=== PATIENT | female | born 1950 | race Hispanic/Latino ===

== ENCOUNTER 2020-06-20 11:54 | Emergency (ER) | payer MEDICARE, SELFPAY ==
[2020-06-20] VITALS (22 sets, daily range): BP systolic 107–208; BP diastolic 56–102; PULSE 62–95; RESP 12–20; TEMP 35.7; O2SAT 95–100
--- NOTE | ~2020-06-20 | CT_ITS ---
EXAMINATION: CT abdomen pelvis w con DATE: 06/20/2020 12:50 INDICATION: Epigastric abdominal pain for one week TECHNIQUE: Computed tomography (CT) of the abdomen and pelvis was performed with 100 cc Omnipaque 350 intravenous contrast. Automated exposure control and iterative reconstruction technique were employe d. Exam dose: 748.07 mGy-cm total exam DLP. COMPARISON: 06/18/2017 CT abdomen pelvis FINDINGS: The lung bases are clear of consolidation. Cardiomegaly. No pericardial or pleural effusion. Small sliding hiatal hernia. Status post cholecystectomy. This likely accounts for mild intrahepatic and extrahepatic bile duct pr ominence. No hepatic, splenic, pancreatic space-occupying mass lesion is evident. Small probable adenomas or hy pertrophy of the left adrenal glands are suggested, stable in appearance since 06/18/2017. Very small upper pole right renal cyst. The kidneys are otherwise unremarkable. Enlarged uterus with fibroid change, including almost 5 cm left fundic fibroid. There is diffuse mild thickening of the urinary bladder wall. There is extensive atherosclerotic calcification of the abdominal aorta and branches but no abdominal aortic aneurysm. No intraperitoneal or retroperitoneal or pelvic mass lesion or adenopathy or ascite s is detected. No bowel obstruction, bowel wall thickening, pneumatosis or intraperitoneal free air. No evidence of appendicitis. There is chronic anterior wedge compression fracture deformity of L1, unchanged since 06/18/2017. Diffuse osteopenia. There are degenerative changes of the thoracic and to a lesser extent the lumbar spine. IMPRESSION: Status post cholecystectomy Small sliding hiatal hernia Very small cortical right renal cyst Enlarged fibroid uterus Cardiomegaly Reviewed, dictated and finalized at [facility]. Reviewed, dictated and finalized at [facility].
--- NOTE | 2020-06-20 12:08 | ECG_ITS ---
Measurements Intervals [place] Rate: 89 P: 44 [place]: 168 QRS: 0 QRSD: 83 T: 33 QT: 346 QTc: 422 Interpretive Statements SINUS RHYTHM BORDERLINE ST ABNORMALITY- ANTEROLATERAL LEADS BASELINE ARTIFACT- I, II, AVR BORDERLINE ECG Electronically Signed On 06-20-2020 13:02:22 CDT by Jorgito Braden D.O.
[2020-06-20 12:21] LABS: Basophils Percent Auto 0.4 % (0.2-1.2); Eosinophils Absolute Auto 0.1 K/mm3 (0-0.3); Eosinophils Percent Auto 0.6 % (0-4.4); Hematocrit 38.7 % (37.0-47.0); Hemoglobin 13.1 g/dL (12.0-15.0); Immature Granulocyte Absolute 0.03 K/mm3 (0.00-0.031); Immature Granulocyte Percent A 0.3 % (0-0.5); Lymphocytes Absolute Auto 1.84 K/mm3 (0.9-3.2); Lymphocytes Percent Auto 18.9 % (18.3-44.2); Mean Corpuscular HGB Conc 33.9 g/dl (32-36); Mean Corpuscular Hemoglobin 30.8 pg (26-34); Mean Corpuscular Volume 91.1 fl (80-100); Mean Platelet Volume 11.5 fl (7.4-10.4); Monocytes Absolute Auto 0.5 K/mm3 (0.1-0.6); Monocytes Percent Auto 5.3 % (2.6-8.5); Neutrophils Absolute Auto 7.3 K/mm3 (1.3-6.7); Neutrophils Percent Auto 74.5 % (45.5-73.1); Platelet Count Result 210 k/mm3 (150-375); Red Blood Count 4.25 M/mm3 (4.2-5.4); Red Cell Distribution Width 12.6 % (11.5-14.5); White Blood Count 9.7 K/mm3 (4.5-10.0)
[2020-06-20 12:32] LABS: Anion Gap 12 mmol/L (8-16); Blood Urea Nitrogen 15 mg/dL (7-17); Calcium 9.6 mg/dL (8.4-10.2); Carbon Dioxide 27 mmol/L (22-30); Chloride 94 mmol/L (98-107); Estimated CRCL calculation 70 ml/min; Estimated Glomerular Filt Rate > 60; Glucose 272 mg/dL (65-105); Potassium 4.8 mmol/L (3.4-5.0); Sodium 133 mmol/L (137-145)
--- NOTE | 2020-06-20 12:32 | ED.GENADULT ---
HPI - General Adult General Chief complaint: Neuro Symptoms/Deficit Stated complaint: facial numbness and ESTES Time Seen by Provider: 06/20/20 12:11 Source: patient and family History of Present Illness HPI narrative: Patient is a 70 y/o female complaining of epigastric abdominal pain for approximately 1 week. Her pain radiates to back. She rates her pain as 10/10. She took Aspirin which did not help with her pain. She has some nausea, but no vomiting or diarrhea. She also some numbness on face, but denies weakness or numbness with her extremities. She is able to ambulate without difficulty. Of note, patient is non Thai speaking and her grandson is translating. Related Data Home Medications Medication Instructions Recorded Confirmed amlodipine 5 mg PO DAILY 06/20/20 atorvastatin [Lipitor] 80 mg PO DAILY 06/20/20 hydrochlorothiazide 12.5 mg PO DAILY 06/20/20 insulin glargine [Lantus U-100 33 unit SUBCUT DAILY 06/20/20 Insulin] levothyroxine [Euthyrox] 88 mcg PO DAILY 06/20/20 metoprolol tartrate 25 mg PO DAILY 06/20/20 Allergies Allergy/AdvReac Type Severity Reaction Status Date / Time No Known Allergies Allergy Verified 12/13/18 09:50 Review of Systems Constitutional: Constitutional: Denies chills, Denies fever(s), Denies headache(s) and Denies weakness Eyes: Eyes: Denies blurry vision ENT: Denies headache(s) and Denies neck pain Cardiovascular: Cardiovascular: Denies chest pain and Denies dyspnea Respiratory: Respiratory: Denies cough and Denies dyspnea Gastrointestinal: Gastrointestinal: Reports abdominal pain, Denies diarrhea, Reports nausea and Denies vomiting Genitourinary: Genitourinary: Denies hematuria and Denies dysuria Musculoskeletal: Musculoskeletal: Denies back pain and Denies neck pain Neurologic: Denies headache(s), Reports numbness and Denies weakness Exam Const: General: no acute distress and well developed Orientation/consciousness: oriented to person, oriented to place, oriented to time and patient oriented x3 HENMT: Head: normocephalic Ears: external ears normal General nose exam: Normal external nose present Eyes: General: appearance normal, both eyes and all related structures Conjunctivae: conjunctivae normal Neck: Neck: normal visual inspection and full ROM Chest: Chest palpation & inspection: normal inspection of the chest and no tenderness Resp: Effort & Inspection: normal respiratory effort Auscultation: clear to auscultation bilaterally Cardio: Rate: regular rate Rhythm: regular rhythm GI: GI Palp: Yes abdominal tenderness (epigastric) and Yes Soft to palpation Skin: General skin exam: normal color and turgor normal Neuro: General: oriented to person, oriented to place, oriented to time and patient oriented x3 Cognition (Neuro): normal cognition Extrem: General: normal to inspection, full ROM and no pedal edema Psych: Appearance: grossly normal Mental Status: mental status grossly normal Affect: normal affect Course Reevaluation(s) Reevaluation #1: Rechecked. Patient still has some abdominal pain. Discussed with patient about lab, CT findings, offered patient admission for observation and GI consultation. Patient declined and wanted to go home and do outpatient follow up. Date: 06/20/20 Time: 15:50 Vital Signs Vital signs: Vital Signs Temperature 35.7 C L 06/20/20 11:57 Pulse Rate 95 06/20/20 11:57 Respiratory Rate 06/20/20 11:57 Blood Pressure 208/102 H 06/20/20 11:57 Pulse Oximetry 100 06/20/20 11:57 Temperature 35.7 C L 06/20/20 11:57 Pulse Rate 72 06/20/20 16:08 Respiratory Rate 17 06/20/20 16:08 Blood Pressure 136/82 06/20/20 15:53 Pulse Oximetry 100 06/20/20 16:08 Medical Decision Making Vital Signs Vital Signs: Vital Signs Temperature 35.7 C L 06/20/20 11:57 Pulse Rate 95 06/20/20 11:57 Respiratory Rate 06/20/20 11:57 Blood Pressure 208/102 H 06/20/20 11:57 Pulse Oximetry 100
[2020-06-20] MEDS: BELLADONNA ALK/PHENOB ELIX 10 ML, MAG HYDROX/ALUMINUM HYD/SIMETH 30 ML, LIDOCAINE HCL 2... PO (13:00)
[2020-06-20 13:29] LABS: Lipase 62 U/L (23-300)
[2020-06-20 13:41] LABS: Alanine Aminotransferase 22 U/L (4-35); Albumin Level 4.6 g/dL (3.5-5.1); Alkaline Phosphatase 132 U/L (38-126); Aspartate Amino Transferase 35 U/L (14-36); Bilirubin,Total 0.6 mg/dL (0.2-1.3)
[2020-06-20 14:33] LABS: Add Urine Microscopic? YES; Appearance Urine Clear (Clear); Bilirubin Urine Negative (Negative); Blood Urine 1+ (Negative); Color Urine Colorless (Yellow); Glucose Urine UA 1+ mg/dL (Negative); Ketones Urine Negative (Negative); Leukocyte Esterase Ur Trace LEU/UL (Negative); Nitrate Urine Negative (Negative); Protein Urine Negative (Negative); RBC Urine 0-2 /hpf (0-2); Specific Grav Ur 1.029 (1.001-1.035); Urobilinogen Urine Negative mg/dL (<2.0); WBC Urine 0-3 /hpf
== END 2020-06-20 16:24 | disposition home or self-care (01) ==
PROVIDERS: Emergency Medicine; Emergency Provider Emergency Medicine
DX: R10.13 Epigastric pain (principal); R20.2 Paresthesia of skin; R94.31 Abnormal electrocardiogram [ECG] [EKG]
CPT/HCPCS: 36415; 74177; 80048; 80076; 81001; 83690; 85025; 93005; 99284; A9270; Q9967

== ENCOUNTER 2020-08-19 00:48 | Outpatient (CLI) | payer MEDICARE, SELFPAY ==
[2020-08-19 18:31] LABS: SARS-CoV-2 RNA PCR Negative
== END 2020-08-19 00:49 | disposition home or self-care (01) ==
LOC: ANHCOVIDDT 00:49
PROVIDERS: PCP Internal Medicine Infectious Disease; Visit Provider Internal Medicine Gastroenterology
DX: Z01.812 Encounter for preprocedural laboratory examination (principal); Z20.828 Contact with and (suspected) exposure to other viral communicable diseases
CPT/HCPCS: 87635; C9803; U0003

== ENCOUNTER 2020-08-22 00:52 | Day surgery (SDC) | payer MEDICARE, SELFPAY ==
[2020-08-10 14:33] VITALS: BMI 35.3
[2020-08-22 08:52] VITALS: BP 160/92; PULSE 81; RESP 18; TEMP 36.6; O2SAT 100
[2020-08-22] MEDS: LACTATED RINGERS 1,000 ML 150 ML IV CONT (09:06)
[2020-08-22 09:09] LABS: Glucose Point of Care 96 (65-105)
[2020-08-22 10:12] VITALS: BP 100/49; PULSE 67; RESP 13; O2SAT 99
--- NOTE | 2020-08-22 10:13 | PM.HPGS ---
History of Present Illness History of Present Illness Consent: Risks, benefits, and alternatives have been discussed and questions answered. Patient agrees to proceed with procedure. Chief complaint: Gerd Narrative: Tata Martinez is a 70 year old female with gerd, dyspepsia and ulcers in the past, slightly better with omeprazole but still symptomatic. Review of Systems Constitutional: Constitutional: Denies headache(s) and Denies weakness Eyes: Eyes: Denies blurry vision ENT: Reports Normal hearing present, Denies headache(s) and Denies neck pain Cardiovascular: Cardiovascular: Denies chest pain and Denies dyspnea Respiratory: Respiratory: Denies dyspnea Gastrointestinal: Gastrointestinal: Reports no additional gastrointestinal complaints Genitourinary: Genitourinary: Denies dysuria Musculoskeletal: Musculoskeletal: Denies neck pain Integumentary/Breasts: Skin/Breast: Denies dry skin Neurologic: Reports Normal hearing present, Denies headache(s) and Denies weakness Psychiatric: Psychiatric: Denies anxiety Endocrine: Endocrine: Denies change in body appearance Hematologic/Lymphatic: Hematologic/Lymphatic: Denies easy bleeding Allergic/Immunologic: Allergic/Immunologic: Denies urticaria PMF Past Medical History Medical History (Updated 08/22/20 @ 10:12 by Mich Maguire MD) Colon cancer screening Diabetes mellitus Erosive esophagitis GERD (gastroesophageal reflux disease) Hypertension Hypothyroid Surgical History Surgical History (Updated 07/05/20 @ 09:34 by Mich Maguire MD) History of cholecystectomy Social History Social History (Updated 07/05/20 @ 09:35 by Mich Maguire MD) Smoking status: Never smoker Alcohol intake: never Substance use: never Substance use type: does not use Living arrangements: with family Meds Home Medications and Allergies Home Medications Medication Instructions Recorded Confirmed Type amlodipine 5 mg PO DAILY 06/20/20 08/10/20 History atorvastatin [Lipitor] 80 mg PO DAILY 06/20/20 08/10/20 History hydrochlorothiazide 12.5 mg PO DAILY 06/20/20 08/10/20 History insulin glargine [Lantus U-100 33 unit SUBCUT DAILY 06/20/20 08/10/20 History Insulin] levothyroxine [Euthyrox] 88 mcg PO DAILY 06/20/20 08/10/20 History metoprolol tartrate 25 mg PO DAILY 06/20/20 08/10/20 History lisinopril 40 mg PO DAILY 08/10/20 08/10/20 History omeprazole 40 mg capsule,delayed 40 mg PO BID #60 cap 08/22/20 Rx release sucralfate 1 gram tablet 1 g PO TID #90 tablet 08/22/20 Rx Allergies Allergy/AdvReac Type Severity Reaction Status Date / Time No Known Allergies Allergy Verified 08/22/20 08:51 Vital Signs Vital Signs - 24 hr 08/22/20 08:52 Temperature 97.9 F Pulse Rate 81 Respiratory Rate 18 Blood Pressure 160/92 H Pulse Oximetry 100 Exam Const: General: comfortable and no acute distress HENMT: General nose exam: Normal nares present Eyes: General: appearance normal, both eyes and all related structures Neck: Neck: no JVD Resp: Auscultation: clear to auscultation bilaterally Cardio: Rate: regular rate Rhythm: regular rhythm GI: Inspection: non-distended GI Palp: Yes Soft to palpation Skin: General skin exam: normal color Neuro: General: gait normal Speech: normal speech Extrem: General: normal to inspection Psych: Mental Status: mental status grossly normal Assessment and Plan Assessment and plan (1) GERD (gastroesophageal reflux disease): Code(s): K21.9 - Gastro-esophageal reflux disease without esophagitis Status: Acute Assessment and Plan: will proceed with egd
[2020-08-22 10:22] VITALS: BP 106/51; PULSE 66; RESP 14; O2SAT 100
[2020-08-22 10:32] VITALS: BP 130/70; PULSE 71; RESP 22; O2SAT 100
[2020-08-22 10:36] LABS: Glucose Point of Care 97 (65-105)
== END 2020-08-22 10:51 | disposition home or self-care (01) ==
PROVIDERS: PCP Internal Medicine Infectious Disease; Visit Provider Internal Medicine Gastroenterology
PROC: 0DJ08ZZ Inspection of Upper Intestinal Tract, Via Natural or Artificial Opening Endoscopic (ICD-10-PCS; CPT 43235; principal; 2020-08-22 10:30)
DX: K21.00 Gastro-esophageal reflux disease with esophagitis, without bleeding (principal); K44.9 Diaphragmatic hernia without obstruction or gangrene; K29.70 Gastritis, unspecified, without bleeding; R10.12 Left upper quadrant pain; I10 Essential (primary) hypertension; E11.9 Type 2 diabetes mellitus without complications; E03.9 Hypothyroidism, unspecified; Z79.4 Long term (current) use of insulin
CPT/HCPCS: 43239; 88305; J2001; J2704; J7120

== ENCOUNTER 2020-10-10 11:29 | Emergency (ER) | payer MEDICARE, SELFPAY ==
--- NOTE | ~2020-10-10 | XR_ITS ---
EXAMINATION: XR chest 1V portable EXAM DATE: 10/10/2020 13:24 INDICATION: Shortness of breath. TECHNIQUE: Portable AP frontal chest x-ray was obtained. Comparison is made to prior examination from 12/13/2018. FINDINGS: The lungs are clear. There are no pleural effusions. Cardiac silhouette is prominent but magnified on this AP technique. There is no pneumothorax suspected. There are mild bony degenerati ve changes. IMPRESSION: No acute cardiopulmonary findings. Reviewed, dictated and finalized at [facility]. [employer]ATION CONSULTANT
[2020-10-10 11:34] VITALS: BP 153/93; PULSE 78; RESP 16; TEMP 36.9; O2SAT 100
--- NOTE | 2020-10-10 12:08 | ECG_ITS ---
Measurements Intervals [place] Rate: 68 P: 30 CT: 194 QRS: -5 QRSD: 77 T: 18 QT: 382 QTc: 407 Interpretive Statements SINUS RHYTHM LOW QRS VOLTAGE IN PRECORDIAL LEADS BASELINE ARTIFACT- III, V4 BORDERLINE ECG Electronically Signed On 10-10-2020 12:57:17 [employer]IC DEVELOPER by Jorgito Braden D.O.
[2020-10-10 12:25] LABS: Basophils Percent Auto 0.4 % (0.2-1.2); Eosinophils Absolute Auto 0.1 K/mm3 (0-0.3); Eosinophils Percent Auto 1.4 % (0-4.4); Hematocrit 36.2 % (37.0-47.0); Immature Granulocyte Absolute 0.03 K/mm3 (0.00-0.031); Immature Granulocyte Percent A 0.4 % (0-0.5); Lymphocytes Absolute Auto 1.85 K/mm3 (0.9-3.2); Lymphocytes Percent Auto 25.7 % (18.3-44.2); Mean Corpuscular HGB Conc 35.9 g/dl (32-36); Mean Corpuscular Volume 86.2 fl (80-100); Mean Platelet Volume 11.3 fl (7.4-10.4); Monocytes Absolute Auto 0.4 K/mm3 (0.1-0.6); Monocytes Percent Auto 5.8 % (2.6-8.5); Neutrophils Absolute Auto 4.8 K/mm3 (1.3-6.7); Neutrophils Percent Auto 66.3 % (45.5-73.1); Platelet Count Result 223 k/mm3 (150-375); Red Cell Distribution Width 11.9 % (11.5-14.5); White Blood Count 7.2 K/mm3 (4.5-10.0)
[2020-10-10 12:37] LABS: Anion Gap 5 mmol/L (8-16); Blood Urea Nitrogen 14 mg/dL (7-17); Calcium 9.2 mg/dL (8.4-10.2); Carbon Dioxide 32 mmol/L (22-30); Chloride 92 mmol/L (98-107); Estimated CRCL calculation 83 ml/min; Estimated Glomerular Filt Rate > 60; Glucose 207 mg/dL (65-105); Sodium 129 mmol/L (137-145)
--- NOTE | 2020-10-10 13:28 | ED.GENADULT ---
HPI - General Adult General Chief complaint: Recheck/Abnormal Lab/Rx Stated complaint: high blood pressure Time Seen by Provider: 10/10/20 12:08 Source: patient and family History of Present Illness HPI narrative: Patient is a 70 y/o female complaining high blood pressure for several days. She states that her BP was 190s/110s. She also has some tongue tingling. In addition, she has been having some abdominal bloating sensation for several months. Of note, patient does not speak [place] and her son provided translation. Related Data Home Medications Medication Instructions Recorded Confirmed amlodipine 5 mg PO DAILY 06/20/20 08/10/20 atorvastatin [Lipitor] 80 mg PO DAILY 06/20/20 08/10/20 hydrochlorothiazide 12.5 mg PO DAILY 06/20/20 08/10/20 insulin glargine [Lantus U-100 33 unit SUBCUT DAILY 06/20/20 08/10/20 Insulin] levothyroxine [Euthyrox] 88 mcg PO DAILY 06/20/20 08/10/20 metoprolol tartrate 25 mg PO DAILY 06/20/20 08/10/20 lisinopril 40 mg PO DAILY 08/10/20 08/10/20 Allergies Allergy/AdvReac Type Severity Reaction Status Date / Time No Known Allergies Allergy Verified 08/22/20 08:51 Review of Systems Constitutional: Constitutional: Denies chills, Denies fever(s), Denies headache(s) and Denies weakness Eyes: Eyes: Denies blurry vision ENT: Denies headache(s) and Denies neck pain Cardiovascular: Cardiovascular: Denies chest pain and Denies dyspnea Respiratory: Respiratory: Denies cough and Denies dyspnea Gastrointestinal: Gastrointestinal: Denies abdominal pain, Reports bloating, Denies diarrhea, Denies nausea and Denies vomiting Genitourinary: Genitourinary: Denies hematuria and Denies dysuria Musculoskeletal: Musculoskeletal: Denies back pain and Denies neck pain Neurologic: Denies headache(s), Reports tingling (tongue tingling) and Denies weakness PMFSH Past Medical History Medical History Colon cancer screening Diabetes mellitus Erosive esophagitis GERD (gastroesophageal reflux disease) Hypertension Hypothyroid Surgical History Surgical History History of cholecystectomy Social History Social History Smoking status: Never smoker Alcohol intake: never Substance use: never Substance use type: does not use Exam Const: General: no acute distress and well developed Orientation/consciousness: oriented to person, oriented to place, oriented to time and patient oriented x3 HENMT: Head: normocephalic Ears: external ears normal General nose exam: Normal external nose present Eyes: General: appearance normal, both eyes and all related structures Conjunctivae: conjunctivae normal Neck: Neck: normal visual inspection and full ROM Chest: Chest palpation & inspection: normal inspection of the chest and no tenderness Resp: Effort & Inspection: normal respiratory effort Auscultation: clear to auscultation bilaterally Cardio: Rate: regular rate Rhythm: regular rhythm GI: GI Palp: No abdominal tenderness and Yes Soft to palpation Skin: General skin exam: normal color and turgor normal Neuro: General: oriented to person, oriented to place, oriented to time and patient oriented x3 Cognition (Neuro): normal cognition Motor exam (neuro): 5/5 motor strength present throughout Sensory Exam: normal sensation Extrem: General: normal to inspection, full ROM and no pedal edema Psych: Appearance: grossly normal Mental Status: mental status grossly normal Affect: normal affect Course Reevaluation(s) Reevaluation #1: Discussed with patient and son about test results. Informed patient about low sodium, which may be due to diuretic medication. Instructed patient to follow up with PCP to discuss medications. Date: 10/10/20 Time: 14:05 Vital Signs Vital signs: Vital Signs Temperature 36.9 C 10/10/20 11:34 Pulse Rate 78 10/10
[2020-10-10 13:52] LABS: NT Pro B Type Natriuretic Pept 150 PG/ML (5-100)
[2020-10-10 14:22] VITALS: BP 99/69; PULSE 63; RESP 18; O2SAT 97
== END 2020-10-10 14:23 | disposition home or self-care (01) ==
PROVIDERS: Emergency Provider Emergency Medicine; PCP Internal Medicine Infectious Disease
DX: I10 Essential (primary) hypertension (principal); E11.9 Type 2 diabetes mellitus without complications; K21.9 Gastro-esophageal reflux disease without esophagitis; E03.9 Hypothyroidism, unspecified; Z79.4 Long term (current) use of insulin
CPT/HCPCS: 36415; 71045; 80048; 83880; 85025; 93005; 99283

== ENCOUNTER 2021-01-20 04:00 | Emergency (ER) | payer MEDICARE, SELFPAY ==
--- NOTE | ~2021-01-20 | CT_ITS ---
EXAMINATION: CT abdomen pelvis w con DATE: 01/20/2021 06:19 INDICATION: Epigastric abdominal pain TECHNIQUE: Computed tomography (CT) of the abdomen and pelvis was performed with 100 cc Omnipaque 350 intravenous contrast. Automated exposure control and iterative reconstruction technique were employe d. Exam dose: 1034.56 mGy-cm total exam DLP. COMPARISON: 06/20/[address] abdomen pelvis FINDINGS: Middle lobe calcified pulmonary granuloma. Mild bilateral dependent lower lobe atelectasis. Small sliding hiatal hernia. Cardiomegaly. Coronary atherosclerotic calcifications. No pericardial or pleural effusion. Status post cholecystectomy. Cholecystectomy may account for mild prominence of the intrahepatic and extrahepatic bile ducts, mildly increased since 06/11/2020; recommend correlation with serum bilirubin . Differential diagnosis includes progression of adaptive changes following cholecystectomy, developi ng ampullary stricture or occult choledocholithiasis. MRCP or ERCP correlation may be of assistance a s clinically appropriate. No hepatic space-occupying mass lesion is evident. Normal splenic size. No pancreatic mass lesion, ca lcification or ductal dilatation. Chronic mild nodularity of right adrenal gland and stable small left adrenal nodule since 06/20/2020. No renal mass lesion or urinary tract calculus or hydroureteronephrosis. The urinary bladder is diste nded, extending slightly above the level of the umbilicus. No urinary bladder wall thickening. Uterin e enlargement and calcified uterine fibroid change are again noted. There is extensive calcification of the abdominal aorta and at the origins of the superior mesenteric , celiac and left renal arteries, iliac and femoral arterial calcification. No abdominal aortic aneur ysm. No intraperitoneal or retroperitoneal or pelvic mass lesion or adenopathy or ascites is evident. Borderline caliber of some left small bowel segments with air-fluid levels, which may be normal varia tion or possibly secondary to enteritis. Approximately prominent of fecal material throughout much of the colon. No bowel obstruction, bowel w all thickening, pneumatosis or intraperitoneal free air is evident. Chronic stable old L1 fracture deformity. IMPRESSION: Status post cholecystectomy Mildly increased intrahepatic and extra hepatic bile duct dilatation since 06/20/2020; differential di agnosis includes post postcholecystectomy state, developing capillary stricture or noncalcified estela docholithiasis. Consider correlation with serum bilirubin. MRCP or ERCP evaluation may be of assistan ce. Small sliding hiatal hernia Borderline caliber and occasional air-fluid levels of small bowel in left abdomen, which may be ronaldo l variation or secondary to mild enteritis Reviewed, dictated and finalized at [facility]. Reviewed, dictated and finalized at [facility]. IMPRESSION: Status post cholecystectomy Mildly increased intrahepatic and extra hepatic bile duct dilatation since 06/20; differential diagnosis includes post postcholecystectomy state, developi ng capillary stricture or noncalcified choledocholithiasis. Consider correlatio n with serum bilirubin. MRCP or ERCP evaluation may be of assistance. Small sliding hiatal hernia Borderline caliber and occasional air-fluid levels of small bowel in left abdom en, which may be normal variation or secondary to mild enteritis
[2021-01-20 04:03] VITALS: BP 170/63; PULSE 72; RESP 16; TEMP 36.2; O2SAT 98
[2021-01-20 04:33] VITALS: BP 134/63; PULSE 67; RESP 16; O2SAT 100
[2021-01-20] MEDS: MORPHINE SULFATE (*CRX) 4 MG/ML INJ IV PUSH (05:22)
[2021-01-20 05:42] LABS: Basophils Percent Auto 0.4 % (0.2-1.2); Eosinophils Absolute Auto 0.2 K/mm3 (0-0.3); Eosinophils Percent Auto 1.6 % (0-4.4); Hematocrit 37.1 % (37.0-47.0); Hemoglobin 12.6 g/dL (12.0-15.0); Immature Granulocyte Absolute 0.03 K/mm3 (0.00-0.031); Immature Granulocyte Percent A 0.3 % (0-0.5); Lymphocytes Absolute Auto 1.33 K/mm3 (0.9-3.2); Lymphocytes Percent Auto 14.1 % (18.3-44.2); Mean Corpuscular Volume 91.4 fl (80-100); Mean Platelet Volume 12.2 fl (7.4-10.4); Monocytes Absolute Auto 0.5 K/mm3 (0.1-0.6); Monocytes Percent Auto 5.3 % (2.6-8.5); Neutrophils Absolute Auto 7.4 K/mm3 (1.3-6.7); Neutrophils Percent Auto 78.3 % (45.5-73.1); Platelet Count Result 180 k/mm3 (150-375); Red Blood Count 4.06 M/mm3 (4.2-5.4); Red Cell Distribution Width 12.4 % (11.5-14.5); White Blood Count 9.5 K/mm3 (4.5-10.0)
[2021-01-20 05:57] LABS: INR 0.9; Partial Thromboplastin Time 30.6 SECONDS (22.3-36.8); Prothrombin Time 12.4 Seconds (11.1-14.7)
[2021-01-20 06:02] LABS: Alanine Aminotransferase 27 U/L (4-35); Albumin Level 4.2 g/dL (3.5-5.1); Alkaline Phosphatase 85 U/L (38-126); Aspartate Amino Transferase 45 U/L (14-36); Bilirubin,Total 0.4 mg/dL (0.2-1.3); Blood Urea Nitrogen 19 mg/dL (7-17); Calcium 9.5 mg/dL (8.4-10.2); Carbon Dioxide 30 mmol/L (22-30); Chloride 96 mmol/L (98-107); Estimated CRCL calculation 83 ml/min; Estimated Glomerular Filt Rate > 60; Glucose 180 mg/dL (65-105); Lipase 60 U/L (23-300); Potassium 4.5 mmol/L (3.4-5.0)
[2021-01-20 06:06] LABS: Troponin I < 0.012 ng/mL (0.000-0.034)
--- NOTE | 2021-01-20 06:36 | ED.GENADULT ---
HPI - General Adult General Chief complaint: Unspecified <Peña Aguilar MD - Last Filed: 01/20/21 06:54> Stated complaint: high blood pressure <Peña Aguilar MD - Last Filed: 01/20/21 06:54> Time Seen by Provider: 01/20/21 04:24 <Peña Aguilar MD - Last Filed: 01/20/21 06:54> History of Present Illness HPI narrative: Patient is a 70-year-old female who presents ER with complaints of epigastric pain as well as feeling of tingling. Patient woke from sleep and was having some discomfort going up towards her chest. It made her anxious. She then started feeling tingling in her arms and legs. Patient started taking her blood pressure was in the 170s systolic. She continued to take her blood pressure until it was in the 200s systolic. This alarmed her and she opted to come to the ER. Patient is also been having some chronic epigastric pain that radiates into her left side. She has been seeing her PCP for this. She is supposed to have an outpatient CT of her abdomen pelvis to further evaluate this. Patient denies association with eating or drinking. No fevers or chills or sweats. No urinary symptomology. Patient is not having any chest pain or chest pressure at this time. She does continue to have some mild epigastric discomfort that has been chronic for her. <Peña Aguilar MD - Last Filed: 01/20/21 06:54> Related Data Home medications: Home Medications Medication Instructions Recorded Confirmed amlodipine 5 mg PO DAILY 06/20/20 08/10/20 atorvastatin [Lipitor] 80 mg PO DAILY 06/20/20 08/10/20 hydrochlorothiazide 12.5 mg PO DAILY 06/20/20 08/10/20 insulin glargine [Lantus U-100 33 unit SUBCUT DAILY 06/20/20 08/10/20 Insulin] levothyroxine [Euthyrox] 88 mcg PO DAILY 06/20/20 08/10/20 metoprolol tartrate 25 mg PO DAILY 06/20/20 08/10/20 lisinopril 40 mg PO DAILY 08/10/20 08/10/20 loratadine 10 mg tablet 10 mg PO DAILY 12/28/20 rosuvastatin 40 mg tablet 40 mg PO DAILY 12/28/20 <Peña Aguilar MD - Last Filed: 01/20/21 06:54> Allergies/adverse reactions: Allergies Allergy/AdvReac Type Severity Reaction Status Date / Time No Known Allergies Allergy Verified 12/28/20 13:17 <Peña Aguilar MD - Last Filed: 01/20/21 06:54> Review of Systems Review of Systems: All systems reviewed & are unremarkable except as noted in HPI and below <Peña Aguilar MD - Last Filed: 01/20/21 06:54> Constitutional: Constitutional: Denies chills and Denies fever(s) <Peña Aguilar MD - Last Filed: 01/20/21 06:54> Respiratory: Respiratory: Denies cough and Denies dyspnea <Peña Aguilar MD - Last Filed: 01/20/21 06:54> Gastrointestinal: Gastrointestinal: Reports abdominal pain, Denies heartburn, Denies diarrhea, Denies nausea and Denies vomiting <Peña Aguilar MD - Last Filed: 01/20/21 06:54> Genitourinary: Genitourinary: Denies nocturia, Denies dysuria and Denies flank pain <Peña Aguilar MD - Last Filed: 01/20/21 06:54> Psychiatric: Psychiatric: Reports anxiety <Peña Aguilar MD - Last Filed: 01/20/21 06:54> [facility] Past Medical History Medical History: Medical History Colon cancer screening Diabetes mellitus Erosive esophagitis GERD (gastroesophageal reflux disease) Hypertension Hypothyroid <Peña Aguilar MD - Last Filed: 01/20/21 06:54> Surgical History Surgical History: Surgical History History of cholecystectomy <Peña Aguilar MD - Last Filed: 01/20/21 06:54> Social History Social History: Social History Smoking status: Never smoker Alcohol intake: never Substance use: never Substance use type: does not use <Peña Aguilar MD - Last Filed: 01/20/21 06:54> Exam Narrative: Exam Narrative: GENERAL: Well-appea
[2021-01-20 06:39] LABS: Anion Gap 6 mmol/L (8-16); Sodium 132 mmol/L (137-145)
--- NOTE | 2021-01-20 06:39 | ECG_ITS ---
Measurements Intervals [place] Rate: 69 P: 29 [place]: 173 QRS: -8 QRSD: 86 T: 14 QT: 414 QTc: 445 Interpretive Statements SINUS RHYTHM BASELINE WANDER- I, II, AVR, AVL, AVF, V4-V6 BORDERLINE ECG Electronically Signed On 01-20-2021 8:48:03 CDT by Jorgito Braden D.O.
--- NOTE | 2021-01-20 07:19 | PC.NURSE ---
Pt resting on cart, reports 6/10 pain to stomach and neck feels calmer , denies N/V, +dizziness after morphine administration. Bedside commode placed in room
[2021-01-20 07:42] LABS: Troponin I < 0.012 ng/mL (0.000-0.034)
[2021-01-20 09:06] LABS: Add Urine Microscopic? YES; Appearance Urine Clear (Clear); Bilirubin Urine Negative (Negative); Blood Urine Negative (Negative); Color Urine Straw (Yellow); Glucose Urine UA 2+ mg/dL (Negative); Ketones Urine Negative (Negative); Leukocyte Esterase Ur Negative LEU/UL (Negative); Nitrate Urine Negative (Negative); Protein Urine Negative (Negative); RBC Urine 0-2 /hpf (0-2); Specific Grav Ur 1.018 (1.001-1.035); Squamous Epithelial Cell Urine Rare /hpf (Few); Urobilinogen Urine Negative mg/dL (<2.0); WBC Urine 0-3 /hpf
[2021-01-20 09:46] VITALS: BP 150/74; PULSE 72; RESP 17; O2SAT 100
== END 2021-01-20 09:48 | disposition home or self-care (01) ==
PROVIDERS: Emergency Medicine; Emergency Provider General Practice; PCP Internal Medicine Infectious Disease
DX: K21.9 Gastro-esophageal reflux disease without esophagitis (principal); K22.10 Ulcer of esophagus without bleeding; E11.9 Type 2 diabetes mellitus without complications; I10 Essential (primary) hypertension; E03.9 Hypothyroidism, unspecified; Z79.4 Long term (current) use of insulin; R94.31 Abnormal electrocardiogram [ECG] [EKG]; R93.2 Abnormal findings on diagnostic imaging of liver and biliary tract; K44.9 Diaphragmatic hernia without obstruction or gangrene
CPT/HCPCS: 36415; 74177; 80053; 81001; 83690; 84484; 85025; 85610; 85730; 93005; 96374; 99284; J2270; Q9967

== ENCOUNTER 2021-03-06 07:44 | Outpatient (CLI) | payer MEDICARE, SELFPAY ==
--- NOTE | ~2021-03-06 | MR_ITS ---
EXAMINATION: MR MRCP wo/w con/w 3D wo ind DATE: 03/06/2021 09:28 INDICATION: Abnormal findings on diagnostic imaging TECHNIQUE: Magnetic resonance imaging (MRI) of the abdomen was performed without and with 15 mL Multi parrish intravenous contrast. Sequences included coronal T2-weighted SS-FSE, coronal T2-weighted FS SS- FSE, coronal T2-weighted FS FIESTA, axial T2-weighted FS FIESTA, axial T2-weighted FIESTA, sagittal T 2-weighted SS-FSE, axial T1-weighted dual-echo FSPGR, axial T2-weighted SS-FSE, axial T1-weighted LAV A, axial T2-weighted STIR FSE. Thick-slab T2-weighted FRFSE-XL images were obtained for magnetic reso nance cholangiopancreatography (MRCP). Rotating maximum intensity projection 3-D reconstructions of t he volumetric data were created by the technologist. Postcontrast sequences included a time course of axial T1-weighted LAVA. COMPARISON: CT dated 01/20/2021 FINDINGS: ABDOMEN MRI: Mild cardiomegaly. No pericardial or pleural effusion. Small sliding-type hiatal hernia. Status post cholecystectomy with susceptibility artifact associated with surgical clips at the gallbladder fossa. Liver, spleen, pancreas, bilateral adrenal glands and kidneys are normal. Visualized bowels are unre markable. No pathologically enlarged abdominal lymphadenopathy. Chronic L1 compression fracture with 20% anterior vertebral body height loss. ABDOMEN MRCP: Intrahepatic biliary tree is normal. There is dilation of the common hepatic duct to 12 mm tapering t o 7 mm the common bile duct. The main pancreatic duct measures up to 5 mm near the ampulla decreasing to 2.5 cm at the head of the pancreas and 10 mm the body. There are multiple visible tiny pancreatic ductal side branches suggesting sequela of chronic pancreatitis. No intraluminal filling defects in the bile or pancreatic ducts. IMPRESSION: 1. Dilation the common hepatic and common bile ducts without evident choledocholithiasis which may be related to prior cholecystectomy and sphincterotomy. 2. Mild dilation of the distalmost main pancreatic duct tapering to normal caliber throughout the rem ainder of the pancreas but with multiple visible tiny pancreatic ductal side branches which suggests sequela of chronic pancreatitis. 3. Cardiomegaly. 4. Small sliding-type hiatal hernia. Reviewed, dictated and finalized at location A. IMPRESSION: 1. Dilation the common hepatic and common bile ducts without evident choledocho lithiasis which may be related to prior cholecystectomy and sphincterotomy. 2. Mild dilation of the distalmost main pancreatic duct tapering to normal zack hemal throughout the remainder of the pancreas but with multiple visible tiny east creatic ductal side branches which suggests sequela of chronic pancreatitis. 3. Cardiomegaly. 4. Small sliding-type hiatal hernia.
[2021-03-06 11:41] LABS: Estimated Glomerular Filt Rate > 60
== END 2021-03-06 07:45 | disposition home or self-care (01) ==
PROVIDERS: PCP Internal Medicine Infectious Disease; Visit Provider Internal Medicine Gastroenterology
DX: R10.10 Upper abdominal pain, unspecified (principal); R93.2 Abnormal findings on diagnostic imaging of liver and biliary tract; I51.7 Cardiomegaly; K44.9 Diaphragmatic hernia without obstruction or gangrene
CPT/HCPCS: 74183; 76376; A9577

== ENCOUNTER 2021-06-02 13:14 | Emergency (ER) | payer MEDICARE, SELFPAY ==
--- NOTE | ~2021-06-02 | XR_ITS ---
EXAMINATION: XR chest 2V EXAM DATE: 06/02/2021 14:25 INDICATION: Cough, chest pain. TECHNIQUE: Frontal and lateral projections of the chest obtained and reviewed. Comparison is made to prior examination from 10/10/2020. FINDINGS: The lungs are clear. There are no pleural effusions. The cardiomediastinal silhouette is within normal limits. There is no pneumothorax suspected. The bones and soft tissues are unremarkab le. There are cholecystectomy clips. IMPRESSION: No acute cardiopulmonary findings. Reviewed, dictated and finalized at location A.
[2021-06-02 13:56] VITALS: BP 112/64; PULSE 87; RESP 20; TEMP 36.3; O2SAT 99
--- NOTE | 2021-06-02 14:00 | ECG_ITS ---
Measurements Intervals [place] Rate: 86 P: 24 VA: 176 QRS: -19 QRSD: 89 T: 0 QT: 367 QTc: 440 Interpretive Statements SINUS RHYTHM LOW QRS VOLTAGE IN PRECORDIAL LEADS BORDERLINE R WAVE PROGRESSION, ANTERIOR LEADS BORDERLINE T WAVE ABNORMALITY- INFERIOR LEADS BASELINE WANDER- V1, V5-V6 BORDERLINE ECG Electronically Signed On 06-02-2021 15:47:37 CDT by Jorgito Braden D.O.
[2021-06-02 14:18] LABS: Basophils Percent Auto 0.3 % (0.2-1.2); Eosinophils Absolute Auto 0.1 K/mm3 (0-0.3); Eosinophils Percent Auto 1.8 % (0-4.4); Hematocrit 38.1 % (37.0-47.0); Hemoglobin 12.8 g/dL (12.0-15.0); Immature Granulocyte Absolute 0.03 K/mm3 (0.00-0.031); Immature Granulocyte Percent A 0.4 % (0-0.5); Lymphocytes Absolute Auto 1.53 K/mm3 (0.9-3.2); Lymphocytes Percent Auto 19.5 % (18.3-44.2); Mean Corpuscular HGB Conc 33.6 g/dl (32-36); Mean Corpuscular Hemoglobin 30.1 pg (26-34); Mean Corpuscular Volume 89.6 fl (80-100); Mean Platelet Volume 11.2 fl (7.4-10.4); Monocytes Absolute Auto 0.6 K/mm3 (0.1-0.6); Monocytes Percent Auto 7.8 % (2.6-8.5); Neutrophils Absolute Auto 5.5 K/mm3 (1.3-6.7); Neutrophils Percent Auto 70.2 % (45.5-73.1); Platelet Count Result 207 k/mm3 (150-375); Red Blood Count 4.25 M/mm3 (4.2-5.4); White Blood Count 7.8 K/mm3 (4.5-10.0)
[2021-06-02 14:28] LABS: INR 0.9; Prothrombin Time 12.1 Seconds (11.1-14.7)
[2021-06-02 14:29] LABS: Partial Thromboplastin Time 28.5 SECONDS (22.3-36.8)
[2021-06-02 14:31] LABS: Anion Gap 9 mmol/L (8-16); Blood Urea Nitrogen 19 mg/dL (7-17); Carbon Dioxide 27 mmol/L (22-30); Chloride 93 mmol/L (98-107); Estimated Glomerular Filt Rate > 60; Glucose 188 mg/dL (65-110); Potassium 3.8 mmol/L (3.4-5.0); Sodium 129 mmol/L (137-145)
[2021-06-02 14:42] LABS: Troponin I < 0.012 ng/mL (0.000-0.034)
[2021-06-02 16:42] VITALS: BP 99/60; PULSE 82; RESP 17; O2SAT 100
[2021-06-02] MEDS: ASPIRIN 81 MG CHEWABLE TABLET 324 MG PO (16:42)
[2021-06-02 17:11] LABS: Troponin I < 0.012 ng/mL (0.000-0.034)
[2021-06-02 17:20] VITALS: BP 100/45; PULSE 78; RESP 18; O2SAT 100
[2021-06-02] MEDS: BENZONATATE 100 MG CAPSULE PO (17:42)
[2021-06-02 18:21] VITALS: BP 129/64; PULSE 73; RESP 18; O2SAT 100
--- NOTE | 2021-06-02 18:32 | ED.GENADULT ---
HPI - General Adult General Chief complaint: Upper Respiratory Infection Stated complaint: cough Time Seen by Provider: 06/02/21 16:34 History of Present Illness HPI narrative: Patient presents with chief complaint of dry cough and chest soreness that increased yesterday. Patient states that her symptoms began on . She stated she has been tested for Covid and it was negative. Patient states last night she had a coughing. And felt tightness in her throat and became concerned. Patient states she wanted to make sure she did not have pneumonia or bronchitis. Patient states that her cough is dry. She denies shortness of breath or chest pain. She does report some chest soreness with coughing. Patient denies any other symptoms. Related Data Home Medications Medication Instructions Recorded Confirmed amlodipine 5 mg PO DAILY 06/20/20 08/10/20 atorvastatin [Lipitor] 80 mg PO DAILY 06/20/20 08/10/20 hydrochlorothiazide 12.5 mg PO DAILY 06/20/20 08/10/20 metoprolol tartrate 25 mg PO DAILY 06/20/20 08/10/20 rosuvastatin 40 mg tablet 40 mg PO DAILY 12/28/20 dapagliflozin [Farxiga] mg 06/02/21 dulaglutide [Trulicity] mg SUBCUT 06/02/21 levothyroxine [Euthyrox] 06/02/21 lisinopril 06/02/21 loratadine mg 06/02/21 Allergies Allergy/AdvReac Type Severity Reaction Status Date / Time No Known Allergies Allergy Verified 06/02/21 16:28 Review of Systems Review of Systems: CONSTITUTIONAL: Denies fever, chills, or sweats. EYES: Denies visual changes, redness, or discharge. ENT: Denies rhinorrhea, congestion, sore throat, or otalgia. CARDIOVASCULAR: Reports chest soreness denies chest pain, palpitations, or edema. RESPIRATORY: Reports cough denies dyspnea. GASTROINTESTINAL: Denies abdominal pain, nausea, vomiting, or diarrhea. GENITOURINARY: Denies dysuria or hematuria. SKIN: Denies rash or itching. MUSCULOSKELETAL: Denies back pain, joint pain, or myalgia. NEUROLOGIC: Denies headache, numbness, dizziness, or weakness. PSYCHIATRIC: Denies anxiety or depression. [facility] Past Medical History Medical History (Updated 06/02/21 @ 18:36 by Nenita Fairchild PA-C) Abnormal computerized tomography of biliary tract BMI 36.0-36.9,adult Colon cancer screening Diabetes mellitus Erosive esophagitis GERD (gastroesophageal reflux disease) Hypertension Hypothyroid Upper abdominal pain Surgical History Surgical History History of cholecystectomy Social History Social History Smoking status: Never smoker Alcohol intake: never Substance use: never Substance use type: does not use Exam Narrative: GENERAL: Well-appearing, well-nourished, and in no acute distress. HEAD: Normocephalic, atraumatic. EYES: PERRLA and EOMI. ENT: Nares clear, no rhinorrhea or epistaxis. Mucous membranes moist. Oropharynx without tonsillar hypertrophy exudate or other lesions. Bilateral TMs pearly cole nonbulging NECK: Supple. No adenopathy or masses. CHEST: Clear to auscultation. No respiratory distress. No wheezes rales or rhonchi HEART: Regular rate and rhythm. No murmur heard. Normal peripheral pulses. EXTREMITIES: Normal range of motion. No edema. SKIN: Warm, dry, no rash. NEURO: No focal deficits. Alert and oriented x3. PSYCH: Normal mood and affect. Course Vital Signs Vital signs: Vital Signs Temperature 97.4 F L 06/02/21 13:56 Pulse Rate 87 06/02/21 13:56 Respiratory Rate 20 06/02/21 13:56 Blood Pressure 112/64 06/02/21 13:56 Pulse Oximetry 99 06/02/21 13:56 Temperature 97.4 F L 06/02/21 13:56 Pulse Rate 73 06/02/21 18:21 Respiratory Rate 18 06/02/21 18:21 Blood Pressure 129/64 06/02/21 18:21 Pulse Oximetry 100 06/02/21 18:21 Medical Decision Making MDM Narrative Medical decision making narrative: Patient is hemodynamically stable. Patient is not hypoxic. Patient
[2021-06-02 18:39] VITALS: BP 111/62; PULSE 74; RESP 18; O2SAT 100
== END 2021-06-02 18:45 | disposition home or self-care (01) ==
PROVIDERS: Emergency Medicine; Emergency Provider Emergency Medicine; PCP Internal Medicine Infectious Disease
DX: B34.9 Viral infection, unspecified (principal); E11.9 Type 2 diabetes mellitus without complications; K21.00 Gastro-esophageal reflux disease with esophagitis, without bleeding; K22.10 Ulcer of esophagus without bleeding; I10 Essential (primary) hypertension; E03.9 Hypothyroidism, unspecified; R94.31 Abnormal electrocardiogram [ECG] [EKG]; Z79.899 Other long term (current) drug therapy; R07.89 Other chest pain
CPT/HCPCS: 36415; 71046; 80048; 84484; 85025; 85610; 85730; 93005; 99284; A9270

== ENCOUNTER 2022-08-28 16:16 | Outpatient (CLI) | payer MEDICARE, SELFPAY ==
--- NOTE | ~2022-08-28 | MM_ITS ---
EXAMINATION: MM screening scar BI w moira HISTORY: Screening mammogram TECHNIQUE: Craniocaudal and mediolateral oblique 3-D tomosynthesis images were obtained and synthetic 2-D images were generated. CAD analysis was submitted and interpreted. COMPARISON: No prior mammogram is available for comparison at this institution. BREAST PARENCHYMAL COMPOSITION: There are scattered areas of fibroglandular density. FINDINGS: RIGHT BREAST: No suspicious mass, calcification, or architectural distortion are identified to sugges t malignancy. LEFT BREAST: There are indeterminate calcifications in the middle third of the outer left breast. IMPRESSION: 1. Indeterminate left breast calcifications which may represent the patient's baseline however no com parison is currently available. 2. Comparison with prior mammograms is necessary. BI-RADS Category 0: Incomplete: Needs comparison with prior mammograms. Reviewed, dictated and finalized at location A. ICAL DIRECTOR IMPRESSION: 1. Indeterminate left breast calcifications which may represent the patient's b aseline however no comparison is currently available. 2. Comparison with prior mammograms is necessary. BI-RADS Category 0: Incomplete: Needs comparison with prior mammograms.
== END 2022-08-28 16:17 | disposition home or self-care (01) ==
LOC: ANHIMG 16:20
PROVIDERS: PCP Internal Medicine Infectious Disease; Visit Provider Internal Medicine Infectious Disease
DX: Z12.31 Encounter for screening mammogram for malignant neoplasm of breast (principal)
CPT/HCPCS: 77063; 77067

== ENCOUNTER 2022-12-18 10:34 | Outpatient (CLI) | payer MEDICARE, SELFPAY ==
--- NOTE | ~2022-12-18 | XR_ITS ---
Left Shoulder Technique: AP and scapular Y views were obtained. Clinical History: Pain Findings: No fracture or dislocation is seen. Osseous alignment is anatomic. The glenohumeral and acr omioclavicular joint spaces are preserved. Soft tissues are unremarkable. Impression: Unremarkable left shoulder radiographs. Reviewed, dictated and finalized at [facility]. Impression: Unremarkable left shoulder radiographs.
== END 2022-12-18 10:35 | disposition home or self-care (01) ==
LOC: ANHIMG 10:36
PROVIDERS: PCP Internal Medicine Infectious Disease; Visit Provider Internal Medicine Infectious Disease
DX: M25.512 Pain in left shoulder (principal)
CPT/HCPCS: 73030

== ENCOUNTER 2023-06-06 10:09 | Outpatient (CLI) | payer MEDICARE, SELFPAY ==
--- NOTE | ~2023-06-06 | XR_ITS ---
XR foot LT min 3V DATE: 06/06/2023 10:47 INDICATION: Wound at bottom of first digit TECHNIQUE: 4 views of left foot COMPARISON: None FINDINGS: There is extensive arterial calcification of the anterior and posterior tibial, dorsalis pe dis, metatarsal and digital arteries, most likely due to diabetes. There is a soft tissue ulceration along the inferomedial aspect of the first digit. No periosteal matt ction or bone destruction is noted to suggest osteomyelitis. Probable old fracture deformity at the base of the proximal phalanx of the fifth digit. No recent fra cture or dislocation is detected. Mild osteoarthritis at the first metatarsophalangeal joint. Plantar and posterior calcaneal enthesopathy. IMPRESSION: Soft tissue ulceration along the inferomedial aspect of the first digit Extensive arterial calcifications including digital artery calcifications, suggesting diabetes Old fracture deformity, base of proximal phalanx of fifth digit Mild osteoarthritis at first metatarsophalangeal joint Prominent posterior and to a prominent plantar calcaneal enthesopathy Reviewed, dictated and finalized at location A. IMPRESSION: Soft tissue ulceration along the inferomedial aspect of the first d igit Extensive arterial calcifications including digital artery calcifications, sugg esting diabetes Old fracture deformity, base of proximal phalanx of fifth digit Mild osteoarthritis at first metatarsophalangeal joint Prominent posterior and to a prominent plantar calcaneal enthesopathy
== END 2023-06-06 10:10 | disposition home or self-care (01) ==
PROVIDERS: PCP Internal Medicine Infectious Disease; Visit Provider Internal Medicine Infectious Disease
DX: M79.672 Pain in left foot (principal); L97.529 Non-pressure chronic ulcer of other part of left foot with unspecified severity; I73.9 Peripheral vascular disease, unspecified; M19.072 Primary osteoarthritis, left ankle and foot; M77.32 Calcaneal spur, left foot
CPT/HCPCS: 73630

== ENCOUNTER 2023-10-09 09:07 | Outpatient (CLI) | payer MEDICARE, SELFPAY ==
--- NOTE | ~2023-10-09 | XR_ITS ---
EXAMINATION: XR_CERV2-3V_CR DATE: 10/09/2023 10:18 INDICATION: Bilateral cervical lymphadenopathy. TECHNIQUE: 3 views of cervical spine were obtained. COMPARISON: None. FINDINGS: Bone alignment is normal. Vertebral body heights and intervertebral disc heights are normal . There is multilevel mild to moderate facet joint osteoarthritis, worse in the lower cervical spine. There is multilevel mild uncovertebral joint osteoarthritis. No central canal stenosis or prevertebr al soft tissue swelling. IMPRESSION: 1. Mild cervical spondylosis. Reviewed, dictated and finalized at location E. URER OF [place]
--- NOTE | ~2023-10-09 | MR_ITS ---
EXAMINATION: MR shoulder LT wo con DATE: 10/09/2023 10:09 INDICATION: Left shoulder pain TECHNIQUE: Magnetic resonance imaging (MRI) of the left shoulder was performed without intravenous co ntrast. Sequences included axial PD-weighted FS FSE, coronal oblique PD-weighted FS FSE, coronal obli que T2-weighted FS FSE, sagittal PD-weighted FS FSE, and sagittal T1-weighted SE. COMPARISON: None. FINDINGS: Coracoacromial arch: The acromion undersurface is curved in morphology (type II). The coracoacromial ligament is normal. M oderate acromioclavicular osteoarthritis. Rotator cuff: Severe supraspinatus and moderate infraspinatus tendinopathy. There is an intrasubstance a longitudin al split tearing of the posterior supraspinatus and anterior infraspinatus tendons along which extend a few small intrasubstance ganglion cysts. No discrete tear margin or frankly discontinuous tendon f ibers identified. The infraspinatus tendon is normal. Mild subscapularis tendinopathy without discret e tear. Normal rotator cuff muscle bulk and signal. Biceps tendon, glenoid labrum and glenohumeral cartilage: Moderate tendinopathy of the intra-articular portion of the long head biceps tendon. Degenerative tea ring of the superior glenoid labrum. There is mild partial-thickness cartilage loss with smooth chond ral surface along the glenoid greatest on the cephalad third . Additional partial thickness cartilage loss with smooth chondral surface along the inferomedial aspect of the humeral head. Fluid: Moderate-sized glenohumeral joint effusion with proportional extension of fluid along the long head b iceps tendon sheath. No loose osteochondral bodies. There is a small amount of fluid in the subacromi al/subdeltoid bursa consistent with mild bursitis. Additional bursitis with larger quantity of fluid in the subcoracoid bursa. Bones: No fracture or pathologic marrow replacing process. Mild cystic change along the superior facet of th e greater tuberosity likely related to chronic rotator cuff disease. Prominent soft tissue including thickening of the biceps shelly sling replacing the normal T1 hyperintense fat at the rotator cuff in terval which could be related to partial tear of the biceps shelly sling and/or adhesive capsulitis. IMPRESSION: 1. Severe supraspinatus, moderate infraspinatus tendinopathy and mild subscapularis tendinopathy with multiple small intrasubstance ganglion cysts extending along the longitudinal split tears of the pos terior supraspinatus and anterior infraspinatus tendons. 2. Mild glenohumeral osteoarthritis with degenerative tearing of the superior glenoid labrum and like ly reactive moderate sized glenohumeral joint effusion. 3. Moderate tendinopathy of the intra-articular long head biceps tendon. 4. Thinning of the biceps shelly sling and increased soft tissue at the rotator cuff interval which c ould be related to partial tear of the biceps shelly sling and/or adhesive capsulitis, the latter whi ch is a clinical diagnosis. 5. Subacromial/subdeltoid and subcoracoid bursitis. Reviewed, dictated and finalized at location A. FACILITY ENGINEER IMPRESSION: 1. Severe supraspinatus, moderate infraspinatus tendinopathy and mild subscapul sixto tendinopathy with multiple small intrasubstance ganglion cysts extending a long the longitudinal split tears of the posterior supraspinatus and anterior i nfraspinatus tendons. 2. Mild glenohumeral osteoarthritis with degenerative tearing of the superior g lenoid labrum and likely reactive moderate sized glenohumeral joint effusion. 3. Moderate tendinopathy of the intra-articular long head biceps tendon. 4. Thinning of the biceps shelly sling and increased soft tissue at the rotator cuff interval which could be related to partial tear of the biceps shelly slin g and/or
== END 2023-10-09 09:08 ==
LOC: GOSHIMG 09:09
PROVIDERS: PCP Internal Medicine Infectious Disease; Visit Provider Internal Medicine Infectious Disease
DX: M19.012 Primary osteoarthritis, left shoulder (principal); M47.22 Other spondylosis with radiculopathy, cervical region
CPT/HCPCS: 72040; 73221

== ENCOUNTER 2023-11-13 15:12 | Emergency (ER) | payer MEDICARE, SELFPAY ==
--- NOTE | ~2023-11-13 | XR_ITS ---
EXAMINATION: XR foot LT 2V DATE: 11/13/2023 16:55 INDICATION: Left foot pain. TECHNIQUE: 2 views of left foot were obtained. COMPARISON: Left foot radiographs 06/06/2023 FINDINGS: Bone alignment is normal. No fracture. There is mild osteoarthritis of first and fifth meta tarsophalangeal joints and some of the interphalangeal joints. There are enthesophytes at the posteri or and plantar aspects of calcaneal tuberosity. IMPRESSION: 1. Mild polyarticular osteoarthritis. Reviewed, dictated and finalized at location E. CH MARKETING SPECIALIST
--- NOTE | ~2023-11-13 | XR_ITS ---
EXAMINATION: XR knee LT 3V DATE: 11/13/2023 16:55 INDICATION: Left knee pain. TECHNIQUE: 3 views of left knee were obtained. COMPARISON: None. FINDINGS: Bone alignment is normal. No fracture. There is moderate osteoarthritis of medial and barker lofemoral compartments and mild osteoarthritis of lateral compartment. There is a moderate-sized knee joint effusion. IMPRESSION: 1. Moderate left knee osteoarthritis. 2. Moderate-sized left knee joint effusion. Reviewed, dictated and finalized at location E. E SEXUAL ASSAULT
--- NOTE | ~2023-11-13 | XR_ITS ---
EXAMINATION: XR hip LT 2V w AP pelvis DATE: 11/13/2023 16:55 INDICATION: Left hip pain. TECHNIQUE: An anteroposterior view of the pelvis and 2 views of left hip were obtained. COMPARISON: CT abdomen and pelvis 01/20/2021 FINDINGS: There is lumbar levocurvature and mild spondylosis. No fracture. There is moderate osteoart hritis of the hips. IMPRESSION: 1. Moderate osteoarthritis of the hips. Reviewed, dictated and finalized at location E. NESS ATTORNEY
[2023-11-13 15:23] VITALS: BP 107/47; PULSE 71; RESP 20; TEMP 36.3; O2SAT 100
[2023-11-13] MEDS: HYDROcodone/acetaminophen (*CRX) 5-325 MG TABLET 1 TAB PO (16:34)
[2023-11-13 17:04] VITALS: BP 172/95; PULSE 75; RESP 18; O2SAT 100
--- NOTE | 2023-11-13 18:13 | ED.LOWEXIN ---
HPI - Extremity Injury (Lower) General Chief Complaint: Extremity Injury, Lower Stated Complaint: Fall, left leg pain Time Seen by Provider: 11/13/23 15:54 History of Present Illness HPI Narrative: Patient is a 73-year-old female who presents ER with pain in her left knee. She was walking yesterday on the sidewalk when her cane hit the ground and she fell onto her right side. She is able to get back up and walking to episcopal. After episcopal she stood up and had pain in her knee that has progressed. She has swelling to the area. She also reports pain to her foot and her hip. No chest pain or chest pressure. She did not strike her head or lose consciousness. Related Data Home Medications Medication Instructions Recorded Confirmed amlodipine 5 mg tablet 5 mg PO DAILY 06/20/20 08/01/22 atorvastatin 80 mg tablet (Lipitor) 80 mg PO DAILY 06/20/20 08/01/22 hydrochlorothiazide 12.5 mg tablet 12.5 mg PO DAILY 06/20/20 08/01/22 metoprolol tartrate 25 mg tablet 25 mg PO DAILY 06/20/20 08/01/22 rosuvastatin 40 mg tablet 40 mg PO DAILY 12/28/20 08/01/22 dapagliflozin propanediol 10 mg mg 06/02/21 08/01/22 tablet (Farxiga) dulaglutide 0.75 mg/0.5 mL mg subcut 06/02/21 08/01/22 subcutaneous pen injector (Trulicity) levothyroxine 88 mcg tablet 06/02/21 08/01/22 (Euthyrox) lisinopril 20 mg tablet 06/02/21 08/01/22 loratadine 10 mg tablet mg 06/02/21 08/01/22 Allergies Allergy/AdvReac Type Severity Reaction Status Date / Time No Known Allergies Allergy Verified 11/13/23 15:49 Review of Systems Constitutional: Constitutional: Reports no additional constitutional complaints Musculoskeletal: Musculoskeletal: Denies back pain, Reports arthralgias, Reports joint swelling and Denies muscle cramps Neurologic: Denies syncope, Denies headache(s), Denies focal weakness and Denies numbness PMFSH Past Medical History Medical History Abnormal computerized tomography of biliary tract BMI 36.0-36.9,adult Colon cancer screening Diabetes mellitus Erosive esophagitis GERD (gastroesophageal reflux disease) Hypertension Hypothyroid Upper abdominal pain Surgical History Surgical History History of cholecystectomy Social History Social History (System 10/02/23 @ 12:30 by Yovanny Campbell) Smoking status: Never smoker Alcohol intake: never Substance use: never Substance use type: does not use Living arrangements: with family Exam Narrative: GENERAL: Well-appearing, well-nourished, and in no acute distress. HEAD: Normocephalic, atraumatic. EXTREMITIES: Left lower extremity with fusion the knee and anterior joint line tenderness. Mild discomfort at the left hip but able to perform range of motion both the knee and the hip. Plantar fascial tenderness of the left foot and no tenderness to the ankle or the 5th metatarsal. SKIN: Warm, dry, no rash. NEURO: Alert and oriented x3. PSYCH: Normal mood and affect. Course Course Emergency Course: Pain improving with [place]. Discussed imaging results. Discussed with patient and daughter conservative management with Serafin wrap versus knee immobilizer verses compression sleeve that can be bought elsewhere. They would prefer the Serafin wrap. Will give scheduled anti-inflammatories as well as p.r.n. tramadol. Needs follow-up with PCP in case she needs MRI they verbalized understanding Of this. Vital Signs Vital signs: Vital Signs Temperature 97.3 F L 11/13/23 15:23 Pulse Rate 71 11/13/23 15:23 Respiratory Rate 20 11/13/23 15:23 Blood Pressure 107/47 L 11/13/23 15:23 Pulse Oximetry 100 11/13/23 15:23 Oxygen Delivery Room Air 11/13/23 15:23 Temperature 97.3 F L 11/13/23 15:23 Pulse Rate 75 11/13/23 17:04 Respiratory Rate 18 11/13/23 17:04 Blood Pressure 172/95 H 11/13/23 17:04 Pulse Oximetry 100 11/13/23 17:04 O
[2023-11-13 18:24] VITALS: BP 165/89; PULSE 68; RESP 18; O2SAT 99
== END 2023-11-13 18:26 | disposition home or self-care (01) ==
PROVIDERS: Emergency Provider Emergency Medicine; PCP Internal Medicine Infectious Disease
DX: S83.92XA Sprain of unspecified site of left knee, initial encounter (principal); I10 Essential (primary) hypertension; E11.9 Type 2 diabetes mellitus without complications; E03.9 Hypothyroidism, unspecified; K21.9 Gastro-esophageal reflux disease without esophagitis; K20.0 Eosinophilic esophagitis; Z90.49 Acquired absence of other specified parts of digestive tract; M16.0 Bilateral primary osteoarthritis of hip; M17.12 Unilateral primary osteoarthritis, left knee; M19.072 Primary osteoarthritis, left ankle and foot; Z79.85 Long-term (current) use of injectable non-insulin antidiabetic drugs; W18.30XA Fall on same level, unspecified, initial encounter
CPT/HCPCS: 73502; 73562; 73620; 99284; A9270

== ENCOUNTER 2024-05-11 13:24 | Outpatient (CLI) | payer MEDICARE, SELFPAY ==
--- NOTE | ~2024-05-11 | US_ITS ---
EXAMINATION: US pelvic complete w TV DATE: 05/11/2024 14:25 INDICATION: Mass of uterus. TECHNIQUE: Multiple transabdominal and transvaginal sonographic images of the pelvis were obtained. COMPARISON: CT abdomen and pelvis 01/20/2021, MRI 03/06/2021 FINDINGS: TRANSABDOMINAL ULTRASOUND: The uterus measures 9.6 x 9.3 x 5.9 cm. There is physiologic free fluid in the pelvis. TRANSVAGINAL ULTRASOUND: The endometrial complex is not well visualized. There are 4.8 cm and 5.5 cm subserosal fibroids. The ovaries are not visualized. IMPRESSION: 1. Uterine fibroids. 2. Ovaries not visualized. Reviewed, dictated and finalized at location A.
== END 2024-05-11 13:25 | disposition home or self-care (01) ==
PROVIDERS: PCP Internal Medicine Infectious Disease; Visit Provider Emergency Medicine
DX: N85.8 Other specified noninflammatory disorders of uterus (principal); D25.9 Leiomyoma of uterus, unspecified
CPT/HCPCS: 76830; 76856

== ENCOUNTER 2024-09-08 15:46 | Outpatient (CLI) | payer MEDICARE, SELFPAY ==
--- NOTE | ~2024-09-08 | MM_ITS ---
EXAMINATION: MM screening scar BI w moira HISTORY: Screening TECHNIQUE: Craniocaudal and mediolateral oblique 3-D tomosynthesis images were obtained and synthetic 2-D images were generated. CAD analysis was submitted and interpreted. COMPARISON: Not dense: There are scattered areas of fibroglandular density. BREAST PARENCHYMAL COMPOSITION: There are scattered areas of fibroglandular density. FINDINGS: There is no evidence of suspicious mass, calcification, or architectural distortion to sugg est malignancy in either breast. There has been no suspicious interval change. IMPRESSION: 1. No mammographic evidence of malignancy. 2. Recommend routine screening mammography in one year. BI-RADS Category 1: Negative Reviewed, dictated and finalized at location B. EAST ARCHEOLOGY PROFESSOR
== END 2024-09-08 15:47 | disposition home or self-care (01) ==
LOC: ANHIMG 15:49
PROVIDERS: PCP Internal Medicine Infectious Disease; Visit Provider Internal Medicine Infectious Disease
DX: Z12.31 Encounter for screening mammogram for malignant neoplasm of breast (principal)
CPT/HCPCS: 77063; 77067

== ENCOUNTER 2025-02-24 02:59 | Day surgery (SDC) | payer MEDICARE, SELFPAY ==
[2025-02-17 15:51] VITALS: BMI 30.7
--- NOTE | 2025-02-17 15:54 | PC.NURSE ---
Spoke with _patient thru interpreter_ regarding medication Eliquis. Patient verbalizes understanding that the last dose is to be taken on 02/20/25 and the Endoscopist will instruct them when to restart after the procedure. Spoke with daughter Meaghan also and she will verify with patient.
--- OUTSIDE RECORDS SUMMARY | 2025-02-24 03:02 | XMS_ITS | Data Portability ---
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 Pt stated that they eat a lot of fruits, fish and vegetables. Pt states that sometimes her blood sugar is 140 at night and she said that she is supposed to take 10 units of insulin but she takes 8 sometimes and wakes up with blood sugar of 77. Pt states that she has a glucose monitor but did not bring it to the appointment. Pt states that her blood pressure machine broke. Pt states that she takes [place] 3, One a Day, and Vitamin C. Pt states that she noticed when she eats eggs, her blood sugar decreases. Pt states that she takes her medication. I asked this patient if they had any questions for me and they said no. I also asked the patient what they normally eat and they state they rarely eats meat/protein (mainly fish-salmon, tuna, steak, tilapia, chicken, eggs, beans), fruits (berries, raspberries, blueberries, blackberries, 1/2 banana), vegetables (potatoes, sweet potatoes, salad, avocado), healthy fats (sunflower seeds, sesame seeds, almonds, jayden seeds, pumpkin seeds), grains (rice, quinoa). Beverages- Water, green juice (celery, spinach, belkofski juice), tea, no soda/juice Snacks- nuts and seeds Exercise- Limited Exercise due to her foot Labs: HgA1c- 7.6 (12/16/2024), 8.8 (08/05/2024), 7.1 (08/2017), 6.7 (06/2017) Wt. 166 lb (12/16/2024) Blood Pressure: 200/100, 178/88, usually <130/90 Nutrition Diagnosis: Food and nutrition related knowledge deficit related to limited previous nutrition education as evidenced by HbA1c 7.6%. Intervention/Mon itoring/Evaluati on: We talked about MyPlate - Eating more nonstarchy vegetables (carrots, cucumbers, tomatoes, broccoli, cauliflower, etc), whole grains (brown rice, oatmeal, popcorn; potatoes, peas, corn) and lean proteins (chicken, fish, turkey, lean beef, beans, eggs, peanut butter). I educated patient on the importance of not skipping meals. We talked about reading the nutrition facts label. We talked about monitoring carbohydrates to have at least 45-60g of carbohydrates at each meal. We talked about eating less saturated fats, sodium, and added sugars. I encouraged them to drink more water, sugar free drinks/pour-ins, and sparkling water. We talked about meeting the 150 minutes of exercise each week or 30 minutes/day, including chair exercises and moving arms. [employer] Educational Materials given in person: Community Health Worker Rack Card, MyPlate Plate, Understanding Blood Pressure, You and Your Blood Pressure, Counting Carbohydrates, Heart Healthy Consistent Carbohydrate, Nutrition, Plan Your Portions, Best Foods For You: Making Healthy Food Choices and Healthy Snack Choices, Nutrition for Life, Recipes, and Meal Plan. Goals: 1. Continue water intake 2. Monitor Carbohydrates (45-60g/meal) Thank you for this referral! Sincerely, Daisha Madrid MS, RDN, LDN Registered Dietitian [facility] [email or web address] Not available 12/27/2024 10:52:52 Plan of Treatment Reminders Order Date Submit Date Provider Last Modified By Organization Details Last Modified Time Details Appointments ANY 30 2024 02:00P Naman Florez MD Not available Not available Not available Lab HbA1c (hemoglob in A1c), blood 2024 025 LUIS ANTONIO [facility], [address], [address], [place], [address], 12/23/2024 13:11:42 lipid panel, serum 2024 025 LUIS ANTONIO [facility], [address], [address], [place], [address], 12/23/2024 13:11:39 basic metabolic 1998 panel, serum or plasma 2024 025 LUIS ANTONIO [facility], [address], [address], [place], [address], 12/23/2024 13:11:41 CBC 2024 025 LUIS ANTONIO [facility], [address], [address], [place], [address], 12/23/2024 13:11:44 TSH, ultra-sen sitive, serum 2024 025 LUIS ANTONIO [facility], [address], [address], [place], [address], 12/23/2024 13:11:43 albumin/c reatinine , mass ratio, urine 2023 024 LUIS ANTONIO [facility], [address], [address], [place], [address], 09/07/2024 10:16:35 HbA1c (hemoglob in A1c), blood 2023 024 [facility] ANTONIO [facility], [address], [address], [place], [address], 08/13/2024 09:15:38 lipid panel, serum 2023 024 [facility], [address], [place], [address], 08/13/2024 09:15:35 basic metabolic 1998 panel, serum or plasma 2023 024 [facility] [address] [address], [place], [address], 08/13/2024 09:15:36 CBC 2023 024 [facility] [address], [address], [place], [address], 08/13/2024 09:15:39 urinalysi s macro (dipstick ) panel, urine 2023 024 [facility], [facility] [address], [place], [address], 04/29/2024 06:20:44 culture, urine 2023 024 [facility], [facility] [address], [address], [place], [address], 04/29/2024 20:08:53 Referral nutrition ist/dieti kellie referral - Uncontrol led DM, 2023 024 [email or web address] [facility] Literature Professor Nutrition Dietitian, [address], [place], [address], 12/22/2024 17:04:45 Procedures None recorded. Surgeries None recorded. Imaging MAMMO, screening , digital, bilateral 2023 024 [facility], [address], [address], [place], [address], 09/08/2024 17:53:30 US, pelvis, transabdo nikolay + transvagi nal - uterine mass on CT consisten t with fibroids, history of ovarian cysts 2023 024 [facility]), [address] [place] [address] [address], [place], [address], 05/12/2024 08:36:51 Medication Orders metformin ER 500 mg tablet,ex tended release 24 hr 2023 024 [facility], [address] [facility], [place], [address], 05/05/2024 16:41:40 Farxiga 10 mg tablet 2023 024 [facility], [address] [facility], [place], [address], 05/05/2024 16:41:38 aspirin 81 mg tablet,de layed release 2023 024 [facility], [facility], [place], [address], 05/05/2024 16:41:42 hydrochlo rothiazid e 25 mg tablet 2023 024 [facility], [address] [facility], [place], [address], 05/05/2024 16:41:39 metoprolo l tartrate 25 mg tablet 2023 024 [facility], [address] [facility], [place], [address], 05/05/2024 16:41:41 rosuvasta tin 40 mg tablet 2023 024 [facility], [address] [facility], [place], [address], 05/05/2024 16:41:42 levothyro xine 125 mcg tablet 2023 024 [facility], [address] [facility], [place], [address], 05/05/2024 16:41:39 Patient TargetsNo targets recorded. 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[employer] [facility] follow up for the EGD and colonoscopy Follow up in 4 months and PRN oajao Not available 05/05/2024 16:43:17 Detailed visit oajao Not available 0 05/05/2024 17:46:00 09/06/2024 [id number] aprenda acerca d e las pruebas de detecci n del c ncer de seno - [learning about breast cancer screening] oajao Not available 09/06/2024 10:29:01 [employer]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 (30 minutes) oajao Not available 09/06/2024 10:49:03 11/30/2024 [id number] aprenda acerca d e la diabetes tipo 2 - [learning about type 2 diabetes] oajao Not available 11/30/2024 14:59:11 diabetes tipo 2: instrucciones de cuidado - [type 2 diabetes: care instructions] oajao Not available 11/30/2024 14:59:11 hipotiroidismo: instrucciones de cuidado - [hypothyroidism: care instructions] oajao Not available 11/30/2024 14:59:11 Labs Endocrinolo gy (Scheduled) Hematology (Scheduled) Follow up in 3 months and PRN oajao Not available 11/30/2024 15:01:29 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 Refer ral for Type 2 diabetes mellitus Uncontrolled DM, Referring Physician: Alison Florez, Internal Medicine, Encounter Date: 09/06/2024 Results Created Date Observation Date Name Description Value Unit Range Abnormal Flag Note LastModifiedBy Organization Detail LastModifiedTime 04/12/20 24 04/13/2024 TSH RFX ON ABNOR MAL TO FREE T4 TSH 4.480 uIU/m L 0.450- 4.500 Not Available [facility] ([facility]) [address] [facility], [place], [address], 04/13/2024 13:11:24 04/28/20 24 04/29/2024 URINA LYSIS , ROUTI NE specific gravity 1.024 1.005- 1.030 Not Available [facility] ([facility]) [address] [facility], [place], [address], 04/29/2024 06:20:44 04/28/20 24 04/29/2024 URINA LYSIS , ROUTI NE pH 6.0 5.0-7. 5 Not Available [facility] ([facility]) [address] [facility], [place], [address], 04/29/2024 06:20:44 04/28/20 24 04/29/2024 URINA LYSIS , ROUTI NE urine-color YELLOW yellow Not Available [facility] ([facility]) [address] [place], [address], 04/29/2024 06:20:44 04/28/20 24 04/29/2024 URINA LYSIS , ROUTI NE appearance CLEAR clear Not Available [facility] ([facility]) [address] [place], [address], 04/29/2024 06:20:44 04/28/20 24 04/29/2024 URINA LYSIS , ROUTI NE WBC esterase NEGATI VE negati ve Not Available [facility] ([facility]) [address] [place], [address], 04/29/2024 06:20:44 04/28/20 24 04/29/2024 URINA LYSIS , ROUTI NE protein NEGATI VE negati ve/tra ce Not Available [facility] ([facility]) [address] [facility], [place], [address], 04/29/2024 06:20:44 04/28/20 24 04/29/2024 URINA LYSIS , ROUTI NE glucose 3+ negati ve abnormal Not Available [facility] ([facility]) [address] [facility], [place], [address], 04/29/2024 06:20:44 04/28/20 24 04/29/2024 URINA LYSIS , ROUTI NE ketones NEGATI VE negati ve Not Available [facility] ([facility]) [address] [facility], [place], [address], 04/29/2024 06:20:44 04/28/20 24 04/29/2024 URINA LYSIS , ROUTI NE occult blood NEGATI VE negati ve Not Available [facility] ([facility]) [address] [place], [address], 04/29/2024 06:20:44 04/28/20 24 04/29/2024 URINA LYSIS , ROUTI NE bilirubin NEGATI VE negati ve Not Available [facility] ([facility]) [address] [facility], [place], [address], 04/29/2024 06:20:44 04/28/20 24 04/29/2024 URINA LYSIS , ROUTI NE urobilinogen ,semi-qn 0.2 mg/dL 0.2-1. 0 Not Available [facility] ([facility]) [address] [place], [address], 04/29/2024 06:20:44 04/28/20 24 04/29/2024 URINA LYSIS , ROUTI NE nitrite, urine NEGATI VE negati ve Not Available [facility] ([facility]) [address] [place], [address], 04/29/2024 06:20:44 04/28/20 24 04/29/2024 URINA LYSIS , ROUTI NE microscopic examination COMMEN T Micro scopi c not indic ated and not perfo rmed. Not Available [facility] ([facility]) [address] [facility], [place], [address], 04/29/2024 06:20:44 04/28/20 24 04/29/2024 URINE CULTU RE, ROUTI NE urine culture, routine FINAL REPORT Not Available [facility] ([facility]) [address] [facility], [place], [address], 04/29/2024 20:08:53 04/28/20 24 04/29/2024 URINE CULTU RE, ARMIDA NE result 1 COMMEN T Mixed uroge nital elida Less than 10,00 0 colon ies/m L Not Available [facility] ([facility]) [address] [facility], [place], [address], 04/29/2024 20:08:53 08/05/20 24 08/05/2024 Hemog lobin A1c/H emogl obin. total in Blood hemoglobin A1C, POC 8.8 % low: 4%high : 5.6% Hemog lobin A1C, POC 8.8 4.0 - 5.6 % Not Available Not Available 11/19/2024 09:47:32 08/12/20 24 08/13/2024 LIPID PANEL cholesterol, total 154 mg/dL 100-19 9 Not Available [facility] ([facility]) [address] [facility], [place], [address], 08/13/2024 09:15:35 08/12/20 24 08/13/2024 LIPID PANEL triglyceride s 102 mg/dL 0-149 Not Available [facility] ([facility]) [address] [facility], [place], [address], 08/13/2024 09:15:35 08/12/20 24 08/13/2024 LIPID PANEL HDL cholesterol 52 mg/dL >39 Not Available [facility] ([facility]) [address] [facility], [place], [address], 08/13/2024 09:15:35 08/12/20 24 08/13/2024 LIPID PANEL VLDL cholesterol corinne 19 mg/dL 5-40 Not Available [facility] ([facility]) [address] [facility], [place], [address], 08/13/2024 09:15:35 08/12/20 24 08/13/2024 LIPID PANEL LDL chol calc ([facility]) 83 mg/dL 0-99 Not Available [facility] ([facility]) [address] [facility], [place], [address], 08/13/2024 09:15:35 08/12/20 24 08/13/2024 BASIC METAB OLIC PANEL (7) glucose 78 mg/dL 70-99 Not Available [facility] ([facility]) [address] [facility], [place], [address], 08/13/2024 09:15:36 08/12/20 24 08/13/2024 BASIC METAB OLIC PANEL (7) BUN 16 mg/dL 8-27 Not Available [facility] ([facility]) [address] [facility], [place], [address], 08/13/2024 09:15:36 08/12/20 24 08/13/2024 BASIC METAB OLIC PANEL (7) creatinine 0.67 mg/dL 0.57-1 .00 Not Available [facility] ([facility]) [address] [place], [address], 08/13/2024 09:15:36 08/12/20 24 08/13/2024 BASIC METAB OLIC PANEL (7) eGFR 92 mL/mi n/1.7 3 >59 Not Available [facility] ([facility]) [address] [place], [address], 08/13/2024 09:15:36 08/12/20 24 08/13/2024 BASIC METAB OLIC PANEL (7) BUN/creatini ne ratio 24 12-28 Not Available [facility] ([facility]) [address] [place], [address], 08/13/2024 09:15:36 08/12/20 24 08/13/2024 BASIC METAB OLIC PANEL (7) sodium 139 mmol/ L 134-14 4 Not Available [facility] ([facility]) [address] [facility], [place], [address], 08/13/2024 09:15:36 08/12/20 24 08/13/2024 BASIC METAB OLIC PANEL (7) potassium 4.2 mmol/ L 3.5-5. 2 Not Available [facility] ([facility]) [address] [facility], [place], [address], 08/13/2024 09:15:36 08/12/20 24 08/13/2024 BASIC METAB OLIC PANEL (7) chloride 97 mmol/ L 96-106 Not Available [facility] ([facility]) [address] [place], [address], 08/13/2024 09:15:36 08/12/20 24 08/13/2024 BASIC METAB OLIC PANEL (7) carbon dioxide, total 27 mmol/ L 20-29 Not Available [facility] ([facility]) [address] [place], [address], 08/13/2024 09:15:36 08/12/20 24 08/13/2024 HEMOG LOBIN A1C hemoglobin A1C 9.2 % 4.8-5. 6 above high normal Predi abete s: 5.7 - 6.4 Diabe sophie: >6.4 Glyce puja contr ol for adult s with diabe sophie: <7.0 Not Available [facility] ([facility]) [address] [facility], [place], [address], 08/13/2024 09:15:37 08/12/20 24 08/13/2024 CBC, PLATE LET, NO DIFFE RENTI AL WBC 7.4 x10e3 /uL 3.4-10 .8 Eff ectiv e Decem hemal 2023 profi chani [id number] WBC will be made* * non-o rdera ble as a stand -sendy e order code. Not Available [facility] ([facility]) [address] [facility], [place], [address], 08/13/2024 09:15:39 08/12/2008/13/2024 CBC, PLATE LET, NO DIFFE RENTI AL RBC 4.78 x10e6 /uL 3.77-5 .28 Not Available [facility] ([facility]) [address] [facility], [place], [address], 08/13/2024 09:15:39 08/12/20 24 08/13/2024 CBC, PLATE LET, NO DIFFE RENTI AL hemoglobin 14.5 g/dL 11.1-1 5.9 Not Available [facility] ([facility]) [address] [facility], [place], [address], 08/13/2024 09:15:39 08/12/2008/13/2024 CBC, PLATE LET, NO DIFFE RENTI AL hematocrit 44.7 % 34.0-4 6.6 Not Available [facility] ([facility]) [address] [facility], [place], [address], 08/13/2024 09:15:39 08/12/2008/13/2024 CBC, PLATE LET, NO DIFFE RENTI AL MCV 94 fL 79-97 Not Available [facility] ([facility]) [address] [place], [address], 08/13/2024 09:15:39 08/12/20 24 08/13/2024 CBC, PLATE LET, NO DIFFE RENTI AL MCH 30.3 pg 26.6-3 3.0 Not Available [facility] ([facility]) [address] [place], [address], 08/13/2024 09:15:39 08/12/20 24 08/13/2024 CBC, PLATE LET, NO DIFFE RENTI AL MCHC 32.4 g/dL 31.5-3 5.7 Not Available [facility] ([facility]) [address] [facility], [place], [address], 08/13/2024 09:15:39 08/12/20 24 08/13/2024 CBC, PLATE LET, NO DIFFE RENTI AL RDW 12.9 % 11.7-1 5.4 Not Available [facility] ([facility]) [address] [place], [address], 08/13/2024 09:15:39 08/12/20 24 08/13/2024 CBC, PLATE LET, NO DIFFE RENTI AL platelets 207 x10e3 /uL 150-45 0 Not Available [facility] ([facility]) [address] [place], [address], 08/13/2024 09:15:39 09/06/20 24 09/07/2024 ALBUM IN/CR EATIN INE RATIO ,URIN E creatinine, urine 27.2 mg/dL notest ab. Not Available [facility] ([facility]) [address] [place], [address], 09/07/2024 10:16:35 09/06/20 24 09/07/2024 ALBUM IN/CR EATIN INE RATIO ,URIN E albumin, urine 17.7 ug/mL notest ab. Not Available [facility] ([facility]) [address] [place], [address], 09/07/2024 10:16:35 09/06/20 24 09/07/2024 ALBUM IN/CR EATIN INE RATIO ,URIN E alb/creat ratio 65 mg/g_ creat 0-29 above high normal Trudy l: 0 - 29 Moder ately incre ased: 30 - 300 Sever nikki incre ased: >300 Not Available [facility] ([facility]) [address] [facility], [place], [address], 09/07/2024 10:16:35 12/17/19 25 12/16/2024 Hemog lobin A1c/H emogl obin. total in Blood hemoglobin A1C, POC 7.6 % low: 4%high : 5.6% Hemog lobin A1C, POC 7.6 4.0 - 5.6 % Not Available Not Available 12/22/2024 17:04:36 12/17/19 25 12/16/2024 Hemog lobin A1c/H emogl obin. total in Blood interpretati on and review of laboratory results Abnorm al Not Available Not Available 17:04:36 12/23/19 25 12/23/2024 LIPID PANEL cholesterol, total 164 mg/dL 100-19 9 Not Available [facility] ([facility]) [address] [place], [address], 12/23/2024 13:11:39 12/23/19 25 12/23/2024 LIPID PANEL triglyceride s 125 mg/dL 0-149 Not Available [facility] ([facility]) [address] [facility], [place], [address], 12/23/2024 13:11:39 12/23/19 25 12/23/2024 LIPID PANEL HDL cholesterol 52 mg/dL >39 Not Available [facility] ([facility]) [address] [place], [address], 12/23/2024 13:11:39 12/23/19 25 12/23/2024 LIPID PANEL VLDL cholesterol corinne 22 mg/dL 5-40 Not Available [facility] ([facility]) [address] [facility], [place], [address], 12/23/2024 13:11:39 12/23/19 25 12/23/2024 LIPID PANEL LDL chol calc ([facility]) 90 mg/dL 0-99 Not Available [facility] ([facility]) [address] [facility] [place], [address], 12/23/2024 13:11:39 12/23/19 25 12/23/2024 BASIC METAB OLIC PANEL (7) glucose 73 mg/dL 70-99 Not Available [facility] ([facility]) [address] [facility] [place], [address], 12/23/2024 13:11:41 12/23/19 25 12/23/2024 BASIC METAB OLIC PANEL (7) BUN 19 mg/dL 8-27 Not Available [facility] ([facility]) [address] [facility] [place], [address], 12/23/2024 13:11:41 12/23/19 25 12/23/2024 BASIC METAB OLIC PANEL (7) creatinine 0.57 mg/dL 0.57-1 .00 Not Available [facility] ([facility]) [address] [place], [address], 12/23/2024 13:11:41 12/23/19 25 12/23/2024 BASIC METAB OLIC PANEL (7) eGFR 95 mL/mi n/1.7 3 >59 Not Available [facility] ([facility]) [address] [place], [address], 12/23/2024 13:11:41 12/23/19 25 12/23/2024 BASIC METAB OLIC PANEL (7) BUN/creatini ne ratio 33 12-28 above high normal Not Available [facility] ([facility]) [address] [place], [address], 12/23/2024 13:11:41 12/23/19 25 12/23/2024 BASIC METAB OLIC PANEL (7) sodium 138 mmol/ L 134-14 4 Not Available [facility] ([facility]) [address] [place], [address], 12/23/2024 13:11:41 12/23/19 25 12/23/2024 BASIC METAB OLIC PANEL (7) potassium 4.2 mmol/ L 3.5-5. 2 Not Available [facility] ([facility]) [address] [place], [address], 12/23/2024 13:11:41 12/23/19 25 12/23/2024 BASIC METAB OLIC PANEL (7) chloride 98 mmol/ L 96-106 Not Available [facility] ([facility]) [address] [place], [address], 12/23/2024 13:11:41 12/23/19 25 12/23/2024 BASIC METAB OLIC PANEL (7) carbon dioxide, total 25 mmol/ L 20-29 Not Available [facility] ([facility]) [address] [place], [address], 12/23/2024 13:11:41 12/23/19 25 12/23/2024 HEMOG LOBIN A1C hemoglobin A1C 7.9 % 4.8-5. 6 above high normal Predi abete s: 5.7 - 6.4 Diabe sophie: >6.4 Glyce puja contr ol for adult s with diabe sophie: <7.0 Not Available [facility] ([facility]) [address] [place], [address], 12/23/2024 13:11:42 12/23/1912/23/2024 TSH TSH 2.200 uIU/m L 0.450- 4.500 Not Available [facility] ([facility]) [address] [place], [address], 12/23/2024 13:11:43 12/23/1912/23/2024 CBC, PLATE LET, NO DIFFE RENTI AL WBC 7.3 x10e3 /uL 3.4-10 .8 Not Available [facility] ([facility]) [address] [place], [address], 12/23/2024 13:11:44 12/23/19 25 12/23/2024 CBC, PLATE LET, NO DIFFE RENTI AL RBC 4.80 x10e6 /uL 3.77-5 .28 Not Available [facility] ([facility]) [address] [facility], [place], [address], 12/23/2024 13:11:44 12/23/19 25 12/23/2024 CBC, PLATE LET, NO DIFFE RENTI AL hemoglobin 14.7 g/dL 11.1-1 5.9 Not Available [facility] ([facility]) [address] [facility], [place], [address], 12/23/2024 13:11:44 12/23/19 25 12/23/2024 CBC, PLATE LET, NO DIFFE RENTI AL hematocrit 45.9 % 34.0-4 6.6 Not Available [facility] ([facility]) [address] [facility], [place], [address], 12/23/2024 13:11:44 12/23/19 25 12/23/2024 CBC, PLATE LET, NO DIFFE RENTI AL MCV 96 fL 79-97 Not Available [facility] [facility]) [address] [place], [address], 12/23/2024 13:11:44 12/23/19 25 12/23/2024 CBC, PLATE LET, NO DIFFE RENTI AL MCH 30.6 pg 26.6-3 3.0 Not Available [facility] ([facility]) [address] [place], [address], 12/23/2024 13:11:44 12/23/19 25 12/23/2024 CBC, PLATE LET, NO DIFFE RENTI AL MCHC 32.0 g/dL 31.5-3 5.7 Not Available [facility] ([facility]) [address] [place], [address], 12/23/2024 13:11:44 12/23/19 25 12/23/2024 CBC, PLATE LET, NO DIFFE RENTI AL RDW 13.0 % 11.7-1 5.4 Not Available [facility] ([facility]) [address] [facility], [place], [address], 12/23/2024 13:11:44 12/23/19 25 12/23/2024 CBC, PLATE LET, NO DIFFE RENTI AL platelets 198 x10e3 /uL 150-45 0 Not Available [facility] ([facility]) [address] [facility], [place], [address], 12/23/2024 13:11:44 04/27/20 24 04/22/2024 DEXA No observ ation record ed. [facility] [address], [place], [address], 09/06/2024 10:23:20 05/12/20 24 05/11/2024 US, pelvi s, trans abdom inal + trans vagin al No observ ation record ed. [facility] (Imaging) [address] [facility] [address] [place] [address], [id number], 09/27/2024 18:31:24 09/08/20 24 09/08/2024 MAMMO , scree emily, digit al, bilat eral No observ ation record ed. [place] [id number] [facility] [address] [facility], [place], [address], 11/30/2024 14:43:00 Result Notes None recorded. Problems Name Problem SNOMED Code Status Onset Date Resolution Date Notes Provider Name and Address Organization Details Recorded Time Body mass index 30+ - obesity 082010691 Active 2017 Diamond Cannon PA-C Attn: Accounting ,[address] [facility], [place], [address] , [place] - [facility] 8 10:36:34 Chronic idiopath ic constipa tion 93194388 Active 2017 Diamond Cannon PA-C Attn: Accounting ,[address] [facility], [place], [place], [address] [place] [address] , [place] - [facility] 8 12:31:02 Type 2 diabetes mellitus 62823160 Active 2018 Alison Florez MD Attn: Accounting ,[address] [facility], [place], [place], [address] [place] [address] , [place] - [facility] 2 16:33:52 Uncontro lled type 2 diabetes mellitus 604024147 Active 2018 Alison Florez MD Attn: Accounting ,[address] [facility], [place], [place], [address] [place] [address] , [place] - [facility] 9 17:02:14 Complex ovarian cyst 74700153894 3 Active 2018 Alison Florez MD Attn: Accounting ,[address] [facility], [place], [address] [place] [address] , [place] [facility] 9 17:02:18 Ulcer of foot 67014679 Active Pre ulcerati ve callus Joleen Rodriguez [place] null, [place] [facility] 6 10:19:03 Hyperlip idemia 67035326 Active Diamond Cannon PA-C Attn: Accounting ,[address] [facility], [place], [address] [place] [address] , [place] [facility] 6 10:41:01 Renal disorder due to type 2 diabetes mellitus 273952032 Active Diamond Cannon PA-C Attn: Accounting ,[address] [facility], [place], [address] [place] [address] , [place] [facility] 6 18:27:23 Microalb uminuria 571541573 Active Joleen Rodriguez [place], [place] [facility] 6 10:19:03 [facility]ia l hyperten rodney 06615474 Active Diamond Cannon PA-C Attn: Accounting ,[address] [facility], [place], [place], [address] [place] [address] , [place] [facility] 6 10:43:18 Thyroid stimulat ing hormone level above referenc e range 039767853 Active Diamond Cannon PA-C Attn: Accounting ,[address] [place], [address] , [place] - [facility] 6 18:27:23 Uterine leiomyom a 53531516 Active Joleen Rodriguez [place], [place] [facility] 6 10:19:03 Toothach e 49482439 Active Joleen Rodriguez [place], [place] [facility] 6 10:19:03 Anterior rhinorrh ea 988883127 Active Diamond Cannon PA-C Attn: Accounting ,[address] [place], [address] , [place] [facility] 6 10:43:18 Ulcer of left foot Active 2018 Alison Florez MD Attn: Accounting ,[address] [place], [address] , [place] [facility] 9 11:23:22 Benign hyperten rodney 60424995 Active 2020 Alison Florez MD Attn: Accounting ,[address] [place], [address] , [place] [facility] 2 14:36:07 Hypothyr oidism 43633302 Active 2020 Alison Florez MD Attn: Accounting ,[address] [place], [address] , [place] [facility] 5 14:57:49 Disorder of bile duct 033445737 Active 2020 Alison Florez MD Attn: Accounting ,[address] [place], [address] , [place] [facility] 1 15:48:22 Abnormal findings diagnost ic imaging of liver+bi liary tract 729405190 Active 2020 Alison Florez MD Attn: Accounting ,[address] [place], [address] , [place] [facility] 1 18:12:39 Sliding hiatus hernia 094801404 Active 2020 Alison Florez MD Attn: Accounting ,[address] [facility], [place], [address] , [place] [facility] 1 18:13:03 History of SARS-CoV -2 11338610142 6833373 Active 2021 Alison Florez MD Attn: Accounting ,[address] [facility], [place], [address] [place] [address] , [place] [facility] 2 18:28:51 Labile hyperten rodney due to being in a clinical environm ent 760988219 Active 2022 Alison Florez MD Attn: Accounting ,[address] [facility], [place], [address] [place] [address] , [place] [facility] 3 18:21:42 Pain of left shoulder joint 73910911205 666787 Active 2023 Alison Florez MD Attn: Accounting ,[address] [facility], [place], [address] [place] [address] , [place] [facility] 4 09:30:21 Constipa tion 55995971 Active 2023 Alison Florez MD Attn: Accounting ,[address] [place], [place], [address] [place] [address] , [place] [facility] 4 12:35:12 Urinary tract infectio us disease 72893690 Active Joleen Rodriguez [place] [facility] 6 10:19:03 Splenic infarcti on 77648005 Active 2024 Alison Florez MD Attn: Accounting ,[address] 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 [place]oleen [place] [facility] 6 10:19:03 Adrenal mass 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 Active 2016 Diamond Cannon PA-C Attn: Accounting ,[address] [place], [address] , [place] [facility] 7 11:32:09 Hyperten sive emergenc y 44374713531 9104 Active 2016 Diamond Cannon PA-C Attn: Accounting ,[address] [place], [address] , [place] [facility] 7 13:26:23 Herpes zoster 9108316 Active 2016 Diamond Cannon PA-C Attn: Accounting ,[address] [place], [address] , [place] [facility] 7 13:50:38 Diabetes mellitus 61061759 Completed 201612/03/2017 Diamond Cannon PA-C Attn: Accounting ,[address] [place], [address] , [place] [facility] 8 10:35:16 Depressi ve disorder 61507857 Active 2016 Diamond Cannon PA-C Attn: Accounting ,[address] [place], [address] , [place] [facility] 7 13:36:07 Anxiety 09456650 Active 2016 Diamond Cannon PA-C Attn: Accounting ,[address] [facility], [place], [address] , [place] - [facility] 7 13:36:07 Problem Notes None recorded. Procedures Surgical History Date Name Laterality Status Provider Name and Address Organization Details Recorded Time 2023 Diabetic Foot Exam completed Alison Florez MD Attn: Niesha arthur,[address] [facility], [place], [address], [place] - [facility] 4 10:52:27 2022 Diabetic Foot Exam completed Alison Florez MD Attn: Niesha arthur,[address] [facility], [place], [address], [place] - [facility] 3 16:40:44 2021 Date of Last Mammogram completed Marianela Oliver [place] - [facility] 4 11:27:31 2016 endoscopy completed Alison Florez MD Attn: Niesha arthur,[address] [facility], [place], [address], [place] [facility] 1 11:16:01 2015 Most Recent Mammogram completed Jeanie Mitchell [place] - [facility] 7 16:01:49 2015 Date of Last Pap Smear completed Jeanie Mitchell [place] - [place] 7 16:00:56 2012 colonoscopy completed Alison Florez MD Attn: Niesha arthur,[address] [facility], [place], [address], [place] [facility] 0 15:25:09 2012 esophagogastroduodenoscopy completed Raven Daugherty MD Attn: Niesha gibson,[address] [facility], [place], [address], [place] [facility] 0 15:25:24 1984 Caesarean Section completed Anastasia Angulo [place] - [facility] 6 10:54:10 1984 Tubal Ligation completed Anastasia Angulo [place] - [facility] 6 10:54:10 1980 Caesarean Section completed Anastasia Angulo [place] [facility] 6 11:10:33 Cholecystectomy completed [place] - [facility] 6 10:54:03 Imaging Results None recorded. Procedure Notes None recorded. Medical Equipment None Reported. Allergies No known drug allergies Medications Name Sig Start Date Stop Date Status Note LastModified by Organization Details LastModified Time Prescript ion - Renewal 07/07 completed Diabetic Supplies Not Available Not Available Not Available blood glucose test strips active Not Available Not Available Not Available Prescript ion - Prior Authoriza tion Request 12/29 completed Not Available Not Available Not Available OneTouch Ultra Blue Test Strips 07/07 completed Not Available Not Available Not Available multivita min tablet Take 1 tablet every day by oral route. 12/03 completed Not Available Not Available Not Available losartan 50 mg tablet 11/27 completed Not Available Not Available Not Available cyclobenz aprine 10 mg tablet TAKE 1 TABLET BY MOUTH TWICE DAILY NEEDED FOR MUSCLE SPASM 05/23 completed Not Available Not Available Not Available amoxicill in 500 mg capsule Take 1 capsule 3 times a day by oral route for 7 days. active Not Available Not Available No t Available atorvasta tin 40 mg tablet Take 1 tablet every day by oral route in the evening. 08/21 completed Not Available Not Available Not Available silver sulfadiaz ine 1 % topical cream active Not Available Not Available Not Available atorvasta tin 80 mg tablet TAKE 1 TABLET BY MOUTH ONCE DAILY 12/01 completed Not Available Not Available Not Available clonidine HCl 0.1 mg tablet Take 2 tablets by oral route. 04/17 completed Not Available Not Available Not Available prednison e 10 mg tablet 12/29 completed Not Available Not Available Not Available doxycycli ne hyclate 100 mg capsule 12/29 completed Not Available Not Available Not Available naproxen 375 mg tablet TAKE 1 TABLET BY MOUTH TWICE DAILY 05/05 completed Not Available Not Available Not Available pravastat in 40 mg tablet active Not Available Not Available Not Available fluconazo le 150 mg tablet TAKE 1 TABLET BY MOUTH ONCE DAILY DIRECTED FOR 1 DAY 11/27 completed Not Available Not Available Not Available sulfameth oxazole 400 mg-trimet hoprim 80 mg tablet 12/03 completed Not Available Not Available Not Available valacyclo vir 1 gram tablet Take 1 tablet every 8 hours by oral route for 7 days. 05/06 completed Not Available Not Available Not Available hydrocodo ne 5 mg-acetam inophen 325 mg tablet TAKE 1 TABLET BY MOUTH EVERY 6 HOURS NEEDED FOR PAIN 12/24 completed Not Available Not Available Not Available sucralfat e 1 gram tablet TAKE 1 TABLET BY MOUTH THREE TIMES DAILY 05/23 completed Not Available Not Available Not Available lisinopri l 20 mg tablet TAKE 1 TABLET BY MOUTH ONCE DAILY IN THE MORNING FOR 90 DAYS 05/23 completed Not Available Not Available Not Available famotidin e 40 mg tablet TAKE 1 TABLET BY MOUTH ONCE DAILY AT BEDTIME 11/27 completed Not Available Not Available Not Available atenolol 25 mg tablet 07/08 completed Not Available Not Available Not Available permethri n 5 % topical cream 12/29 completed Not Available Not Available Not Available amlodipin e 5 mg tablet TAKE 1 TABLET BY MOUTH ONCE DAILY 05/23 completed Not Available Not Available Not Available sulfameth oxazole 800 mg-trimet hoprim 160 mg tablet TAKE 1 TABLET BY MOUTH TWICE DAILY DIRECTED FOR 7 DAYS 01/30 completed Not Available Not Available Not Available peg-elect rolyte solution 420 gram oral solution TAKE DIRECTED BY OFFICE 05/05 completed Not Available Not Available Not Available omeprazol e 40 mg capsule,d elayed release TAKE 1 CAPSULE BY MOUTH TWICE DAILY active Not Available Not Available No t Available aspirin 81 mg tablet,de layed release TAKE 1 TABLET BY MOUTH ONCE DAILY FOR 90 DAYS active Not Available Not Available No t Available tramadol 50 mg tablet TAKE 1 TABLET BY MOUTH EVERY 6 HOURS NEEDED FOR PAIN 01/04 completed Not Available Not Available Not Available triamcino lone acetonide 0.1 % topical cream APPLY A THIN LAYER TO THE AFFECTED AREA(S) BY TOPICAL ROUTE 2 TIMES PER DAY 12/29 completed Not Available Not Available Not Available glimepiri de 2 mg tablet 07/07 completed Not Available Not Available Not Available levothyro xine 25 mcg tablet Take 1 tablet every day by oral route as directed for 30 days. 08/20 completed Not Available Not Available Not Available ketorolac 10 mg tablet TAKE 1 TABLET BY MOUTH EVERY 6 HOURS NEEDED FOR 5 DAYS 01/04 completed Not Available Not Available Not Available levothyro xine 75 mcg tablet Take 1 tablet every day by oral route as directed for 30 days. 12/01 completed Not Available Not Available Not Available levothyro xine 100 mcg tablet TAKE 1 TABLET BY MOUTH ONCE DAILY DIRECTED 11/25 completed Increase d to 112 mcg on 11/26/2023 Not Available Not Available Not Available alprazola m 0.5 mg tablet Take 1 tablet by oral route. 02/13 completed Not Available Not Available Not Available ofloxacin 0.3 % ear drops Instill 10 drops twice a day by otic route as directed for 14 days. 10/14 completed Not Available Not Available Not Available amoxicill in 875 mg tablet TAKE 1 TABLET BY MOUTH TWICE DAILY UNTIL GONE 04/30 completed Dentist Not Available Not Available Not Available prednisol one acetate 1 % eye drops,dimple pension 07/09 completed Not Available Not Available Not Available dicyclomi ne 20 mg tablet Take 1 tablet 4 times a day by oral route. 02/09 completed Not Available Not Available Not Available OneTouch Ultra Test strips USE 1 STRIP TO CHECK GLUCOSE THREE TIMES DAILY active Not Available Not Available No t Available dexametha sone 1 mg tablet 07/14 completed Not Available Not Available Not Available benzonata te 100 mg capsule Take 1 capsule 3 times a day by oral route as needed for 7 days. 07/25 completed Not Available Not Available Not Available levothyro xine 50 mcg tablet Take 1 tablet every day by oral route as directed for 90 days. 10/14 completed Not Available Not Available Not Available cephalexi n 500 mg capsule TAKE 1 CAPSULE BY MOUTH EVERY 6 HOURS 07/07 completed Not Available Not Available Not Available pantopraz ole 40 mg tablet,de layed release 12/03 completed Not Available Not Available Not Available Euthyrox 88 mcg tablet TAKE 1 TABLET BY MOUTH ONCE DAILY DIRECTED 07/25 completed Not Available Not Available Not Available venlafaxi ne 37.5 mg tablet 1 tablet daily x 1 week and then twice daily after that 07/14 completed Not Available Not Available Not Available esomepraz ole magnesium 40 mg capsule,d elayed release 07/31 completed Not Available Not Available Not Available levothyro xine 125 mcg tablet TAKE 1 TABLET BY MOUTH IN THE MORNING active Not Available Not Available No t Available nystatin 100,000 unit/gram topical cream APPLY TO THE AFFECTED AREA(S) BY TOPICAL ROUTE 2 TIMES PER DAY 04/17 completed Not Available Not Available Not Available ranitidin e 150 mg tablet 12/03 completed Not Available Not Available Not Available promethaz ine 25 mg tablet TAKE 1/2 (ONE-SONJA F) TABLET BY MOUTH EVERY 6 HOURS NEEDED FOR NAUSEA 09/06 completed Not Available Not Available Not Available losartan 25 mg tablet TAKE 1 TABLET BY MOUTH ONCE DAILY DIRECTED 09/08 completed High blood pressure , kidney protecti on Not Available Not Available Not Available magnesium citrate oral solution Take 150 mL every day by oral route for 1 day, for Constipa tion. 09/06 completed Not Available Not Available Not Available lisinopri l 20 mg-hydroc hlorothia zide 25 mg tablet Take 1 tablet every day by oral route. 01/16 completed Not Available Not Available Not Available aspirin 81 mg chewable tablet Chew 1 tablet every day by oral route. 12/29 completed OTC Not Available Not Available Not Available hydroxyzi ne HCl 25 mg tablet 12/29 completed Not Available Not Available Not Available hydrochlo rothiazid e 25 mg tablet TAKE 1 TABLET BY MOUTH ONCE DAILY DIRECTED FOR HIGH BLOOD PRESSURE active Not Available Not Available No t Available mupirocin 2 % topical ointment 12/29 completed Not Available Not Available Not Available lorazepam 1 mg tablet TAKE ONE TABLET BY MOUTH 1-2 HOURS PRIOR TO MRI APPOINTM ENT 01/04 completed Not Available Not Available Not Available methylpre dnisolone 4 mg tablets in a dose pack TAKE DIRECTED 12/24 completed Not Available Not Available Not Available ketorolac 60 mg/2 mL intramusc ular solution Inject 2 mL every day by intramus cular route as directed for 1 day. 01/04 completed Not Available Not Available Not Available lisinopri l 40 mg tablet TAKE 1 TABLET BY MOUTH ONCE DAILY 12/24 completed Not Available Not Available Not Available fluticaso ne propionat e 50 mcg/actua tion nasal spray,dimple pension active Not Available Not Available Not Available pseudoeph edrine 60 mg tablet Take 1 tablet every 8 hours by oral route as directed for 5 days. 08/20 completed Not Available Not Available Not Available metformin ER 500 mg tablet,ex tended release 24 hr TAKE 1 TABLET BY MOUTH TWICE DAILY AFTER BREAKFAS T AND DINNER active Not Available Not Available No t Available loratadin e 10 mg tablet TAKE 1 TABLET BY MOUTH ONCE DAILY 05/23 completed Not Available Not Available Not Available levothyro xine 112 mcg tablet TAKE 1 TABLET BY MOUTH ONCE DAILY IN THE MORNING FOR 90 DAYS 02/25 completed Not Available Not Available Not Available amoxicill in 875 mg-potass ium clavulana te 125 mg tablet 12/29 completed Not Available Not Available Not Available tobramyci n 0.3 %-dexamet hasone 0.1 % eye drops,dimple pension 10/19 completed Not Available Not Available Not Available insulin lispro (U-100) 100 unit/mL subcutane ous pen INJECT 6 UNITS SUBCUTAN EOUSLY THREE TIMES DAILY WITH MEALS 07/07 completed Not Available Not Available Not Available ezetimibe 10 mg tablet Take 1 tablet every day by oral route as directed for 90 days. 06/03 completed Not Available Not Available Not Available Novolog FlexPen U-100 Insulin aspart 100 unit/mL (3 mL) subcutane ous Inject 6 units 3 times a day by subcutan eous route with meals for 30 days. 2022 active Not Available Not Available Not Avai lable cyclobenz aprine 5 mg tablet TAKE 1 TABLET BY MOUTH THREE TIMES DAILY NEEDED FOR 14 DAYS 04/30 completed Not Available Not Available Not Available Premarin 0.625 mg/gram vaginal cream Insert 1 g twice a week by vaginal route. 07/14 completed Not Available Not Available Not Available rosuvasta tin 40 mg tablet TAKE 1 TABLET BY MOUTH ONCE DAILY AT BEDTIME FOR CHOLESTE ROL active Not Available Not Available No t Available metoprolo l tartrate 25 mg tablet TAKE 1 TABLET BY MOUTH TWICE DAILY DIRECTED active Not Available Not Available No t Available nitrofura ntoin monohydra te/macroc rystals 100 mg capsule TAKE 1 CAPSULE BY MOUTH TWICE DAILY FOR 7 DAYS 03/05 completed Not Available Not Available Not Available BD Ultra-Fin e Mini Pen Needle 31 gauge x 3/16 USE DIRECTED WITH LANTUS SOLOSTAR PEN 07/07 completed Not Available Not Available Not Available lactulose 10 gram/15 mL oral solution Take 15 mL every day by oral route. 02/09 completed Not Available Not Available Not Available aspirin 81 09/06 completed Duplicat e Not Available Not Available Not Available BD Ultra-Fin e Short Pen Needle 31 gauge x 5/16 USE 1 ONCE DAILY AT BEDTIME active Not Available Not Available No t Available Senna with Docusate Sodium 8.6 mg-50 mg tablet Take 2 tablets every day by oral route as needed for 15 days, for Constipa tion. 2023 active Not Available Not Available Not Avai lable hydrochlo rothiazid e 12.5 mg tablet TAKE 1 TABLET BY MOUTH ONCE DAILY DIRECTED for High blood pressure ([facility] instruct ions, please) 09/08 completed Not Available Not Available Not Available Lantus Solostar U-100 Insulin 100 unit/mL (3 mL) subcutane ous pen INJECT 22 UNITS SUBCUTAN EOUSLY ONCE DAILY AT BEDTIME 07/07 completed Not Available Not Available Not Available Bystolic 5 mg tablet Take 1 tablet every day by oral route. 12/[address] barker, cardiolo gy Not Available Not Available Not Available calcium 600 mg (as carbonate )-vitamin D3 20 mcg (800 unit) tablet Take 1 tablet twice a day by oral route for 30 days. 12/03 completed Not Available Not Available Not Available Linzess 145 mcg capsule Take 1 capsule every day by oral route. 02/09 completed Not Available Not Available Not Available Eliquis 5 mg tablet TAKE 1 TABLET BY MOUTH TWICE DAILY 2024 active Not Available Not Available Not Avai lable Farxiga 10 mg tablet TAKE 1 TABLET BY MOUTH ONCE DAILY AT BEDTIME FOR DIABETES active Not Available Not Available No t Available Jardiance 25 mg tablet Take 1 tablet every day by oral route as directed for 90 days. 06/29 completed Not Available Not Available Not Available Trulicity 1.5 mg/0.5 mL subcutane ous pen injector INJECT 1 SYRINGE SUBCUTAN EOUSLY ONCE A WEEK AT DINNER 01/04 completed Not Available Not Available Not Available Trulicity 0.75 mg/0.5 mL subcutane ous pen injector INJECT 1 PEN SUBCUTAN EOUSLY ONCE A WEEK active Not Available Not Available No t Available Tresiba FlexTouch U-200 insulin 200 unit/mL (3 mL) subcutane ous pen INJECT 20 UNITS SUBCUTAN EOUSLY ONCE DAILY AT BEDTIME 06/03 completed Not Available Not Available Not Available Tresiba FlexTouch U-100 insulin 100 unit/mL (3 mL) subcutane ous pen INJECT 18 UNITS SUBCUTAN EOUSLY ONCE DAILY AT BEDTIME active Not Available Not Available No t Available Trulance 3 mg tablet 12/29 completed Not Available Not Available Not Available OneTouch Ultra Blue Test Strip USE 1 STRIP TO CHECK GLUCOSE THREE TIMES DAILY 07/07 completed Not Available Not Available Not Available OneTouch Delica Plus Lancet 33 gauge USE 1 TO CHECK GLUCOSE THREE TIMES DAILY active Not Available Not Available No t Available Trulicity 3 mg/0.5 mL subcutane ous pen injector INJECT 1 SYRINGE SUBCUTAN EOUSLY ONCE A WEEK 06/03 completed Not Available Not Available Not Available Mounjaro 5 mg/0.5 mL subcutane ous pen injector INJECT 1 SYRINGE SUBCUTAN EOUSLY ONCE A WEEK 11/30 completed Not Available Not Available Not Available Vitals Date Recorded Body height Heart rate Oxygen saturation Oxygen saturation in Arterial blood by Pulse oximetry Respiratory rate Body temperature Systolic blood pressure Diastolic blood pressure Provider Name and Address Organization Details Last Updated DateTime 5 151.13 cm 74 /min 98 % 98 % 16 /min 98.6 [degF] 130 mm[Hg] 70 mm[Hg] Helen Amador [place] - [facility] 5 14:40:59 Date Recorded Body height Body mass index (BMI) Body weight Oxygen saturation Oxygen saturation in Arterial blood by Pulse oximetry Heart rate Systolic blood pressure Diastolic blood pressure Provider Name and Address Organization Details Last Updated DateTime 4 151.13 cm 34.6 kg/m2 58425.0 7 g 97 % 97 % 78 /min 130 mm[Hg] 82 mm[Hg] Marianela Oliver MA [facility] 4 11:29:32 Date Recorded Body height Body mass index (BMI) Body weight Heart rate Oxygen saturation Oxygen saturation in Arterial blood by Pulse oximetry Respiratory rate Body temperature Systolic blood pressure Diastolic blood pressure Provider Name and Address Organization Details Last Updated DateTime 4 151.13 cm 34.4 kg/m2 85052.4 8 g 80 /min 96 % 96 % 16 /min 98.2 [degF] 126 mm[Hg] 80 mm[Hg] Helen Amador MA [facility] 4 16:03:40 Date Recorded Body height Body mass index (BMI) Body weight Oxygen saturation Oxygen saturation in Arterial blood by Pulse oximetry Heart rate Respiratory rate Systolic blood pressure Diastolic blood pressure Provider Name and Address Organization Details Last Updated DateTime 4 151.13 cm 33.2 kg/m2 04454.6 4 g 98 % 98 % 76 /min 14 /min 124 mm[Hg] 80 mm[Hg] Helen Amador MA [facility] 4 10:17:58 Social History Question Answer Notes LastModified by Organizat ion Details LastModified Time Tobacco Smoking Status Never Smoker Ralph Chan MA [facility] 10/28/2014 13:09:04 Do You Have An Advance Directive? No Information not available 02/28/2016 Are You Blind Or Do You Have Difficulty Seeing? No Information not available 12/01/2020 Is Blood Transfusion Acceptable In An Emergency? Yes Information not available 02/28/2016 What Is Your Level Of Caffeine Consumption? Moderate Information not available 10/28/2014 How Much Tobacco Do You Chew? None Information not available 02/28/2016 Are You Deaf Or Do You Have Serious Difficulty Hearing? No Information not available 12/01/2020 What Type Of Diet Are You Following? VEGETARIAN Information not available 02/28/2016 Education 9 Information no t available 02/28/2016 Are There Any Guns Present In Your Home? No Information not available 01/17/2016 Live Alone Or With Others? With Others [email or web address] Information not available 10/28/2014 What Was The Date Of Your Most Recent Tobacco Screening? 09/06/2024 Information not available 09/06/2024 How Many Children Do You Have? 5 Information not available 02/28/2016 Performs Monthly Self-breast Exam? No Information not available 02/28/2016 Do You Use Protection During Sex? No Information not available 02/28/2016 What Is Your Relationship Status? Information not available 02/28/2016 Seat Belts Used Routinely Yes Information not available 02/28/2016 Are You Sexually Active? No Information not available 02/28/2016 Do You Have Smoke And Carbon Monoxide Detectors In Your Home? Yes Information not available 12/01/2020 How Much Tobacco Do You Smoke? No Information not available 12/29/2018 General Stress Level Low Information not available 01/17/2016 Do You Use Sunscreen Routinely? No Information not available 02/28/2016 Has Tobacco Cessation Counseling Been Provided? No [email or web address] Information not available 12/29/2018 On What Date Was Tobacco Cessation Counseling Provided? 04/28/2024 Miah Answered No To The Tobacco Cessation Counseling Provided Question On 12/29/2018. [email or web address] Information not available 04/28/2024 How Many Years Have You Smoked Tobacco? 0 Information not available 12/29/2018 Sex: Unknown Functional Status Question Answer Note LastModified by Organizat ion Details LastModified Time Do you use any illicit or recreational drugs? No Information not available 01/30/2021 Do you or have you ever used any other forms of tobacco or nicotine? No [email or web address] Information not available 02/09/2021 What is your level of alcohol consumption? None [email or web address] Information not available 10/28/2014 Do you or have you ever used smokeless tobacco? Never used smokeless tobacco Information not available 04/07/2020 Are you currently employed? No Information not available 01/17/2016 Are you able to care for yourself? 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 Never used electronic cigarettes Information not available 04/07/2020 What is your exercise level? Occasional Information not available 02/28/2016 Mental Status None recorded. Family History Relationship Description Onset Age of this Age Resolved Age Notes LastModified by Organization Details LastModified Time Mother Alcoholism [email or web address] Not available 04/17/2016 10:51:11 Mother Malignant tumor of cervix eewig Not available 2015 10:51:11 Father Alcoholism eewig Not available 04/17/2016 10:51:11 Brother Alcoholism eewig Not availabl e 04/17/2016 10:51:12 Sister Depressive disorder eewig Not available 2015 10:51:12 Sister Diabetes mellitus eewig Not available 2015 10:51:12 Sister Hypercholest erolemia eewig Not available 2015 10:51:12 Sister Migraine eewig Not available 0 04/17/2016 10:51:12 Sister Osteoporosis eewig Not availab le 04/17/2016 10:51:12 Sister Malignant neoplasm of uterus eewig Not available 2015 10:51:12 Medical History Condition Response Coronary Artery Disease N Other N Atrial Fibrillation N High Blood Pressure Y Blood Clots N COPD N Depression N Headaches/Migraines N Anxiety Disorder N Muscle, Joint, or Bone Problems N Polyps N Infertility N Acid Reflux (GERD) N Cancer N Stroke N Headaches N Kidney or Bladder Problems N Acne N Eating Disorder N Skin Problems N Asthma N Allergies N Hepatitis N Breast Cancer N Lung Disease N Breast Problem N Anesthesia Complications N Endometriosis N High Cholesterol Y Liver Disease N Thyroid Problems N GI Problems N Anemia N Heart Attack (CT) N Diabetes Y Ovarian Cancer N Blood Transfusions N Seizures/Epilepsy N Abuse/Domestic Violence N Heart Disease N Pre-Eclampsia N Heart Failure N Osteoporosis N Gynecological History Statement/Question Response Abnormal Pap Y Date of Last Mammogram 08/28/2022 On BCP's at Conception? N STIs/STDs Y HPV Vaccine N Most Recent Mammogram 05/15/2016 Current Control Method Tubal Ligat ion Age at First Child 19 If Post Menopausal, Age at Menopause 35 Sexually Active? N Menses Monthly N Date of Last Pap Smear 02/28/2016 Sexual Problems? N Desired Control Method None Obstetrics History GPAL:G 9 P 5 0 4 5 Type Value Multiple Births 1 Full Term 5 Induced 0 Spontaneous 4 Premature 0 Living 5 Ectopics 0 Total 9 Immunizations Vaccine Type Date Status Note Provider Nam e and Address Organization Details Recorded Time Influenza, split virus, quadrivalent, preservative 0 completed Alison Florez MD Attn: Accounting,[address] [place], [place], [address] [place] [address], [facility] 10/19/2020 09:57:48 COVID-19, mRNA, LNP-S, PF, 30 mcg/0.3 mL dose 1 completed Alison Florez MD Attn: Accounting,[address] [place], [place], [address] [place] [address], [place] [facility] 05/23/2022 14:31:15 Influenza, split virus, quadrivalent, preservative 5 completed Alison Florez MD Attn: Accounting,[address] [place], [place], [address] [place] [address], [facility] 05/23/2022 14:31:15 COVID-19, mRNA, LNP-S, PF, 30 mcg/0.3 mL dose 1 completed Alison Florez MD Attn: Accounting,[address] [place], [address] [place] [address], [place] [facility] 05/23/2022 14:31:15 Influenza, split virus, trivalent, PF 3 completed Alison Florez MD Attn: Accounting,[address] [place], [address] [place] [address], [place] [facility] 05/23/2022 14:31:15 SARS-COV-2 (COVID-19) vaccine, UNSPECIFIED 1 completed Alison Florez MD Attn: Accounting,[address] [facility] [place], [address], [place] [facility] 11/27/2022 19:22:12 Influenza, split virus, quadrivalent, preservative 6 completed Not Available [facility] 10/09/2019 02:32:37 pneumococcal polysaccharide PPV23 7 completed Not Available [facility] 10/09/2019 02:33:05 Tdap 8 completed Not Available [facility] 10/09/2019 02:42:02 Pneumococcal conjugate PCV 13 8 completed Not Available [facility] 10/09/2019 02:35:18 Influenza, split virus, quadrivalent, preservative 8 completed Not Available [facility] 10/09/2019 02:36:25 Influenza, split virus, quadrivalent, preservative 9 completed Not Available [facility] 10/09/2019 02:47:16 Influenza, split virus, quadrivalent, preservative 1 completed Helen Amador [place], [place] [facility] 07/25/2021 17:13:03 COVID-19, mRNA, LNP-S, PF, 100 mcg/0.5mL dose or 50 mcg/0.25mL dose 2 completed Erich Cooper [place], [place] [facility] 11/20/2021 13:40:08 Influenza, split virus, quadrivalent, preservative 2 completed Alison Florez MD Attn: Accounting,[address] [facility], [place], [address], [place] [facility] 07/04/2022 11:18:15 Influenza, high-dose, quadrivalent, PF 3 completed Alison Florez MD Attn: Accounting,[address] [facility], [place], [address], [place] [facility] 09/08/2023 19:11:43 Influenza, split virus, quadrivalent, preservative 7 completed Diamond Cannon PA-C Attn: Accounting,[address] [facility], [place], [address], [place] [facility] 07/07/2017 12:10:22 Past Encounters Encounter ID Performer Location Encounter Start Date Encounter Closed Date Diagnosis/Indication Diagnosis SNOMED-CT Code Diagnosis ICD10 Code Diagnosis Note [id number] IRMA Mathur Eland Viola [facility] [address] [place] [address] 10/28/2014 12:54:53 10/28/2014 14:28:36 Renal disorder due to type 2 diabetes mellitus 520815778 Thyroid st imulating hormone level above reference range 757353624 Essential hypertension 49040519 Toothache 71684158 Anterior rhinorrhea 454492033 [id number] MD Siri Terrell [facility] [address] [place] [address] 12/15/2014 11:50:20 12/15/2014 12:46:36 Urinary tract infectious disease 83857957 Renal diso rder due to type 2 diabetes mellitus [id number] MD Wes Torres (Adult Med) [address] [place] [phone] 05/08/2015 11:19:50 05/08/2015 14:42:10 Renal disorder due to type 2 diabetes mellitus 117317963 Thyroid st imulating hormone level above reference range 445044500 Essential hypertension 01753132 Will begin BP medicaiton Anterior rhinorrhea 498306292 Hyperlipidemia 98481350 WIll check labs today Noncomplia nce with medication regimen 113819674 Patient has been out of BP and DM medication for the last 2 months - we had a long discussion about how she needs to be taking her medication because both chronic conditions can cause very [facility] damage to her organs. RTC in 2 weeks to see how medication s are doing [id number] MD Wes Torres (Adult Med) [address] [place] [id number] 06/21/2015 09:52:03 06/21/2015 11:17:03 Chronic ulcer of foot 058484034 Will refer back to wound care clinic Advised that if area becomes erythatmou s or warm or she develops a fever, nausea, vomiting to go to the ED for evaluation Renal diso rder due to type 2 diabetes mellitus 138318909 Essential hypertension 52992073 Hyperlipidemia 19649709 Needs infl uenza immunization 615939416 [id number] MD Wes Torres (Adult Med) [address] [place] [id number] 08/21/2015 09:40:02 08/21/2015 10:27:06 Chronic ulcer of foot 868464508 L97.[address] [facility] Next appointmen t 09/05/15 Renal diso rder due to type 2 diabetes mellitus 362692944 E11.29 Will check labs today Essential hypertension 04614187 I10 Advised that she needs to take her BP medication s before her next appiontmen t Hyperlipidemia 85652049 E78.[address] imulating hormone level above reference range 980580804 R79.89 [id number] MD Wes Torres (Adult Med) [address] [place] [id number] 0 10/18/2015 10:58:15 10/18/2015 12:07:17 Chronic ulcer of foot 236759350 L97.[address] [facility] much improved Needs a MD to sign paperwork for shoes Renal diso rder due to type 2 diabetes mellitus 202013904 E11.29 Will check labs today Will refer to ophthalmol ogy Will look into getting Dr. Meza's name on the diabetic shoe paperwork Diabetic foot exam at next visit Essential hypertension 25062491 I10 Advised that she needs to take her BP medication s before her next appiontmen t Hyperlipidemia 80166655 E78.[address] imulating hormone level above reference range 291739013 R79.89 Pain in pelvis 88125183 R10.2 Suprapubic pain - will order US Will get last pap smear results from [facility] [id number] MD Wes Vieyra (Adult Med) [address] [place] [phone] 0 01/17/2016 10:36:15 01/17/2016 12:03:38 Renal disorder due to type 2 diabetes mellitus 157064930 E11.29 Will check labs today Will refer to ophthalmol ogleela Printed off order for diabetic shoes and gave to daughter - through [employer] Thyroid st imulating hormone level above reference range 650131891 R79.89 Hyperlipidemia 37168083 E78.5 Will check cholestero l today and fill accordingl y Essential hypertension 35489549 I10 Will increase medication Patient is under a lot of stress - advised that she needs to take some time for herself to destress Gastroesop hageal reflux disease 941854343 K21.9 Anterior rhinorrhea 2772 94738 J34.9 Hypertensive urgency 443 212026 I10 After 0.2mg clonidine pressure decreased Patient's son just had another child yesterday and she's been watching 4 other grandchild johann a lot recently and feels very stressed We discussed that stress can increase her BP and she needs to help calm herself down [id number] MD Wes Mckenna (LAW SECRETARY) [address] [place] [phone] 02/28/2016 10:12:24 02/28/2016 17:39:57 Gynecologic examination 55724501 Z01.411 Candidiasis of vagina 72 300242 B37.3 Atrophic vaginitis 86434 000 N95.2 Menopausal syndrome 1237 74253 N95.9 Screening for malignant neoplasm of breast 922803348 Z12.31 [id number] MD Wes Vieyra (Adult Med) [address] [place] [id number] 0 04/17/2016 09:31:36 04/17/2016 10:52:25 Renal disorder due to type 2 diabetes mellitus 100286392 E11.29 WIll check labs today taking 40 units qPM Depending on labs - will have her make an appointmen t with nephrology Thyroid st imulating hormone level above reference range 441937682 R79.89 Hyperlipidemia 28694466 E78.5 Will check cholestero l today and fill accordingl y Essential hypertension 35483438 I10 Will continue with medication Gastroesop hageal reflux disease 837524386 K21.9 Anterior rhinorrhea 2772 82961 J34.9 [id number] MD Wes Vieyra (Adult Med) [address] [place] [phone] 0 07/31/2016 11:01:40 07/31/2016 12:20:32 Active or passive immunization 880743113 Z23 Renal diso rder due to type 2 diabetes mellitus 017399501 E11.29 WIll check labs today taking 40 units qPM a1c: 10.4 GIven number endocrinol ogy and nephrology to schedule appointmen ts Had an eye exam in 02/2016 Hyperlipidemia 99905955 E78.5 Will check cholestero l today and fill accordingl y Essential hypertension 18729362 I10 130/80 - WNL - c/w current medication Anterior rhinorrhea 2772 11862 J34.9 Gastroesop hageal reflux disease 040680658 K21.9 Currently not taking any medication Followed by Dr. Chairez [id number] MD Wes Vieyra (Adult Med) [address] [place] [address] 0 10/31/2016 10:55:03 10/31/2016 11:55:31 Renal disorder due to type 2 diabetes mellitus 134826953 E11.29 WIll check labs today taking 40 units qPM a1c: 10.4 GIven number endocrinol ogy and nephrology to schedule appointmen sheron Had an eye exam in 02/2016 Adrenal mass 105160347 R 19.09 WIll order MRI w/ contrast as recommende d by CT scan Active or passive immunization 275218425 Z23 Gastroesop hageal reflux disease 960286913 K21.9 Currently not taking any medication Followed by Dr. Chairez Essential hypertension 53815622 I10 148/80 today - usually WNL - will readdress at next visit Hyperlipidemia 19846269 E78.5 Will check cholestero l today and fill accordingl y Anterior rhinorrhea 2772 28736 J34.9 [id number] Leandra Estevez MD [facility] (Adult Med) [address] [place] [address] 0 02/13/2017 11:02:11 02/13/2017 18:07:37 Hypertensive emergency [id number] 66200 I16.1 210/120 - patient advised to go to the ER. SHe has chosen to go to [facility] ER and will have her daughter transport her. Patient chose her daughter to transport here AMA of ambulance. Patient signed Refusal of Care paperwork. Discussed with patient that even though she did not take her BP medication her BP is too high to treat in the office. I also discussed that it seemed odd that she was not having any sx's of change in vision, blurry vision, HAs, etc. Advised that I wonder if her BP has been running this high for a bit and she just got used to it over the last few weeks/gay hs that she needs to be evaluated in the ER to see if there is another cause for her BP being this elevated - especially since she states that she changed her diet completely and isn't eating any salty foods and sticking more to fruits and vegetables her BP should not be this elevated, even without medication . Will see what [facility] finds in their evaluation [id number] MD Wes Vieyra (Adult Med) [address] [place] [address] 02/27/2017 09:35:32 02/27/2017 10:48:20 Essential hypertension 70205774 I10 138/82 today in office - per patient her BPs fluctuate greatly and sometimes in the morning it is 90s/60s and she feels very tired. Advised patient that I would like her to re-establi with nephrology - given number to Dr. Nguyễn's office WIll discuss a cardiology referral at next appointmen t/sx's worsen Always take your BP medication Herpes zoster 4334367 B0 2.9 Patient advised to begin medication DOMINIQUE (will scrap picker today when she leaves office because [facility] did not have in stock) and to also contact her ophthalmol ogist concerning the shingles outbreak d/t location of outbreak being around her right eye Contact clinic if no improvemen t by next weekDiscus sed that the rash will likely clear up prior to the pain be alleviated If the pain worsens, rash spreads, she begins to have blurry or changed vision, return to the ER immediatel y Diabetes mellitus 929403 09 E11.[address] Chavarria WIll recheck labs and then send to [facility] Currently taking 26 units Lantus qPM Renal diso rder due to type 2 diabetes mellitus 503707984 E11.29 a1c: 10.4 Followed by endocrinol ogyGIven number to re-leonardo with nephrology [id number] MD Wes Vieyra (Adult Med) [address] [place] [phone] 03/11/2017 09:05:42 03/12/2017 10:23:09 Herpes zoster 4160761 B02.9 Discussed that the shingles rash can take a few weeks to go away and the pain even longer - patient states that she would feel more comfortabl e with another course of abx - will do valtrex x 7 days and give a few more pain medication s If the pain worsens, rash spreads, she begins to have blurry or changed vision, return to the ER immediatel y Renal diso rder due to type 2 diabetes mellitus 254848756 E11.29 a1c: 6.5 - greatly improved Followed by endocrinol ogyGIven number to re-establi with nephrology Essential hypertension 97461468 I10 160/90 today in office - NAD and not WNL - will adress at next visit Again, advised patient that I would like her to re-establi with nephrology - given number to Dr. Nguyễn's office WIll discuss a cardiology referral at next appointmen t/sx's worsen Always take your BP medication [id number] MD Wes Vieyra (Adult Med) [address] [place] [phone] 04/23/2017 11:07:41 04/24/2017 11:29:00 Depressive disorder 41757032 F32.9 Given number for Dary Beckman: x 1130 for counselor ([facility] speaking counselor) - if nothing available, advised to contact clinic and she can see a counselor here with an interprete rWIll begin Effexor 37.5 QD x 1 week and then BIDAdvised any SI/HI go directly to the ER Anxiety 90583470 F41.9 [id number] MD Wes Vieyra (Adult Med) [address] [place] [phone] 0 05/06/2017 11:09:52 05/08/2017 13:59:05 Menopausal syndrome 730426588 N95.9 Essential hypertension 44679329 I10 134/78 today in office - NAD, WNL Will check labs today and readdress referring her to another nephrologi st d/t Dr. Nguyễn not practicing within [facility] anymore WIll discuss a cardiology referral at next appointmen t/sx's worsen Always take your BP medication daily Renal diso rder due to type 2 diabetes mellitus 938270325 E11.29 a1c: 7.5 - greatly improved Has been followed by endo in the past; however, they do no speak Faroese and are too expensive for her - last a1c: 7.5 - will continue to readdress to follow with endo Depressive disorder 3548 9009 F32.9 Patient has number for Dary Beckman: x 1130 for counselor ([facility] speaking counselor) - if nothing available, advised to contact clinic and she can see a counselor here with an interprete rd/c Effexor d/t patient's complaints of side effects to medicaiton Advised any SI/HI go directly to the ER [id number] [facility] (Peds) [address] [place] [phone] 07/07/2017 11:42:28 07/08/2017 11:57:23 Renal disorder due to type 2 diabetes mellitus 498500755 E11.22 Uterine leiomyoma 567951 05 D25.9 as seen on MRI - Patient to schedule an appointmen t to discuss thisPer patient and patient's daughter, was told that she needs to have a hysterecto my Essential hypertension 39663410 I10 128/78 today in office - NAD, WNL Patient has a f/u appointmen t with cardiology in 3 days Advised to not check BP every hour: 1-2 times/day or feeling light headed, headache, etc. [id number] [facility] (Peds) [address] [place] [phone] 0 07/14/2017 10:54:32 07/15/2017 12:33:46 Renal disorder due to type 2 diabetes mellitus 858050402 E11.22 Will recheck labs todaylast a1c: 7.5 Daytime somnolence 72237 59526 00 R40.0 Will refer for MARYJANE eval Hyperlipidemia 15505281 E78.5 Will check cholestero l today and fill accordingl y Essential hypertension 10235176 I10 124/60 today in office - NAD, WNL Patient to follow with cardiology Advised to not check BP every hour: 1-2 times/day or feeling light headed, headache, etc. [id number] MD Wes Mckenna [facility] (LAW SECRETARY) [address] [place] [phone] 07/15/2017 15:33:03 07/17/2017 12:38:58 Uterine leiomyoma 50659820 D25.9 pt will wait for results of CEA and CA 125. if results are positive, she agrees to go see MUSEUM ASSISTANT/ONC. If results are negative will start on meds for IBS. Chronic ulcer of foot 42 5511971 L97.509 Renal diso rder due to type 2 diabetes mellitus 057924474 E11.22 will f/u with PCP Essential hypertension 53100655 I10 will f/u with PCP Irritable bowel syndrome 72457018 K58.9 pt was given 3 sample boxes of linzess and 3 sample boxes of trulance. instructed to try both and report which one she prefers. [id number] MD Wes Sommer (Adult Med) [address] [place] [phone] 0 12/03/2017 09:04:26 12/03/2017 10:45:43 Renal disorder due to type 2 diabetes mellitus 958691832 E11.22 a1c today in office: 7.2 - improved from 7.5 - encouraged to keep up the good workWill increase levemir to 26 units QD Encouraged goal for her FBS qAM is 90-110.Adv ised to contact clinic if BS is <70 and >300 Discussed DASH diet Advised 30 minutes of exercise minimum daily Nephrologi st: Dr. Cesar Hyperlipidemia 13604614 E78.5 Will check cholestero l today and fill accordingl y Active or passive immunization 546086709 Z23 Essential hypertension 98929731 I10 138/82 today in office - NAD, WNLfollowe d by Dr. Barker and all meds presribed by Dr. Chávez opril 40mg QDHCTZ 12.5mg QDmetoprol ol 25mg BID Discussed DASH diet Advised 30 minutes of exercise minimum dailyAdvis ed tobacco, alcohol, caffeine all increase BPAdvised goal for BP is <140/90 Body mass index 30+ - obesity 408754506 Z68.31 Advised 30 minutes of exercise 5 days/week Advised to not drink her calories Advised 3 balanced meals/day with plenty of fruits and vegetables [id number] MD Wes Sommer (Adult Med) [address] [place] [phone] 0 12/24/2017 11:07:58 12/24/2017 12:56:13 Chronic idiopathic constipation 36778859 K59.04 Patient has tried high fiber diet, Linzess, Miralax, lactulose - states that the only thing that works is TrulaceWIl l try to prescribe Patient has DM discussed this could be 2/2 impaired motility 2/2 DM If no improvemen t and not covered by insurance will try Linzess and/or refer to GI Body mass index 30+ - obesity 305704405 Z68.31 Advised 30 minutes of exercise 5 days/week Advised to not drink her calories Advised 3 balanced meals/day with plenty of fruits and vegetables Renal diso rder due to type 2 diabetes mellitus 029041528 E11.22 a1c today in office: 7.2 - improved from 7.5 - encouraged to keep up the good workWill increase levemir to 26 units QD Encouraged goal for her FBS qAM is 90-110.Adv ised to contact clinic if BS is <70 and >300 Discussed DASH diet Advised 30 minutes of exercise minimum daily Nephrologi st: Dr. Cesar [id number] KATHERINE RICHARDSON, DENTAL ASSISTANT TEACHER-C [facility] (Adult Med) [address] [place] [address] [phone] 0 05/04/2018 11:10:22 05/05/2018 11:42:01 Injury of foot 177891277 S99.921A XR R foot-injur y related to dm neuropathy seeing podiatry 05-22asked to keep appointmen t and have R foot examined as wellf/u prn Renal diso rder due to type 2 diabetes mellitus 345426218 E11.22 check cmp-missed nephrology f/u apptencour aged to reschedule appt continue lantus for DMon lisinopril f/u 3 mos Hyperlipidemia 31688340 E78.1 states taking atorvastat in every 2-3 days per cardiology recommenda tionsreche ck lipids when fastingf/u 3 mos Diabetes mellitus 911759 09 E11.29 a1c 7.8%contin ue current medication slantus 26 units at [facility]son milady-i, asa, and statinphon e numbers given for her to see ophthalmol ogistf/u 3 mos [id number] Helen morrow, MD [facility] (Adult Med) [address] [place] [address] [phone] 0 07/08/2018 10:31:00 07/08/2018 11:17:58 Chronic ulcer of foot 889142301 L97.[address] [facility] much improved and they are prescribin g shoes Ulcer of foot 39690020 L 97.[address] Nolan (podiatry) at [facility] Active or passive immunization 326160015 Z23 Hyperlipidemia 20758873 E78.5 c/w atorvastat in Renal diso rder due to type 2 diabetes mellitus 182494729 E11.22 a1c today in office: 7.8 04/2018 - Will increase levemir to 30 units QD d/t being more sedentary d/t foot ulcer Encouraged goal for her FBS qAM is 90-110.Adv ised to contact clinic if BS is <70 and >300Discus sed DASH dietAdvise d 30 minutes of exercise minimum daily Nephrologi st: Dr. Cesar Essential hypertension 13053816 I10 130/78 today in office - NAD, WNLfollowe d by Dr. Barker and all meds presribed by Dr. Cooneysin opril 40mg QDHCTZ 12.5mg QDmetoprol ol 25mg BID Discussed DASH diet Advised 30 minutes of exercise minimum dailyAdvis ed tobacco, alcohol, caffeine all increase BPAdvised goal for BP is <140/90 [id number] Anastasia Meng MD [facility] (Adult Med) [address] [place] [address] [phone] 0 10/05/2018 09:25:46 10/06/2018 13:33:49 Renal disorder due to type 2 diabetes mellitus 544339707 E11.22 Complaining of a rash 16 7420700 R21 Diabetes mellitus 201161 09 E11.9 Body mass index 30+ - obesity 994602808 Z68.39 discussed good diet and exercise. make good food/snack choices. decrease sugared beverage intake. [id number] [facility] [address] [place] [address] [phone] 0 12/29/2018 15:27:07 12/30/2018 09:35:32 General examination of patient 680581163 Z00.01 Uncontroll ed type 2 diabetes mellitus 851591209 E11.65 Screening for malignant neoplasm of breast 929831472 Z12.31 Complex ovarian cyst 145 5676646 03 N83.299 Screening for malignant neoplasm of cervix 211624312 Z12.4 Hyperlipidemia 01934311 E78.00 Essential hypertension 65824666 I10 Renal diso rder due to type 2 diabetes mellitus 928626171 E11.22 Malaise and fatigue 2717 09772 R53.83 Diabetic foot ulcer 3710 20103 E13.621 Diabetic shoes Bronchitis 14939208 J40 [id number] MD Wes Mckenna (LAW SECRETARY) [address] [place] [address] [phone] 0 01/13/2019 11:24:23 01/13/2019 17:46:51 Uterine leiomyoma 45507493 D25.9 pt will wait for results of CEA and CA 125. if results are positive, she agrees to go see MUSEUM ASSISTANT/ONC. If results are negative will start on meds for IBS. Chronic id iopathic constipation 60509519 K59.04 Irritable bowel syndrome 47278362 K58.9 pt was given 3 sample boxes of linzess and 3 sample boxes of trulance. instructed to try both and report which one she prefers. Screening mammography 24 799033 Z12.31 [id number] MD Wes Lambert (Adult Med) [address] [place] [address] [phone] 0 02/09/2019 09:52:11 02/09/2019 11:08:56 Infection of finger 865811069 L08.9 Unclear if there is a FB present, it however is clearly infected Thyroid fu nction tests abnormal 655699979 R94.6 Disorder o f lipid metabolism 268934610 E78.9 It is unclear if her switching her Lipitor to half of the 80 mg dose due to cramps will explain worsening of her lipid panel. Uncontroll ed type 2 diabetes mellitus 842391806 E11.65 [id number] MD Wes Lambert (Adult Med) [address] [place] [address] [phone] 0 03/10/2019 11:11:13 03/11/2019 08:25:24 Subclinical hypothyroidism 32788977 E03.9 She is overweight , and unclear if she is really symptomati c. Her only issue is that her legs get tired Type 2 landon betes mellitus 21085819 E11.37X1 Essential hypertension 28885022 I10 [id number] MD Wes [facility] (Adult Med) [address] [place] [address] [phone] 0 07/09/2019 10:20:02 07/09/2019 11:21:27 Renal disorder due to type 2 diabetes mellitus 030962707 E11.22 Acute otitis media 35141 03 H66.92 Uncontroll ed type 2 diabetes mellitus 977285636 E11.65 Previously referred to an endocrinol ogist at [facility] in 2015 and 2017, she was seen but the out of pocket expenses were too high and she cannot afford them.Her DM is uncontroll ed and our options include a small increase in her Glargine insulin to 33 units, adding short term insulin or an oral medication . I have discussed this with her in detail and the plan is to increase her Lantus to 33 units, she is to monitor her blood sugars closely and make her family members aware.Clos e follow up in 6-[address] imulating hormone level above reference range 725423533 R79.89 Administra tion of influenza vaccine 58942920 Z23 Ulcer of left foot 01246 95994 8907970 L97.529 She is under the car eof the chief meteorologist and her appointmen t is on ~ 9 [id number] MD Wes Lambert (Adult Med) [address] [place] [address] [phone] 0 08/20/2019 11:25:48 08/20/2019 12:58:53 Thyroid stimulating hormone level above reference range 951064273 R79.89 Dose verified by her daughter who spoke to someone on her phone.Comp liant with 50 mcg, her TSH is however worse, 07/2019 from 05/2019.Inc rease Levothyrox ine to 75 mcg Impacted c erumen in right ear 1588780818 551872 H61.21 Otitis externa 6075015 H 60.93 Uncontroll ed type 2 diabetes mellitus 622595980 E11.65 [id number] MD Wes Lambert (Adult Med) [address] [place] [address] 95194-834 0 10/14/2019 15:37:23 10/15/2019 12:57:14 Uncontrolled type 2 diabetes mellitus 035285423 E11.65 Add Jardiance, side effects were discussede GFR 95, Creatinine 0.58 Acquired hypothyroidism 449443832 E03.9 Dizziness 596338679 R42 Long-term drug therapy 566354471 Z79.070 [id number] MD Wes Lambert (Adult Med) [address] [place] [address] [phone] 0 12/02/2019 10:14:02 12/03/2019 10:00:24 Acquired hypothyroidism 960111694 E03.9 TSH 8.660 10/28/2019 on Levothyrox ine 75 mcg po daily.This was increased Levothyrox ine to 88 mcg po daily.She should take it once a day and not once every other day Labs in 6 weeks Dizziness 341033737 R42 Probably unrelated to her Levothyrox ine Screening for malignant neoplasm of breast 995679308 Z12.31 Uncontroll ed type 2 diabetes mellitus 315264454 E11.65 Labs [id number] MD Wes Lambert (Adult Med) [address] [place] [address] [phone] 0 04/07/2020 14:06:38 04/10/2020 08:18:50 Imaging result abnormal 325313311 R93.89 Artifact? 3.2 cm opacity or artifact in the R. base on the CXR done at [facility] on 04/04/2020 Hypothyroidism 09413783 E03.9 Her grandson read the dose of her Levothyrox ine as 25 mcg, her refill history suggests that Euthyrox 88 mcg was filled on 04/04/2020. As this was a phone visit, I am not certain what her levothyrox ine dose is, suffice to say her last TSH was normal [id number] MD Wes Lambert (Adult Med) [address] [place] [address] [phone] 0 06/29/2020 10:10:59 06/29/2020 22:13:04 Administration of influenza vaccine 08317808 Z23 Pre-surger y evaluation 106504809 Z01.818 EKG 06/20/2020 Borderline EKGLow risk for complicati ons Type 2 landon betes mellitus 21318238 E11.37X1 [id number] MD Wes Lambert (Adult Med) [address] [place] [address] [phone] 0 10/19/2020 08:08:11 10/20/2020 07:51:52 History of peptic ulcer 009662050 Z87.11 Risk vs benefit, she may hold her Asa. Benign hypertension 1072 5009 I10 Take Metoprolol BIDContinu e all other medication sMonitor the blood pressure closely Uncontroll ed type 2 diabetes mellitus 797401237 E11.65 LabsDeclin ed the referral to the endocrinol ogist Medication monitoring 39 6491094 Z51.81 Screening for malignant neoplasm of breast 770019704 Z12.31 [id number] MD Wes Lambert (Adult Med) [address] [place] [address] [phone] 0 12/01/2020 11:00:40 12/04/2020 10:59:17 Uncontrolled type 2 diabetes mellitus 413343661 E11.65 Increase Lantus to 36 units Previously declined the referral to the endocrinol ogist Allergic rhinitis 346784 04 J30.9 Hyperlipidemia 25005267 E78.00 Stop LipitorSta rt Crestor Medication monitoring 39 6399376 Z51.81 Hypothyroidism 58845628 E03.9 Should be on Euthyrox 88 mcg Screening for malignant neoplasm of breast 792391675 Z12.31 [id number] MD Wes Lambert (Adult Med) [address] [place] [address] [phone] 0 01/17/2021 10:33:19 01/18/2021 08:15:10 Hiatal hernia 32070733 K44.9 Abdominal pain 60909289 R10.9 LLQ abdominal pain Diverticul itis? Urinary symptoms 1056900 08 R39.9 Lightheadedness 83609328 8 R42 Uterine leiomyoma 431651 05 D25.9 Uncontroll ed type 2 diabetes mellitus 526336206 E11.65 On Lantus to 36 units Previously declined the referral to the endocrinol ogist [id number] MD Wes Lambert (Adult Med) [address] [place] [address] [phone] 0 01/30/2021 15:21:13 01/31/2021 13:22:38 Disorder of bile duct 659089782 K83.9 GI to see on 02/01/2021 Benign hypertension 1072 5009 I10 Continue Metoprolol BID Continue all other medication s Monitor the blood pressure closely Body mass index 30+ - obesity 972560531 Z68.37 Screening for malignant neoplasm of breast 052505168 Z12.31 [id number] ALEXX PRINGLE (LAW SECRETARY) [address] [place] [address] [phone] 0 02/09/2021 14:23:03 02/17/2021 17:50:53 Screening for malignant neoplasm of breast 298018863 Z12.31 Last mammogram March 2019 BIRADS 2. Pain in pelvis 68061387 R10.2 Possible h/o uterine fibroids and ovarian cysts. Advised TVUS to further assess. Screening for osteoporosis 797114445 Z13.820 Patient reports having never undergone a bone density scan. [id number] MD Wes Lambert (Adult Med) [address] [place] [address] [phone] 0 07/25/2021 15:43:40 07/25/2021 17:07:50 Hypothyroidism 61260965 E03.9 She is uncontroll ed on Euthyrox 88 mcgIncreas e Euthyrox to 100 mcgLabs in 6 weeks Seasonal allergy 1695314 04 J30.2 Vague func tional signs and symptoms 1501604 R68.89 Administra tion of influenza vaccine 47402368 Z23 Abnormal f indings diagnostic imaging of liver+biliary tract 293190641 R93.2 Her MRCP was abnormal (Dilated (CBD & CHD), Small sliding HH, Chronic pancreatit is & Cardiomega ly) and according to her daughter, this was already discussed with GI Uterine leiomyoma 035294 05 D25.9 Follow up with MUSEUM ASSISTANT Sliding hiatus hernia 23 6296856 K44.9 [id number] Jules Yeh MD [facility] (Adult Med) [address] [place] [address] 8 11/19/2021 17:01:37 11/20/2021 13:16:40 Administration of SARS-CoV-2 mRNA vaccine 4384015836 Z23 [id number] MD Wes Lambert (Adult Med) [address] [place] [address] 23225-721 0 12/24/2021 15:58:53 12/25/2021 16:05:00 Pruritus of vagina 64926836 L29.3 Uncontroll ed type 2 diabetes mellitus 737008008 E11.65 She decreased her Insulin from 20 to 16, she should let her endocrinol ogist know Screening for malignant neoplasm of breast 480409326 Z12.31 Fatigue 46713638 R53.83 Dizziness 264063934 R42 Probably related to her blood pressure and/or blood sugar, I however need a complete and accurate medication list Chest wall pain 71691525 6 R07.89 Unexplaine d by her CT scan Medication monitoring 39 9454257 Z51.81 [id number] [facility] ([facility] [address] [place] [address] 0 05/23/2022 14:16:21 05/24/2022 19:33:24 Uncontrolled type 2 diabetes mellitus 357286295 E11.65 O n Lantus 16 units, Farxiga and TrulicityM a naged by the endocrinol ogist Benign hypertension 1072 5009 I10 Continue Metoprolol BID and increase HCTZ to 25 mg Body mass index 30+ - obesity 198027810 Z68.37 History of SARS-CoV-2 29 50733354 65217029 Z86.16 Screening for malignant neoplasm of breast 967319316 Z12.31 D i scussed, she still wants one done. [id number] MD Wes Lambert (Adult Med) [address] [place] [address] 0 07/04/2022 09:42:20 07/05/2022 15:48:42 Administration of influenza vaccine 41823068 Z23 Benign hypertension 1072 5009 I10 Uncontroll ed on Metoprolol BID and HCTZ 25 mg.Add losartan 25 mg, side effects were discussed. It is unclear what happened to her MILADY-.She will be following up with her cardiologi st in August,. Type 2 landon betes mellitus 27894923 E11.37X1 O n Lantus 16 units, Farxiga and TrulicityM a naged by the endocrinol ogist Recurrent candidiasis of vagina 248146549 B37.32 Possibly related to her FarxigaI will retreat, however if this persists, she will need to be seen by MUSEUM ASSISTANT. [id number] MD Wes Lambert (Adult Med) [address] [place] [address] [phone] 0 10/23/2022 09:57:33 10/28/2022 11:49:45 Obesity 814896168 E66.9 Benign hypertension 1072 5009 I10 Uncontroll ed, it is not clear what she is taking, her RF history suggests that she filled Losartan 50 mg, HCTZ 12.5 mg, I prescribed Losartan 25 and HCTZ 25.She needs to bring her medication s in especially as it remains uncontroll ed OV 07/04/2022 Uncontroll ed on Metoprolol BID and HCTZ 25 mg.Add losartan 25 mg, side effects were discussed. It is unclear what happened to her MILADY-.She will be following up with her cardiologi st in August,. Type 2 landon betes mellitus 67972366 E11.37X1 O n Lantus 20 units, Farxiga? and Trulicity? M a naged by the endocrinol ogist, although she has not followed up in a [facility] are pending Immunization advised 310 692590 Z71.9 [id number] MD Wes Lambert (Adult Med) [address] [place] [address] [phone] 0 11/27/2022 10:52:13 11/28/2022 12:02:59 Medication review done by doctor 012799140 Z76.89 Benign ess ential hypertension 3189181 I10 Essential hypertension 92443382 I10 Chronic low back pain 27 7295868 M54.50 Pain of le ft shoulder joint 6899994325 2331265 M25.512 Strain of back muscle 26 1006721 S39.012A Medication monitoring 39 8986260 Z51.81 Type 2 landon betes mellitus 92807505 E11.37X1 O n Lantus 20 units, Farxiga? Tresiba? and Trulicity? M a naged by the endocrinol ogist.Labs are pending [id number] MD Wes Lambert (Adult Med) [address] [place] [address] [phone] 0 04/30/2023 15:31:43 05/02/2023 10:40:08 Medication review done by doctor 500964839 Z76.89 Essential hypertension 06638221 I10 Normal when it was rechecked Type 2 landon betes mellitus 20648120 E11.37X1 HBA1C 9.3% (04/25/2023) Uncontroll ed, I really need her medication list so that I can make adjustment s OV 11/27/2022O n Lantus 20 units, Farxiga? Tresiba? and Trulicity? M a naged by the endocrinol ogist.Labs are pending Labile hyp ertension due to being in a clinical environment 709362165 I15.8 Immunization advised 310 149076 Z71.9 [id number] MD Wes Lambert (Adult Med) [address] [place] [address] [phone] 0 06/03/2023 13:58:35 06/04/2023 16:37:46 Pain in left foot 6214948805 65995 M79.672 Type 2 landon betes mellitus 58255233 E11.37X1 Add Novolog 6 units with mealsConti nue Lantus, FarxigaEnd ocrinology OV 04/30/2023HB A1C 9.3% (04/25/2023) Uncontroll ed, I really need her medication list so that I can make adjustment s OV 11/27/2022O n Lantus 20 units, Farxiga? Tresiba? and Trulicity? M a naged by the endocrinol ogist.Labs are pending Medication review done by doctor 065457486 Z76.89 [id number] MD Wes Lambert (Adult Med) [address] [place] [address] [phone] 0 07/07/2023 15:19:12 07/08/2023 13:49:25 Type 2 diabetes mellitus 59436379 E11.37X1 LabsOn Farxiga, Metformin, Tresiba and Trulicity OV 06/03/2023 dd Novolog 6 units with mealsConti nue Lantus, FarxigaEnd ocrinology OV 04/30/2023HB A1C 9.3% (04/25/2023) Uncontroll ed, I really need her medication list so that I can make adjustment s OV 11/27/2022O n Lantus 20 units, Farxiga? Tresiba? and Trulicity? M a naged by the endocrinol ogist.Labs are pending Immunization advised 310 680541 Z71.9 Hypothyroidism 40941331 E03.9 On Euthyrox 100 mcgLabs Essential hypertension 71152584 I10 She never did start the 25 mg dose and had remained on the 12.5 mg dose Medication monitoring 39 7808528 Z51.81 Medication review done by doctor 282329932 Z76.89 [id number] MD Wes Lambert (Adult Med) [address] [place] [address] 53839-922 0 09/08/2023 15:28:47 09/09/2023 08:58:42 Administration of influenza vaccine 90065590 Z23 Type 2 landon betes mellitus 43581990 E11.37X1 HBA1C 7.3% 09/02/2023 Continue the current regimen (Farxiga, Metformin, Tresiba and Trulicity) OV 07/07/2023 LabsOn Farxiga, Metformin, Tresiba and Trulicity OV 06/03/2023 dd Novolog 6 units with mealsConti nue Lantus, FarxigaEnd ocrinology OV 04/30/2023HB A1C 9.3% (04/25/2023) Uncontroll ed, I really need her medication list so that I can make adjustment s OV 11/27/2022O n Lantus 20 units, Farxiga? Tresiba? and Trulicity? M a naged by the endocrinol ogist.Labs are pending Hypothyroidism 37303227 E03.9 OV 07/07/2023 On Euthyrox 100 mcgLabs Essential hypertension 84831053 I10 Stable on HCTZ 25 mg and Metoprolol 25 mgUnable to tolerate LosartanOV 07/07/2023 She never did start the 25 mg dose and had remained on the 12.5 mg dose Gastroesop hageal reflux disease 680485045 K21.01 Medication review done by doctor 114019608 Z76.89 [id number] MD Wes Lambert (Adult Med) [address] [place] [address] [phone] 0 10/03/2023 09:15:54 10/08/2023 15:25:50 Pain of left shoulder joint 0371012852 9214077 M25.512 Acute on chronic left shoulder pain, negative xrays 12/18/2022 and 07/29/2016 MRIOrthoKe torolac PRN with food, side effects including an increased GI and CV risk were discussed. Cervical radiculopathy 08504739 M54.12 Screening for osteoporosis 544911907 Z13.820 Osteopenia 106124095 M85 .80 Noted on the shoulder xray done on 07/29/2016. [id number] Alison Florez MD [facility] (Adult [facility]) [address] [place] [address] [phone] 0 01/05/2024 11:50:28 01/08/2024 15:01:26 Pain of left shoulder joint 2887664788 7520228 M25.512 The MRI report is incomplete but Tendinopat hy and a possible tear are noted on the portion of the report.Ort ho as referred. OV 10/03/2023 cute on chronic left shoulder pain, negative xrays 12/18/2022 and 07/29/2016 MRIOrthoKe torolac PRN with food, side effects including an increased GI and CV risk were discussed. Type 2 landon betes mellitus 54022879 E11.37X1 Uncontroll ed [id number] 8% 4Re start Trulicity, Metformin and FarxigaEnd ocrinology as referred OV 10/03/2023H BA1C 7.3% 09/02/2023 Continue the current regimen (Farxiga, Metformin, Tresiba and Trulicity) OV 07/07/2023 LabsOn Farxiga, Metformin, Tresiba and Trulicity OV 06/03/2023 dd Novolog 6 units with mealsConti nue Lantus, FarxigaEnd ocrinology OV 04/30/2023HB A1C 9.3% (04/25/2023) Uncontroll ed, I really need her medication list so that I can make adjustment s OV 11/27/2022O n Lantus 20 units, Farxiga? Tresiba? and Trulicity? M a naged by the endocrinol ogist.Labs are pending Hypothyroidism 43819545 E03.9 TSH 5.240 on 11/24/2023In crease Levothyrox ine to 125 mcgLabs in 6 weeks OV 10/03/2023L abs 11/24/2023 TSH 5.240Incre ase Levothyrox ine to 112 mcgLabs in 6 weeks OV 07/07/2023 On Euthyrox 100 mcgLabs Constipation 52645101 K5 9.00 Colonoscop y 06/09/2023 [id number] [facility] [address] [place] [address] [phone] 0 03/05/2024 11:42:29 03/08/2024 11:15:29 Constipation 10123477 K59.00 GI as referredMg Citrate todayStart Senna/DSS on Colonoscop y 06/09/2023 t education on constipati on Type 2 landon betes mellitus 16896941 E11.37X1 Start Farxiga, Tresiba and Trulicity as previously prescribed Continue MetforminS top Lantus, it is unclear if it has .En docrinolog y as referred OV 01/05/2024U ncontrolle d [id number] 8% 11/24/2023e start Trulicity, Metformin and FarxigaEnd ocrinology as referred OV 10/03/2023H BA1C 7.3% 09/02/2023 Continue the current regimen (Farxiga, Metformin, Tresiba and Trulicity) OV 07/07/2023 LabsOn Farxiga, Metformin, Tresiba and Trulicity OV 06/03/2023 dd Novolog 6 units with mealsConti nue Lantus, FarxigaEnd ocrinology OV 04/30/2023HB A1C 9.3% (04/25/2023) Uncontroll ed, I really need her medication list so that I can make adjustment s OV 11/27/2022O n Lantus 20 units, Farxiga? Tresiba? and Trulicity? M a naged by the endocrinol ogist.Labs are pending CT of abdo men abnormal [id number] 0256465 R93.5 From the 01/29/2024 ER report, not discussed with the patient.CT A&PStable L. adrenal nodule.Maddison rine masses, likely uterine fibroids.m oderate stooldiffu se bladder wall thickening An official report has been requested. Body mass index 30+ - obesity 665691715 Z68.34 Obesity 714092136 E66.8 [id number] MD Wes Enrique (Adult Med) [address] [place] [address] [phone] 0 04/28/2024 11:13:56 05/01/2024 10:51:15 Body mass index 30+ - obesity 972788156 Z68.34 Mass of uterus 969576173 1 [address]85[address] History of ovarian cysts. Family history of uterine cancer. Will proceed with pelvic ultrasound . Urge incon tinence of urine 37762645 N39.41 Will get urinalysis and culture to rule out infection. Symptoms consistent with urge incontinen ce. Reviewed Kegel exercises. Recommende d she do three sets of ten three times a day. [id number] MD Wes Lambert (Adult Med) [address] [place] [address] [phone] 0 05/05/2024 15:46:22 05/12/2024 08:31:43 Type 2 diabetes mellitus 56375098 E11.37X1 LabsContin ue the current regimen OV 03/05/2024S tart Farxiga, Tresiba and Trulicity as previously prescribed Continue MetforminS top Lantus, it is unclear if it has .En docrinolog y as referred OV 01/05/2024U ncontrolle d [id number] 8% 11/24/2023e start Trulicity, Metformin and FarxigaEnd ocrinology as referred OV 10/03/2023H BA1C 7.3% 09/02/2023 Continue the current regimen (Farxiga, Metformin, Tresiba and Trulicity) OV 07/07/2023 LabsOn Farxiga, Metformin, Tresiba and Trulicity OV 06/03/2023 dd Novolog 6 units with mealsConti nue Lantus, FarxigaEnd ocrinology OV 04/30/2023HB A1C 9.3% (04/25/2023) Uncontroll ed, I really need her medication list so that I can make adjustment s OV 11/27/2022O n Lantus 20 units, Farxiga? Tresiba? and Trulicity? M a naged by the endocrinol ogist.Labs are pending Essential hypertension 79461574 I10 Stable OV 03/05/2024S table on HCTZ 25 mg and Metoprolol 25 mgUnable to tolerate LosartanOV 07/07/2023 She never did start the 25 mg dose and had remained on the 12.5 mg dose Hypothyroidism 09327269 E03.9 Labs 04/12/2024 TSH 4.480Conti nue Levothyrox ine 125 mcg Note from 02/26/2024Se e the message with her lab results from 02/21/2024La bs 02/21/2024 TSH 4.84Never started Levothyrox ine 125 mcg as orderedSto p Levothyrox ine 112 mcgStart Levothyrox ine 125 mcgLabs in 6 weeks OV 01/05/2024T SH 5.240 on 11/24/2023In crease Levothyrox ine to 125 mcgLabs in 6 weeks OV 10/03/2023L abs 11/24/2023 TSH 5.240Incre ase Levothyrox ine to 112 mcgLabs in 6 weeks OV 07/07/2023 On Euthyrox 100 mcgLabs Hyperlipidemia 21107918 E78.00 Continue Crestor Medication monitoring 39 2997413 Z51.81 Screening mammography 24 979204 Z12.31 [id number] Alison Florez MD [facility] (Adult Med) [address] [place] [address] [phone] 0 09/06/2024 09:57:24 09/09/2024 13:11:58 Type 2 diabetes mellitus 13223600 E11.37X1 Uncontroll ed, HBA1C 9.2%Manage d by the endocrinol ogist OV 05/05/2024L absContinu e the current regimen OV 03/05/2024S tart Farxiga, Tresiba and Trulicity as previously prescribed Continue MetforminS top Lantus, it is unclear if it has .En docrinolog y as referred OV 01/05/2024U ncontrolle d [id number] 8% 3/4/2024Re start Trulicity, Metformin and FarxigaEnd ocrinology as referred OV 10/03/2023H BA1C 7.3% 09/02/2023 Continue the current regimen (Farxiga, Metformin, Tresiba and Trulicity) OV 07/07/2023 LabsOn Farxiga, Metformin, Tresiba and Trulicity OV 06/03/2023 dd Novolog 6 units with mealsConti nue Lantus, FarxigaEnd ocrinology OV 04/30/2023HB A1C 9.3% (04/25/2023) Uncontroll ed, I really need her medication list so that I can make adjustment s OV 11/27/2022O n Lantus 20 units, Farxiga? Tresiba? and Trulicity? M a naged by the endocrinol ogist.Labs are pending Hypothyroidism [id number] E03.9 Stable OV 05/05/2024L abs 04/12/2024 TSH 4.480Conti nue Levothyrox ine 125 mcg Note from 02/26/2024Se e the message with her lab results from 02/21/2024La bs 02/21/2024 TSH 4.84Never started Levothyrox ine 125 mcg as orderedSto p Levothyrox ine 112 mcgStart Levothyrox ine 125 mcgLabs in 6 weeks OV 01/05/2024T SH 5.240 on 11/24/2023In crease Levothyrox ine to 125 mcgLabs in 6 weeks OV 10/03/2023L abs 11/24/2023 TSH 5.240Incre ase Levothyrox ine to 112 mcgLabs in 6 weeks OV 07/07/2023 On Euthyrox 100 mcgLabs Postmenopausal state [id number] Z78.0 NL DEXA scan done 04/22/2024 Screening for malignant neoplasm of breast [id number] Z12.31 Discussed, she still wants one done and it is scheduled at . 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 D73.5 On EliquisHem atologist to see Type 2 landon jennifer mellitus [id number] E11.37X1 Candace was stoppedLab s OV 09/06/2024 Uncontroll ed, HBA1C 9.2%Manage d by the endocrinol ogist OV 05/05/2024L absContinu e the current regimen OV 03/05/2024S tart Farxiga, Tresiba and Trulicity as previously prescribed Continue MetforminS top Lantus, it is unclear if it has .En docrinolog y as referred OV 01/05/2024U ncontrolle d [id number] 8% 11/24/2023e start Trulicity, Metformin and FarxigaEnd ocrinology as referred OV 10/03/2023H BA1C 7.3% 09/02/2023 Continue the current regimen (Farxiga, Metformin, Tresiba and Trulicity) OV 07/07/2023 LabsOn Farxiga, Metformin, Tresiba and Trulicity OV 06/03/2023 dd Novolog 6 units with mealsConti nue Lantus, FarxigaEnd ocrinology OV 04/30/2023HB A1C 9.3% (04/25/2023) Uncontroll ed, I really need her medication list so that I can make adjustment s OV 11/27/2022O n Lantus 20 units, Farxiga? Tresiba? and Trulicity? M a naged by the endocrinol ogist.Labs are pending Hypothyroidism [id number] E03.9 Stable OV 05/05/2024L abs 04/12/2024 TSH 4.480Conti nue Levothyrox ine 125 mcg Note from 02/26/2024Se e the message with her lab results from 02/21/2024La bs 02/21/2024 TSH 4.84Never started Levothyrox ine 125 mcg as orderedSto p Levothyrox ine 112 mcgStart Levothyrox ine 125 mcgLabs in 6 weeks OV 01/05/2024T SH 5.240 on 11/24/2023In crease Levothyrox ine to 125 mcgLabs in 6 weeks OV 10/03/2023L abs 11/24/2023 TSH 5.240Incre ase Levothyrox ine to 112 mcgLabs in 6 weeks OV 07/07/2023 On Euthyrox 100 mcgLabs Medication monitoring 39 [id number] Z51.81 [id number] Cecilia Han MD [facility] (Adult Med) [address] [place] [phone] 12/23/2024 10:50:20 12/28/2024 03:47:30 Health Concerns Section Related Observation LastModified by Organization Detai ls LastModified Time None Recorded Concern Status LastModified by Organization Details LastModified Time None Recorded Advance Directives Directive N: Payers Encounter Date Sequence Insurance Name Policy Number Policy Cronin Covered Member ID Cronin Member ID Guarantor Name 04/28/2024 1 [facility] (MEDICARE REPLACEMENT/A DVANTAGE - HMO) [id number] Nancy Martinez [id number] Cruz Martinez 05/05/2024 1 [facility] (MEDICARE REPLACEMENT/A DVANTAGE - HMO) [id number] Cruz Martinez [id number] Cruz Martinez 09/06/2024 1 [facility] (MEDICARE REPLACEMENT/A DVANTAGE - HMO) [id number] Cruz Martinez [id number] Cruz Martinez 11/30/2024 1 [facility] (MEDICARE REPLACEMENT/A DVANTAGE - HMO) [id number] Cruz Martinez [id number] Cruz Martinez 12/23/2024 1 [facility] (MEDICARE REPLACEMENT/A DVANTAGE - HMO) [id number] Cruz Martinez [id number] Cruz Martinez Notes Date Note Type Note Provider Name and Address Organization Details Recorded Time 04/28/2024 text/html here for female health visit, history of cyst on right and left ovary, recently went to ER and was told she had a mass on uterus, was not having symptoms, recently at the hospital and had a bladder infection, felt like labor, had a CT, they didn't see any cysts, had a urinary tract infection about six or seven months, sometimes has those symptoms, urgency, mother and sister had uterine breast, no breast cancer, last period was [age] years old, no bleeding after that, no female surgeries, history of thyroid disease and hypertension, type 2 diabetes. uses a cane and cannot move quickly Cecilia Flores MD Attn: Accounting,[address] [facility], [place], [address], [facility] 04/28/2024 13:09:03 05/05/2024 text/html Diabetes F/URepo rted bypatient.Review finger sticks:fastin-81 Labs:last A1C result: 8.3 Context:taking aspirin daily; not missing doses of medications; no side effects from medications Associated Symptoms:no weight gain; no dizziness; no sweats; no headaches; no confusion; no increased thirst; no increased appetite; no increased urination; no blurred vision; no numbness of feet; no calluses on feet;weight loss (1 lbs)Medicare Annual Wellness VisitReported bypatient.Diet and Nutrition:healthy diet Fracture Risk:no history of fractures; no recent explained fracture; no sudden unexplained fractures; no previous musculoskeletal injuries Physical Activity:exercises on a regular basis; recent increase in physical activity; good physical condition Depression Risk:never feels sad, empty, or tearful; no loss of interest in activities; no significant changes in weight; no sleep disturbances or insomnia; no agitation; no loss of energy; no feelings of worthlessness or guilt; no thoughts of suicide; no history of mood disorders;history of depression Orientation:no disorientation to time; no disorientation to date; no disorientation to place Concentration and Memory:no decreased concentrating ability; no memory lapses or loss; does not forget words Speech/Motor difficulties:no speech difficulties; no difficulty expressing formulated concepts; no difficulty with fine manipulative tasks; no difficulty writing/copying; no slowed reaction time; does not knock things over when trying to pick them up Hearing:no loss of hearing Vision:worse both distance and near Activities of Daily Living:able to bathe with limited or no assistance; able to contol urination and bowels; able to dress with limited or no assistance; able to feed self with limited or no assistance; able to get out of chair or bed with limited or no assistance; able to groom with limited or no assistance; able to toilet with limited or no assistance Instrumental Activities of Daily Living:able to grocery shop with limited or no assistance; able to manage medications with limited or no assistance; able to manage money with limited or no assistance; able to prepare meals with limited or no assistance; able to use the phone with limited or no assistance;unable to do house work without assistance Falls Risk Assessment:no frequent falls while walking; no fall since last visit; no dizziness/vertigo; fall(s) in the past year 1 Home Safety:no unsafe anny hazzards; no unsafe stairs; no unsafe gas appliances; working smoke/CO detectors; wears protective head gear for biking/high velocity; use of seatbelts; no vision or hearing loss while driving; no fire arms; has hand bars in the bathroom/shower; good lighting in the home Here with her son, who translates She was seen by her GI, cardiology and MUSEUM ASSISTANT, she needs an EGD and colonoscopy but she states that she is doing better and was unaware. Alison Florez MD Attn: Accounting[address] [facility], [place], [address], [facility] 05/05/2024 17:46:30 09/06/2024 text/html Diabetes F/URepo rted bypatient.Review finger sticks:fastin-87 Labs:last A1C result: 9.2% Context:taking aspirin daily; not missing doses of medications; no side effects from medications Associated Symptoms:no weight gain; no dizziness; no sweats; no headaches; no confusion; no increased thirst; no increased appetite; no increased urination; no blurred vision; no numbness of feet; no calluses on feet;weight loss (6 lbs)Medicare Annual Wellness VisitReported bypatient.Diet and Nutrition:healthy diet; discussed vitamin and supplement use Fracture Risk:no history of fractures; no recent explained fracture; no sudden unexplained fractures; no previous musculoskeletal injuries Physical Activity:exercises on a regular basis; recent increase in physical activity; good physical condition; discussed weightbearing activities; discussed exercise habits Depression Risk:never feels sad, empty, or tearful; no loss of interest in activities; no significant changes in weight; no sleep disturbances or insomnia; no agitation; no loss of energy; no feelings of worthlessness or guilt; no thoughts of suicide; no history of depression; no history of mood disorders Orientation:no disorientation to time; no disorientation to date; no disorientation to place Concentration and Memory:no decreased concentrating ability; no memory lapses or loss; does not forget words Speech/Motor difficulties:no speech difficulties; no difficulty expressing formulated concepts; no difficulty with fine manipulative tasks; no difficulty writing/copying; no slowed reaction time; does not knock things over when trying to pick them up Hearing:no loss of hearing Vision:worse both distance and near Activities of Daily Living:able to bathe with limited or no assistance; able to contol urination and bowels; able to dress with limited or no assistance; able to feed self with limited or no assistance; able to get out of chair or bed with limited or no assistance; able to groom with limited or no assistance; able to toilet with limited or no assistance Instrumental Activities of Daily Living:able to manage medications with limited or no assistance; able to manage money with limited or no assistance; able to prepare meals with limited or no assistance; able to use the phone with limited or no assistance;unable to do house work without assistance;unable to grocery shop without assistance Falls Risk Assessment:no frequent falls while walking; no fall in the past year; no fall since last visit; no dizziness/vertigo Home Safety:no unsafe anny hazzards; no unsafe stairs; no unsafe gas appliances; working smoke/CO detectors; wears protective head gear for biking/high velocity; use of seatbelts; no vision or hearing loss while driving; has hand bars in the bathroom/shower; good lighting in the home Here with her grandson who interprets. Her feet feels betterBasically asking for a urine testWhat she should eat? 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 She wants her urine for microalbumin done here. Alison Florez MD Attn: Accounting[address] [place], [address], [facility] 09/06/2024 11:27:17 11/30/2024 text/html Diabetes F/URepo rted bypatient.Review finger sticks:fastin; post dinner: [id number] Context:taking aspirin daily; not missing doses of medications; no side effects from medications Associated Symptoms:no weight gain; no dizziness; no sweats; no headaches; no confusion; no increased thirst; no increased appetite; no increased urination; no blurred vision; no numbness of feet; no calluses on feet;weight loss (6 lbs) Interpretation by her grandson Not too goodShe said she feels weak sometimes, she gets chills in her backShe has also been feeling nauseous Ms Martinez was admitted 09/29/24-10/02/24 with dizziness and abdominal pain after an increase in the dose of her Mounjaro. The discharge diagnosis included, Splenic infarct (Eliquis, Hematology),Vertigo (BPPV) and her Mounjaro was stopped. She has a scheduled appointment with the tablet machine operator. Alison Florez MD Attn: Accounting,[address] [facility], [place], [address], [facility] 11/30/2024 15:16:16 OBGyn Episode Ob Episode Information Episode Created Date Number of Fetuses Patient Bloodtype Patient rh Status Prepregnancy Weight lbs Domestic Partner Domestic Partner Phone Father Name Wire Splicer Status 02/28/20 16 2 CLOSED Fetus Data First Name Last Name Admitted to NICU Weight (g) Sex Living Outcome Pediatric Complications Fetus ID Race Codes Race Delivery Type F Full Term [id number] Sergey Calculation Initial Sergey Date Initial Exam Date Initial Exam Provider Initial Ultrasound Date Last Menstrual Period Date Ultra Sound Weeks Gestation 0 Eighteen To Twenty Week Sergey Update Ultra Sound Date Fundal Height At Umbil Quickening Date Ultra Sound Latest Weeks Gestation Final Sergey Confirmed By Final Sergey Confirmed Date Final Sergey Date Ultra Sound Latest Days Gestation 0 0 Menstrual History Last Menstrual Date Menses Monthly On Bcp Conception Prior Menses Frequency Hcg Plus Date Menarche Onset Age Delivery Information Delivery Date Delivery Type Labor Anesthesia Weeks Gestation Incision Type Labor Labor Length Hrs Delivered By Post Complications Tubal Sterilization Discharge Date Comments 1 [facility]- idural 40 false Leslie Discharge Information Feeding Method Contraceptive Method Maternal HG B and HCT Levels Ob Episode Information Episode Created Date Number of Fetuses Patient Bloodtype Patient rh Status Prepregnancy Weight lbs Domestic Partner Domestic Partner Phone Father Name Wire Splicer Status 02/28/20 16 1 CLOSED Fetus Data First Name Last Name Admitted to NICU Weight (g) Sex Living Outcome Pediatric Complications Fetus ID Race Codes Race Delivery Type F Full Term [id number] Vaginal Sergey Calculation Initial Sergey Date Initial Exam Date Initial Exam Provider Initial Ultrasound Date Last Menstrual Period Date Ultra Sound Weeks Gestation 0 Eighteen To Twenty Week Sergey Update Ultra Sound Date Fundal Height At Umbil Quickening Date Ultra Sound Latest Weeks Gestation Final Sergey Confirmed By Final Sergey Confirmed Date Final Sergey Date Ultra Sound Latest Days Gestation 0 0 Menstrual History Last Menstrual Date Menses Monthly On Bcp Conception Prior Menses Frequency Hcg Plus Date Menarche Onset Age Delivery Information Delivery Date Delivery Type Labor Anesthesia Weeks Gestation Incision Type Labor Labor Length Hrs Delivered By Post Complications Tubal Sterilization Discharge Date Comments 6 None 40 false 2 Meaghan Discharge Information Feeding Method Contraceptive Method Maternal HG B and HCT Levels Ob Episode Information Episode Created Date Number of Fetuses Patient Bloodtype Patient rh Status Prepregnancy Weight lbs Domestic Partner Domestic Partner Phone Father Name Wire Splicer Status 02/28/20 16 1 CLOSED Fetus Data First Name Last Name Admitted to NICU Weight (g) Sex Living Outcome Pediatric Complications Fetus ID Race Codes Race Delivery Type F Full Term [id number] Sergey Calculation Initial Sergey Date Initial Exam Date Initial Exam Provider Initial Ultrasound Date Last Menstrual Period Date Ultra Sound Weeks Gestation 0 Eighteen To Twenty Week Sergey Update Ultra Sound Date Fundal Height At Umbil Quickening Date Ultra Sound Latest Weeks Gestation Final Sergey Confirmed By Final Sergey Confirmed Date Final Sergey Date Ultra Sound Latest Days Gestation 0 0 Menstrual History Last Menstrual Date Menses Monthly On Bcp Conception Prior Menses Frequency Hcg Plus Date Menarche Onset Age Delivery Information Delivery Date Delivery Type Labor Anesthesia Weeks Gestation Incision Type Labor Labor Length Hrs Delivered By Post Complications Tubal Sterilization Discharge Date Comments 5 [facility]-Ep idural 40 Linda Discharge Information Feeding Method Contraceptive Method Maternal HG B and HCT Levels Ob Episode Information Episode Created Date Number of Fetuses Patient Bloodtype Patient rh Status Prepregnancy Weight lbs Domestic Partner Domestic Partner Phone Father Name Wire Splicer Status 02/28/20 16 1 CLOSED Fetus Data First Name Last Name Admitted to NICU Weight (g) Sex Living Outcome Pediatric Complications Fetus ID Race Codes Race Delivery Type M Full Term [id number] Vaginal Sergey Calculation Initial Sergey Date Initial Exam Date Initial Exam Provider Initial Ultrasound Date Last Menstrual Period Date Ultra Sound Weeks Gestation 0 Eighteen To Twenty Week Sergey Update Ultra Sound Date Fundal Height At Umbil Quickening Date Ultra Sound Latest Weeks Gestation Final Sergey Confirmed By Final Sergey Confirmed Date Final Sergey Date Ultra Sound Latest Days Gestation 0 0 Menstrual History Last Menstrual Date Menses Monthly On Bcp Conception Prior Menses Frequency Hcg Plus Date Menarche Onset Age Delivery Information Delivery Date Delivery Type Labor Anesthesia Weeks Gestation Incision Type Labor Labor Length Hrs Delivered By Post Complications Tubal Sterilization Discharge Date Comments 3 None 40 false 5 Azam Discharge Information Feeding Method Contraceptive Method Maternal HG B and HCT Levels Ob Episode Information Episode Created Date Number of Fetuses Patient Bloodtype Patient rh Status Prepregnancy Weight lbs Domestic Partner Domestic Partner Phone Father Name Wire Splicer Status 02/28/20 16 2 CLOSED Fetus Data First Name Last Name Admitted to NICU Weight (g) Sex Living Outcome Pediatric Complications Fetus ID Race Codes Race Delivery Type M Full Term [id number] Sergey Calculation Initial Sergey Date Initial Exam Date Initial Exam Provider Initial Ultrasound Date Last Menstrual Period Date Ultra Sound Weeks Gestation 0 Eighteen To Twenty Week Sergey Update Ultra Sound Date Fundal Height At Umbil Quickening Date Ultra Sound Latest Weeks Gestation Final Sergey Confirmed By Final Sergey Confirmed Date Final Sergey Date Ultra Sound Latest Days Gestation 0 0 Menstrual History Last Menstrual Date Menses Monthly On Bcp Conception Prior Menses Frequency Hcg Plus Date Menarche Onset Age Delivery Information Delivery Date Delivery Type Labor Anesthesia Weeks Gestation Incision Type Labor Labor Length Hrs Delivered By Post Complications Tubal Sterilization Discharge Date Comments 1 [facility]- idural 40 false Oscar Discharge Information Feeding Method Contraceptive Method Maternal HG B and HCT Levels
--- OUTSIDE RECORDS SUMMARY | 2025-02-24 03:03 | XMS_ITS | Data Portability ---
Author Organization [place] [facility] [employer], Main Office Address [address] [place] [address] Care Team Providers Care Correction Officer [facility] Name Role Phone YUN MCCRAY Primary Care Provider [phone] YUN MCCRAY Referring Provider Assessment Encounter Date Assessment Date Assessment LastModified by Organization Details LastModified Time 03/23/2024 03/23/2024 74-year-old female presents for evaluation of her left shoulder. She is here with her daughter who was helping translate. She reports pain ongoing for 7-8 months, located primarily in the lateral shoulder. She denies any acute injuries. She currently rates her pain 6/10. She has been using vapor rub but no other treatments. She is right-hand dominant. She is retired. She has a history of diabetes, does not know her A1c level. Review of systems per patient questionnaire Physical exam: She has tenderness palpation over the lateral shoulder. Range of motion 150/30/lower lumbar. 5/5 rotator cuff strength. Positive Patti's. Positive Neer and Montero. X-rays were reviewed, demonstrating no acute bony abnormality For her rotator cuff tendinitis/subac romial bursitis, we will begin with a course of conservative management. I recommended physical therapy, and she can not take oral anti-inflammator ies because of a history of stomach problems. I recommended Voltaren topically for her. We will see her back as needed after the course of treatment, the next step would be to consider a cortisone injection. They are in agreement with the plan. [email or web address] Not available 03/23/2024 12:27:16 Plan of Treatment Reminders Order Date Submit Date Provider Last Modified By Organization Details Last Modified Time Details Appointments None recorded. Lab None recorded. Referral physical therapist referral - eval and treat 2023 024 [facility], [address] [place], [address], 4 14:19:33 endocrinol ogy referral 2022 023 [place], [address] , [place], [address], 3 13:20:49 Procedures None recorded. Surgeries None recorded. Imaging XR, shoulder, 2 or more view 2023 024 [facility] [place], [address], [place], [address], 4 08:24:07 Medication Orders Trulicity 0.75 mg/0.5 mL subcutaneo us pen injector 2022 023 [facility], [address] [place], [address], 3 12:58:31 Trulicity 1.5 mg/0.5 mL subcutaneo us pen injector [email or web address] [place] [address] Pharmacy [facility], [address] [place], [address], 4 11:18:11 Tresiba FlexTouch U-100 insulin 100 unit/mL (3 mL) subcutaneo us pen 2022 023 [facility], [address] [place], [address], 3 13:10:56 metformin ER 500 mg tablet,ext ended release 24 hr 2022 023 [facility], [address] [place], [address], 3 13:11:45 Farxiga 10 mg tablet 2022 023 LUIS ANTONIO [facility], [address] [place], [address], 3 13:11:42 glimepirid e 2 mg tablet 2022 023 [email or web address] [facility], [address] [place], [address], 4 11:17:11 Patient TargetsNo targets recorded. Patient InstructionsNo instructions recorded. Reason for Referral Endocrinology Referral for U ncontrolled type 2 diabetes mellitus Referring Physician: Aye Gentile, Endocrinology, Encounter Date: 06/19/2023 Physical Therapist Referral for Pain of left shoulder joint eval and treat Referring Physician: Kalen Cohen, Orthopedic Surgery, Encounter Date: 03/23/2024 Results Created Date Observation Date Name Description Value Unit Range Abnormal Flag Note LastModifiedBy Organization Detail LastModifiedTime 11/06/19 22 11/06/2021 HEMOG LOBIN A1C HA1C 7.1 % 4.0-6. 0 high Diabe la Scree emily Crite karthik: <5.7% Consi stent with absen ce of diabe la 5.7-6 .4% Consi stent with incre ased risk for diabe la (pred iabet es) >OR=6 .5% Consi stent with diabe la REFER ENCE: Diabe la Care 2016, 39(Muniz ppl.1 ):s13 -s22 Not Available [facility] (Lab) [address] [place], [address], 11/06/2021 13:13:50 11/06/19 22 11/06/2021 T3 FREE free T3 1.9 pg/mL 2.77-5 .27 low Not Available [facility] (Lab) [address] [place], [address], 11/06/2021 12:35:20 11/06/19 22 11/06/2021 T4 FREE free T4 1.41 NG/dL 0.78-2 .19 Not Available [facility] (Lab) [address] [place], [address], 11/06/2021 12:35:17 11/06/19 22 11/06/2021 MICRO ALBUM IN RANDO M URINE microalb 6.6 mg/L 0.0-16 .6 Not Available [facility] (Lab) [address] [place], [address], 11/06/2021 12:33:42 11/06/19 22 11/06/2021 LIPID PANEL cholesterol 176 mg/dL 140-19 9 NIH IKER NSUS RECOM MENDA TION FOR YENY STERO L: ADULT CHILD LOW RISK: <200 <170 BORDE RLINE : <200- 239 ----- HIGH RISK: >240 >200 Not Available [facility] (Lab) [address] [place], [address], 11/06/2021 12:15:08 11/06/19 22 11/06/2021 LIPID PANEL triglyceride s 98 mg/dL 0-150 NIH IKER NSUS REPOR T RECOM MENDA TION FOR TRIGL YCERI TERESA: ADULT CHILD LOW RISK: <150 ----- BODER LINE: 150-1 99 ----- HIGH RISK: >200 ----- Not Available [facility] (Lab) [address] [place], [address], 11/06/2021 12:15:08 11/06/19 22 11/06/2021 LIPID PANEL HDL cholesterol 60 mg/dL 40- Not Available [facility] (Lab) [address] [place] [address], [address], 11/06/2021 12:15:08 11/06/19 22 11/06/2021 LIPID PANEL LDL cholesterol, calculated 96 mg/dL 0-130 NIH IKER NSUS REPOR T RECOM MENDA TIONS FOR LDL: ADULT CHILD LOW RISK <130 <110 (OPTI MAL LDL) <100 ----- ELIAS RLINE : 130-1 59 ----- HIGH RISK: >160 >130 A TRIGL YCERI DE RESUL T >400 INVAL IDATE S THE CALCU LATIO N FOR LDL FRACT IONAT ION - THE LDL RESUL T WILL NOT BE REPOR IRLANDA. Not Available [facility] (Lab) [address] [place], [address], 11/06/2021 12:15:08 11/06/19 22 11/06/2021 COMPR EHENS MEGAN METAB OLIC PANEL sodium 135 mmol/ L 137-14 5 low Not Available [facility] (Lab) [address] [place], [address], 11/06/2021 12:15:04 11/06/19 22 11/06/2021 COMPR EHENS MEGAN METAB OLIC PANEL potassium 4.9 mmol/ L 3.5-5. 1 Not Available [facility] (Lab) [address] [place], [address], 11/06/2021 12:15:04 11/06/19 22 11/06/2021 COMPR EHENS MEGAN METAB OLIC PANEL chloride 101 mmol/ L 98-107 Not Available [facility] (Lab) [address] [place], [address], 11/06/2021 12:15:04 11/06/19 22 11/06/2021 COMPR EHENS MEGAN METAB OLIC PANEL carbon dioxide 29 mmol/ L 22-30 Not Available [facility] (Lab) [address] [place], [address], 11/06/2021 12:15:04 11/06/19 22 11/06/2021 COMPR EHENS MEGAN METAB OLIC PANEL agap 9.9 mmol/ L 14-22 low Not Available [facility] (Lab) [address] [place], [address], 11/06/2021 12:15:04 11/06/19 22 11/06/2021 COMPR EHENS MEGAN METAB OLIC PANEL glucose 190 mg/dL 70-99 high Not Available [facility] (Lab) [address] [place], [address], 11/06/2021 12:15:04 11/06/19 22 11/06/2021 COMPR EHENS MEGAN METAB OLIC PANEL BUN 31 mg/dL 8-19 high Not Available [facility] (Lab) [address] [place], [address], 11/06/2021 12:15:04 11/06/19 22 11/06/2021 COMPR EHENS MEGAN METAB OLIC PANEL creatinine 0.50 mg/dL 0.66-1 .25 low Not Available [facility] (Lab) [address] [place], [address], 11/06/2021 12:15:04 11/06/19 22 11/06/2021 COMPR EHENS MEGAN METAB OLIC PANEL GFR >60 Refer ence Range : [place] ge GFR Healt hy Adult : >60 mL/mi n/1.7 3 m2 Chron ic Kidne y Disea se: 15-60 mL/mi n/1.7 3 m2 Kidne y Failu re: <15/m L/min /1.73 m2 www.n iddk. nih.g ov The MDRD study equat ion has not been valid ated in child johann <18 years of age; pregn ant women ; the elder ly >85 years of age; or in some racia l or ethni c subgr oups, such as Hismt nics. Outsi de the valid ated isra eters , estim ated GFR is less accur ate, requi ring clini corinne judgm ent on a case- by-ca se basis . Clini corinne inter preta tion for other races and ages must be made by the clini molly. The MDRD study equat ion has not been valid ated for the evalu ation of serum creat inine relat ed to nutri jack l statu s or medic ation usage . For perso ns <18 years of age, a pedia tric GFR calcu latcassi is avail able on the [facility] websi te: https :[email or web address] [email or web address].kentrell javed/josé alves s/kdo qi/gf r_cal culat or Not Available [facility] (Lab) [address] [place], [address], 11/06/2021 12:15:04 11/06/19 22 11/06/2021 COMPR EHENS MEGAN METAB OLIC PANEL alkaline phosphatase 90 U/L 38-126 Not Available [facility] (Lab) [address] [place], [address], 11/06/2021 12:15:04 11/06/19 22 11/06/2021 COMPR EHENS MEGAN METAB OLIC PANEL alanine aminotransfe rase 38 U/L 0-[address] [facility] (Lab) [address] [place], [address], 11/06/2021 12:15:04 11/06/19 22 11/06/2021 COMPR EHENS MEGAN METAB OLIC PANEL aspartate aminotransfe rase 38 U/L 15-[address] [facility] (Lab) [address] [place], [address], 11/06/2021 12:15:04 11/06/19 22 11/06/2021 COMPR EHENS MEGAN METAB OLIC PANEL bilirubin, total 0.30 mg/dL 0.20-1 .30 Not Available [facility] (Lab) [address] [place], [address], 11/06/2021 12:15:04 11/06/19 22 11/06/2021 COMPR EHENS MEGAN METAB OLIC PANEL calcium 9.5 mg/dL 8.4-10 .2 Not Available [facility] (Lab) [address] [place], [address], 11/06/2021 12:15:04 11/06/19 22 11/06/2021 COMPR EHENS MEGAN METAB OLIC PANEL total protein 7.6 g/dL 6.3-8. 2 Not Available [facility] (Lab) [address] [place], [address], 11/06/2021 12:15:04 11/06/19 22 11/06/2021 COMPR EHENS MEGAN METAB OLIC PANEL albumin 4.4 g/dL 3.0-4. 4 Not Available [facility] (Lab) [address] [place], [address], 11/06/2021 12:15:04 11/06/19 22 11/06/2021 COMPR EHENS MEGAN METAB OLIC PANEL globulin 3.2 g/dL 2.6-4. 2 Not Available [facility] (Lab) [address] [place], [address], 11/06/2021 12:15:04 11/06/19 22 11/06/2021 COMPR EHENS MEGAN METAB OLIC PANEL A/G ratio 1.4 ratio 1.0-2. 0 Not Available [facility] (Lab) [address] [place], [address], 11/06/2021 12:15:04 03/10/20 23 03/10/2023 LIPID PANEL cholesterol 160 mg/dL 140-19 9 NIH IKER NSUS RECOM MENDA TION FOR YENY STERO L: ADULT CHILD LOW RISK: <200 <170 BORDE RLINE : <200- 239 ----- HIGH RISK: >240 >200 Not Available [facility] (Lab) [address] [place], [address], 03/10/2023 12:08:26 03/10/20 23 03/10/2023 LIPID PANEL triglyceride s 106 mg/dL 0-150 NIH IKER NSUS REPOR T RECOM MENDA TION FOR TRIGL YCERI TERESA: ADULT CHILD LOW RISK: <150 ----- BODER LINE: 150-1 99 ----- HIGH RISK: >200 ----- Not Available [facility] (Lab) [address] [place], [address], 03/10/2023 12:08:26 03/10/20 23 03/10/2023 LIPID PANEL HDL cholesterol 56 mg/dL 40- Not Available [facility] (Lab) [address] [place], [address], 03/10/2023 12:08:26 03/10/20 23 03/10/2023 LIPID PANEL LDL cholesterol, calculated 83 mg/dL 0-130 NIH IKER NSUS REPOR T RECOM MENDA TIONS FOR LDL: ADULT CHILD LOW RISK <130 <110 (OPTI MAL LDL) <100 ----- ELIAS RLINE : 130-1 59 ----- HIGH RISK: >160 >130 A TRIGL YCERI DE RESUL T >400 INVAL IDATE S THE CALCU LATIO N FOR LDL FRACT IONAT ION - THE LDL RESUL T WILL NOT BE REPOR IRLADNA. Not Available [facility] (Lab) [address] [place], [address], 03/10/2023 12:08:26 03/10/2003/10/2023 COMPR EHENS MEGAN METAB OLIC PANEL sodium 136 mmol/ L 137-14 5 low Not Available [facility] (Lab) [address] [place], [address], 03/10/2023 12:08:42 03/10/20 23 03/10/2023 COMPR EHENS MEGAN METAB OLIC PANEL potassium 4.2 mmol/ L 3.5-5. 1 Not Available [facility] (Lab) [address] [place], [address], 03/10/2023 12:08:42 03/10/20 23 03/10/2023 COMPR EHENS MEGAN METAB OLIC PANEL chloride 98 mmol/ L 98-107 Not Available [facility] (Lab) [address] [place], [address], 03/10/2023 12:08:42 03/10/20 23 03/10/2023 COMPR EHENS MEGAN METAB OLIC PANEL carbon dioxide 31 mmol/ L 22-30 high Not Available [facility] (Lab) [address] [place], [address], 03/10/2023 12:08:42 03/10/20 23 03/10/2023 COMPR EHENS MEGAN METAB OLIC PANEL anion gap 11.2 mmol/ L 14-22 low Not Available [facility] (Lab) [address] [place], [address], 03/10/2023 12:08:42 03/10/20 23 03/10/2023 COMPR EHENS MEGAN METAB OLIC PANEL glucose 151 mg/dL 70-99 high Not Available [facility] (Lab) [address] [place], [address], 03/10/2023 12:08:42 03/10/20 23 03/10/2023 COMPR EHENS MEGAN METAB OLIC PANEL BUN 19 mg/dL 8-19 Not Available [facility] (Lab) [address] [place], [address], 03/10/2023 12:08:42 03/10/20 23 03/10/2023 COMPR EHENS MEGAN METAB OLIC PANEL creatinine 0.54 mg/dL 0.66-1 .25 low Not Available [facility] (Lab) [address] [place], [address], 03/10/2023 12:08:42 03/10/20 23 03/10/2023 COMPR EHENS MEGAN METAB OLIC PANEL GFR >60 Refer ence Range : [place] ge GFR Healt hy Adult : >60 mL/mi n/1.7 3 m2 Chron ic Kidne y Disea se: 15-60 mL/mi n/1.7 3 m2 Kidne y Failu re: <15/m L/min /1.73 m2 www.n iddk. nih.g ov The MDRD study equat ion has not been valid ated in child johann <18 years of age; pregn ant women ; the elder ly >85 years of age; or in some racia l or ethni c subgr oups, such as Hishaja nics. Outsi de the valid ated isra eters , estim ated GFR is less accur ate, requi ring clini corinne judgm ent on a case- by-ca se basis . Clini corinne inter preta tion for other races and ages must be made by the clini molly. The MDRD study equat ion has not been valid ated for the evalu ation of serum creat inine relat ed to nutri jack l statu s or medic ation usage . For perso ns <18 years of age, a pedia tric GFR calcu lator is avail able on the [facility] websi te: https :[email or web address] kang.edwige zavala.o rg/pr ofess ional s/kdo qi/gf r_cal culat or Not Available [facility] (Lab) [address] [place], [address], 03/10/2023 12:08:42 03/10/20 23 03/10/2023 COMPR EHENS MEGAN METAB OLIC PANEL alkaline phosphatase 70 U/L 38-126 Not Available [facility] (Lab) [address] [place], [address], 03/10/2023 12:08:42 03/10/20 23 03/10/2023 COMPR EHENS MEGAN METAB OLIC PANEL alanine aminotransfe rase 22 U/L 0-[address] [facility] (Lab) [address] [place], [address], 03/10/2023 12:08:42 03/10/20 23 03/10/2023 COMPR EHENS MEGAN METAB OLIC PANEL aspartate aminotransfe rase 31 U/L 15-[address] [facility] (Lab) [address] [place], [address], 03/10/2023 12:08:42 03/10/20 23 03/10/2023 COMPR EHENS MEGAN METAB OLIC PANEL bilirubin, total 0.40 mg/dL 0.20-1 .30 Not Available [facility] (Lab) [address] [place], [address], 03/10/2023 12:08:42 03/10/20 23 03/10/2023 COMPR EHENS MEGAN METAB OLIC PANEL calcium 9.2 mg/dL 8.4-10 .2 Not Available [facility] (Lab) [address] [place], [address], 03/10/2023 12:08:42 03/10/20 23 03/10/2023 COMPR EHENS MEGAN METAB OLIC PANEL total protein 6.9 g/dL 6.3-8. 2 Not Available [facility] (Lab) [address] [place], [address], 03/10/2023 12:08:42 03/10/20 23 03/10/2023 COMPR EHENS MEGAN METAB OLIC PANEL albumin 3.7 g/dL 3.0-4. 4 Not Available [facility] (Lab) [address] [place], [address], 03/10/2023 12:08:42 03/10/20 23 03/10/2023 COMPR EHENS MEGAN METAB OLIC PANEL globulin 3.2 g/dL 2.6-4. 2 Not Available [facility] (Lab) [address] [place], [address], 03/10/2023 12:08:42 03/10/20 23 03/10/2023 COMPR EHENS MEGAN METAB OLIC PANEL A/G ratio 1.2 ratio 1.0-2. 0 Not Available [facility] (Lab) [address] [place], [address], 03/10/2023 12:08:42 03/10/20 23 03/10/2023 T4 FREE free T4 1.54 NG/dL 0.78-2 .19 Not Available [facility] (Lab) [address] [place], [address], 03/10/2023 12:16:43 03/10/20 23 03/10/2023 T3 FREE free T3 2.9 pg/mL 2.77-5 .27 Not Available [facility] (Lab) [address] [place], [address], 03/10/2023 12:16:46 03/10/20 23 03/10/2023 TSH thyroid-stim ulating hormone 4.720 uIU/m L 0.465- 4.680 high Not Available [facility] (Lab) [address] [place], [address], 03/10/2023 12:21:51 03/10/20 23 03/10/2023 HEMOG LOBIN A1C HA1C 9.9 % 4.0-6. 0 high Diabe la Scree emily Crite karthik: <5.7% Consi stent with absen ce of diabe la 5.7-6 .4% Consi stent with incre ased risk for diabe la (pred iabet es) >OR=6 .5% Consi stent with diabe la REFER ENCE: Diabe la Care 2016, 39(Muniz ppl.1 ):s13 -s22 Not Available [facility] (Lab) [address] [place], [address], 03/10/2023 12:56:22 03/10/20 23 03/10/2023 MICRO ALBUM N RNDM W/CRE AT RATIO ur creat 63.99 mg/dL REFER ENCE RANGE NOT ESTAB LISANGIE D FOR RANDO M URINE CREAT ININE Not Available [facility] (Lab) [address] [place], [address], 03/10/2023 13:28:03 03/10/20 23 03/10/2023 MICRO ALBUM N RNDM W/CRE AT RATIO microalbumin , urine 31.3 mg/L 0.0-16 .6 high Not Available [facility] (Lab) [address] [place], [address], 03/10/2023 13:28:03 03/10/20 23 03/10/2023 MICRO ALBUM N RNDM W/CRE AT RATIO microalbumin /creatinine ratio 49 mcg/m g 0-29 high THE AMERI CAN DIABE LA ASSOC IATIO N DEFIN ES ABNOR MALIT IES IN ALBUM IN EXCRE TION FOLLO WS: CATEG ORY RESUL T (MCG/ MG CREAT ININE ) PELON L <30 MICRO ALBUM INURI A 30-29 9 CLINI [facility] ALBUM INURI A > OR = 300 THE ADA RECOM MENDS THAT 2 OF 2 SPECI MENS COLLE CTED WITHI N A 3- TO 6-MON TH PERIO D BE ABNOR MAL BEFOR E CONSI AMANDA G A PATIE NT TO HAVE CROSS ED ONE OF THESE DIAGN OSTIC THRES HOLDS . REFER ENCE: DIABE LA CARE, VOL. 26: S94-S 96, RY 2002 Not Available [facility] (Lab) [address] [place], [address], 03/10/2023 13:28:03 10/06/19 24 12/18/2022 XR, shoul enrrique, 2 or more view No observ ation record ed. [email or web address] Not Available 09/22 11:13:26 10/06/19 24 07/24/2016 XR, shoul enrrique, 2 or more view No observ ation record ed. [email or web address] Not Available 09/22 11:13:26 03/23/20 XR, shoul enrrique, 2 or more view No observ ation record ed. [email or web address] [facility] [place] [address], [place], [address], 03/23/2024 11:20:21 Result Notes None recorded. Problems Name Problem SNOMED Code Status Onset Date Resolution Date Notes Provider Name and Address Organization Details Recorded Time Microalbum inuria 214118946 Active 2021 Not Available [facility] 3 19:29:16 Dyslipidem ia 223605743 Active 2021 Not Available [facility] 3 19:29:16 Hypothyroi dism 22339389 Active 2021 Not Available [facility] 3 19:29:16 Uncontroll ed type 2 diabetes mellitus 627451754 Active 2021 Not Available [facility] 3 19:29:16 Essential hypertensi on 79328762 Active 2021 Not Available [facility] 3 19:29:17 Liver enzymes level above reference range 029002497 Active 2021 Not Available [facility] 3 19:29:17 Pain of left shoulder joint 2845317061663 9109 Active 2023 Afsaneh Jorge, RMLion null, [place] [employer] [facility] 4 11:20:29 Problem Notes None recorded. Procedures Surgical History Date Name Laterality Status Provider Name and Address Organization Details Recorded Time 5 delivery completed Not Available [facility] 11/20/2022 19:28:13 5 ligation of bilateral fallopian tubes completed Not Available [facility] 11/20/2022 19:28:13 1 delivery completed Not Available [facility] 11/20/2022 19:28:13 Kidney Stones completed Not Available [facility] 11/20/2022 19:28:13 Eye Surgery completed Not Available [facility] 11/20/2022 19:28:13 Imaging Results None recorded. Procedure Notes None recorded. Medical Equipment None Reported. Allergies No known drug allergies Medications Name Sig Start Date Stop Date Status Note LastModified by Organization Details LastModified Time losartan 50 mg tablet Take 1 tablet every day by oral route for 90 days. 03/16 completed Not Available Not Available Not Available cyclobenzap rine 10 mg tablet TAKE 1 TABLET BY MOUTH TWICE DAILY NEEDED FOR MUSCLE SPASM 03/16 completed Not Available Not Available Not Available atorvastati n 80 mg tablet TAKE 1 TABLET BY MOUTH ONCE DAILY 08/08 completed Not Available Not Available Not Available naproxen 375 mg tablet TAKE 1 TABLET BY MOUTH TWICE DAILY active Not Available Not Available No t Available fluconazole 150 mg tablet TAKE 1 TABLET BY MOUTH ONCE DAILY DIRECTED FOR 1 DAY 03/16 completed Not Available Not Available Not Available hydrocodone 5 mg-acetamin ophen 325 mg tablet TAKE 1 TABLET BY MOUTH EVERY 6 HOURS NEEDED FOR PAIN 03/16 completed Not Available Not Available Not Available sucralfate 1 gram tablet TAKE 1 TABLET BY MOUTH THREE TIMES DAILY 05/17 completed Not Available Not Available Not Available lisinopril 20 mg tablet TAKE 1 TABLET BY MOUTH ONCE DAILY IN THE MORNING FOR 90 DAYS 08/08 completed Not Available Not Available Not Available famotidine 40 mg tablet TAKE 1 TABLET BY MOUTH ONCE DAILY AT BEDTIME 05/17 completed Not Available Not Available Not Available amlodipine 5 mg tablet TAKE 1 TABLET BY MOUTH ONCE DAILY 11/29 completed Not Available Not Available Not Available sulfamethox azole 800 mg-trimetho prim 160 mg tablet TAKE 1 TABLET BY MOUTH TWICE DAILY DIRECTED FOR 7 DAYS 05/17 completed Not Available Not Available Not Available omeprazole 40 mg capsule,del ayed release TAKE 1 CAPSULE BY MOUTH TWICE DAILY 03/16 completed Not Available Not Available Not Available tramadol 50 mg tablet TAKE 1 TABLET BY MOUTH EVERY 6 HOURS NEEDED FOR PAIN 03/23 completed Not Available Not Available Not Available glimepiride 2 mg tablet Take 2 tablets twice a day by oral route before meals for 90 days. 03/23 completed Not Available Not Available Not Available ketorolac 10 mg tablet TAKE 1 TABLET BY MOUTH EVERY 6 HOURS NEEDED FOR 5 DAYS 03/23 completed Not Available Not Available Not Available levothyroxi ne 100 mcg tablet TAKE 1 TABLET BY MOUTH ONCE DAILY DIRECTED 03/23 completed Not Available Not Available Not Available amoxicillin 875 mg tablet TAKE 1 TABLET BY MOUTH TWICE DAILY UNTIL GONE 03/16 completed Not Available Not Available Not Available OneTouch Ultra Test strips USE 1 STRIP TO CHECK GLUCOSE THREE TIMES DAILY active Not Available Not Available No t Available benzonatate 100 mg capsule TAKE 1 CAPSULE BY MOUTH THREE TIMES DAILY NEEDED FOR COUGH 03/16 completed Not Available Not Available Not Available cephalexin 500 mg capsule TAKE 1 CAPSULE BY MOUTH EVERY 6 HOURS 03/23 completed Not Available Not Available Not Available Euthyrox 88 mcg tablet TAKE 1 TABLET BY MOUTH ONCE DAILY DIRECTED 03/21 completed Not Available Not Available Not Available levothyroxi ne 125 mcg tablet TAKE 1 TABLET BY MOUTH IN THE MORNING active Not Available Not Available No t Available losartan 25 mg tablet TAKE 1 TABLET BY MOUTH ONCE DAILY DIRECTED 03/16 completed Not Available Not Available Not Available hydrochloro thiazide 25 mg tablet TAKE 1 TABLET BY MOUTH ONCE DAILY DIRECTED 03/16 completed Not Available Not Available Not Available lorazepam 1 mg tablet TAKE ONE TABLET BY MOUTH 1-2 HOURS PRIOR TO MRI APPOINTME NT 03/23 completed Not Available Not Available Not Available methylpredn isolone 4 mg tablets in a dose pack TAKE DIRECTED 03/16 completed Not Available Not Available Not Available lisinopril 40 mg tablet TAKE 1 TABLET BY MOUTH ONCE DAILY 05/17 completed Not Available Not Available Not Available metformin ER 500 mg tablet,exte nded release 24 hr TAKE 1 TABLET BY MOUTH ONCE DAILY WITH SUPPER active Not Available Not Available No t Available loratadine 10 mg tablet TAKE 1 TABLET BY MOUTH ONCE DAILY 03/16 completed Not Available Not Available Not Available levothyroxi ne 112 mcg tablet TAKE 1 TABLET BY MOUTH ONCE DAILY IN THE MORNING FOR 90 DAYS 03/23 completed Not Available Not Available Not Available tobramycin 0.3 %-dexametha sone 0.1 % eye drops,suspe nsion INSTILL 1 DROP 4 TIMES DAILY INTO RIGHT EYE STARTING AFTER SURGERY 05/17 completed Not Available Not Available Not Available insulin lispro (U-100) 100 unit/mL subcutaneou s pen INJECT 6 UNITS SUBCUTANE OUSLY THREE TIMES DAILY WITH MEALS 03/16 completed Not Available Not Available Not Available Zetia 10 mg tablet Take 1 tablet every day by oral route for 90 days. 03/16 completed Not Available Not Available Not Available cyclobenzap rine 5 mg tablet TAKE 1 TABLET BY MOUTH THREE TIMES DAILY NEEDED FOR 14 DAYS 03/16 completed Not Available Not Available Not Available rosuvastati n 40 mg tablet TAKE 1 TABLET BY MOUTH ONCE DAILY AT BEDTIME active Not Available Not Available No t Available metoprolol tartrate 25 mg tablet TAKE 1 TABLET BY MOUTH TWICE DAILY DIRECTED 03/16 completed Not Available Not Available Not Available nitrofurant oin monohydrate /macrocryst als 100 mg capsule TAKE 1 CAPSULE BY MOUTH TWICE DAILY FOR 7 DAYS active Not Available Not Available No t Available BD Ultra-Fine Mini Pen Needle 31 gauge x 3/16 USE DIRECTED WITH LANTUS SOLOSTAR PEN 03/16 completed Not Available Not Available Not Available BD Ultra-Fine Short Pen Needle 31 gauge x 5/16 USE DIRECTED WITH LANTUS SOLOSTAR PEN 03/23 completed Not Available Not Available Not Available hydrochloro thiazide 12.5 mg tablet TAKE 1 TABLET BY MOUTH ONCE DAILY DIRECTED 03/16 completed Not Available Not Available Not Available Lantus Solostar U-100 Insulin 100 unit/mL (3 mL) subcutaneou s pen INJECT 20 UNITS SUBCUTANE OUSLY ONCE DAILY AT BEDTIME 06/19 completed Not Available Not Available Not Available Farxiga 10 mg tablet TAKE 1 TABLET BY MOUTH ONCE DAILY IN THE MORNING active Not Available Not Available No t Available Trulicity 1.5 mg/0.5 mL subcutaneou s pen injector INJECT 1 SYRINGE SUBCUTANE OUSLY ONCE A WEEK AT DINNER 03/23 completed Not Available Not Available Not Available Trulicity 0.75 mg/0.5 mL subcutaneou s pen injector INJECT 1 SYRINGE SUBCUTANE OUSLY ONCE A WEEK AT DINNER TIME FOR 30 DAYS active Not Available Not Available No t Available Tresiba FlexTouch U-200 insulin 200 unit/mL (3 mL) subcutaneou s pen INJECT 20 UNITS SUBCUTANE OUSLY ONCE DAILY AT BEDTIME 03/16 completed Not Available Not Available Not Available Tresiba FlexTouch U-100 insulin 100 unit/mL (3 mL) subcutaneou s pen INJECT 22 UNITS SUBCUTANE OUSLY ONCE DAILY AT BEDTIME active Not Available Not Available No t Available OneTouch Delica Plus Lancet 33 gauge USE 1 LANCET TO CHECK GLUCOSE THREE TIMES DAILY 03/16 completed Not Available Not Available Not Available Trulicity 3 mg/0.5 mL subcutaneou s pen injector INJECT 1 SYRINGE SUBCUTANE OUSLY ONCE A WEEK 03/16 completed Not Available Not Available Not Available Vitals Date Recorded Body mass index (BMI) Body height Oxygen saturation Oxygen saturation in Arterial blood by Pulse oximetry Heart rate Body temperature Body weight Systolic blood pressure Diastolic blood pressure Provider Name and Address Organization Details Last Updated DateTime 2 34.5 kg/m2 152.4 cm 100 % 100 % 84 /min 97.7 [degF] 18017.0 5 g 140 mm[Hg] 75 mm[Hg] Not Available [facility] 3 19:28:52 Date Recorded Body mass index (BMI) Body height Oxygen saturation Oxygen saturation in Arterial blood by Pulse oximetry Heart rate Body temperature Body weight Systolic blood pressure Diastolic blood pressure Provider Name and Address Organization Details Last Updated DateTime 2 34.5 kg/m2 152.4 cm 100 % 100 % 83 /min 99.5 [degF] 75525.4 1 g 130 mm[Hg] 85 mm[Hg] Not Available [facility] 3 19:28:52 Date Recorded Body height Body mass index (BMI) Body weight Provider Name and Address Organization Details Last Updated DateTime 03/23/2024 152.4 cm 32.6 kg/m2 13868.93 g ANGIE Tamayo [place] [employer] 03/23/2024 11:15:27 Date Recorded Body height Body mass index (BMI) Body weight Heart rate Body temperature Systolic blood pressure Diastolic blood pressure Provider Name and Address Organization Details Last Updated DateTime 3 152.4 cm 32.5 kg/m2 83119.7 7 g 74 /min 97.6 [degF] 203 mm[Hg] 102 mm[Hg] [facility]bec[facility] Wall [facility] 12:44:41 Date Recorded Body mass index (BMI) Body height Oxygen saturation Oxygen saturation in Arterial blood by Pulse oximetry Heart rate Body temperature Body weight Systolic blood pressure Diastolic blood pressure Provider Name and Address Organization Details Last Updated DateTime 2 34.6 kg/m2 152.4 cm 98 % 98 % 77 /min 97.6 [degF] 98911.8 5 g 110 mm[Hg] 75 mm[Hg] Not Available [facility] 3 19:28:52 Social History Question Answer Notes LastModified by Organizat ion Details LastModified Time Tobacco Smoking Status Never Smoker Not Available [facility] 11/20/2022 19:28:07 What Is Your Level Of Caffeine Consumption? Moderate [id number] Information not available 11/20/2022 What Was The Date Of Your Most Recent Tobacco Screening? 03/23/2024 [email or web address] Information not available 03/23/2024 What Is Your Relationship Status? [id number] Information not available 11/20/2022 Sex: Unknown Functional Status Question Answer Note LastModified by Organizat ion Details LastModified Time Do you use any illicit or recreational drugs? No [id number] Information not available 11/20/2022 Do you or have you ever used any other forms of tobacco or nicotine? No [id number] Information not available 11/20/2022 What is your level of alcohol consumption? None [id number] Information not available 11/20/2022 Mental Status None recorded. Family History Relationship Description Onset Age of this Age Resolved Age Notes LastModified by Organization Details LastModified Time Mother Malignant neoplasm of uterus [id number] Not available 11/20/2022 19:28:15 Maternal Grandfather Malignant neoplastic disease [id number] Not available 11/20/2022 19:28:15 Sister Diabetes mellitus [id number] Not available 11/20/2022 19:28:15 Medical History Condition Response HIGH CHOLESTEROL / HYPERLIPIDEMIA Y EYE PROBLEMS Y HAVE YOU BEEN HOSPITALIZED OR SEEN IN [facility] ER IN THE PAST YEAR ? Y GERD/NAUSEA Y ARTHRITIS Y DIABETES, TYPE Y GI PROBLEMS Y HYPERTENSION Y Gynecological HistoryNo gynecological history recorded. Obstetrics History GPAL:G 0 P 0 0 0 0 Past Encounters Encounter ID Performer Location Encounter Start Date Encounter Closed Date Diagnosis/Indication Diagnosis SNOMED-CT Code Diagnosis ICD10 Code Diagnosis Note [id number] Aye Gentile MD [facility] DEFAULT_1 _1 , 05/17/2021 00:00:00 05/17/2021 18:43:57 [id number] [facility]_ DEFAULT_1 _1 , 11/29/2021 00:00:00 11/29/2021 10:12:54 [id number] [facility] DEFAULT_1 _1 , 03/21/2022 00:00:00 03/21/2022 12:40:27 [id number] [facility] [place] [address] [place] [address] 08/08/2022 00:00:00 08/08/2022 11:06:41 [id number] Aye Gentile MD [facility] [place] [address] [place] [address] 06/19/2023 12:16:01 06/19/2023 13:20:01 Uncontrolled type 2 diabetes mellitus [id number] E11.65 A1C of 9.9% - with average of 245 mg/dL- no hypoglycem ia. She has no hx of pancreatit is or medullary thyroid cancer and is willing to trial on a GLP1 agonist therapy. She was advised to contact clinic if she experience s any nausea, vomiting or significan t thyroid pain / swelling or abdominal pain so we can discuss and discontinu e and potentiall y look to other therapy. Will trial on trulicity 0.75 mg SQ weekly x 4 weeks then increase to 1.5 mg SQ weekly with largest meal of that day as tolerated. Restart low dose metformin with dinner for insulin sensitizat ion. Continue on farxiga 10 mg daily. Encouraged patient to test sugars prebreakfa st and predinner and at times before bedtime to maintain log for review at return visit. Recommend she take her glimepirid e on glucose scale according to glucose checks. If sugars are running under 100 mg/dL hold glimepirid e, if 101-140 mg/dL take half tablet, if 141-180 mg/dL take full tablet and if over 180 mg/dL take 2 tablets for the full 4 mg of glimepirid e up to twice daily before meals. If sugars are consistent ly over 180 mg/dL she was advised to contact clinic and notify me so we can modify changes. Patient advised to bring glucose meter at return visit for review. if fasting glucose over 140 mg/dL consistent ly- patient aware to restart tresiba 20 units at bedtime and increase or decrease by 2 units every 3 days to maintain fasting glucose 90-130 mg/dL. She is aware to use humalog for rescue only- 2U:50>200 mg/dL on premeal sugars. Refer to endocrinol ogy per patient request. Spent up to 25 minutes preparing to see the patient (eg, review of tests), obtaining and/or reviewing separately obtained history, performing a medically appropriat e examinatio n and evaluation , counseling and educating the patient, ordering medication s, tests, along with documentin g clinical informatio n in the electronic health record, independen tly interpreti ng results and communicat ing results to the patient. Patient can be followed by PCP - she/he is aware of my resignatio n and last day of July 04. If needed his/her PCP can refer patient to another endocrinol ogist in the area. All questions /concerns answered and refills necessary at visit today. [id number] Kalen Cohen MD [facility] [place] [address] [facility] [address] [place] [address] 03/23/2024 10:49:50 03/23/2024 12:04:13 Pain of left shoulder joint [id number] M25.512 Health Concerns Section Related Observation LastModified by Organization Detai ls LastModified Time None Recorded Concern Status LastModified by Organization Details LastModified Time None Recorded Advance Directives Directive None Recorded Payers Encounter Date Sequence Insurance Name Policy Number Policy Cronin Covered Member ID Cronin Member ID Guarantor Name 06/19/2023 1 [place] Nancy Martinez [id number] Tata Martinez 06/19/2023 1 [facility] (MEDICARE REPLACEMENT/A DVANTAGE - PPO) [id number] Nancy Martinez [id number] Tata Martinez 03/23/2024 1 [facility] (MEDICARE REPLACEMENT/A DVANTAGE - PPO) [id number] Nancy Martinez [id number] Tata Martinez Notes Date Note Type Note Provider Name and Address Organization Details Recorded Time 06/19/2023 text/html 73 yo female comes in for follow up in management of poorly controlled type 2 DM (A1C of 9.9% from February), dyslipidemia. sugars are running higher over the past few weeks have been over 250 mg/dL At her last visit in Jul we had patient continue farxiga and tresiba 24 units daily titrate by 2 units every 3 days to maintain FBG 90-130. we had her increase her trulicity to 3 mg once weekly. She recently saw her PCP and he started her on lispro as of Friday. She is no longer on lantus or tresiba only rapid insulin. She has lost 30 pounds since 2020.She stopped taking trulicity 6 months ago. She did not get sick on the trulicity and she tolerated this well. She is no longer on metformin and doesn't know why.Renal function normal from February labwork. She is checking her sugars four times a day:AM fasting over 200 mg/dLpremeals over 150 mg/dL Aye Gentile MD [address] [facility], [facility] [address], [place], [address], [facility] 06/19/2023 16:03:58 OBGyn Episode No OBEpisode recorded.
--- NOTE | 2025-02-24 10:19 | SUR.PREOP ---
Family member called reporting that Tata's blood sugar was low. I spoke with anesthesilogist regarding the issue. Called the family member right back at 10 am and asked him to give Tata some white soda or apple juice. Family member responded that they just had water in the house. I asked if they had and hard sucking candy like Live Savers or Mints and he said : No I have peanut butter I told him I didn't want her to have peanut butter. I asked if they had sugar available, not Splendid but real sugar. He said they had that I asked him to give her a tsp of sugar under her tongue and then have bring her to the hospital. He said he wasn't the pick up and delivery driver but the pick up and delivery driver was on there way. I asked him to call the pick up and delivery driver and have them clam picker a regular can of 7 up and have Tata take that and then as soon as the pick up and delivery driver got there to bring the pt to the hospital to make sure Tata drank some 7 up or take some more sugar if needed. He reported her blood sugar was 50. 1215 I called family member back to see how Tata was doing. Family member said she is lying down and feeling a little better. I asked about he called the pick up and delivery driver to clam picker the soda and he said he didn't have the pick up and delivery driver's number. I instructed the family member that he could give Tata some more sugar under the tongue if needed until the pick up and delivery driver could get there. He voiced understanding. I also told him I would see who we had down as the pick up and delivery driver and try to reach them to clam picker some soda for Tata. 1016 I called pt's daughter Meaghan who is her emergency contact and pick up and delivery driver. I spoke with Meaghan and she said she was at her Mom's house. She wasn't called about picking up 7 up. I instructed her to clam picker some [address] in to give to her Mom and she should drink about hald of the can on her way in. She said as soon as she could get her Mom in the car she would head this way. I did emphasize that some more sugar could be given to her if needed before they left the house. Meaghan voiced understanding. Registration staff notified of the urgency once the patient arrived so we could monitor and treat the patient as soon as possible.
--- NOTE | 2025-02-24 10:35 | SUR.PREOP ---
1033 Called pt's daughter to check on status of patient. Meaghan said her Mom was feeling better and they were getting in the car and heading this way. I told her we would be waiting when they got here. Meaghan said she has hard sucking candy with her in the event her Mom would need it.
[2025-02-24 11:04] VITALS: BP 174/72; PULSE 74; RESP 20; TEMP 36.6; O2SAT 100; BMI 33.3
--- NOTE | 2025-02-24 11:07 | SUR.PREOP ---
Daughter at bedside assisting with translation. Per daughter, patient stating that last BM was still solid, not liquid. Patient took 100% of prep. Dr. Temple notified and to bedside to discuss with family/patient.
[2025-02-24 11:15] LABS: Glucose Point of Care 131 mg/dl (65-105)
--- NOTE | 2025-02-24 11:23 | SUR.PREOP ---
Procedures cancelled per Dr. Temple. Patient instructed to reschedule. Provided with 2 day prep instructions, in Afghan. Daughter and patient verbalized understanding. Patient discharged via wheelchair.
== END 2025-02-24 11:20 | disposition home or self-care (01) ==
PROVIDERS: PCP Internal Medicine Infectious Disease; Visit Provider Internal Medicine Gastroenterology
PROC: 0DJ08ZZ Inspection of Upper Intestinal Tract, Via Natural or Artificial Opening Endoscopic (ICD-10-PCS; CPT 45378; principal; 2025-02-24 12:30)
DX: Z12.11 Encounter for screening for malignant neoplasm of colon (principal); E16.2 Hypoglycemia, unspecified; Z79.4 Long term (current) use of insulin
CPT/HCPCS: 82948; 99213; G0463

== ENCOUNTER 2025-05-18 00:56 | Day surgery (SDC) | payer MEDICARE, SELFPAY ==
--- NOTE | 2025-05-17 14:59 | PC.NURSE ---
Spoke with patient through language interpreter services regarding medication eliquis. Patient and daughter_verbalizes understanding that the last dose is to be taken on _05/14/2025_ and the Endoscopist will instruct them when to restart after the procedure.
--- OUTSIDE RECORDS SUMMARY | 2025-05-18 00:58 | XMS_ITS | Clinical Summary ---
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 Gender Identity Not on file Sexual Orientation Not on file Plan of Treatment Health Maintenance Due Date Last Done Comments Hepatitis C Virus (HCV) Screening 1950 Cologuard 1995 Colonoscopy 1995 Colorectal Cancer Screening 1995 Immunochemical Fecal Occult Blood 1995 Zoster Immunization (1 of 2) 2000 SARS-COV-2 Immunization (2023- season) 2024 Respiratory Syncytial Virus (RSV) Immunization (Adult) (1 - 1-dose 75+ series) 2025 Influenza Immunization (#1) 05/23/202506/22, 07/08/2018, 06/26/2017, Additional history exists DTaP/Tdap/Td Immunization Discontinued 12/03/2017 Pneumococcal Immunization (50+ years) Completed 12/03/2017, 10/31/2016 TdaP Immunization Completed 12/03/2017 Hepatitis B Immunization Aged Out No longer eligible based on patient's age to complete this topic Human Papillomavirus (HPV) Immunization Aged Out No longer eligible based on patient's age to complete this topic Meningococcal Immunization (ACWY) Aged Out No longer eligible based on patient's age to complete this topic Rotavirus Immunization Aged Out No lo nger eligible based on patient's age to complete this topic
[2025-05-18 07:04] VITALS: BP 128/71; PULSE 74; RESP 16; TEMP 36.1; O2SAT 100
[2025-05-18] MEDS: LACTATED RINGERS 1,000 ML 150 ML IV CONT (07:20)
[2025-05-18] MEDS: SIMETHICONE ORAL SUSPENSION 20 MG/0.3 ML 30 ML BOTTLE 1.8 ML PO (07:21)
[2025-05-18 07:24] VITALS: BMI 31.8
[2025-05-18] MEDS: DEXTROSE 50% 25 GM/50 ML SYRINGE IV PUSH (07:34)
--- NOTE | 2025-05-18 07:37 | WPDANESEPPF ---
Anes - Initial Pre Proc Eval Procedure: Operation Date: 05/18/25 08:00 Proposed Procedures p Esophagogastroduodenoscopy&Screen Colon - Edwin Temple MD Date/Time: 05/18/25 07:37 Surgeon: Edwin Temple MD Pre Op Diagnosis: Encounter for screening for malignant neoplasm of Patient Data Age: 75 Gender: F Height: 1.47 m Weight: 69.2 kg Last Vital Signs Temp 97.0 F L 05/18/25 07:04 Pulse 74 05/18/25 07:04 Resp 16 05/18/25 07:04 BP 128/71 05/18/25 07:04 Pulse Ox 100 05/18/25 07:04 O2 Del Method Room Air 05/18/25 07:04 Allergies Allergy/AdvReac Type Severity Reaction Status Date / Time No Known Allergies Allergy Verified 05/18/25 07:15 Home Medications ?Medication ?Instructions ?Recorded ?Confirmed ?Type amlodipine 5 mg tablet 5 mg PO DAILY 06/20/20 05/18/25 History atorvastatin 80 mg tablet (Lipitor) 80 mg PO DAILY 06/20/20 05/18/25 History hydrochlorothiazide 12.5 mg tablet 12.5 mg PO DAILY 06/20/20 05/18/25 History metoprolol tartrate 25 mg tablet 25 mg PO Q12H 06/20/20 05/18/25 History famotidine 40 mg tablet 40 mg PO QHS #30 tabs 12/28/20 05/18/25 Rx rosuvastatin 40 mg tablet 40 mg PO DAILY 12/28/20 05/18/25 History dapagliflozin propanediol 10 mg 10 mg PO DAILY 06/02/21 05/18/25 History tablet (Farxiga) dulaglutide 0.75 mg/0.5 mL 0.75 mg subcut WEEKLY 06/02/21 05/18/25 History subcutaneous pen injector (Trulicity) levothyroxine 88 mcg tablet 88 mcg PO DAILY 06/02/21 05/18/25 History (Euthyrox) loratadine 10 mg tablet mg 06/02/21 08/01/22 History naproxen 375 mg tablet 375 mg PO BID #14 tabs 11/13/23 05/18/25 Rx tramadol 50 mg tablet 50 mg PO Q6H PRN pain #14 tabs 11/13/23 05/18/25 Rx apixaban 5 mg tablet (Eliquis) 5 mg PO Q12H 02/17/25 05/18/25 History aspirin 81 mg tablet,delayed 81 mg PO DAILY 02/17/25 05/18/25 History release insulin degludec 100 unit/mL (3 12 unit subcut QPM 02/17/25 05/18/25 History mL) subcutaneous pen (Tresiba FlexTouch U-100 insulin) metformin 500 mg tablet,extended 500 mg PO BIDAC 02/17/25 05/18/25 History release 24 hr omeprazole 40 mg capsule,delayed 40 mg PO BID #60 caps 03/29/25 05/18/25 Rx release Laboratory Tests 05/18/25 07:13 POC Capillary Glucose 69 mg/dl (65-105) Patient hx anesthesia problems: none Family hx anesthesia problems: none Results Review: All pre-operative results and documents have been reviewed as part of the pre-operative evaluation. REPLACED BY [facility] Past Medical History Medical History (Updated 07/29/24 @ 13:52 by Mich Maguire MD) Constipation BMI 36.0-36.9,adult Upper abdominal pain Abnormal computerized tomography of biliary tract Erosive esophagitis Hypothyroid Hypertension Colon cancer screening GERD (gastroesophageal reflux disease) Diabetes mellitus Surgical History Surgical History History of cholecystectomy Social History Social History Smoking status: Never smoker Alcohol intake: never Substance use: never Substance use type: does not use Living arrangements: with family Spiritual care concerns: No Anes - Eval Final PreProcedure Day of Procedure 05/18/25 07:37 Patient weight: normal Heart: regular rate and rhythm Lungs: clear to auscultation Airway: Mallampati scale class II Neurological: alert and oriented Last oral intake: >/= 8 hours ASA classification: III Emergent: no Anesthetic plan: proceed Anesthesia type and monitoring: general GIVS and standard monitoring Results Review: All pre-operative results and documents have been reviewed as part of the pre-operative evaluation. Informed Consent: The patient's anesthetic plan and its attendant risks and benefits were discussed with the patient/family/POA. Questions were solicited and answers provided to the satisfaction of the patient/family/POA.
--- NOTE | 2025-05-18 07:56 | PM.IMHP ---
H&P: HPI History of Present Illness Date/Time: 05/18/25 07:56 Chief Complaint: GERD-screening colonoscopy Narrative: the patient was recently seen in our clinic because of persistent GERD, prescribed PPIs. In addition she is due for her next screening colonoscopy. She is referred now for colonoscopy and EGD Review of Systems Review of Systems: All systems reviewed & are unremarkable except as noted in HPI and below PMFSH Past Medical History Medical History (Updated 05/18/25 @ 07:57 by Edwin Temple MD) Constipation BMI 36.0-36.9,adult Upper abdominal pain Abnormal computerized tomography of biliary tract Erosive esophagitis Hypothyroid Hypertension GERD (gastroesophageal reflux disease) Diabetes mellitus Surgical History Surgical History History of cholecystectomy Social History Social History Smoking status: Never smoker Alcohol intake: never Substance use: never Substance use type: does not use Living arrangements: with family Spiritual care concerns: No Meds Home Medications and Allergies Home Medications ?Medication ?Instructions ?Recorded ?Confirmed ?Type amlodipine 5 mg tablet 5 mg PO DAILY 06/20/20 05/18/25 History atorvastatin 80 mg tablet (Lipitor) 80 mg PO DAILY 06/20/20 05/18/25 History hydrochlorothiazide 12.5 mg tablet 12.5 mg PO DAILY 06/20/20 05/18/25 History metoprolol tartrate 25 mg tablet 25 mg PO Q12H 06/20/20 05/18/25 History famotidine 40 mg tablet 40 mg PO QHS #30 tabs 12/28/20 05/18/25 Rx rosuvastatin 40 mg tablet 40 mg PO DAILY 12/28/20 05/18/25 History dapagliflozin propanediol 10 mg 10 mg PO DAILY 06/02/21 05/18/25 History tablet (Farxiga) dulaglutide 0.75 mg/0.5 mL 0.75 mg subcut WEEKLY 06/02/21 05/18/25 History subcutaneous pen injector (Trulicity) levothyroxine 88 mcg tablet 88 mcg PO DAILY 06/02/21 05/18/25 History (Euthyrox) loratadine 10 mg tablet mg 06/02/21 08/01/22 History naproxen 375 mg tablet 375 mg PO BID #14 tabs 11/13/23 05/18/25 Rx tramadol 50 mg tablet 50 mg PO Q6H PRN pain #14 tabs 11/13/23 05/18/25 Rx apixaban 5 mg tablet (Eliquis) 5 mg PO Q12H 02/17/25 05/18/25 History aspirin 81 mg tablet,delayed 81 mg PO DAILY 02/17/25 05/18/25 History release insulin degludec 100 unit/mL (3 12 unit subcut QPM 02/17/25 05/18/25 History mL) subcutaneous pen (Tresiba FlexTouch U-100 insulin) metformin 500 mg tablet,extended 500 mg PO BIDAC 02/17/25 05/18/25 History release 24 hr omeprazole 40 mg capsule,delayed 40 mg PO BID #60 caps 03/29/25 05/18/25 Rx release Allergies Allergy/AdvReac Type Severity Reaction Status Date / Time No Known Allergies Allergy Verified 05/18/25 07:15 Vital Signs Vital Signs - 24 hr 05/18/25 07:04 Temperature 97.0 F L Pulse Rate 74 Respiratory Rate 16 Blood Pressure 128/71 Pulse Oximetry 100 Oxygen Delivery Room Air Exam Const: General: cooperative and healthy appearing Resp: Effort & Inspection: normal respiratory effort and able to speak in complete sentences Auscultation: clear to auscultation bilaterally Cardio: Rate: regular rate Rhythm: regular rhythm GI: Inspection: normal to inspection GI Palp: No No hepatosplenomegaly present Auscultation: normal bowel sounds Rectal Exam: deferred Skin: General skin exam: normal color Psych: Appearance: grossly normal Mental Status: mental status grossly normal Assessment and Plan Assessment and plan (1) GERD (gastroesophageal reflux disease): Code(s): K21.9 - Gastro-esophageal reflux disease without esophagitis Status: Acute Assessment and Plan: The patient is deemed a good candidate for the procedures. Consent signed. Will proceed. (2) Colon cancer screening: Code(s): Z12.11 - Encounter for screening for malignant neoplasm of colon Status: Acute
--- NOTE | 2025-05-18 08:15 | S_PTH ---
PATIENT: Tata Martinez LOC: [facility] U#:[id number] AGE/SX: 75/F ROOM: RE05/18/[address]: Edwin Temple MD : 1950 BED: DIS: 05/18/2025 SPEC #: [id number] RECD: 05/18/25 10:16 STATUS: HARMONY REXimena #: [id number] HERON: 05/18/25 08:[address]: Edwni Temple DEPT: [facility] Surgical RECD BY: Katelyn Muniz ENTERED: 05/18/25 10:16 SP TYPE: Surgical OTHR DR: Alison FlorezElke Tissues: A - Gastric Biopsy B - Gastric Biopsy Procedures: Hematoxylin and Eosin Stain Gross and Microscopic Level 4
--- NOTE | 2025-05-18 08:21 | SUR.OPER ---
EGD end time: 813, Colonoscopy start time: 819
[2025-05-18 08:31] VITALS: BP 125/68; PULSE 64; RESP 11; O2SAT 100
[2025-05-18 08:41] VITALS: BP 146/76; PULSE 65; RESP 13; O2SAT 100
[2025-05-18 08:51] VITALS: BP 135/81; PULSE 71; RESP 19; O2SAT 100
== END 2025-05-18 09:15 | disposition home or self-care (01) ==
PROVIDERS: PCP Internal Medicine Infectious Disease; Visit Provider Internal Medicine Gastroenterology
PROC: 0DJ08ZZ Inspection of Upper Intestinal Tract, Via Natural or Artificial Opening Endoscopic (ICD-10-PCS; CPT 45378; principal; 2025-05-18 08:00)
DX: Z12.11 Encounter for screening for malignant neoplasm of colon (principal); K21.9 Gastro-esophageal reflux disease without esophagitis; K31.89 Other diseases of stomach and duodenum; K29.51 Unspecified chronic gastritis with bleeding; E03.9 Hypothyroidism, unspecified; I10 Essential (primary) hypertension; E11.9 Type 2 diabetes mellitus without complications; Z79.84 Long term (current) use of oral hypoglycemic drugs; Z79.85 Long-term (current) use of injectable non-insulin antidiabetic drugs; Z79.1 Long term (current) use of non-steroidal anti-inflammatories (NSAID); Z79.891 Long term (current) use of opiate analgesic; Z79.01 Long term (current) use of anticoagulants; Z79.82 Long term (current) use of aspirin; Z79.4 Long term (current) use of insulin; Z90.49 Acquired absence of other specified parts of digestive tract; Z87.19 Personal history of other diseases of the digestive system
CPT/HCPCS: 43239; G0121; 82948; 88305; J2003; J2704; J7120

== ENCOUNTER 2025-07-25 02:59 | Emergency (ER) | payer MEDICARE, SELFPAY ==
[2025-07-25] VITALS (15 sets, daily range): BP systolic 136–173; BP diastolic 76–92; PULSE 73–93; RESP 12–20; TEMP 36.3; O2SAT 90–99
--- NOTE | ~2025-07-25 | CT_ITS ---
CT HEAD NON-CONTRAST Clinical History: headache Comparison: 07/24/2016 Technique: Unenhanced axial images skull base to vertex Coronal, sagittal reformats CT images acquired with automatic exposure control for dose reduction DLP: 605 mGy-cm Findings: Age-related atrophy. Sulci, ventricles: Unremarkable. No intracerebral hemorrhage. No evidence acute territorial infarct. No mass effect, midline shift. Bony calvarium intact. Visualized paranasal sinuses: Clear. Mastoid air cells: Clear. IMPRESSION: 1. No acute intracranial findings. Reviewed, dictated and finalized at location R. TH AND WELLNESS INSTRUCTOR
--- NOTE | ~2025-07-25 | CT_ITS ---
EXAMINATION: CT abdomen pelvis w con DATE: 07/25/2025 05:22 INDICATION: Abdominal pain. TECHNIQUE: Computed tomography (CT) of the abdomen and pelvis was performed with 100 mL Omnipaque 350 intravenous contrast. Automated exposure control and iterative reconstruction technique were employed. The dose-length product was 813.02 mGy-cm. COMPARISON: CT abdomen and pelvis 01/20/2021 FINDINGS: The visualized portions of lung bases demonstrate mild atelectasis. A calcified right lung nodule and calcified right hilar lymph nodes are consistent with old granulomatous disease. No pleural effusion. The heart size is normal. There are coronary artery calcifications. No pericardial effusion. The liver is normal. There are changes of cholecystectomy. There is an infarct in the spleen. The pancreas and right adrenal gland are normal. There is a 1.4 cm mass in left adrenal gland is chronic, likely an adenoma. There is a 7 mm cyst in right kidney. There is cortical thinning of the kidneys. There is a large volume of stool in the colon with distention of the rectum. The appendix is normal. Uterine fibroids are noted. There are no pathologically enlarged lymph nodes. There is no free intraperitoneal fluid. There is severe thoracic spondylosis and mild lumbar spondylosis. There is chronic anterior wedging of multiple vertebral bodies. IMPRESSION: 1. Uterine fibroids. 2. Large volume of stool in the colon with distention of the rectum. 3. Splenic infarct. I discussed this result with Dr. Victor. Reviewed, dictated and finalized at location E. NIZATIONAL PSYCHOLOGIST
--- NOTE | ~2025-07-25 | XR_ITS ---
Examination: XR chest 1V portable Clinical History: congestion Comparison: 06/02/2021 Technique: Portable AP Findings: Heart size normal. Lungs clear. No acute bony abnormality. IMPRESSION: 1. No acute cardiopulmonary findings given portable technique. Consider PA and lateral films with deep inspiration. Reviewed, dictated and finalized at location R. CCO CONDITIONER
--- OUTSIDE RECORDS SUMMARY | 2025-07-25 03:02 | XMS_ITS | Data Portability ---
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 Surgeries None recorded. Imaging XR, shoulder, 2 or more view 2023 024 [facility] [place], [address], [place], [address], 4 08:24:07 Medication Orders Trulicity 0.75 mg/0.5 mL subcutaneo us pen injector 2022 023 [facility], [address] [place], [address], 3 12:58:31 Trulicity 1.5 mg/0.5 mL subcutaneo us pen injector [email or web address] [place] [address] Pharmacy [facility], [address] [place], [address], 4 11:18:11 Tresiba FlexTouch U-100 insulin 100 unit/mL (3 mL) subcutaneo us pen 2022 023 [facility], [address] [place], [address], 3 13:10:56 metformin ER 500 mg tablet,ext ended release 24 hr 2022 023 [facility], [address] [place], [address], 3 13:11:45 Farxiga 10 mg tablet 2022 023 LUIS ANTONIO [facility], [address] [place], [address], 3 13:11:42 glimepirid e 2 mg tablet [email or web address] [place] [address] Pharmacy [facility], [address] [place], [address], 4 11:17:11 Patient TargetsNo targets recorded. Patient [...] la REFER ENCE: Diabe la Care 2016, 39( ppl.1 ):s13 -s22 Not Available [facility] (Lab) [address] [place], [address], 11/06/2021 13:13:50 11/06/19 22 11/06/2021 T3 FREE free T3 1.9 pg/mL 2.77-5 .27 low Not Available [facility] (Lab) [address] [place], [address], 11/06/2021 12:35:20 11/06/19 22 11/06/2021 T4 FREE free T4 1.41 NG/dL 0.78-2 .19 Not Available [facility] (Lab) [address] [place], [address], 11/06/2021 12:35:17 11/06/19 22 11/06/2021 MICRO ALBUM IN RANDO M URINE microalb 6.6 mg/L 0.0-16 .6 Not Available [facility] (Lab) [address] [place], [address], 11/06/2021 12:33:42 11/06/19 22 11/06/2021 LIPID PANEL cholesterol 176 mg/dL 140-19 9 NIH IKER NSUS RECOM MENDA TION FOR YENY STERO L: ADULT CHILD LOW RISK: <200 <170 BORDE RLINE : <200- 239 ----- HIGH RISK: >240 >200 Not Available [facility] (Lab) [address] [place], [address], 11/06/2021 12:15:08 11/06/19 22 11/06/2021 LIPID PANEL triglyceride s 98 mg/dL 0-150 NIH IKER NSUS REPOR T RECOM MENDA TION FOR TRIGL YCERI TERESA: ADULT CHILD LOW RISK: <150 ----- BODER LINE: 150-1 99 ----- HIGH RISK: >200 ----- Not Available [facility] (Lab) [address] [place], [address], 11/06/2021 12:15:08 11/06/19 22 11/06/2021 LIPID PANEL HDL cholesterol 60 mg/dL 40- Not Available [facility] (Lab) [address] [place] [address], [address], 11/06/2021 12:15:08 11/06/19 22 11/06/2021 LIPID PANEL LDL cholesterol, calculated 96 mg/dL 0-130 NIH IKER NSUS REPOR T RECOM MENDA TIONS FOR LDL: ADULT CHILD LOW RISK <130 <110 (OPTI MAL LDL) <100 ----- BORDE RLINE : 130-1 59 ----- HIGH RISK: >160 >130 A TRIGL YCERI DE RESUL T >400 INVAL IDATE S THE CALCU LATIO N FOR LDL FRACT IONAT ION - THE LDL RESUL T WILL NOT BE REPOR IRLANDA. Not Available [facility] (Lab) [address] [place], [address], 11/06/2021 12:15:08 11/06/19 22 11/06/2021 COMPR EHENS MEGAN METAB OLIC PANEL sodium 135 mmol/ L 137-14 5 low Not Available [facility] (Lab) [address] [place], [address], 11/06/2021 12:15:04 11/06/19 22 11/06/2021 COMPR EHENS MEGAN METAB OLIC PANEL potassium 4.9 mmol/ L 3.5-5. 1 Not Available [facility] (Lab) [address] [place], [address], 11/06/2021 12:15:04 11/06/19 22 11/06/2021 COMPR EHENS MEGAN METAB OLIC PANEL chloride 101 mmol/ L 98-107 Not Available [facility] (Lab) [address] [place], [address], 11/06/2021 12:15:04 11/06/19 22 11/06/2021 COMPR EHENS MEGAN METAB OLIC PANEL carbon dioxide 29 mmol/ L 22-30 Not Available [facility] (Lab) [address] [place], [address], 11/06/2021 12:15:04 11/06/19 22 11/06/2021 COMPR EHENS MEGAN METAB OLIC PANEL agap 9.9 mmol/ L 14-22 low Not Available [facility] (Lab) [address] [place], [address], 11/06/2021 12:15:04 11/06/19 22 11/06/2021 COMPR EHENS MEGAN METAB OLIC PANEL glucose 190 mg/dL 70-99 high Not Available [facility] (Lab) [address] [place], [address], 11/06/2021 12:15:04 11/06/19 22 11/06/2021 COMPR EHENS MEGAN METAB OLIC PANEL BUN 31 mg/dL 8-19 high Not Available [facility] (Lab) [address] [place], [address], 11/06/2021 12:15:04 11/06/19 22 11/06/2021 COMPR EHENS MEGAN METAB OLIC PANEL creatinine 0.50 mg/dL 0.66-1 .25 low Not Available [facility] (Lab) [address] [place], [address], 11/06/2021 12:15:04 11/06/19 22 11/06/2021 COMPR EHENS MEGAN METAB OLIC PANEL GFR >60 Refer ence Range : Corn ge GFR Healt hy Adult : >60 [...] or ethni c subgr oups, such as Hispa nics. Outsi de the valid ated isra [...] calcu latcassi is avail able on the [facility] websi te: https :[email or web address] [email or web address].kentrell javed/josé alves s/kdo qi/gf r_cal culat or Not Available [facility] (Lab) [address] [place], [address], 11/06/2021 12:15:04 11/06/19 22 11/06/2021 COMPR EHENS MEGAN METAB OLIC PANEL alkaline phosphatase 90 U/L 38-126 Not Available [facility] (Lab) [address] [place], [address], 11/06/2021 12:15:04 11/06/19 22 11/06/2021 COMPR EHENS MEGAN METAB OLIC PANEL alanine aminotransfe rase 38 U/L 0-35 high Not Available [facility] (Lab) [address] [place], [address], 11/06/2021 12:15:04 11/06/19 22 11/06/2021 COMPR EHENS MEGAN METAB OLIC PANEL aspartate aminotransfe rase 38 U/L 15-37 high Not Available [facility] (Lab) [address] [place], [address], 11/06/2021 12:15:04 11/06/19 22 11/06/2021 COMPR EHENS MEGAN METAB OLIC PANEL bilirubin, total 0.30 mg/dL 0.20-1 .30 Not Available [facility] (Lab) [address] [place], [address], 11/06/2021 12:15:04 11/06/19 22 11/06/2021 COMPR EHENS MEGAN METAB OLIC PANEL calcium 9.5 mg/dL 8.4-10 .2 Not Available [facility] (Lab) [address] [place], [address], 11/06/2021 12:15:04 11/06/19 22 11/06/2021 COMPR EHENS MEGAN METAB OLIC PANEL total protein 7.6 g/dL 6.3-8. 2 Not Available [facility] (Lab) [address] [place], [address], 11/06/2021 12:15:04 11/06/19 22 11/06/2021 COMPR EHENS MEGAN METAB OLIC PANEL albumin 4.4 g/dL 3.0-4. 4 Not Available [facility] (Lab) [address] [place], [address], 11/06/2021 12:15:04 11/06/19 22 11/06/2021 COMPR EHENS MEGAN METAB OLIC PANEL globulin 3.2 g/dL 2.6-4. 2 Not Available [facility] (Lab) [address] [place], [address], 11/06/2021 12:15:04 11/06/19 22 11/06/2021 COMPR EHENS MEGAN METAB OLIC PANEL A/G ratio 1.4 ratio 1.0-2. 0 Not Available [facility] (Lab) [address] [place], [address], 11/06/2021 12:15:04 03/10/20 23 03/10/2023 LIPID PANEL cholesterol 160 mg/dL 140-19 9 NIH IKER NSUS RECOM MENDA TION FOR YENY STERO L: ADULT CHILD LOW RISK: <200 <170 BORDE RLINE : <200- 239 ----- HIGH RISK: >240 >200 Not Available [facility] (Lab) [address] [place], [address], 03/10/2023 12:08:26 03/10/20 23 03/10/2023 LIPID PANEL triglyceride s 106 mg/dL 0-150 NIH IKER NSUS REPOR T RECOM MENDA TION FOR TRIGL YCERI TERESA: ADULT CHILD LOW RISK: <150 ----- BODER LINE: 150-1 99 ----- HIGH RISK: >200 ----- Not Available [facility] (Lab) [address] [place], [address], 03/10/2023 12:08:26 03/10/20 23 03/10/2023 LIPID PANEL HDL cholesterol 56 mg/dL 40- Not Available [facility] (Lab) [address] [place], [address], 03/10/2023 12:08:26 03/10/20 23 03/10/2023 LIPID PANEL [...] WILL NOT BE REPOR IRLANDA. Not Available [facility] (Lab) [address] [place], [address], 03/10/2023 12:08:26 03/10/20 23 03/10/2023 COMPR EHENS MEGAN METAB OLIC PANEL sodium 136 mmol/ L 137-14 5 low Not Available [facility] (Lab) [address] [place], [address], 03/10/2023 12:08:42 03/10/20 23 03/10/2023 COMPR EHENS MEGAN METAB OLIC PANEL potassium 4.2 mmol/ L 3.5-5. 1 Not Available [facility] (Lab) [address] [place], [address], 03/10/2023 12:08:42 03/10/20 23 03/10/2023 COMPR EHENS MEGAN METAB OLIC PANEL chloride 98 mmol/ L 98-107 Not Available [facility] (Lab) [address] [place], [address], 03/10/2023 12:08:42 03/10/20 23 03/10/2023 COMPR EHENS MEGAN METAB OLIC PANEL carbon dioxide 31 mmol/ L 22-30 high Not Available [facility] (Lab) [address] [place], [address], 03/10/2023 12:08:42 03/10/20 23 03/10/2023 COMPR EHENS MEGAN METAB OLIC PANEL anion gap 11.2 mmol/ L 14-22 low Not Available [facility] (Lab) [address] [place], [address], 03/10/2023 12:08:42 03/10/20 23 03/10/2023 COMPR EHENS MEGAN METAB OLIC PANEL glucose 151 mg/dL 70-99 high Not Available [facility] (Lab) [address] [place], [address], 03/10/2023 12:08:42 03/10/20 23 03/10/2023 COMPR EHENS MEGAN METAB OLIC PANEL BUN 19 mg/dL 8-19 Not Available [facility] (Lab) [address] [place], [address], 03/10/2023 12:08:42 03/10/20 23 03/10/2023 COMPR EHENS MEGAN METAB OLIC PANEL creatinine 0.54 mg/dL 0.66-1 .25 low Not Available [facility] (Lab) [address] [place], [address], 03/10/2023 12:08:42 03/10/20 23 03/10/2023 COMPR EHENS MEGAN METAB OLIC PANEL GFR >60 Refer ence Range : Corn ge GFR Healt hy Adult : >60 [...] or ethni c subgr oups, such as Hispa nics. Outsi de the valid ated isra [...] calcu lator is avail able on the [facility] websi te: https :[email or web address] w.edwige [email or web address].o rg/pr ofess ional s/kdo qi/gf r_cal culat or Not Available [facility] (Lab) [address] [place], [address], 03/10/2023 12:08:42 03/10/20 23 03/10/2023 COMPR EHENS MEGAN METAB OLIC PANEL alkaline phosphatase 70 U/L 38-126 Not Available [facility] (Lab) [address] [place], [address], 03/10/2023 12:08:42 03/10/20 23 03/10/2023 COMPR EHENS MEGAN METAB OLIC PANEL alanine aminotransfe rase 22 U/L 0-35 Not Available [facility] (Lab) [address] [place], [address], 03/10/2023 12:08:42 03/10/20 23 03/10/2023 COMPR EHENS MEGAN METAB OLIC PANEL aspartate aminotransfe rase 31 U/L 15-37 Not Available [facility] (Lab) [address] [place], [address], 03/10/2023 12:08:42 03/10/20 23 03/10/2023 COMPR EHENS MEGAN METAB OLIC PANEL bilirubin, total 0.40 mg/dL 0.20-1 .30 Not Available [facility] (Lab) [address] [place], [address], 03/10/2023 12:08:42 03/10/20 23 03/10/2023 COMPR EHENS MEGAN METAB OLIC PANEL calcium 9.2 mg/dL 8.4-10 .2 Not Available [facility] (Lab) [address] [place], [address], 03/10/2023 12:08:42 03/10/20 23 03/10/2023 COMPR EHENS MEGAN METAB OLIC PANEL total protein 6.9 g/dL 6.3-8. 2 Not Available [facility] (Lab) [address] [place], [address], 03/10/2023 12:08:42 03/10/20 23 03/10/2023 COMPR EHENS MEGAN METAB OLIC PANEL albumin 3.7 g/dL 3.0-4. 4 Not Available [facility] (Lab) [address] [place], [address], 03/10/2023 12:08:42 03/10/20 23 03/10/2023 COMPR EHENS MEGAN METAB OLIC PANEL globulin 3.2 g/dL 2.6-4. 2 Not Available [facility] (Lab) [address] [place], [address], 03/10/2023 12:08:42 03/10/20 23 03/10/2023 COMPR EHENS MEGAN METAB OLIC PANEL A/G ratio 1.2 ratio 1.0-2. 0 Not Available [facility] (Lab) [address] [place], [address], 03/10/2023 12:08:42 03/10/20 23 03/10/2023 T4 FREE free T4 1.54 NG/dL 0.78-2 .19 Not Available [facility] (Lab) [address] [place], [address], 03/10/2023 12:16:43 03/10/20 23 03/10/2023 T3 FREE free T3 2.9 pg/mL 2.77-5 .27 Not Available [facility] (Lab) [address] [place], [address], 03/10/2023 12:16:46 03/10/20 23 03/10/2023 TSH thyroid-stim ulating hormone 4.720 uIU/m L 0.465- 4.680 high Not Available [facility] (Lab) [address] [place], [address], 03/10/2023 12:21:51 03/10/20 23 03/10/2023 HEMOG LOBIN A1C HA1C 9.9 % 4.0-6. 0 high Diabe la Scree emily Crite karthik: <5.7% Consi stent with absen ce of diabe la 5.7-6 .4% Consi stent with incre ased risk for diabe la (pred iabet es) >OR=6 .5% Consi stent with diabe la REFER ENCE: Diabe la Care 2016, 39(Muniz ppl.1 ):s13 -s22 Not Available [facility] (Lab) [address] [place], [address], 03/10/2023 12:56:22 03/10/20 23 03/10/2023 MICRO ALBUM N RNDM W/CRE AT RATIO ur creat 63.99 mg/dL REFER ENCE RANGE NOT ESTAB LISHE D FOR ROSO M URINE CREAT ININE Not Available [facility] (Lab) [address] [place], [address], 03/10/2023 13:28:03 03/10/20 23 03/10/2023 MICRO ALBUM N RNDM W/CRE AT RATIO microalbumin , urine 31.3 mg/L 0.0-16 .6 high Not Available [facility] (Lab) [address] [place], [address], 03/10/2023 13:28:03 03/10/20 23 03/10/2023 MICRO ALBUM [...] DIABE LA CARE, VOL. 26: S94-S 96, JANUA RY 2002 Not Available [facility] (Lab) [address] [place], [address], 03/10/2023 13:28:03 10/06/19 24 12/18/2022 XR, shoul enrrique, 2 or more view No observ ation record ed. [email or web address] Not Available 09/22 11:13:26 10/06/19 24 07/24/2016 XR, shoul enrrique, 2 or more view No observ ation record ed. [email or web address] Not Available 09/22 11:13:26 03/23/20 XR, shoul enrrique, 2 or more view No observ ation record ed. [email or web address] [facility] [place] [address], [place], [address], 03/23/2024 11:20:21 Result Notes None recorded. Problems Name Problem SNOMED Code Status Onset Date Resolution Date Notes Provider Name and Address Organization Details Recorded Time Liver enzymes level above reference range 910781536 Active 2021 Not Available [facility] 3 19:29:17 Dyslipidem ia 151913499 Active 2021 Not Available [facility] 3 19:29:16 Hypothyroi dism 75489424 Active 2021 Not Available [facility] 3 19:29:16 Uncontroll ed type 2 diabetes mellitus 364150623 Active 2021 Not Available [facility] 3 19:29:16 Essential hypertensi on 84452042 Active 2021 Not Available [facility] 3 19:29:17 Microalbum inuria 076627499 Active 2021 Not Available [facility] 3 19:29:16 Pain of left shoulder joint 7576032245350 9109 Active 2023 Afsaneh Jorge, ANGIE null, [place] [employer] [facility] 4 11:20:29 Problem Notes None recorded. Procedures Surgical History Date Name Laterality Status Provider Name and Address Organization Details Recorded Time 5 delivery completed Not Available [facility] 11/20/2022 19:28:13 5 ligation of bilateral fallopian tubes completed Not Available [facility] 11/20/2022 19:28:13 1 delivery completed Not Available [facility] 11/20/2022 19:28:13 Kidney Stones completed Not Available [facility] 11/20/2022 19:28:13 Eye Surgery completed Not Available [facility] 11/20/2022 19:28:13 Imaging Results None recorded. Procedure [...] Heart rate Body temperature Body weight Systolic And Diastolic Provider Name and Address Organization Details Last Updated DateTime 2 34.5 kg/m2 152.4 cm 100 % 100 % 84 /min 97.7 [degF] 42978.0 5 g 140/75 mm[Hg] Not Available [facility] 3 19:28:52 Date Recorded Body mass index (BMI) Body height Oxygen saturation Oxygen saturation in Arterial blood by Pulse oximetry Heart rate Body temperature Body weight Systolic And Diastolic Provider Name and Address Organization Details Last Updated DateTime 2 34.5 kg/m2 152.4 cm 100 % 100 % 83 /min 99.5 [degF] 95895.4 1 g 130/85 mm[Hg] Not Available [facility] 3 19:28:52 Date Recorded Body height Body mass index (BMI) Body weight Pain severity - 0-10 verbal numeric rating [Score] - Reported Provider Name and Address Organization Details Last Updated DateTime 03/23/2024 152.4 cm 32.6 kg/m2 64386.93 g 6 ANGIE Tamayo [facility] [email or web address] 03/23/2024 11:15:38 Date Recorded Body height Body mass index (BMI) Body weight Heart rate Body temperature Systolic And Diastolic Provider Name and Address Organization Details Last Updated DateTime 3 152.4 cm 32.5 kg/m2 31937.7 7 g 74 /min 97.6 [degF] 203/102 mm[Hg] Rebeca Wall MA [facility] [employer] [facility] 3 12:44:41 Date Recorded Body mass index (BMI) Body height Oxygen saturation Oxygen saturation in Arterial blood by Pulse oximetry Heart rate Body temperature Body weight Systolic And Diastolic Provider Name and Address Organization Details Last Updated DateTime 2 34.6 kg/m2 152.4 cm 98 % 98 % 77 /min 97.6 [degF] 49264.8 5 g 110/75 mm[Hg] Not Available [facility] 3 19:28:52 Social History Question Answer Notes LastModified by Organizat ion Details LastModified Time Tobacco Smoking Status Never Smoker Not Available [facility] 11/20/2022 19:28:07 What Is Your Level Of Caffeine Consumption? Moderate [id number] Information not available 11/20/2022 What Was The Date Of Your Most Recent Tobacco Screening? 03/23/2024 [email or web address] Information not available 03/23/2024 What Is Your Relationship Status? [id number] Information not available 11/20/2022 Sex: Unknown Functional Status Question Answer Note LastModified by Organizat ion Details LastModified Time Do you use any illicit or recreational drugs? No [id number] Information not available 11/20/2022 Do you or have you ever used any other forms of tobacco or nicotine? No [id number] Information not available 11/20/2022 What is your level of alcohol consumption? None [id number] Information not available 11/20/2022 Mental Status None recorded. Family History Relationship Description Onset Age of this Age Resolved Age Notes LastModified by Organization Details LastModified Time Mother Malignant neoplasm of uterus [id number] Not available 11/20/2022 19:28:15 Maternal Grandfather Malignant neoplastic disease [id number] Not available 11/20/2022 19:28:15 Sister Diabetes mellitus [id number] Not available 11/20/2022 19:28:15 Medical History Condition Response HIGH CHOLESTEROL / HYPERLIPIDEMIA Y EYE PROBLEMS Y HAVE YOU BEEN HOSPITALIZED OR SEEN IN [facility] ER IN THE PAST YEAR ? Y GERD/NAUSEA Y ARTHRITIS Y DIABETES, TYPE Y GI PROBLEMS Y HYPERTENSION Y Gynecological HistoryNo gynecological history recorded. Obstetrics History GPAL:G 0 P 0 0 0 0 Past Encounters Encounter ID Performer Location Encounter Start Date Encounter Closed Date Diagnosis/Indication Diagnosis SNOMED-CT Code Diagnosis ICD10 Code Diagnosis IMO Codes Diagnosis Note [id number] Aye Gentile MD _[facility]_ DEFAULT_1 _1 , 05/17/2021 00:00:00 05/17/2021 18:43:57 [id number] [facility] _ATHENA_M IGRATION_ DEFAULT_1 _1 , 11/29/2021 00:00:00 11/29/2021 10:12:54 [id number] [facility] _ATHENA_M IGRATION_ DEFAULT_1 _1 , 03/21/2022 00:00:00 03/21/2022 12:40:27 [id number] [facility] [address] [place] [address] 08/08/2022 00:00:00 08/08/2022 11:06:41 [id number] Aye Gentile MD [facility] [address] [place] [address] 06/19/2023 12:16:01 06/19/2023 13:20:01 Uncontrolled type 2 diabetes mellitus 816444638 E11.65 A1C of 9.9% - with average [...] answered and refills necessary at visit today. [id number] Kalen Cohen MD [facility] [place] [address] [facility] [address] [place] [address] 03/23/2024 10:49:50 03/23/2024 12:04:13 Pain of left shoulder joint 4194807773 0011398 M25.512 Health Concerns Section Related Observation LastModified by Organization Detai ls LastModified Time None Recorded Concern Status LastModified by Organization Details LastModified Time None Recorded Advance Directives Directive None Recorded Payers Insurance Date Sequence Insurance Name Policy Number Policy Cronin Covered Member ID Cronin Member ID Guarantor Name 10/06/2023 1 [place] Nancy Martinez [id number] Tata Martinez 03/29/2024 1 [facility] (MEDICARE REPLACEMENT/A DVANTAGE - PPO) [id number] Nancy Martinez [id number] Tata Martinez Notes Date Note Type Note Provider Name and Address Organization Details Recorded Time 06/19/2023 text/html ROS as noted in the HPI 73 yo female comes in for follow [...] over 150 mg/dL Aye Gentile MD [address] [facility], [facility] [address], [place], [address], [place] [employer] [facility] 06/19/2023 16:03:58 OBGyn Episode No OBEpisode recorded.
--- OUTSIDE RECORDS SUMMARY | 2025-07-25 03:02 | XMS_ITS | Clinical Summary ---
Author Organization [facility] Address [facility] [place] [address] Care Team Providers Care Assembly Line Supervisor Name Role Phone Alison Florez MD Primary Care Provider Gia Samuel MD Unavailable [phone] Didier Wilson DO Unavailable [phone] Allergies No known active allergies Medications aspirin 81 mg chewable tablet daily. Acti ve pen needle, diabetic 31 gauge x 3/16 needle BD Ultra-Fine Mini Pen Needle 31 gauge x 3/16 Active blood glucose diagnostic strip Blood Glucose Test strips test blood sugar 4xs per day Active metoprolol (LOPRESSOR) 25 mg tablet Take 1 tablet (25 mg total) by mouth 2 (two) times a day Active ONETOUCH DELICA PLUS LANCET 33 gauge misc USE 1 TO CHECK GLUCOSE THREE TIMES DAILY 11 05/14/20 19 Active omeprazole (PriLOSEC) 40 mg capsule Take 1 capsule (40 mg total) by mouth 2 (two) times a day Active rosuvastatin (CRESTOR) 40 mg tablet Take 1 tablet (40 mg total) by mouth daily 02/27/20 21 Active hydroCHLOROthiazid e (HYDRODIURIL) 25 mg tablet TAKE 1 TABLET BY MOUTH ONCE DAILY DIRECTED FOR HIGH BLOOD PRESSURE 10/02/19 25 Active dulaglutide (TRULICITY) 0.75 mg/0.5 mL pen injectorIndication s:Type 2 diabetes mellitus with hyperglycemia, with long-term current use of insulin (HCC) Inject 0.5 mL (0.75 mg total) under the skin every 7 days 6 mL 2 03/09/20 25 Active Farxiga 10 mg tabletIndications: Type 2 diabetes mellitus with hyperglycemia, with long-term current use of insulin (HCC) Take 1 tablet (10 mg total) by mouth daily 90 tablet 3 03/09/20 25 026 Active levothyroxine (SYNTHROID) 125 mcg tabletIndications: Acquired hypothyroidism Take 1 tablet (125 mcg total) by mouth shoe lacer before breakfast 90 tablet 3 03/09/20 25 026 Active metFORMIN XR (GLUCOPHAGE XR) 500 mg 24 hr tabletIndications: Type 2 diabetes mellitus with hyperglycemia, with long-term current use of insulin (HCC) Take 1 tablet (500 mg total) by mouth 3 (three) times a day 270 tablet 1 03/09/20 25 Active apixaban (ELIQUIS) 5 mg tabletIndications: thrombophilia Take 1 tablet (5 mg total) by mouth 2 (two) times a day 60 tablet 3 04/01/20 25 Active TRESIBA 100 unit/mL (3 mL) pen for injection INJECT 18 UNITS SUBCUTANEOUSLY ONCE DAILY AT BEDTIME 06/15/20 25 Active Active Problems Problem Noted Date Diagnosed Date Vertigo 10/01/2024 Splenic infarct 09/29/2024 Class 1 obesity due to exces s calories with serious comorbidity and body mass index (BMI) of 34.0 to 34.9 in adult 09/14/2024 Assessment & Plan (09/14/2024 12:09 PM PRODUCT SAFETY ASSOCIATE): Chronic, worsening Discussed about healthy lifestyle habits advise to work on healthy diet, avoid processed foods , increase vegetables and protein and cut back on carb portions and also avoid fruit juices and regular soda and desserts Increase physical activity , recommend at least 150 min of aerobic activity per week and include resistance training 2 x weekly Essential hypertension, benign 09/13/2021 Disorder of bile duct 01/30/2021 Hypothyroidism 12/01/2020 Assessment & Plan (07/07/2025 1:17 PM CDT): Clinically and biochemically euthyroid. No medication changes. Weight gain 09/07/2020 Atrophic vaginitis 03/08/2019 Ulcer of left foot 03/08/2019 Gastroesophageal reflux disease 03/08/2019 Candidiasis of vagina 03/08/2019 Menopausal syndrome 03/08/2019 Microalbuminuria 03/08/2019 Pain in pelvis 03/08/2019 Raised TSH level 03/08/2019 Toothache 03/08/2019 Urinary tract infectious disease 03/08/2019 Uterine leiomyoma 03/08/2019 Precordial chest pain 03/08/2019 Complex ovarian cyst 12/29/2018 Uncontrolled type 2 diabetes mellitus 12/29/2018 Type 2 diabetes mellitus wit h hyperglycemia, with long-term current use of insulin 11/04/2018 Assessment & Plan (07/07/2025 2:25 PM CDT): Chronic problem, not at goal. Having significant constipation on Trulicity, even low dose. She did not tolerate Mounjaro either. Continue metformin and Farxiga. Resume Tresiba 10 units daily. If fasting sugars persistently >180 increase to 12 units. Call if staying high after that. Schedule eye exam. Assessment & Plan (12/16/2024 12:56 PM CDT): Chronic problem, not at goal. She had side effects with Mounjaro. She is having low FBG and high post meal sugars. Continue metformin 500 mg BID and Farxiga 10 mg. She previously tolerated Trulicity well and is comfortable going back on this, start 0.75 mg daily. If tolerating well in the future can increase to 1.5 mg dose (does not want to today). Lower Treasiba to 10 units for fasting lows. Asked her grandson to call in a couple weeks with how this is working, sooner if persistent low sugars. Assessment & Plan (09/14/2024 12:10 PM PRODUCT SAFETY ASSOCIATE): Chronic, uncontrolled worsening A1c - 8.8 % , goal A1c less than 7.5 % Counseled on diet and exercise Increase Metformin XR to 500 mg one tab oral twice daily with meals Start Mounjaro 2.5 mg SQ weekly for 4 weeks After 4 weeks, increase Mounjaro to 5 mg SQ weekly , and than stop Tresiba Chronic idiopathic constipation 12/24/2017 Obesity with body mass index 30 or greater 12/03 Hypertension associated with diabetes 07/10/2017 Assessment & Plan (07/07/2025 1:17 PM CDT): Chronic problem, Controlled on HCTZ, metoprolol. No changes. Assessment & Plan (12/16/2024 12:53 PM CDT): Chronic problem, improved on recheck but not at goal. She states she checks her BP daily and it's always <130/90. It has been in range at her PCP's office from their notes. She does not have metoprolol in her bag of meds, she will check on this at home and restart it. She declines rx today, states she'll get it from Dr. Florez. Assessment & Plan (09/14/2024 12:09 PM PRODUCT SAFETY ASSOCIATE): Chronic, well controlled Continue HCTZ and Metoprolol Anxiety 04/23/2017 Depressive disorder 04/23/2017 Herpes zoster 02/27/2017 Hypertensive emergency 02/13/2017 Adrenal mass 10/31/2016 Inequality of length of lower extremity 11/23/19 16 Skin callus 11/23/2015 Hyperlipidemia associated with type 2 diabetes poppy li 12/04/2010 Assessment & Plan (07/07/2025 1:16 PM CDT): Chronic problem. On statin therapy, no changes. Assessment & Plan (12/16/2024 12:52 PM CDT): Chronic problem. On statin therapy, no changes. Assessment & Plan (09/14/2024 12:09 PM PRODUCT SAFETY ASSOCIATE): Continue Statin therapy Open wound of left foot 12/04/2010 Resolved Problems Problem Noted Date Diagnosed Date Resolved Date Dyslipidemia 03/08/2019 09/13/2021 Encounters Date Type Department Care Team Description 07/07/2025 1:00 PM CDT Office Visit [facility] [address] [address] Michelle Moyer PA Type 2 diabetes mellitus with hyperglycemia, with long-term current use of insulin (HCC) (Primary Dx); Hyperlipidemia associated with type 2 diabetes mellitus (HCC); Hypertension associated with diabetes (HCC); Acquired hypothyroidism 06/20/2025 10:12 AM CDT - 06/20/2025 11:59 PM CDT Hospital Encounter [facility] OP Cardiac Testing [address] [place] [address] Essential hypertension, benign; Mixed hyperlipidemia; Splenic infarct Discharge Disposition: Discharge to home or self care 06/20/2025 Results Follow-Up [facility] Surgery [address] [place] [address] Lily Osullivan RMA US Arterial Doppler Lower Extremity Bilateral 06/16/2025 8:00 AM CDT Ancillary Procedure [facility] Vascular Lab at the [address] [place] [address] [place] [id number] Pain in left foot 06/10/2025 8:30 AM CDT Office Visit [facility] Medicine Surgery [address] [place] [address] Miguelito Nolan, EMILY Type 2 diabetes mellitus with diabetic neuropathy, with long-term current use of insulin (HCC) (Primary Dx); Onychomycosis; Type 2 diabetes mellitus with foot ulcer, with long-term current use of insulin (HCC); Pain in left foot 06/02/2025 Telephone [facility] [place] [facility] [address] [place] [address] Cornelia Oliva MD eye exam request 05/11/2025 2:15 PM CDT Office Visit [facility] [address] [facility] [address] [place] [address] Gia Samuel MD Essential hypertension, benign (Primary Dx); Mixed hyperlipidemia; Splenic infarct 04/29/2025 Telephone [facility] Surgery [address] [place] [address] Gwen Malin from Last 3 Months Surgical History Surgery Date Site/Laterality Comments VT DELIVERY ONLY Section - (Added by ELIAN Conv) [place] CHOLECYSTECTOMY Cholecystectomy - (Added by ELIAN Conv) FLEXIBLE BRONCHOSCOPY W/ UPP ER ENDOSCOPY EYE SURGERY Medical History Medical History Date Comments Diabetes mellitus Type 2 Hypertension Hyperlipidemia Family History Medical History Relation Name Comments No Known Problems Father No Known Problems Mother Relation Name Status Comments Father Mother Social History Tobacco Use Types Packs/Day Years Used Date Smoking Tobacco: Never Smokeless Tobacco: Never Tobacco Cessation:Counseling Given: Not Answered Alcohol Use Standard Drinks/Week Comments No 0 (1 standard drink = 0.6 oz pur e alcohol) [facility] Utilities Answer Date Recorded In the past 12 months has e electric, gas, oil, or water Foodlve threatened to shut off services in your home? No 09/30/2024 Social Connection and Isolation Panel Answer Date Recorded In a typical week, how many times do you talk on the phone with family, friends, or neighbors? Three times a week 09/30/19 How often do you get togethe r with friends or relatives? Three times a week 09/30/2024 How often do you attend [facility] or nondenominational services? 1 to 4 times per year 09/30/2024 Do you belong to any clubs o r organizations such as alevism groups, unions, fraternal or athletic groups, or school groups? No 09/30/2024 How often do you attend meet ings of the clubs or organizations you belong to? Never 09/30/2024 Are you , , di vorced, , never , or living with a partner? 09/30/2024 AUDIT-C Answer Date Recorded Q1: How often do you have a drink containing alcohol? Never 01/28/2025 Q2: How many drinks containi ng alcohol do you have on a typical day when you are drinking? Patient does not drink Q3: How often do you have si x or more drinks on one occasion? Never 01/28/2025 Overall Financial Resource Strain (CARDIA) Answe r Date Recorded How hard is it for you to pa y for the very basics like food, housing, medical care, and heating? Not hard at all 09/30/2024 Hunger Vital Sign Answer Date Recorded Within the past 12 months, y ou worried that your food would run out before you got the money to buy more. Never true 09/30/19 25 Within the past 12 months, t he food you bought just didn't last and you didn't have money to get more. Never true 09/30/2024 PRAPARE - Transportation Answer Date Re corded In the past 12 months, has l ack of transportation kept you from medical appointments or from getting medications? No 05/2025 In the past 12 months, has l ack of transportation kept you from meetings, work, or from getting things needed for daily living? No 09/30/2024 Housing Stability Vital Sign Answer Keron e Recorded In the last 12 months, was t here a time when you were not able to pay the mortgage or rent on time? No 09/30/2024 In the past 12 months, how m any times have you moved where you were living? 0 09/30/2024 At any time in the past 12 m [facility], were you homeless or living in a senior living (including now)? No 09/30/2024 Personal Safety Answer Date Recorded Have you ever been in or are you currently in a harmful physical or emotional relationship or is someone making you feel afraid or unsafe? Denies 09/30/2024 Comments No Sex and Gender Information Value Date Recorded Sex Assigned at Not on file Legal Sex Female 6:28 AM PRODUCT SAFETY ASSOCIATE Gender Identity Not on file Sexual Orientation Choose not to disclose 2018 2:19 PM CDT Last Filed Vital Signs Vital Sign Reading Time Taken Comments Blood Pressure 134/70 07/07/2025 1:08 PM CDT Pulse 70 07/07/2025 1:08 PM CDT Temperature 36.8 C (98.3 F) 04/01/2025 10:11 AM CDT Respiratory Rate 18 07/07/2025 1:08 PM CDT Oxygen Saturation 98% 05/11/2025 2:39 PM CDT Inhaled Oxygen Concentration - - Weight 71.4 kg (157 lb 6.4 oz) 07/07/2025 1:08 P M CDT Height 149.9 cm (4' 11) 07/07/2025 1:08 PM CDT Body Mass Index 31.79 07/07/2025 1:08 PM CDT Plan of Treatment Health Maintenance Due Date Last Done Comments Colon Cancer Screening-Colonoscopy 1950 Depression Screening 1950 Hepatitis C Screening 1950 Hepatitis B Screening 1968 Zoster Vaccine (1 of 2) 2000 Well Visit 65+ 2015 Osteoporosis Screening-Bone Density Scan 08/03/2023 08/03/2021, 02/09/2021, 05/15/2016, Additional history exists Dilated Eye Exam 04/13/2025 04/13/2024 Covid-19 Vaccine (5 - 2024-2 6 season) 2025 11/19/2021, 01/01/2021, 12/27/2020, Additional history exists Influenza Vaccine (#1) 2025 , 07/25/2021, 06/22/2020, Additional history exists Fall Risk Assessment 10/02/2025 10/02/2024 Hemoglobin A1C 01/05/2026 07/07/2025, 02/20, 12/16/2024, Additional history exists Albumin Creatinine Ratio, Urine 03/09/2026 5, 08/05/2024 Lipid Panel 03/09/2026 03/09/2025, 07/0 05/2024, 02/19/2019, Additional history exists eGFR 03/09/2026 03/09/2025, 010 05/2025, 09/29/2024, Additional history exists Foot Exam 07/07/2026 07/07/2025, 08/05/2024 DTaP/Tdap/Td Vaccine (2 - Td or Tdap) 12/04/2027 12/03/2017 Pneumococcal vaccine 65+ Completed 12/03/2017, 020 05/2017 Breast Cancer Screening-Mammogram Discontinued 08/31/2022, 08/30/2022, 08/29/2022, Additional history exists Procedures Procedure Name Priority Date/Time Associated Diagnosis Comments POCT GLUCOSE Routine 07/07/2025 1:08 PM CDT Type 2 diabetes mellitus with hyperglycemia, with long-term current use of insulin (HCC) POCT HEMOGLOBIN A1C Routine 07/07/2025 1 :08 PM CDT Type 2 diabetes mellitus with hyperglycemia, with long-term current use of insulin (HCC) TRANSTHORACIC ECHO (TTE) LIMITED/FOLLOW UP W LTD DOPPLER/CF WO CONTRAST Routine 06/20/2025 10:50 AM CDT Essential hypertension, benign Mixed hyperlipidemia Splenic infarct US ARTERIAL DOPPLER LOWER EXTREMITY BILATERAL Schedule Routine, Read Routine (OP Routine) 06/16/2025 9:36 AM CDT Pain in left foot EGFR Routine 03/09/2025 9:32 AM CDT Type 2 diabetes mellitus with hyperglycemia, with long-term current use of insulin (HCC) Hyperlipidemia associated with type 2 diabetes mellitus (HCC) Hypertension associated with diabetes (HCC) LIPID PANEL Routine 03/09/2025 9:32 AM CDT Type 2 diabetes mellitus with hyperglycemia, with long-term current use of insulin (HCC) Hyperlipidemia associated with type 2 diabetes mellitus (HCC) ALBUMIN CREATININE RATIO, URINE Routine 03/09/2025 9:32 AM CDT Type 2 diabetes mellitus with hyperglycemia, with long-term current use of insulin (HCC) Hypertension associated with diabetes (HCC) HM DIABETES EYE EXAM Routine 04/13/2024 9:40 AM CDT DEXA AXIAL SKELETON BONE DENSITY 1 OR MORE SITES Schedule Routine, Read Routine (OP Routine) 08/03/2021 10:33 AM PRODUCT SAFETY ASSOCIATE Encounter for screening for osteoporosis SCREENING MAMMOGRAM BILATERAL W OSBALDO 04/21/2019 1:03 PM CDT from Last 3 Months or Most Recently Relevant to Health Maintenance Results * (ABNORMAL) POCT hemoglobin A1c (07/07/2025 1:08 PM CDT) Hemoglobin A1C, POC 8.0(A) 4.0 - 5.6 % Capillary blood 07/07/2025 1 :08 PM CDT Michelle COFFEY POINT OF CARE TEST ORDDeisy REHMAN Final Result * (ABNORMAL) POCT glucose (07/07/2025 1:08 PM CDT) Glucose Blood, POC 161 Normal Fasting 70 - 100, Random <200 mg/dL Comment:PPG 1 Hr Blood 07/07/2025 1:08 PM CDT Michelle COFFEY POINT OF CARE TEST MADIE REHMAN Final Result * TRANSTHORACIC ECHO (TTE) LIMITED/FOLLOW UP W LTD DOPPLER/CF WO CONTRAST (06/20/2025 10:50 AM CDT) Estimated EF 55-60 % CONS SCIMAGE Anatomical Region Laterality Modality Ultrasound 06/20/2025 10:1 9 AM CDT Narrative 06/20/2025 5:03 PM CDT Transthoracic Echocardiographic Report Patient Name: BARTOLO MONTAGUE : 1950 (75y 3m) Sex: F Study Date: 06/20/2025 10:19:24 AM Ht(Inch): 59 Wt(Lb): 155.01 BSA: 1.71 Farm Equipment Operator: Afsaneh Michael RDCS Order Provider: GIA SAMUEL BMI: 31.3 BP: 126/80 Ref Provider: GIA SAMUEL - PROCEDURES: Echocardiographic Report: Echocardiography, transthoracic, 2D and color when performed, limited study. Additional Procedures: Agitated saline bubble study. INDICATIONS: I10 Essential (primary) hypertension, E78.2 Mixed hyperlipidemia, and D73.5 Infarction of spleen. FINDINGS: Left Ventricle: Normal left ventricular cavity size. Normal Left ventricular wall thickness. Normal left ventricular systolic function. The Ejection Fraction is visually estimated to be 55-60 %. Regional Wall Motion: There are no regional wall motion abnormalities. Right Ventricle: Normal right ventricular size. Normal right ventricular systolic function. Left Atrium: Mildly dilated left atrium. Right Atrium: The right atrium is normal in size. Atrial Septum: No shunt by color Doppler. Mitral Valve: Normal mitral valve leaflet structure. Moderate mitral annular calcification. No mitral regurgitation seen. No mitral valve stenosis. NO mitral valve prolapse seen. Aortic Valve: Trileaflet aortic valve. No aortic regurgitation seen. No aortic valve stenosis. Tricuspid Valve: The tricuspid valve demonstrates normal leaflet structure. There is trace tricuspid regurgitation. PASP cannot be evaluated due to lack of adequate TR jet. Pulmonic Valve: The Pulmonic Valve is grossly normal. No evidence of pulmonic regurgitation. Pericardium: Normal pericardium without evidence of pericardial effusion. No pericardial effusion noted. Aorta: Normal aortic root. The aortic Sinus is normal in size. IVC: IVC Not well visualized due to poor echo windows. CONCLUSIONS: 1. Normal left ventricular systolic function. The Ejection Fraction is visually estimated to be 55-60 %. 2. Mildly dilated left atrium. 3. PASP cannot be evaluated due to lack of adequate TR jet. MEASUREMENTS: 2D/MM Value Range Visually Estimated EF 55-60 % - ATTESTATION: I have reviewed and interpreted the pertinent images and measurements of this study. I attest to the conclusions in the final report that is provided above. DISCLAIMER: The study images and the final report will be retained in the patient chart by the Echo Laboratory for the legally required time period. This chart constitutes the legal record of any testing performed. Electronically Signed By: Gia Samuel MD 06/20/2025 5:03:15 PM CDT Procedure Note Gia Samuel MD - 06/20/2025 Transthoracic Echocardiographic Report Patient Name: BARTOLO MONTAGUE : 1950 (75y 3m) Sex: F Study Date: 06/20/2025 10:19:24 AM Ht(Inch): 59 Wt(Lb): 155.01 BSA: 1.71 Farm Equipment Operator: Afsaneh Michael RDCS Order Provider: GIA SAMUEL BMI: 31.3 BP: 126/80 Ref Provider: GIA SAMUEL - PROCEDURES: Echocardiographic Report: Echocardiography, transthoracic, 2D and colorwhen performed, limited study. Additional Procedures: Agitated saline bubble study. INDICATIONS: I10 Essential (primary) hypertension, E78.2 Mixed hyperlipidemia, andD73.5 Infarction of spleen. FINDINGS: Left Ventricle: Normal left ventricular cavity size. Normal Leftventricular wall thickness. Normal left ventricular systolic function. The EjectionFraction is visually estimated to be 55-60 %. Regional Wall Motion: There are no regional wall motion abnormalities. Right Ventricle: Normal right ventricular size. Normal right ventricularsystolic function. Left Atrium: Mildly dilated left atrium. Right Atrium: The right atrium is normal in size. Atrial Septum: No shunt by color Doppler. Mitral Valve: Normal mitral valve leaflet structure. Moderate mitralannular calcification. No mitral regurgitation seen. No mitral valve stenosis. NOmitral valve prolapse seen. Aortic Valve: Trileaflet aortic valve. No aortic regurgitation seen. Noaortic valve stenosis. Tricuspid Valve: The tricuspid valve demonstrates normal leafletstructure. There is trace tricuspid regurgitation. PASP cannot be evaluated due to lack ofadequate TR jet. Pulmonic Valve: The Pulmonic Valve is grossly normal. No evidence ofpulmonic regurgitation. Pericardium: Normal pericardium without evidence of pericardial effusion.No pericardial effusion noted. Aorta: Normal aortic root. The aortic Sinus is normal in size. IVC: IVC Not well visualized due to poor echo windows. CONCLUSIONS: 1. Normal left ventricular systolic function. The Ejection Fraction isvisually estimated to be 55-60 %. 2. Mildly dilated left atrium. 3. PASP cannot be evaluated due to lack of adequate TR jet. MEASUREMENTS: 2D/MM Value Range Visually Estimated EF 55-60 % - ATTESTATION: I have reviewed and interpreted the pertinent images and measurements ofthis study. I attest to the conclusions in the final report that is provided above. DISCLAIMER: The study images and the final report will be retained in the patientchart by the Echo Laboratory for the legally required time period. This chart constitutesthe legal record of any testing performed. Electronically Signed By: Gia Samuel MD 06/20/2025 5:03:15 PM CDT us Gia Samuel MD CV ECHO PROCEDURES Final Re sult * US Arterial Doppler Lower Extremity Bilateral (06/16/2025 9:36 AM CDT) Anatomical Region Laterality Modality Vascular Bilateral Ultrasound 06/16/2025 7:50 AM CDT Narrative 06/17/2025 10:51 PM CDT [facility] - Department of Vascular Surgery, Vascular Laboratory [address] [place] [address] Lower Extremity Arterial Doppler Report Patient Name: BARTOLO MONTAGUE : 1950 Study Date: 06/16/2025 7:50:00 AM Sex: F Tech: Vesta Madera Location: [facility] Provider: MIGUELITO NOLAN Quality: Adequate Order Provider: MIGUELITO NOLAN PROCEDURES: Arterial Report: Bilateral lower extremity arterial Doppler exam at rest. INDICATIONS: M79.672 Pain in left foot. MEASUREMENTS: Right Value Units Left Value Units Rt Brachial Pressure 197 mmHg Lt Brachial Pressure 189 mmHg Rt PROFESSIONAL SERVICES CONSULTANT Pressure N/C mmHg Lt PROFESSIONAL SERVICES CONSULTANT Pressure N/C mmHg Rt DPA Pressure 218 mmHg Lt DPA Pressure 194 mmHg Rt 1st Digit Pressure 203 mmHg Lt 1st Digit Pressure 157 mmHg Rt PT MO Resting N/C Lt PT MO Resting N/C Rt AT MO Resting 1.11 Lt AT MO Resting 0.98 Rt Digit/Arm Index 1.03 Lt Digit/Arm Index 0.8 Right Value Units Left Value Units FINDINGS: Performing Farm Equipment Operator: Vesta Madera RVT. Bilateral All Levels : The bilateral common femoral, popliteal, posterior tibial and anterior tibial artery waveforms are multiphasic. Comments: Right Arm BP taken after completion of testing - 205/90. Alison Florez MD PCP notified at 8:50am, patient was advised to go to ED. Button Breaker and patients son present. Patient left with son to [facility] ED. CONCLUSIONS: 1. The ankle arteries are non-compressible bilaterally which is consistent with arterial calcification thus the Ankle/Brachial Indices are not obtainable. 2. Bilateral Digit/Arm Indices are within normal limits (for reference, normal SHILOH is >0.6). HISTORY: HTN, DM. PREVIOUS STUDIES: No previous studies for comparison. DISCLAIMER: The study images and the final report will be retained in the patient chart by the Vascular Laboratory for the legally required time period. This chart constitutes the legal record of any testing performed. ATTESTATION: I have reviewed and interpreted the pertinent images and measurements of this study. I attest to the conclusions in the final report that is provided above. Electronically Signed By: Bossman Peña MD FACS 06/17/2025 10:07:58 PM CDT Procedure Note Bossman Peña MD - 06/17/2025 [facility] - Department of Vascular Surgery,Vascular Laboratory [address] [place] [id number] Lower Extremity Arterial Doppler Report Patient Name: BARTOLO MONTAGUE : 1950 Study Date: 06/16/2025 7:50:00 AM Sex: F Tech: Vesta Madera Location: [facility] Provider: MIGUELITO NOLAN Quality: Adequate Order Provider: MIGUELITO NOLAN PROCEDURES: Arterial Report: Bilateral lower extremity arterial Doppler exam at rest. INDICATIONS: M79.672 Pain in left foot. MEASUREMENTS: Right Value Units Left Value Units Rt Brachial Pressure 197 mmHg Lt Brachial Pressure 189 mmHg Rt PROFESSIONAL SERVICES CONSULTANT Pressure N/C mmHg Lt PROFESSIONAL SERVICES CONSULTANT Pressure N/C mmHg Rt DPA Pressure 218 mmHg Lt DPA Pressure 194 mmHg Rt 1st Digit Pressure 203 mmHg Lt 1st Digit Pressure 157 mmHg Rt PT MO Resting N/C Lt PT MO Resting N/C Rt AT MO Resting 1.11 Lt AT MO Resting 0.98 Rt Digit/Arm Index 1.03 Lt Digit/Arm Index 0.8 Right Value Units Left Value Units FINDINGS: Performing Farm Equipment Operator: Vesta Madera RVT. Bilateral All Levels : The bilateral common femoral, popliteal, posterior tibial and anteriortibial artery waveforms are multiphasic. Comments: Right Arm BP taken after completion of testing - 205/90. CELESTINO Lambert notified at 8:50am, patient was advised to go to ED. Button Breaker and patients sonpresent. Patient left with son to [facility] ED. CONCLUSIONS: 1. The ankle arteries are non-compressible bilaterally which is consistentwith arterial calcification thus the Ankle/Brachial Indices are not obtainable. 2. Bilateral Digit/Arm Indices are within normal limits (for reference,normal SHILOH is >0.6). HISTORY: HTN, DM. PREVIOUS STUDIES: No previous studies for comparison. DISCLAIMER: The study images and the final report will be retained in the patientchart by the Vascular Laboratory for the legally required time period. This chartconstitutes the legal record of any testing performed. ATTESTATION: I have reviewed and interpreted the pertinent images and measurements ofthis study. I attest to the conclusions in the final report that is provided above. Electronically Signed By: Bossman Peña MD FACS 06/17/2025 10:07:58 PM CDT Miguelito Nolan DPPoppy IMG US PROCEDURES Final Res ult * eGFR (03/09/2025 9:32 AM CDT) eGFR >90 >=60 mL/min/1. 73 m2 Comment: Interpretive Data Reference Interval Normal >/= 90 mL/min/1.73m2 Mildly decreased* 60 - 89 mL/min/1.73m2 Mildly to moderately decreased 45 - 59 mL/min/1.73m2 Moderately to severely decreased 30 - 44 mL/min/1.73m2 Severely decreased 15 - 29 mL/min/1.73m2 Kidney Failure < 15 mL/min/1.73m2 *Relative to young adult level Estimated glomerular filtration rate is determined by the 2020 CKD-EPI equation recommended by the National Kidney Foundation (A Unifying Approach to GFR Estimation: Recommendations of the NKF-ASK Task Force on Reassessing the Inclusion of Race in Diagnosing Kidney Disease, JASN 2020). The CKD-EPI equation should not be used for patients with unstable renal function and has not been validated in children and those over 70. Current interpretive data was last reviewed 2021. Blood 03/09/2025 9:32 AM CDT 03/09/2025 12:11 PM CDT Cornelia Cordero MD LAB BLOOD ORDERABLE S Final Result Performing Organization Address [facility] de Phone Number LION [id number] [place] [address] * (ABNORMAL) Albumin Creatinine Ratio, Urine (03/09/2025 9:32 AM CDT) Albumin Ur 18.9 mg/L Comment: Interpretive Data No reference range established. Current interpretive data was last revised 2019. Creatinine Ur 22.7 mg/dL LION Comment: Interpretive Data No reference range established. Current interpretive data was last revised 2019. Albumin Creatinine Ratio, Ur 83(H) 1 - 29 mg/g LION Urine 03/09/2025 9:32 AM CDT 03/09/2025 11:42 AM CDT Cornelia Cordero MD LAB URINE ORDERABLE S Final Result Performing Organization Address [facility] de Phone Number LION [id number] [place] [address] * (ABNORMAL) Lipid panel (03/09/2025 9:32 AM CDT) Cholesterol 153 30 - 199 mg/dL Comment: Interpretive Data Ages < or = 19 years Acceptable: <170 mg/dL Borderline high: 170-199 mg/dL High: >or= 200 mg/dL Ages > or = 20 years Desirable: <200 mg/dL Borderline high: 200-239 mg/dL High: >or= 240 mg/dL Literature References: 1. Expert Panel on Integrated Guidelines for Cardiovascular Health and Risk Reduction in Children and Adolescents. Pediatrics 2011;128:S213 2. NCEP Expert Panel. Circulation 2004;110:227 Current Interpretive Data was last revised on 2018. Triglycerides 181(H) <=149 mg/dL [facility] Comment: Interpretive Data Ages < or = 9 years Acceptable: <75 mg/dL Borderline high: 75-99 mg/dL High: >or= 100 mg/dL Ages 10 to 20 years Acceptable: <90 mg/dL Borderline high: 90-129 mg/dL High: >or= 130 mg/dL Ages > or = 20 years Desirable: <150 mg/dL Borderline high: 150-199 mg/dL High: 200-499 mg/dL Very high: >or= 499 mg/dL Literature References: 1. Expert Panel on Integrated Guidelines for Cardiovascular Health and Risk Reduction in Children and Adolescents. Pediatrics 2011;128:S213 2. NCEP Expert Panel. Circulation 2004;110:227 Current Interpretive Data was last revised on 2018. HDL 47 >=40 mg/dL [facility] [place] Comment: Interpretive Data Ages < or = 19 years Acceptable: >45 mg/dL Borderline low: 40-45 mg/dL Low: <40 mg/dL Ages > or = 20 years Desirable: >or= 60 mg/dL Low: <40 mg/dL Literature References: 1. Expert Panel on Integrated Guidelines for Cardiovascular Health and Risk Reduction in Children and Adolescents. Pediatrics 2011;128:S213 2. NCEP Expert Panel. Circulation 2004;110:227 Current Interpretive Data was last revised on 2018. LDL, calculated 75 <=129 mg/dL [facility] [place] Comment: Interpretive Data Ages < or = 19 years Acceptable: <110 mg/dL Borderline high: 110-129 mg/dL High: >or= 130 mg/dL Ages > or = 20 years Optimal: <100 mg/dL Near optimal: 100-129 mg/dL Borderline high: 130-159 mg/dL High: >160 mg/dL Calculated using the Hernandez LDL-C estimating equation. This equation was implemented on 2024. Prior to this date LDL-C was estimated using the Friedewald equation. Literature References: 1. Expert Panel on Integrated Guidelines for Cardiovascular Health and Risk Reduction in Children and Adolescents. Pediatrics 2011;128:S213 2. NCEP Expert Panel. Circulation 2004;110:227 3. Hernandez M et al. TORREY Cardiol. 2020 January 20;5(5):540-548. doi: 10.1001/jamacardio.2020.0013 Current Interpretive Data was last revised on 2024. Non-HDL Cholesterol 106 mg/dL [facility] [place] Comment: Interpretive Data Ages < or = 19 years Acceptable: <120 mg/dL Borderline high: 120-144 mg/dL High: >145 mg/dL Ages > or = 20 years When triglycerides are >200 mg/dL, Non-HDL cholesterol is a secondary target of therapy with treatment goals that are 30 mg/dL greater than the LDL cholesterol target. Literature References: 1. Expert Panel on Integrated Guidelines for Cardiovascular Health and Risk Reduction in Children and Adolescents. Pediatrics 2011;128:S213 2. NCEP Expert Panel. Circulation 2004;110:227 Current Interpretive Data was last revised on 2018. Chol/HDL ratio 3 [facility] Blood 03/09/2025 9:32 AM CDT 03/09/2025 11:43 AM CDT Cornelia Cordero MD LAB BLOOD ORDERABLE S Final Result LION [id number] Department of Laboratories [place], [place] [id number] * (ABNORMAL) DIABETES EYE EXAM (04/13/2024 9:40 AM CDT) Historical Provider HEALTH MAINTENANCE Edited Result - Final * Dexa Axial Skeleton Bone Density 1 or 2 Site (08/03/2021 10:33 AM PRODUCT SAFETY ASSOCIATE) Anatomical Region Laterality Modality Body N/A Mammography 08/03/2021 11:1 2 AM PRODUCT SAFETY ASSOCIATE Narrative 08/03/2021 11:12 AM PRODUCT SAFETY ASSOCIATE EXAM DESCRIPTION: DEXA AXIAL SKELETON BONE DENSITY 1 OR MORE SITES REASON FOR STUDY: Post-menopausal female, screening for osteoporosis. Consumer Experience Consultant/Model: [employer] A (S/N [id number]) CLINICAL INFORMATION: Current height: 59 inches Maximum height: 63 inches Weight: 177.5 pounds Risk factors: None COMPARISON: None available. FINDINGS: AP LUMBAR SPINE L1-L4: Total BMD is 0.916 g/cm2 T-score is -1.2 LEFT HIP: Total BMD is 0.867 g/cm2 T-score is -0.7 Femoral neck BMD is 0.601 g/cm2 T-score is -2.3 IMPRESSION: 1. Low bone mass by WHO criteria. 2. The WHO fracture risk assessment tool (FRAX) indicates that the 10 year risk for a major osteoporotic fracture is 6.7% and the 10 year risk for a hip fracture is 1.4%. The FRAX tool has not been validated in patients currently or previously treated with pharmacotherapy for osteoporosis. In such patients, clinical judgement must be exercised in interpreting FRAX scores as the fracture risk may be overestimated. REFERENCE: Bone mineral density: Normal (T-score above or = -1.0) Low bone mass (T-score between -1.0 and -2.5) replaces the previously used term osteopenia Osteoporosis (T-score = or below -2.5) Medical evaluation for secondary causes of low bone mineral density may be appropriate. FRAX is a World Health Organization validated fracture risk assessment tool that calculates a person's 10 year probability of a major osteoporosis related fracture and hip fracture. According to the National Osteoporosis Foundation guidelines, postmenopausal women and men age 50 or older with low bone mass and a 10 year probability of a major osteoporosis related fracture = or greater than 20% or a 10 year probability of a hip fracture = or greater than 3% should be considered for treatment. For further information, including treatment recommendations, please refer to the 2013 ISCD Official Positions (http://www.iscd.org) and the NOF's Clinician's Guide to Prevention and Treatment of Osteoporosis (http://www.nof.org/professionals/clinical-guidelines) THIS IS AN ELECTRONICALLY VERIFIED FINAL REPORT 08/03/2021 11:12 AM - Electronically signed by Peña Sierra M.D. AB: Report ID: [id number] Reading Location: [id number] Procedure Note Peña Sierra MD - 08/03/2021 EXAM DESCRIPTION: DEXA AXIAL SKELETON BONE DENSITY 1 OR MORE SITES REASON FOR STUDY: Post-menopausal female, screening for osteoporosis. Consumer Experience Consultant/Model: [employer] A (S/N [id number]) CLINICAL INFORMATION: Current height: 59 inches Maximum height: 63 inches Weight: 177.5 pounds Risk factors: None COMPARISON: None available. FINDINGS: AP LUMBAR SPINE L1-L4: Total BMD is 0.916 g/cm2 T-score is -1.2 LEFT HIP: Total BMD is 0.867 g/cm2 T-score is -0.7 Femoral neck BMD is 0.601 g/cm2 T-score is -2.3 IMPRESSION: 1. Low bone mass by WHO criteria. 2. The WHO fracture risk assessment tool (FRAX) indicates that the 10 year risk for a major osteoporotic fracture is 6.7% and the 10 year risk for ahip fracture is 1.4%. The FRAX tool has not been validated in patients currently or previously treated with pharmacotherapy for osteoporosis. In such patients, clinical judgement must be exercised in interpreting FRAX scores as the fracturerisk may be overestimated. REFERENCE: Bone mineral density: Normal (T-score above or = -1.0) Low bone mass (T-score between -1.0 and -2.5) replaces thepreviously used term osteopenia Osteoporosis (T-score = or below -2.5) Medical evaluation for secondary causes of low bone mineral density may be appropriate. FRAX is a World Health Organization validated fracture risk assessmenttool that calculates a person's 10 year probability of a major osteoporosisrelated fracture and hip fracture. According to the National OsteoporosisFoundation guidelines, postmenopausal women and men age 50 or older with low bonemass and a 10 year probability of a major osteoporosis related fracture = or greater than 20% or a 10 year probability of a hip fracture = or greaterthan 3% should be considered for treatment. For further information, including treatment recommendations, please referto the 2013 ISCD Official Positions (http://www.iscd.org) and the NOF's Clinician's Guide to Prevention and Treatment of Osteoporosis (http://www.nof.org/professionals/clinical-guidelines) THIS IS AN ELECTRONICALLY VERIFIED FINAL REPORT 08/03/2021 11:12 AM - Electronically signed by Peña Sierra M.D. AB: Report ID: [id number] Reading Location: [id number] Nadia COFFEY IMG DXA PROCEDURES Final Result * Screening Mammogram Bilateral W Osbaldo (04/21/2019 1:03 PM CDT) Anatomical Region Laterality Modality Breast Bilateral Mammography 04/21/2019 1:25 PM CDT Narrative 04/21/2019 3:36 PM CDT Patient Name: BARTOLO MONTAGUE Dr: Alison Florez MD, D.O.B: 1950 Exam Date: 04/21/19 1303 Age: 69 Sex: Female MR#: [id number] Loc: RADIOLOGY REPORT Order #[id number] [facility] Samanta Bilat Screening 3D Signed - MG BILATERAL DIGITAL SCREENING MAMMOGRAM 3D/2D WITH MEDIOLATERAL OBLIQUE CRANIOCAUDAL: 04/21/2019 The study was acquired using full field digital technology and interpreted from soft copy. 2D digital mammographic views, as well as 3D digital tomosynthesis were performed in the CC and MLO projections. CLINICAL: Routine mammogram. Denies any problems today. No personal history of breast cancer. No family history of breast cancer. COMPARISONS: Comparison is made to exam dated: 05/15/2016 mammogram - [facility]. BREAST TISSUE: There are scattered areas of fibroglandular density. FINDINGS: There are benign scattered calcifications in both breasts. No significant masses, calcifications, or other findings are seen in either breast. There has been no significant interval change. IMPRESSION: BI-RAD 2 BENIGN There is no mammographic evidence of malignancy. A 1 year screening mammogram is recommended. The patient has been or will be contacted. We recommend annual screening mammography for women at average risk of breast cancer beginning at age 40, based on guidelines of the [place] [employer] (ACR Practice Parameter for the Performance of Screening and Diagnostic Mammography) and [place] [employer]. For women with an elevated risk of breast cancer, please refer to the ACR Practice Parameter for specific screening recommendations. The patient will be entered into a reminder system with a target due date of 1 year for her next screening exam. Electronically signed by: Ronald Dickinson M.D., md/zeb:04/21/2019 15:36:39 Manager Furniture: Sudha MEAD (Rasheed)(Poppy), [facility] letter sent: Normal Exam Reading location: [facility] BI-RADS: 2 Benign REPORT ELECTRONICALLY SIGNED IN OTHER VENDOR SYSTEM Resulting Agency Comment O Procedure Note Ronald Dickinson MD - 04/21/2019 Patient Name: Libra MONTAGUE Dr: Alison Florez MD D.O.B: 1950 Exam Date: 04/21/19 1303 Age: 69 Sex: Female MR#: [id number] Loc: RADIOLOGY REPORT Order #[id number] [facility] Samanta Bilat Screening 3D Signed - MG BILATERAL DIGITAL SCREENING MAMMOGRAM 3D/2D WITH MEDIOLATERAL OBLIQUE CRANIOCAUDAL: 04/21/2019 The study was acquired using full field digital technology andinterpreted from soft copy. 2D digital mammographic views, as well as 3D digital tomosynthesis were performed in the CC and MLO projections. CLINICAL: Routine mammogram. Denies any problems today. No personalhistory of breast cancer. No family history of breast cancer. COMPARISONS: Comparison is made to exam dated: 05/15/2016 mammogram -[facility]. BREAST TISSUE: There are scattered areas of fibroglandular density. FINDINGS: There are benign scattered calcifications in both breasts. No significant masses, calcifications, or other findings are seen ineither breast. There has been no significant interval change. IMPRESSION: BI-RAD 2 BENIGN There is no mammographic evidence of malignancy. A 1 year screeningmammogram is recommended. The patient has been or will be contacted. We recommend annual screening mammography for women at average risk ofbreast cancer beginning at age 40, based on guidelines of the [place] [employer] (ACR Practice Parameter for the Performance of Screening and Diagnostic Mammography) and [place] [employer]. For women with an elevated risk of breast cancer, pleaserefer to the ACR Practice Parameter for specific screening recommendations. The patient will be entered into a reminder system with a target due dateof 1 year for her next screening exam. Electronically signed by: Ronald Dickinson M.D., md/zeb:04/21/2019 15:36:39 Manager Furniture: Sudha El)(Poppy), [facility] letter sent: Normal Exam Reading location: [facility] BI-RADS: 2 Benign REPORT ELECTRONICALLY SIGNED IN OTHER VENDOR SYSTEM Alison Florez MD IMG MAMMO PROCEDURES Fi nal Result from Last 3 Months or Most Recently Relevant to Health Maintenance Insurance MEDICARE ADVANTAGE MEDICARE [facility] MEDICARE ADVANTAGE Advance Directives For more information, please contact: [phone] * Full Code (Latest Code Status on File) Date Activated Date Inactivated Comments 09/30/2024 12:32 AM 10/02/2024 9:47 PM Care Teams Assembly Line Supervisor Relationship Specialty Start Date End Date Alison Florez MD [address] [address] PCP - General Internal Medicine 03/08/19 Gia Samuel MD [address] [address] Automotive Service Professional Cardiology 05/10/19 Didier Wilson DO [address] [place] [id number] Medical Oncologist/Delivery Helper Hematology and Oncology 10/02/24
--- OUTSIDE RECORDS SUMMARY | 2025-07-25 03:03 | XMS_ITS | Encounter Summary ---
Author Organization [facility] Facility Care Team Providers Care Circulation Clerk Name Role Phone Marilin Barcenas NP Primary Care Provider [phone] Diamond Cannon Primary Care Provider + Elvia Denton NP Unavailable + [phone] Diamond Cannon Primary Care Provider + Joseph Walsh MD Primary Care Provider [phone] Alison Florez MD Primary Care Provider Dominick Blandon MD Unavailable [phone] Didier Wilson DO Unavailable [phone] Encounter Details Date Type Department Care Team (Latest Contact Info) Description 06/26/2017 Orders Only [facility] CLINCONV ProviderRen MD [address] [place] [address] Social History Tobacco Use Types Packs/Day Years Used Date Smoking Tobacco: Never Comments Unknown Sex and Gender Information Value Date Recorded Sex Assigned at Not on file Legal Sex Female 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 us Historical Provider Final Res ult documented in this encounter Visit Diagnoses Not on filedocumented in this encounter Care Teams Circulation Clerk Relationship Specialty Start Date End Date Marilin Barcenas NP [address] [place] [address] PCP - General 09/10/17 09/18/17 Diamond Cannon PA [address] [place] [address] PCP - General 09/19/17 10/21/18 Diamond Cannon PA [address] [place] [address] PCP - General 10/22/18 01/14/19 Joseph Walsh MD [address] [place] [address] PCP - General 01/15/19 03/07/19 Alison Florez MD [address] [place] [address] PCP - General Internal Medicine 03/08/19 Elvia Denton NP [address] [place] [address] Nurse Practitioner 10/22/18 10/22/18 Dominick Blandon MD [address] [facility] [address] [address] Processor Grain Cardiology 05/10/19 Didier Wilson DO [address] [place] [address] Medical Oncologist/Clin Nurse Hematology and Oncology 10/02/24 documented as of this encounter
--- OUTSIDE RECORDS SUMMARY | 2025-07-25 03:03 | XMS_ITS | Clinical Summary ---
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 Gender Identity Not on file Sexual Orientation Not on file Plan of Treatment Health Maintenance Due Date Last Done Comments Hepatitis C Virus (HCV) Screening 1950 Cologuard 1995 Colonoscopy 1995 Colorectal Cancer Screening 1995 Immunochemical Fecal Occult Blood 1995 Zoster Immunization (1 of 2) 2000 Respiratory Syncytial Virus (RSV) Immunization (Adult) (1 - 1-dose 75+ series) 2025 Influenza Immunization (#1) 05/23/202506/22, 07/08/2018, 06/26/2017, Additional history exists SARS-COV-2 Immunization ( season) 2025 DTaP/Tdap/Td Immunization Discontinued 12/03/2017 Pneumococcal Immunization (50+ [...]
--- OUTSIDE RECORDS SUMMARY | 2025-07-25 03:03 | XMS_ITS | Data Portability ---
Author Organization [facility] Address [address] [place] [address] Care Team Providers Care Specialist Employee Labor Relations Name Role Phone DOUGLAS OCAMPO Operations Developer ANTONIO CESAR Photographic Enlarger Operator MIGUELITO NOLAN Brand Activation Manager Assessment Encounter Date Assessment Date Assessment LastModified by Organization Details LastModified Time 12/23/2024 12/23/2024 Dietitian/ Boxing Inspector Consult December 23, 2024 Assessment: I was [...] machine broke. Pt states that she takes Bethany 3, One a Day, and Vitamin C. [...] quinoa). Beverages- Water, green juice (celery, spinach, kasaan juice), tea, no soda/juice Snacks- nuts and [...] minutes/day, including chair exercises and moving arms. Sudanese Educational Materials given in person: [facility] [...] (45-60g/meal) Thank you for this referral! Sincerely, Chilel'Dave Madrid MS, RDN, LDN Registered Dietitian [facility] [email or web address] Not available 12/27/2024 10:52:52 Plan of Treatment Reminders Order Date Submit Date Provider Last Modified By Organization Details Last Modified Time Details Appointments ANY 30 2024 09:00A Naamn Florez MD Not available Not available Not available Lab HbA1c (hemoglob in A1c), blood 2024 025 LUIS ANTONIO [facility], [address], [address], [place], [address], 12/23/2024 13:11:42 lipid panel, serum 2024 025 [facility]IS ANTONIO [facility], [address], [address], [place], [address], 12/23/2024 13:11:39 basic metabolic 1998 panel, serum or plasma 2024 025 [facility] ANTONIO [facility], [address], [address], [place], [address], 12/23/2024 13:11:41 CBC 2024 025 LUIS ANTONIO [facility], [address], [address], [place], [address], 12/23/2024 13:11:44 TSH, ultra-sen sitive, serum 2024 025 LUIS ANTONIO [facility], [address], [address], [place], [address], 12/23/2024 13:11:43 albumin/c reatinine , mass ratio, urine 2023 024 LUIS ANTONIO [facility], [address], [address], [place], [address], 09/07/2024 10:16:35 HbA1c (hemoglob in A1c), blood 2023 024 [facility] ANTONIO [facility], [address], [address], [place], [address], 08/13/2024 09:15:38 lipid panel, serum 2023 024 [facility], [address], [address], [place], [address], 08/13/2024 09:15:35 basic metabolic 1998 panel, serum or plasma 2023 024 [facility], [address], [address], [place], [address], 08/13/2024 09:15:36 CBC 2023 024 [facility]IO [facility], [facility] [address], [address], [place], [address], 08/13/2024 09:15:39 urinalysi s macro (dipstick ) panel, urine 2023 024 [facility], [facility], [address], [place], [address], 04/29/2024 06:20:44 culture, urine 2023 024 [facility], [address] [place], [place] [address], [address], [place], [address], 04/29/2024 20:08:53 Referral nutrition ist/dieti kellie referral - Uncontrol led DM, 2023 024 [email or web address] [facility] Industrial Automation Specialist Nutrition Dietitian, [address], [place], [address], 12/22/2024 17:04:45 Procedures None recorded. Surgeries None recorded. Imaging MAMMO, screening , digital, bilateral 2023 024 [facility], [address], [address], [place], [address], 09/08/2024 17:53:30 US, pelvis, transabdo nikolay + transvagi nal - uterine mass on CT consisten t with fibroids, history of ovarian cysts 2023 024 [facility] [address], [place], [address], 05/12/2024 08:36:51 Medication Orders metformin ER 500 mg tablet,ex tended release 24 hr 2023 024 [facility], [address] [facility] [address], [place], [address], 05/05/2024 16:41:40 Farxiga 10 mg tablet 2023 024 [facility], [address] [place], [address], 05/05/2024 16:41:38 aspirin 81 mg tablet,de layed release 2023 024 [facility], [facility] [place], [address], 05/05/2024 16:41:42 hydrochlo rothiazid e 25 mg tablet 2023 024 [facility], [facility] [place], [address], 05/05/2024 16:41:39 metoprolo l tartrate 25 mg tablet 2023 024 [facility], [facility] [place], [address], 05/05/2024 16:41:41 rosuvasta tin 40 mg tablet 2023 024 [facility], [address] [place], [address], 05/05/2024 16:41:42 levothyro xine 125 mcg tablet 2023 024 [facility], [address] [facility] [address], [place], [address], 05/05/2024 16:41:39 Patient TargetsNo targets recorded. Patient Instructions Encounter Date Encounter Id Patient Instructions Last Modified By Organization Details Last Modified Time 04/28/2024 [id number] A healthy lifestyle: care instructions [email or web address] Not available 04/28/2024 12:16:15 05/05/2024 [id number] mamograf a: sobre esta prueba - [mammogram: about this test] oajao Not available 05/05/2024 16:43:10 Consultation not e from her new bleach machine operator Labs [facility] follow up for the EGD and colonoscopy Follow up in 4 months and PRN oajao Not available 05/05/2024 16:43:17 Detailed visit oajao Not available 0 05/05/2024 17:46:00 09/06/2024 [id number] Aprenda sobre la s pruebas de detecci n del c ncer de seno - [Learning About Breast Cancer Screening] oajao Not available 09/06/2024 10:29:01 Boxing Inspector Fol low up in 5 months and PRN (30 minutes) oajao Not available 09/06/2024 10:49:03 11/30/2024 [id number] Aprenda sobre la diabetes de tipo 2 - [Learning About Type 2 Diabetes] oajao Not available 11/30/2024 14:59:11 Diabetes de tipo 2: Instrucciones de cuidado - [Type 2 Diabetes: Care Instructions] oajao Not available 11/30/2024 14:59:11 hipotiroidismo: instrucciones de cuidado - [hypothyroidism: care instructions] oajao Not available 11/30/2024 14:59:11 Labs Endocrinolo gy (Scheduled) Hematology (Scheduled) Follow up in 3 months and PRN oajao Not available 11/30/2024 15:01:29 Reason for Referral Boxing Inspector/dietitian Refer ral for Type 2 diabetes mellitus Uncontrolled DM, Referring Physician: Alison Florez, Internal Medicine, Encounter Date: 09/06/2024 Results Created Date Observation Date Name Description Value Unit Range Abnormal Flag Note LastModifiedBy Organization Detail LastModifiedTime 04/12/20 24 04/13/2024 TSH RFX ON ABNOR MAL TO FREE T4 TSH 4.480 uIU/m L 0.450- 4.500 Not Available [facility] ([facility]) [address] [facility], [place], [address], 04/13/2024 13:11:24 04/28/20 24 04/29/2024 URINA LYSIS , ROUTI NE specific gravity 1.024 1.005- 1.030 Not Available [facility] ([facility]) [address] [place], [address], 04/29/2024 06:20:44 04/28/20 24 04/29/2024 URINA LYSIS , ROUTI NE pH 6.0 5.0-7. 5 Not Available [facility] ([facility]) [address] [facility], [place], [address], 04/29/2024 06:20:44 04/28/20 24 04/29/2024 URINA LYSIS , ROUTI NE urine-color YELLOW yellow Not Available [facility] ([facility]) [address] [place], [address], 04/29/2024 06:20:44 04/28/20 24 04/29/2024 URINA LYSIS , ROUTI NE appearance CLEAR clear Not Available [facility] ([facility]) [address] [place], [address], 04/29/2024 06:20:44 04/28/20 24 04/29/2024 URINA LYSIS , ROUTI NE WBC esterase NEGATI VE negati ve Not Available [facility] ([facility]) [address] [place], [address], 04/29/2024 06:20:44 04/28/20 24 04/29/2024 URINA LYSIS , ROUTI NE protein NEGATI VE negati ve/tra ce Not Available [facility] ([facility]) [address] [facility], [place], [address], 04/29/2024 06:20:44 04/28/20 24 04/29/2024 URINA LYSIS , ROUTI NE glucose 3+ negati ve abnormal Not Available [facility] ([facility]) [address] [facility], [place], [address], 04/29/2024 06:20:44 04/28/20 24 04/29/2024 URINA LYSIS , ROUTI NE ketones NEGATI VE negati ve Not Available [facility] ([facility]) [address] [place], [address], 04/29/2024 06:20:44 04/28/20 24 04/29/2024 URINA LYSIS , ROUTI NE occult blood NEGATI VE negati ve Not Available [facility] ([facility]) [address] [facility], [place], [address], 04/29/2024 06:20:44 04/28/20 24 04/29/2024 URINA LYSIS , ROUTI NE bilirubin NEGATI VE negati ve Not Available [facility] ([facility]) [address] [place], [address], 04/29/2024 06:20:44 04/28/20 24 04/29/2024 URINA LYSIS , ROUTI NE urobilinogen ,semi-qn 0.2 mg/dL 0.2-1. 0 Not Available [facility] ([facility]) [address] [place], [address], 04/29/2024 06:20:44 04/28/20 24 04/29/2024 URINA LYSIS , ROUTI NE nitrite, urine NEGATI VE negati ve Not Available [facility] ([facility]) [address] [place], [address], 04/29/2024 06:20:44 04/28/20 24 04/29/2024 URINA LYSIS , ROUTI NE microscopic examination COMMEN T Micro scopi c not indic ated and not perfo rmed. Not Available [facility] ([facility]) [address] [facility], [place], [address], 04/29/2024 06:20:44 04/28/20 24 04/29/2024 URINE CULTU RE, YESICAI NE urine culture, routine FINAL REPORT Not Available [facility] ([facility]) [address] [facility], [place], [address], 04/29/2024 20:08:53 04/28/20 24 04/29/2024 URINE CULTU RE, ARMIDA NE result 1 COMMEN T Mixed uroge nital elida Less than 10,00 0 colon ies/m L Not Available [facility] ([facility]) [address] [facility], [place], [address], 04/29/2024 20:08:53 08/05/20 24 08/05/2024 Hemog lobin A1c/H emogl obin. total in Blood hemoglobin A1C, POC 8.8 % low: 4%high : 5.6% Hemog lobin A1C, POC 8.8 4.0 - 5.6 % Not Available Not Available 11/19/2024 09:47:32 08/12/20 24 08/13/2024 LIPID PANEL cholesterol, total 154 mg/dL 100-19 9 Not Available [facility] ([facility]) [address] [facility], [place], [address], 08/13/2024 09:15:35 08/12/20 24 08/13/2024 LIPID PANEL triglyceride s 102 mg/dL 0-149 Not Available [facility] ([facility]) [address] [facility], [place], [address], 08/13/2024 09:15:35 08/12/20 24 08/13/2024 LIPID PANEL HDL cholesterol 52 mg/dL >39 Not Available [facility]) [address] [facility], [place], [address], 08/13/2024 09:15:35 08/12/20 24 08/13/2024 LIPID PANEL VLDL cholesterol corinne 19 mg/dL 5-40 Not Available [facility] ([facility]) [address] [facility], [place], [address], 08/13/2024 09:15:35 08/12/20 24 08/13/2024 LIPID PANEL LDL chol calc ([facility]) 83 mg/dL 0-99 Not Available [facility]) [address] [facility], [place], [address], 08/13/2024 09:15:35 08/12/20 24 08/13/2024 BASIC METAB OLIC PANEL (7) glucose 78 mg/dL 70-99 Not Available [facility] ([facility]) [address] [facility], [place], [address], 08/13/2024 09:15:36 08/12/20 24 08/13/2024 BASIC METAB OLIC PANEL (7) BUN 16 mg/dL 8-27 Not Available [facility] ([facility]) [address] [facility], [place], [address], 08/13/2024 09:15:36 08/12/20 24 08/13/2024 BASIC METAB OLIC PANEL (7) creatinine 0.67 mg/dL 0.57-1 .00 Not Available [facility] ([facility]) [address] [facility], [place], [address], 08/13/2024 09:15:36 08/12/20 24 08/13/2024 BASIC METAB OLIC PANEL (7) eGFR 92 mL/mi n/1.7 3 >59 Not Available [facility] ([facility]) [address] [place], [address], 08/13/2024 09:15:36 08/12/20 24 08/13/2024 BASIC METAB OLIC PANEL (7) BUN/creatini ne ratio 24 12-28 Not Available [facility] ([facility]) [address] [place], [address], 08/13/2024 09:15:36 08/12/20 24 08/13/2024 BASIC METAB OLIC PANEL (7) sodium 139 mmol/ L 134-14 4 Not Available [facility] ([facility]) [address] [place], [address], 08/13/2024 09:15:36 08/12/20 24 08/13/2024 BASIC METAB OLIC PANEL (7) potassium 4.2 mmol/ L 3.5-5. 2 Not Available [facility] ([facility]) [address] [place], [address], 08/13/2024 09:15:36 08/12/20 24 08/13/2024 BASIC METAB OLIC PANEL (7) chloride 97 mmol/ L 96-106 Not Available [facility] ([facility]) [address] [place], [address], 08/13/2024 09:15:36 08/12/20 24 08/13/2024 BASIC METAB OLIC PANEL (7) carbon dioxide, total 27 mmol/ L 20-29 Not Available [facility] ([facility]) [address] [place], [address], 08/13/2024 09:15:36 08/12/20 24 08/13/2024 HEMOG LOBIN A1C hemoglobin A1C 9.2 % 4.8-5. 6 above high normal Predi abete s: 5.7 - 6.4 Diabe sophie: >6.4 Glyce upja contr ol for adult s with diabe sophie: <7.0 Not Available [facility] ([facility]) [address] [place], [address], 08/13/2024 09:15:37 11/21/08/13/2024 CBC, PLATE LET, NO DIFFE RENTI AL WBC 7.4 x10e3 /uL 3.4-10 .8 Eff ectiv e Decem hemal 2023 profi chani [id number] WBC will be made* * non-o rdera ble as a stand -sendy e order code. Not Available [facility] ([facility]) [address] [facility], [place], [address], 08/13/2024 09:15:39 08/12/20 24 08/13/2024 CBC, PLATE LET, NO DIFFE RENTI AL RBC 4.78 x10e6 /uL 3.77-5 .28 Not Available [facility] ([facility]) [address] [place], [address], 08/13/2024 09:15:39 08/12/20 24 08/13/2024 CBC, PLATE LET, NO DIFFE RENTI AL hemoglobin 14.5 g/dL 11.1-1 5.9 Not Available [facility] ([facility]) [address] [facility], [place], [address], 08/13/2024 09:15:39 08/12/20 24 08/13/2024 CBC, PLATE LET, NO DIFFE RENTI AL hematocrit 44.7 % 34.0-4 6.6 Not Available [facility] ([facility]) [address] [place], [address], 08/13/2024 09:15:39 08/12/2008/13/2024 CBC, PLATE LET, NO DIFFE RENTI AL MCV 94 fL 79-97 Not Available [facility] ([facility]) [address] [place], [address], 08/13/2024 09:15:39 08/12/20 24 08/13/2024 CBC, PLATE LET, NO DIFFE RENTI AL MCH 30.3 pg 26.6-3 3.0 Not Available [facility] ([facility]) [address] [place], [address], 08/13/2024 09:15:39 08/12/20 24 08/13/2024 CBC, PLATE LET, NO DIFFE RENTI AL MCHC 32.4 g/dL 31.5-3 5.7 Not Available [facility] ([facility]) [address] [facility], [place], [address], 08/13/2024 09:15:39 08/12/20 24 08/13/2024 CBC, PLATE LET, NO DIFFE RENTI AL RDW 12.9 % 11.7-1 5.4 Not Available [facility] ([facility]) [address] [facility], [place], [address], 08/13/2024 09:15:39 08/12/20 24 08/13/2024 CBC, PLATE LET, NO DIFFE RENTI AL platelets 207 x10e3 /uL 150-45 0 Not Available [facility] ([facility]) [address] [facility], [place], [address], 08/13/2024 09:15:39 09/06/20 24 09/07/2024 ALBUM IN/CR EATIN INE RATIO ,URIN E creatinine, urine 27.2 mg/dL notest ab. Not Available [facility] ([facility]) [address] [place], [address], 09/07/2024 10:16:35 09/06/20 24 09/07/2024 ALBUM IN/CR EATIN INE RATIO ,URIN E albumin, urine 17.7 ug/mL notest ab. Not Available [facility] ([facility]) [address] [place], [address], 09/07/2024 10:16:35 09/06/20 24 09/07/2024 ALBUM IN/CR EATIN INE RATIO ,URIN E alb/creat ratio 65 mg/g_ creat 0-29 above high normal Trudy l: 0 - 29 Moder ately incre ased: 30 - 300 Sever nikki incre ased: >300 Not Available [facility] ([facility]) [address] [facility], [place], [address], 09/07/2024 10:16:35 12/17/19 25 12/16/2024 Hemog lobin [...] 164 mg/dL 100-19 9 Not Available [facility] ([facility]) [address] [place], [address], 12/23/2024 13:11:39 12/23/19 25 12/23/2024 LIPID PANEL triglyceride s 125 mg/dL 0-149 Not Available [facility] ([facility]) [address] [facility], [place], [address], 12/23/2024 13:11:39 12/23/19 25 12/23/2024 LIPID PANEL HDL cholesterol 52 mg/dL >39 Not Available [facility] ([facility]) [address] [place], [address], 12/23/2024 13:11:39 12/23/19 25 12/23/2024 LIPID PANEL VLDL cholesterol corinne 22 mg/dL 5-40 Not Available [facility] ([facility]) [address] [facility], [place], [address], 12/23/2024 13:11:39 12/23/19 25 12/23/2024 LIPID PANEL LDL chol calc ([facility]) 90 mg/dL 0-99 Not Available [facility]) [address] [facility] [place], [address], 12/23/2024 13:11:39 12/23/19 25 12/23/2024 BASIC METAB OLIC PANEL (7) glucose 73 mg/dL 70-99 Not Available [facility] ([facility]) [address] [facility] [place], [address], 12/23/2024 13:11:41 12/23/19 25 12/23/2024 BASIC METAB OLIC PANEL (7) BUN 19 mg/dL 8-27 Not Available [facility] ([facility]) [address] [facility] [place], [address], 12/23/2024 13:11:41 12/23/19 25 12/23/2024 BASIC METAB OLIC PANEL (7) creatinine 0.57 mg/dL 0.57-1 .00 Not Available [facility] ([facility]) [address] [place], [address], 12/23/2024 13:11:41 12/23/19 25 12/23/2024 BASIC METAB OLIC PANEL (7) eGFR 95 mL/mi n/1.7 3 >59 Not Available [facility] ([facility]) [address] [facility] [place], [address], 12/23/2024 13:11:41 12/23/19 25 12/23/2024 BASIC METAB OLIC PANEL (7) BUN/creatini ne ratio 33 12-28 above high normal Not Available [facility] ([facility]) [address] [facility] [place], [address], 12/23/2024 13:11:41 12/23/19 25 12/23/2024 BASIC METAB OLIC PANEL (7) sodium 138 mmol/ L 134-14 4 Not Available [facility] ([facility]) [address] [place], [address], 12/23/2024 13:11:41 12/23/19 25 12/23/2024 BASIC METAB OLIC PANEL (7) potassium 4.2 mmol/ L 3.5-5. 2 Not Available [facility] ([facility]) [address] [place], [address], 12/23/2024 13:11:41 12/23/19 25 12/23/2024 BASIC METAB OLIC PANEL (7) chloride 98 mmol/ L 96-106 Not Available [facility] ([facility]) [address] [place], [address], 12/23/2024 13:11:41 12/23/19 25 12/23/2024 BASIC METAB OLIC PANEL (7) carbon dioxide, total 25 mmol/ L 20-29 Not Available [facility] ([facility]) [address] [place], [address], 12/23/2024 13:11:41 12/23/19 25 12/23/2024 HEMOG LOBIN A1C hemoglobin A1C 7.9 % 4.8-5. 6 above high normal Predi abete s: 5.7 - 6.4 Diabe sophie: >6.4 Glyce puja contr ol for adult s with diabe sophie: <7.0 Not Available [facility] ([facility]) [address] [place], [address], 12/23/2024 13:11:42 12/23/1912/23/2024 TSH TSH 2.200 uIU/m L 0.450- 4.500 Not Available [facility] ([facility]) [address] [place], [address], 12/23/2024 13:11:43 12/23/19 25 12/23/2024 CBC, PLATE LET, NO DIFFE RENTI AL WBC 7.3 x10e3 /uL 3.4-10 .8 Not Available [facility] ([facility]) [address] [place], [address], 12/23/2024 13:11:44 12/23/19 25 12/23/2024 CBC, PLATE LET, NO DIFFE RENTI AL RBC 4.80 x10e6 /uL 3.77-5 .28 Not Available [facility] ([facility]) [address] [facility], [place], [address], 12/23/2024 13:11:44 12/23/19 25 12/23/2024 CBC, PLATE LET, NO DIFFE RENTI AL hemoglobin 14.7 g/dL 11.1-1 5.9 Not Available [facility] ([facility]) [address] [facility], [place], [address], 12/23/2024 13:11:44 12/23/19 25 12/23/2024 CBC, PLATE LET, NO DIFFE RENTI AL hematocrit 45.9 % 34.0-4 6.6 Not Available [facility] ([facility]) [address] [facility], [place], [address], 12/23/2024 13:11:44 12/23/19 25 12/23/2024 CBC, PLATE LET, NO DIFFE RENTI AL MCV 96 fL 79-97 Not Available [facility] ([facility]) [address] [facility], [place], [address], 12/23/2024 13:11:44 12/23/19 25 12/23/2024 CBC, PLATE LET, NO DIFFE RENTI AL MCH 30.6 pg 26.6-3 3.0 Not Available [facility] ([facility]) [address] [place], [address], 12/23/2024 13:11:44 12/23/19 25 12/23/2024 CBC, PLATE LET, NO DIFFE RENTI AL MCHC 32.0 g/dL 31.5-3 5.7 Not Available [facility] ([facility]) [address] [place], [address], 12/23/2024 13:11:44 04/02/20 25 12/23/2024 CBC, PLATE LET, NO DIFFE RENTI AL RDW 13.0 % 11.7-1 5.4 Not Available [facility] ([facility]) [address] [facility], [place], [address], 12/23/2024 13:11:44 12/23/19 25 12/23/2024 CBC, PLATE LET, NO DIFFE RENTI AL platelets 198 x10e3 /uL 150-45 0 Not Available [facility] ([facility]) [address] [facility], [place], [address], 12/23/2024 13:11:44 04/27/20 24 04/22/2024 DEXA No observ ation record ed. [facility] [address] [place] [address] [address], [place], [address], 09/06/2024 10:23:20 05/12/20 24 05/11/2024 US, pelvi s, trans abdom inal + trans vagin al No observ ation record ed. [facility] [address] [place] [address] [address], [place], [address], 09/27/2024 18:31:24 09/08/20 24 09/08/2024 MAMMO , scree emily, digit al, bilat eral No observ ation record ed. [place] [id number] [facility] [address], [place], [address], 11/30/2024 14:43:00 05/11/20 25 04/01/2025 cardi ac monit or No observ ation record ed. [facility] [address] [facility] [address], [place], [address], 05/12/2025 08:31:05 Result Notes None recorded. Problems Name Problem SNOMED Code Status Onset Date Resolution Date Notes Provider Name and Address Organization Details Recorded Time Ulcer of foot 66608930 Active Pre ulcerati ve callus Joleen Rodriguez [place] null, [place] - [facility] 10:19:03 Hyperlip idemia 06504210 Active Diamond Cannon PA-C Attn: Accounting ,[address], [place], [address] [place] [address] , [place] - [facility] 6 10:41:01 Renal disorder due to type 2 diabetes mellitus 457240418 Active Diamond Cannon PA-C Attn: Accounting ,[address], [place], [address] [place] [address] , [place] [facility] 6 18:27:23 Microalb uminuria 385181187 Active Joleen Rodriguez [place], [place] [facility] 6 10:19:03 [facility] hyperten rodney 55773131 Active Diamond Cannon PA-C Attn: Accounting ,[address], [place], [address] [place] [address] , [place] [facility] 6 10:43:18 Thyroid stimulat ing hormone level above referenc e range 870011366 Active Diamond Cannon PA-C Attn: Accounting ,[address], [place], [address] [place] [address] , [place] [facility] 6 18:27:23 Uterine leiomyom a 68377485 Active Joleen Rodriguez [place] [facility] 6 10:19:03 Toothach e 30339680 Active Joleen [place] [facility] 6 10:19:03 Anterior rhinorrh ea 451985073 Active Diamond Cannon PA-C Attn: Accounting ,[address], [place], [address] [place] [address] , [place] [facility] 6 10:43:18 Urinary tract infectio us disease 75486831 Active Joleen Rodriguez [place] [facility] 10:19:03 Chronic ulcer of foot 102977024 Active Joleen [place] [facility] 10:19:03 Pain in pelvis 49573788 Active Joleen Rodriguez [place] [facility] 6 10:19:03 Gastroes ophageal reflux disease 124785510 Active Diamond Cannon PA-C Attn: Accounting ,[address], [place], [address] [place] [address] , [place] [facility] 6 21:04:43 Candidia sis of vagina 33192757 Active Joleen Rodriguez [place] [facility] 6 10:19:03 Atrophic vaginiti s 59430822 Active Joleen Rodriguez [place] [facility] 6 10:19:03 Menopaus al syndrome 002760591 Active Joleen [place] [facility] 6 10:19:03 Adrenal mass 196654868 Active 2016 Diamond Cannon PA-C Attn: Accounting ,[address], [place], [address] [place] [address] , [place] [facility] 7 11:32:09 Hyperten sive emergenc y [id number] 9104 Active 2016 Diamond Cannon PA-C Attn: Accounting ,[address], [place], [address] [place] [address] , [place] [facility] 7 13:26:23 Herpes zoster 6422779 Active 2016 Diamond Cannon PA-C Attn: Accounting ,[address], [place], [address] [place] [address] , [place] [facility] 7 13:50:38 Diabetes mellitus 22340969 Completed 201612/03/2017 Diamond Cannon PA-C Attn: Accounting ,[address] [place], [address] , [place] [facility] 8 10:35:16 Depressi ve disorder 60626131 Active 2016 Diamond Cannon PA-C Attn: Accounting ,[address] [place], [address] , [place] [facility] 7 13:36:07 Anxiety 78170857 Active 2016 Diamond Cannon PA-C Attn: Accounting ,[address] [facility], [place], [address] , [place] [facility] 7 13:36:07 Body mass index 30+ - obesity 319727009 Active 2017 Diamond Cannno PA-C Attn: Accounting ,[address] [facility], [place], [address] , [place] [facility] 8 10:36:34 Chronic idiopath ic constipa tion 26100045 Active 2017 Diamond Cannon PA-C Attn: Accounting ,[address] [facility], [place], [address] , [place] [facility] 8 12:31:02 Type 2 diabetes mellitus 90300889 Active 2018 Alison Florez MD Attn: Accounting ,[address] [facility], [place], [address] , [place] [facility] 2 16:33:52 Uncontro lled type 2 diabetes mellitus 649956110 Active 2018 Alison Florez MD Attn: Accounting ,[address] [place], [address] , [place] [facility] 9 17:02:14 Complex ovarian cyst 83058278135 3 Active 2018 Alison Florez MD Attn: Accounting ,[address] [facility], [place], [address] , [place] [facility] 9 17:02:18 Ulcer of left foot Active 2018 Alison Florez MD Attn: Accounting ,[address] [facility], [place], [address] , [place] [facility] 9 11:23:22 Benign hyperten rodney 94236341 Active 2020 Alison Florez MD Attn: Accounting ,[address] [facility], [place], [address] , [place] [facility] 2 14:36:07 Hypothyr oidism 87696781 Active 2020 Alison Florez MD Attn: Accounting ,[address] [facility], [place], [address] , [place] [facility] 5 14:57:49 Disorder of bile duct 844379207 Active 2020 Alison Florez MD Attn: Accounting ,[address] [facility], [place], [address] , [place] [facility] 1 15:48:22 Abnormal findings diagnost ic imaging of liver+bi liary tract 067524515 Active 2020 Alison Florez MD Attn: Accounting ,[address] [facility], [place], [address] , [place] [facility] 1 18:12:39 Sliding hiatus hernia 473982218 Active 2020 Alison Florez MD Attn: Accounting ,[address] [facility], [place], [address] , [place] [facility] 1 18:13:03 History of SARS-CoV -2 95045001008 8997787 Active 2021 Alison Florez MD Attn: Accounting ,[address] [facility], [place], [address] , [place] [facility] 2 18:28:51 Labile hyperten rodney due to being in a clinical environm ent 903714501 Active 2022 Alison Florez MD Attn: Accounting ,[address] [facility], [place], [address] , [place] [facility] 3 18:21:42 Pain of left shoulder joint 85478886295 836947 Active 2023 Alison Florez MD Attn: Accounting ,[address] [facility], [place], [address] , [place] [facility] 4 09:30:21 Constipa tion 45814357 Active 2023 Alison Florez MD Attn: Accounting ,[address] [facility], [place], [address] , [place] [facility] 4 12:35:12 Splenic infarcti on 58508127 Active 2024 Alison Florez MD Attn: Accounting ,[address] [facility], [place], [address] , [place] [facility] 5 14:57:18 Problem Notes None recorded. Procedures Surgical History Date Name Laterality Status Provider Name and Address Organization Details Recorded Time 2024 esophagogastroduodenoscopy completed Raven Daugherty MD Attn: Priyamariya gibson,[address] [facility], [place], [address], [place] [facility] 5 09:33:26 2024 colonoscopy completed Alison Florez MD Attn: Niesha gibson,[address] [facility], [place], [address], [place] [facility] 5 09:40:52 2023 Diabetic Foot Exam completed Alison Florez MD Attn: Niesha arthur,[address] [facility], [place], [address], [place] [facility] 4 10:52:27 2022 Diabetic Foot Exam completed Alison Florez MD Attn: Niesha gibson,[address] [facility], [place], [address], [place] [facility] 3 16:40:44 2021 Date of Last Mammogram completed Marianela Oliver [place] [facility] 4 11:27:31 2016 endoscopy completed Alison Florez MD Attn: Niesha arthur,[address] [facility], [place], [address], [place] [facility] 1 11:16:01 2015 Most Recent Mammogram completed Jeanie Mitchell [place] [facility] 7 16:01:49 06/08/ 2016 Date of Last Pap Smear completed Jeanie Mitchell MA [facility] 7 16:00:56 2012 colonoscopy completed Alison Florez MD Attn: Niesha gibson,[address] [facility], [place], [address], [facility] - [facility] 0 15:25:09 2012 esophagogastroduodenoscopy completed Raven Daugherty MD Attn: Niesha arthur,[address] [facility], [place], [address], [facility] 0 15:25:24 1984 Caesarean Section completed Anastasia Angulo MA [facility] 6 10:54:10 1984 Tubal Ligation completed Anastasia Angulo MA [facility] 6 10:54:10 1980 Caesarean Section completed Anastasia Angulo MA [facility] 6 11:10:33 Cholecystectomy completed Joleen Rodriguez MA [facility] 6 10:54:03 Imaging Results None recorded. Procedure [...] ONCE DAILY DIRECTED FOR HIGH BLOOD PRESSURE 2024 active Not Available Not Available Not Avai lable mupirocin 2 % topical ointment 12/29 completed [...] ONCE DAILY AT BEDTIME FOR CHOLESTE ROL 2024 active Not Available Not Available Not Avai lable metoprolo l tartrate 25 mg tablet TAKE 1 TABLET BY MOUTH TWICE DAILY DIRECTED 2024 active Not Available Not Available Not Avai lable nitrofura ntoin monohydra te/macroc rystals 100 mg [...] ONCE DAILY DIRECTED for High blood pressure (Sudanese instruct ions, please) 09/08 completed Not Available Not Available Not Available Lantus Solostar U-100 Insulin 100 unit/mL (3 mL) subcutane ous pen INJECT 22 UNITS SUBCUTAN EOUSLY ONCE DAILY AT BEDTIME 07/07 completed Not Available Not Available Not Available Bystolic 5 mg tablet Take 1 tablet every day by oral route. 12/[address] barker cardiolo gy Not Available Not Available Not [...] Not Available Not Available No t Available Farxiga 10 mg tablet TAKE 1 [...] Pulse oximetry Respiratory rate Body temperature Systolic And Diastolic Provider Name and Address Organization Details Last Updated DateTime 5 151.13 cm 74 /min 98 % 98 % 16 /min 98.6 [degF] 130/70 mm[Hg] Helen Amador MA [facility] 5 14:40:59 Date Recorded Body height Body mass index (BMI) Body weight Oxygen saturation Oxygen saturation in Arterial blood by Pulse oximetry Heart rate Systolic And Diastolic Provider Name and Address Organization Details Last Updated DateTime 4 151.13 cm 34.6 kg/m2 37758.0 7 g 97 % 97 % 78 /min 130/82 mm[Hg] Mraianela Oliver MA [facility] 4 11:29:32 Date Recorded Body height Body mass index (BMI) Body weight Heart rate Oxygen saturation Oxygen saturation in Arterial blood by Pulse oximetry Respiratory rate Body temperature Systolic And Diastolic Provider Name and Address Organization Details Last Updated DateTime 4 151.13 cm 34.4 kg/m2 10031.4 8 g 80 /min 96 % 96 % 16 /min 98.2 [degF] 126/80 mm[Hg] Helen Amador MA [facility] 4 16:03:40 Date Recorded Body height Body mass index (BMI) Body weight Oxygen saturation Oxygen saturation in Arterial blood by Pulse oximetry Heart rate Respiratory rate Systolic And Diastolic Provider Name and Address Organization Details Last Updated DateTime 4 151.13 cm 33.2 kg/m2 56134.6 4 g 98 % 98 % 76 /min 14 /min 124/80 mm[Hg] Helen Amador MA [facility] 4 10:17:58 Social History Question Answer Notes LastModified by Organizat ion Details LastModified Time Tobacco Smoking Status Never Smoker LAMONT Spe[place], [place] - [facility] 10/28/2014 13:09:04 Do You Have An Advance Directive? No Information not available 02/28/2016 Are You Blind Or Do You Have Difficulty Seeing? No Information not available 12/01/2020 Is Blood Transfusion Acceptable In An Emergency? Yes Information not available 02/28/2016 What Is Your Level Of Caffeine Consumption? Moderate [email or web address] Information not available 10/28/2014 How Much Tobacco [...] Live Alone Or With Others? With Others [email or web address] Information not available 10/28/2014 What Was The [...] Date Was Tobacco Cessation Counseling Provided? 04/28/2024 Oalaura Answered No To The Tobacco Cessation Counseling [...] is your level of alcohol consumption? None [email or web address] Information not available 10/28/2014 Do you or have you ever used smokeless tobacco? Never used smokeless tobacco Information not available 04/07/2020 Are you currently employed? No Information not available 01/17/2016 Are you able to care for yourself independently? Yes [email or web address] Information not available 10/28/2014 What is your occupation? Retired Information not available 02/28/2016 Do you or have you ever used e-cigarettes or vape? Never used electronic cigarettes Information not available 04/07/2020 What is your exercise level? Occasional Information not available 02/28/2016 Mental Status None recorded. Family History Relationship Description Onset Age of this Age Resolved Age Notes LastModified by Organization Details LastModified Time Mother Alcoholism [email or web address] Not available 04/17/2016 10:51:11 Mother Malignant neoplasm of cervix uteri [email or web address] Not available 10:51:11 Father Alcoholism [email or web address] Not available 04/17/2016 [...] Response Coronary Artery Disease N Other N High Blood Pressure Y Atrial Fibrillation N Breast Cancer N Blood Clots N COPD N Depression N Lung Disease N Breast Problem N Anesthesia Complications N Headaches/Migraines N Anxiety Disorder N Muscle, Joint, or Bone Problems N Infertility N Polyps N Acid Reflux (GERD) N Cancer N Stroke N Endometriosis N High Cholesterol Y Liver Disease N Headaches N Thyroid Problems N Kidney or Bladder Problems N GI Problems N Acne N Skin Problems N Eating Disorder N Anemia N Heart Attack (ME) N Ovarian Cancer N Diabetes Y Blood Transfusions N Seizures/Epilepsy N Abuse/Domestic Violence N Asthma N Allergies N Hepatitis N Heart Disease N Pre-Eclampsia N Osteoporosis N Heart Failure N Gynecological History Statement/Question Response Abnormal Pap [...] completed Alison Florez MD Attn: Accounting,[address] [place], [address], [facility] 10/19/2020 09:57:48 COVID-19, mRNA, LNP-S, PF, 30 mcg/0.3 mL dose 1 completed Alison Florez MD Attn: Accounting,[address] [place], [address], [facility] 05/23/2022 14:31:15 Influenza, split virus, quadrivalent, preservative 5 completed Alison Florez MD Attn: Accounting,[address] [place], [address], [facility] 05/23/2022 14:31:15 COVID-19, mRNA, LNP-S, PF, 30 mcg/0.3 mL dose 1 completed Alison Florez MD Attn: Accounting,[address] [place], [address], [place] [facility] 05/23/2022 14:31:15 Influenza, split virus, trivalent, PF 3 completed Alison Florez MD Attn: Accounting,[address] [place], [address], [place] [facility] 05/23/2022 14:31:15 SARS-COV-2 (COVID-19) vaccine, UNSPECIFIED 1 completed Alison Florez MD Attn: Accounting,[address] [place], [address], [place] [facility] 11/27/2022 19:22:12 Influenza, split virus, quadrivalent, preservative 6 completed Not Available [facility] 10/09/2019 02:32:37 pneumococcal polysaccharide PPV23 7 completed Not Available [facility] 10/09/2019 02:33:05 Tdap 8 completed Not Available [facility] 10/09/2019 02:42:02 Pneumococcal conjugate PCV 13 8 completed Not Available [facility] 10/09/2019 02:35:18 Influenza, split virus, quadrivalent, preservative 8 completed Not Available [facility] 10/09/2019 02:36:25 Influenza, split virus, quadrivalent, preservative 9 completed Not Available [facility] 10/09/2019 02:47:16 Influenza, split virus, quadrivalent, preservative 1 completed [place] [facility] 07/25/2021 17:13:03 COVID-19, mRNA, LNP-S, PF, 100 mcg/0.5mL dose or 50 mcg/0.25mL dose 2 completed Erich sarmiento, [place] [facility] 11/20/2021 13:40:08 Influenza, split virus, quadrivalent, preservative 2 completed Alison Florez MD Attn: Accounting,[address], [place], [address], [facility] 07/04/2022 11:18:15 Influenza, high-dose, quadrivalent, PF 3 completed Alison Florez MD Attn: Accounting,[address], [place], [address], [facility] 09/08/2023 19:11:43 Influenza, split virus, quadrivalent, preservative 7 completed Diamond Cannon PA-C Attn: Accounting,[address], [place], [address], [facility] 07/07/2017 12:10:22 Past Encounters Encounter ID Performer Location Encounter Start Date Encounter Closed Date Diagnosis/Indication Diagnosis SNOMED-CT Code Diagnosis ICD10 Code Diagnosis IMO Codes Diagnosis Note [id number] [facility] [address] [place] [address] 10/28/2014 12:54:53 10/28/2014 14:28:36 Renal disorder due to type 2 diabetes mellitus 816567550 Thyroid st imulating hormone level above reference range 771185465 Essential hypertension 31020685 Toothache 61778386 Anterior rhinorrhea 330173550 [id number] Naren Toscano [facility] [address] [place] [address] 12/15/2014 11:50:20 12/15/2014 12:46:36 Urinary tract infectious disease 49730155 Renal diso rder due to type 2 diabetes mellitus 515352001 [id number] Mynor Meza MD [facility] (Adult Med) [address] [place] [address] 05/08/2015 11:19:50 05/08/2015 14:42:10 Renal disorder due to type 2 diabetes mellitus 410893535 Thyroid st imulating hormone level above reference range 829098349 Essential hypertension 67425907 Will begin BP medicaiton Anterior rhinorrhea 624902234 Hyperlipidemia 12711375 [facility] check labs today Noncomplia nce with medication regimen 658085633 Patient has been out of BP and DM medication for the last 2 months - we had a long discussion about how she needs to be taking her medication because both chronic conditions can cause very fci damage to her organs. RTC in 2 weeks to see how medication s are doing [id number] MD Wes Torres (Adult Med) [address] [place] [address] 06/21/2015 09:52:03 06/21/2015 11:17:03 Chronic ulcer of foot 210764657 Will r efer back to wound care clinic Advised that if area becomes erythatmou s or warm or she develops a fever, nausea, vomiting to go to the ED for evaluation Renal diso rder due to type 2 diabetes mellitus 791621580 Essential hypertension 17971977 Hyperlipidemia 68657785 Needs infl uenza immunization 258014190 [id number] [facility] [address] [place] [address] 08/21/2015 09:40:02 08/21/2015 10:27:06 Chronic ulcer of foot 444486110 L97.509 Seeing podiatry at [facility] Next appointmen t 09/05/15 Renal diso rder due to type 2 diabetes mellitus 547501592 E11.29 Will check labs today Essential hypertension 00752252 I10 Advised that she needs to take her BP medication s before her next appiontmen t Hyperlipidemia 18877120 E78.[address] imulating hormone level above reference range 520022823 R79.89 [id number] MD Wes Torres (Adult Med) [address] [place] [address] 10/18/2015 10:58:15 10/18/2015 12:07:17 Chronic ulcer of foot 034197330 L97.509 Seeing podiatry at [facility] much improved Needs a MD to sign paperwork for shoes Renal diso rder due to type 2 diabetes mellitus 085364144 E11.29 Will check labs today Will refer to ophthalmol ogy Will look into getting Dr. Meza's name on the diabetic shoe paperwork Diabetic foot exam at next visit Essential hypertension 49665832 I10 Advised that she needs to take her BP medication s before her next appiontmen t Hyperlipidemia 66030466 E78.[address] imulating hormone level above reference range 668872039 R79.89 Pain in pelvis 20771735 R10.2 Suprapubic pain - will order US Will get last pap smear [facility] [id number] MD Wes Vieyra (Adult Med) [address] [place] [address] 01/17/2016 10:36:15 01/17/2016 12:03:38 Renal disorder due to type 2 diabetes mellitus 570047280 E11.29 Will check labs today Will refer to ophthalmol ogy Printed off order for diabetic shoes and gave to daughter - through [employer] Thyroid st imulating hormone level above reference range 632037386 R79.89 Hyperlipidemia 45001532 E78.5 Will check cholestero l today and fill accordingl y Essential hypertension 12536709 I10 Will increase medication Patient is under a lot of stress - advised that she needs to take some time for herself to destress Gastroesop hageal reflux disease 409811282 K21.9 Anterior rhinorrhea 2772 62590 J34.9 Hypertensive urgency 443 552130 I10 After 0.2mg clonidine pressure decreased Patient's son just had another child yesterday and she's been watching 4 other grandchild johann a lot recently and feels very stressed We discussed that stress can increase her BP and she needs to help calm herself down [id number] MD Wes Mckenna (METAL FINISHER) [address] [place] [address] 02/28/2016 10:12:24 02/28/2016 17:39:57 Gynecologic examination 34836612 Z01.411 Candidiasis of vagina 72 140056 B37.3 Atrophic vaginitis 67428 000 N95.2 Menopausal syndrome 1237 77820 N95.9 Screening for malignant neoplasm of breast 739345626 Z12.31 [id number] MD Wes Vieyra (Adult Med) [address] [place] [address] 04/17/2016 09:31:36 04/17/2016 10:52:25 Renal disorder due to type 2 diabetes mellitus 362756185 E11.29 WIll check labs today taking 40 units qPM Depending on labs - will have her make an appointmen t with nephrology Thyroid st imulating hormone level above reference range 751862276 R79.89 Hyperlipidemia 38023009 E78.5 Will check cholestero l today and fill accordingl y Essential hypertension 79493106 I10 Will continue with medication Gastroesop hageal reflux disease 202757018 K21.9 Anterior rhinorrhea 2772 64148 J34.9 [id number] MD Wes Vieyra (Adult Med) [address] [place] [address] 0 07/31/2016 11:01:40 07/31/2016 12:20:32 Active or passive immunization 166066921 Z23 Renal diso rder due to type 2 diabetes mellitus 646603869 E11.29 WIll check labs today taking 40 units qPM a1c: 10.4 GIven number endocrinol ogy and nephrology to schedule appointmen ts Had an eye exam in 02/2016 Hyperlipidemia 95037890 E78.5 Will check cholestero l today and fill accordingl y Essential hypertension 28436123 I10 130/80 - WNL - c/w current medication Anterior rhinorrhea 2772 79563 J34.9 Gastroesop hageal reflux disease 165987322 K21.9 Currently not taking any medication Followed by Dr. Chairez [id number] MD Wes Vieyra (Adult Med) [address] [place] [address] 0 10/31/2016 10:55:03 10/31/2016 11:55:31 Renal disorder due to type 2 diabetes mellitus 549983619 E11.29 WIll check labs today taking 40 units qPM a1c: 10.4 GIven number endocrinol ogy and nephrology to schedule appointmen ts Had an eye exam in 02/2016 Adrenal mass 106606910 R 19.09 WIll order MRI w/ contrast as recommende d by CT scan Active or passive immunization 811024849 Z23 Gastroesop hageal reflux disease 060054471 K21.9 Currently not taking any medication Followed by Dr. Chairez Essential hypertension 17337551 I10 148/80 today - usually WNL - will readdress at next visit Hyperlipidemia 26312189 E78.5 Will check cholestero l today and fill accordingl y Anterior rhinorrhea 2772 18158 J34.9 [id number] MD Wes Vieyra (Adult Med) [address] [place] [address] 02/13/2017 11:02:11 02/13/2017 18:07:37 Hypertensive emergency 8824071057 89622 I16.1 210/120 - patient advised to go to the ER. SHe has chosen to go to [facility] and will have her daughter transport her. [...] even without medication . Will see what [facility] ER finds in their evaluation [id number] MD Wes Vieyra (Adult Med) [address] [place] [address] 02/27/2017 09:35:32 02/27/2017 10:48:20 Essential hypertension 24258415 I10 138/82 today in office - per patient her BPs fluctuate greatly and sometimes in the morning it is 90s/60s and she feels very tired. Advised patient that I would like her to re-establi sh with nephrology - given number to Dr. Nguyễn's office WIll discuss a cardiology referral at next appointmen t/sx's worsen Always take your BP medication Herpes zoster 1561163 B0 2.9 Patient advised to begin medication DOMINIQUE (will coal picker today when she leaves office because [...] to the ER immediatel y Diabetes mellitus 646674 09 E11.[address] Chavarria WIll recheck labs and then send to endo Currently taking 26 units Lantus qPM Renal diso rder due to type 2 diabetes mellitus 159176224 E11.29 a1c: 10.4 Followed by endocrinol Pedro number to re-establi sh with nephrology [id number] MD Wes Vieyra (Adult Med) [address] [place] [address] 03/11/2017 09:05:42 03/12/2017 10:23:09 Herpes zoster 7178403 B02.9 Discussed that the shingles rash can [...] rder due to type 2 diabetes mellitus 437366463 E11.29 a1c: 6.5 - greatly improved Followed by endocrinol Pedro number to re-establi sh with nephrology Essential hypertension 70024643 I10 160/90 today in office - NAD and not WNL - will adress at next visit Again, advised patient that I would like her to re-establi sh with nephrology - given number to Dr. Nguyễn's office WIll discuss a cardiology referral at next appointmen t/sx's worsen Always take your BP medication [id number] MD Wes Vieyra (Adult Med) [address] [place] [phone] 04/23/2017 11:07:41 04/24/2017 11:29:00 Depressive disorder 51555505 F32.9 Given number for Dary Beckman: x 1130 for counselor (Sudanese speaking counselor) - if nothing available, advised to contact clinic and she can see a counselor here with an interprete r WIll begin Effexor 37.5 QD x 1 week and then BIDAdvised any SI/HI go directly to the ER Anxiety 01582632 F41.9 [id number] MD Wes Vieyra (Adult Med) [address] [place] [address] 05/06/2017 11:09:52 05/08/2017 13:59:05 Menopausal syndrome 971048681 N95.9 Essential hypertension 34730636 I10 134/78 today in office - NAD, WNL Will check labs today and readdress referring her to another nephrologi st d/t Dr. Nguyễn not practicing within [facility] anymore WIll discuss a cardiology referral at next appointmen t/sx's worsen Always take your BP medication daily Renal diso rder due to type 2 diabetes mellitus 725551181 E11.29 a1c: 7.5 - greatly improved Has been followed by endo in the past; however, they do no speak Andorran and are too expensive for her - last a1c: 7.5 - will continue to readdress to follow with endo Depressive disorder 3548 9007 F32.9 Patient has number for Daryemre Beckman: x 1130 for counselor (Sudanese speaking counselor) - if nothing available, advised to contact clinic and she can see a counselor here with an interprete rd/c Effexor d/t patient's complaints of side effects to medicaiton Advised any SI/HI go directly to the ER [id number] ALEXANDRA Adamson (Peds) [address] [place] [address] 07/07/2017 11:42:28 07/08/2017 11:57:23 Renal disorder due to type 2 diabetes mellitus 784526453 E11.22 Uterine leiomyoma 230134 05 D25.9 as seen on MRI - Patient to schedule an appointmen t to discuss thisPer patient and patient's daughter, was told that she needs to have a hysterecto my Essential hypertension 00518522 I10 128/78 today in office - NAD, WNL Patient has a f/u appointmen t with cardiology in 3 days Advised to not check BP every hour: 1-2 times/day or feeling light headed, headache, etc. [id number] ALEXANDRA Adamson (Peds) [address] [place] [address] 07/14/2017 10:54:32 07/15/2017 12:33:46 Renal disorder due to type 2 diabetes mellitus 926878834 E11.22 Will recheck labs todaylast a1c: 7.5 Daytime somnolence 43339 07926 00 R40.0 Will refer for MARYJANE eval Hyperlipidemia 13429022 E78.5 Will check cholestero l today and fill accordingl y Essential hypertension 24525759 I10 124/60 today in office - NAD, WNL Patient to follow with cardiology Advised to not check BP every hour: 1-2 times/day or feeling light headed, headache, etc. [id number] MD Wes Mckenna (METAL FINISHER) [address] [place] [address] 27029-824 0 07/15/2017 15:33:03 07/17/2017 12:38:58 Uterine leiomyoma 95105738 D25.9 pt will wait for results of CEA and CA 125. if results are positive, she agrees to go see [facility]. If results are negative will start on meds for IBS. Chronic ulcer of foot 42 3128432 L97.509 Renal diso rder due to type 2 diabetes mellitus 731543768 E11.22 will f/u with PCP Essential hypertension 91460367 I10 will f/u with PCP Irritable bowel syndrome 08101666 K58.9 pt was given 3 sample boxes of linzess and 3 sample boxes of trulance. instructed to try both and report which one she prefers. [id number] [facility] [address] [place] [address] 76020-782 0 12/03/2017 09:04:26 12/03/2017 10:45:43 Renal disorder due to type 2 diabetes mellitus 320550680 E11.22 a1c today in office: 7.2 - improved from 7.5 - encouraged to keep up the good workWill increase levemir to 26 units QD Encouraged goal for her FBS qAM is 90-110.Adv ised to contact clinic if BS is <70 and >300 Discussed DASH diet Advised 30 minutes of exercise minimum daily Nephrologi st: Dr. Cesar Hyperlipidemia 27053255 E78.5 Will check cholestero l today and fill accordingl y Active or passive immunization 785048578 Z23 Essential hypertension 95175810 I10 138/82 today in office - NAD, WNLfollowe d by Dr. Barker and all meds presribed by Dr. Chávez opril 40mg QDHCTZ 12.5mg QDmetoprol ol 25mg BID Discussed DASH diet Advised 30 minutes of exercise minimum dailyAdvis ed tobacco, alcohol, caffeine all increase BPAdvised goal for BP is <140/90 Body mass index 30+ - obesity 046384473 Z68.31 Advised 30 minutes of exercise 5 days/week Advised to not drink her calories Advised 3 balanced meals/day with plenty of fruits and vegetables [id number] MD Wes Sommer (Adult Med) [address] [place] [address] 12585-044 0 12/24/2017 11:07:58 12/24/2017 12:56:13 Chronic idiopathic constipation 61250411 K59.04 Patient has tried high fiber diet, Linzess, Miralax, lactulose - states that the only thing that works is TrulaceWIl l try to prescribe Patient has DM discussed this could be 2/2 impaired motility 2/2 DM If no improvemen t and not covered by insurance will try Linzess and/or refer to GI Body mass index 30+ - obesity 272692406 Z68.31 Advised 30 minutes of exercise 5 days/week Advised to not drink her calories Advised 3 balanced meals/day with plenty of fruits and vegetables Renal diso rder due to type 2 diabetes mellitus 538474627 E11.22 a1c today in office: 7.2 - improved from 7.5 - encouraged to keep up the good workWill increase levemir to 26 units QD Encouraged goal for her FBS qAM is 90-110.Adv ised to contact clinic if BS is <70 and >300 Discussed DASH diet Advised 30 minutes of exercise minimum daily Nephrologi st: Dr. Cesar [id number] KATHERINE RICHARDSON, GAMMA RAY OPERATOR-[facility] Wes (Adult Med) [address] [place] [address] [phone] 0 05/04/2018 11:10:22 05/05/2018 11:42:01 Injury of foot 874296624 S99.921A XR R foot-injur y related to dm neuropathy seeing podiatry 05-22asked to keep appointmen t and have R foot examined as wellf/u prn Renal diso rder due to type 2 diabetes mellitus 319224405 E11.22 check cmp-missed nephrology f/u apptencour aged to reschedule appt continue lantus for DMon lisinopril f/u 3 mos Hyperlipidemia 07573210 E78.1 states taking atorvastat in every 2-3 days per cardiology recommenda tionsreche ck lipids when fastingf/u 3 mos Diabetes mellitus 447434 09 E11.29 a1c 7.8%contin ue current medication slantus 26 units at hson milday-i, asa, and statinphon e numbers given for her to see ophthalmol ogistf/u 3 mos [id number] MD Wes Sommer (Adult Med) [address] [place] [address] 72643-834 0 07/08/2018 10:31:00 07/08/2018 11:17:58 Chronic ulcer of foot 042259172 L97.509 Seeing podiatry at [facility] much improved and they are prescribin g shoes Ulcer of foot 31260206 L 97.[address] Nolan (podiatry) at [facility] Active or passive immunization 293335835 Z23 Hyperlipidemia 25718619 E78.5 c/w atorvastat in Renal diso rder due to type 2 diabetes mellitus 539024398 E11.22 a1c today in office: 7.8 04/2018 - Will increase levemir to 30 units QD d/t being more sedentary d/t foot ulcer Encouraged goal for her FBS qAM is 90-110.Adv ised to contact clinic if BS is <70 and >300Discus sed DASH dietAdvise d 30 minutes of exercise minimum daily Nephrologi st: Dr. Cesar Essential hypertension 12085023 I10 130/78 today in office - NAD, WNLfollowe d by Dr. Barker and all meds presribed by Dr. Cooneysin opril 40mg QDHCTZ 12.5mg QDmetoprol ol 25mg BID Discussed DASH diet Advised 30 minutes of exercise minimum dailyAdvis ed tobacco, alcohol, caffeine all increase BPAdvised goal for BP is <140/90 [id number] MD Wes Rae (Adult Med) [address] [place] [address] [phone] 0 10/05/2018 09:25:46 10/06/2018 13:33:49 Renal disorder due to type 2 diabetes mellitus 836743016 E11.22 Complaining of a rash 16 4456581 R21 Diabetes mellitus 987663 09 E11.9 Body mass index 30+ - obesity 988581070 Z68.39 discussed good diet and exercise. make good food/snack choices. decrease sugared beverage intake. [id number] [facility] [address] [place] [address] 79344-828 0 12/29/2018 15:27:07 12/30/2018 09:35:32 General examination of patient 886823979 Z00.01 Uncontroll ed type 2 diabetes mellitus 149680529 E11.65 Screening for malignant neoplasm of breast 470923730 Z12.31 Complex ovarian cyst 283 5881137 03 N83.299 Screening for malignant neoplasm of cervix 493243264 Z12.4 Hyperlipidemia 92165322 E78.00 Essential hypertension 06288095 I10 Renal diso rder due to type 2 diabetes mellitus 382720989 E11.22 Malaise and fatigue 2717 08801 R53.83 Diabetic foot ulcer 3710 56622 E13.621 Diabetic shoes Bronchitis 64289934 J40 [id number] MD [facility] ([facility]ISH[facility]) [address] [place] [address] 84302-113 0 01/13/2019 11:24:23 01/13/2019 17:46:51 Uterine leiomyoma 81605655 D25.9 pt will wait for results of CEA and CA 125. if results are positive, she agrees to go see [facility]/ON[facility]. If results are negative will start on meds for IBS. Chronic id iopathic constipation 26943331 K59.04 Irritable bowel syndrome 54592328 K58.9 pt was given 3 sample boxes of linzess and 3 sample boxes of trulance. instructed to try both and report which one she prefers. Screening mammography 24 334936 Z12.31 [id number] MD Wes Lambert (Adult Med) [address] [place] [address] 57044-647 0 02/09/2019 09:52:11 02/09/2019 11:08:56 Infection of finger 520218466 L08.9 Unclear if there is a FB present, it however is clearly infected Thyroid fu nction tests abnormal 404585549 R94.6 Disorder o f lipid metabolism 156922180 E78.9 It is unclear if her switching her Lipitor to half of the 80 mg dose due to cramps will explain worsening of her lipid panel. Uncontroll ed type 2 diabetes mellitus 655761697 E11.65 [id number] MD Wes Lambert (Adult Med) [address] [place] [address] 39651-453 0 03/10/2019 11:11:13 03/11/2019 08:25:24 Subclinical hypothyroidism 45599048 E03.9 She is overweight , and unclear if she is really symptomati c. Her only issue is that her legs get tired Type 2 landon betes mellitus 52361944 E11.37X1 Essential hypertension 36402828 I10 [id number] MD Wes Lambert (Adult Med) [address] [place] [address] 55465-037 0 07/09/2019 10:20:02 07/09/2019 11:21:27 Renal disorder due to type 2 diabetes mellitus 258917987 E11.22 Acute otitis media 26444 03 H66.92 Uncontroll ed type 2 diabetes mellitus 989942728 E11.65 Previously referred to an endocrinol ogist at [facility] in 2015 and 2016, she was seen but the out of [...] st imulating hormone level above reference range 981960477 R79.89 Administra tion of influenza vaccine 14901144 Z23 Ulcer of left foot 57762 78008 7402933 L97.529 She is under the car eof the snuff drier and her appointmen t is on ~ 9 [id number] MD Wes Lambert (Adult Med) [address] [place] [address] 14808-838 0 08/20/2019 11:25:48 08/20/2019 12:58:53 Thyroid stimulating hormone level above reference range 867962433 R79.89 Dose verified by her daughter who spoke to someone on her phone.Comp liant with 50 mcg, her TSH is however worse, 07/2019 from 05/2019.Inc rease Levothyrox ine to 75 mcg Impacted c erumen in right ear 5391410006 888706 H61.21 Otitis externa 9075896 H 60.93 Uncontroll ed type 2 diabetes mellitus 117653532 E11.65 [id number] MD Wes Lambert (Adult Med) [address] [place] [address] 82258-212 0 10/14/2019 15:37:23 10/15/2019 12:57:14 Uncontrolled type 2 diabetes mellitus 372577226 E11.65 Add Jardiance, side effects were discussede GFR 95, Creatinine 0.58 Acquired hypothyroidism 712155535 E03.9 Dizziness 395209184 R42 Long-term drug therapy 106090399 Z79.636 [id number] MD Wes Lambert (Adult Med) [address] [place] [address] 18824-914 0 12/02/2019 10:14:02 12/03/2019 10:00:24 Acquired hypothyroidism 928847388 E03.9 TSH 8.660 10/28/2019 on Levothyrox ine 75 mcg po daily.This was increased Levothyrox ine to 88 mcg po daily.She should take it once a day and not once every other day Labs in 6 weeks Dizziness 760396037 R42 Probably unrelated to her Levothyrox ine Screening for malignant neoplasm of breast 721888134 Z12.31 Uncontroll ed type 2 diabetes mellitus 782068479 E11.65 Labs [id number] MD Wes Lambert (Adult Med) [address] [place] [address] 69048-510 0 04/07/2020 14:06:38 04/10/2020 08:18:50 Imaging result abnormal 813269770 R93.89 Artifact? 3.2 cm opacity or artifact in the R. base on the CXR done at [facility] on 04/04/2020 Hypothyroidism 81509408 E03.9 Her grandson read the dose of her Levothyrox ine as 25 mcg, her refill history suggests that Euthyrox 88 mcg was filled on 04/04/2020. As this was a phone visit, I am not certain what her levothyrox ine dose is, suffice to say her last TSH was normal [id number] MD Wes Lambert (Adult Med) [address] [place] [address] 26265-938 0 06/29/2020 10:10:59 06/29/2020 22:13:04 Administration of influenza vaccine 14535372 Z23 Pre-surger y evaluation 391454579 Z01.818 EKG 06/20/2020 Borderline EKGLow risk for complicati ons Type 2 landon betes mellitus 78529312 E11.37X1 [id number] MD Wes Lambert (Adult Med) [address] [place] [address] 27643-086 0 10/19/2020 08:08:11 10/20/2020 07:51:52 History of peptic ulcer 894403405 Z87.11 Risk vs benefit, she may hold her Asa. Benign hypertension 1072 5009 I10 Take Metoprolol BIDContinu e all other medication sMonitor the blood pressure closely Uncontroll ed type 2 diabetes mellitus 348653427 E11.65 LabsDeclin ed the referral to the endocrinol ogist Medication monitoring 39 3756102 Z51.81 Screening for malignant neoplasm of breast 430041765 Z12.31 [id number] MD Wes Lambert (Adult Med) [address] [place] [address] 21228-919 0 12/01/2020 11:00:40 12/04/2020 10:59:17 Uncontrolled type 2 diabetes mellitus 036355182 E11.65 Increase Lantus to 36 units Previously declined the referral to the endocrinol ogist Allergic rhinitis 157608 04 J30.9 Hyperlipidemia 30613159 E78.00 Stop LipitorSta rt Crestor Medication monitoring 39 3895022 Z51.81 Hypothyroidism 52601675 E03.9 Should be on Euthyrox 88 mcg Screening for malignant neoplasm of breast 283949309 Z12.31 [id number] MD Wes Lambert (Adult Med) [address] [place] [address] 01742-298 0 01/17/2021 10:33:19 01/18/2021 08:15:10 Hiatal hernia 57694518 K44.9 Abdominal pain 98087758 R10.9 LLQ abdominal pain Diverticul itis? Urinary symptoms 4550758 08 R39.9 Lightheadedness 51774847 8 R42 Uterine leiomyoma 506892 05 D25.9 Uncontroll ed type 2 diabetes mellitus 983117288 E11.65 On Lantus to 36 units Previously declined the referral to the endocrinol ogist [id number] MD Wes Lambert (Adult Med) [address] [place] [address] 37517-675 0 01/30/2021 15:21:13 01/31/2021 13:22:38 Disorder of bile duct 746401475 K83.9 GI to see on 02/01/2021 Benign hypertension 1072 5009 I10 Continue Metoprolol BID Continue all other medication s Monitor the blood pressure closely Body mass index 30+ - obesity 253945311 Z68.37 Screening for malignant neoplasm of breast 466569807 Z12.31 [id number] ALEXX PRINGLE (METAL FINISHER) [address] [place] [address] 80443-413 0 02/09/2021 14:23:03 02/17/2021 17:50:53 Screening for malignant neoplasm of breast 459134838 Z12.31 Last mammogram March 2019 BIRADS 2. Pain in pelvis 14087809 R10.2 Possible h/o uterine fibroids and ovarian cysts. Advised TVUS to further assess. Screening for osteoporosis 219302117 Z13.820 Patient reports having never undergone a bone density scan. [id number] MD Wes Lambert (Adult Med) [address] [place] [address] 43569-092 0 07/25/2021 15:43:40 07/25/2021 17:07:50 Hypothyroidism 21909205 E03.9 She is uncontroll ed on Euthyrox 88 mcgIncreas e Euthyrox to 100 mcgLabs in 6 weeks Seasonal allergy 0223293 04 J30.2 Vague func tional signs and symptoms 0419515 R68.89 Administra tion of influenza vaccine 96568169 Z23 Abnormal f indings diagnostic imaging of liver+biliary tract 263539075 R93.2 Her MRCP was abnormal (Dilated (CBD & CHD), Small sliding HH, Chronic pancreatit is & Cardiomega ly) and according to her daughter, this was already discussed with GI Uterine leiomyoma 657766 05 D25.9 Follow up with [facility] [facility] Sliding hiatus hernia 23 0084937 K44.9 [id number] Jules Yeh MD [facility] (Adult Med) [address] [place] [address] 8 11/19/2021 17:01:37 11/20/2021 13:16:40 Administration of SARS-CoV-2 mRNA vaccine 2283013236 Z23 [id number] MD Wes Lambert (Adult Med) [address] [place] [address] 65820-686 0 12/24/2021 15:58:53 12/25/2021 16:05:00 Pruritus of vagina 78677546 L29.3 Uncontroll ed type 2 diabetes mellitus 774423099 E11.65 She decreased her Insulin from 20 to 16, she should let her endocrinol ogist know Screening for malignant neoplasm of breast 725538762 Z12.31 Fatigue 80399848 R53.83 Dizziness 981378990 R42 Probably related to her blood pressure and/or blood sugar, I however need a complete and accurate medication list Chest wall pain 19104439 6 R07.89 Unexplaine d by her CT scan Medication monitoring 39 7937533 Z51.81 [id number] MD Wes Lambert (Adult Med) [address] [place] [address] 82135-571 0 05/23/2022 14:16:21 05/24/2022 19:33:24 Uncontrolled type 2 diabetes mellitus 951074101 E11.65 O n Lantus 16 units, Farxiga and TrulicityM a naged by the endocrinol ogist Benign hypertension 1072 5009 I10 Continue Metoprolol BID and increase HCTZ to 25 mg Body mass index 30+ - obesity 090414762 Z68.37 History of SARS-CoV-2 29 73802049 30776045 Z86.16 Screening for malignant neoplasm of breast 751311530 Z12.31 D i scussed, she still wants one done. [id number] MD Wes Lambert (Adult Med) [address] [place] [address] 01288-544 0 07/04/2022 09:42:20 07/05/2022 15:48:42 Administration of influenza vaccine 62844624 Z23 Benign hypertension 1072 5009 I10 Uncontroll ed on Metoprolol BID and HCTZ 25 mg.Add losartan 25 mg, side effects were discussed. It is unclear what happened to her MILADY-.She will be following up with her cardiologi st in August,. Type 2 landon betes mellitus 84962076 E11.37X1 O n Lantus 16 units, Farxiga and TrulicityM a naged by the endocrinol ogist Recurrent candidiasis of vagina 636972437 B37.32 Possibly related to her FarxigaI will retreat, however if this persists, she will need to be seen by [facility] [facility]. [id number] MD Wes Lambert (Adult Med) [address] [place] [address] 85958-999 0 10/23/2022 09:57:33 10/28/2022 11:49:45 Obesity 106793172 E66.9 Benign hypertension 1072 5009 I10 Uncontroll [...] in August,. Type 2 landon betes mellitus 24263369 E11.37X1 O n Lantus 20 units, Farxiga? and Trulicity? M a naged by the endocrinol ogist, although she has not followed up in a whieLabs are pending Immunization advised 310 886226 Z71.9 [id number] MD Wes Lambert (Adult Med) [address] [place] [address] 57140-867 0 11/27/2022 10:52:13 11/28/2022 12:02:59 Medication review done by doctor 155778503 Z76.89 Benign ess ential hypertension 9899965 I10 Essential hypertension 73029610 I10 Chronic low back pain 27 4316072 M54.50 Pain of le ft shoulder joint 2703671674 0738302 M25.512 Strain of back muscle 26 5653783 S39.012A Medication monitoring 39 0045342 Z51.81 Type 2 landon betes mellitus 98905637 E11.37X1 O n Lantus 20 units, Farxiga? Tresiba? and Trulicity? M a naged by the endocrinol ogist.Labs are pending [id number] MD Wes Lambert (Adult Med) [address] [place] [address] 11818-615 0 04/30/2023 15:31:43 05/02/2023 10:40:08 Medication review done by doctor 779904506 Z76.89 Essential hypertension 94977324 I10 Normal when it was rechecked Type 2 landon betes mellitus 33028417 E11.37X1 HBA1C 9.3% (04/25/2023) Uncontroll ed, I really need her medication list so that I can make adjustment s OV 11/27/2022O n Lantus 20 units, Farxiga? Tresiba? and Trulicity? M a naged by the endocrinol ogist.Labs are pending Labile hyp ertension due to being in a clinical environment 833520069 I15.8 Immunization advised 310 361601 Z71.9 [id number] MD Wes Lambert (Adult Med) [address] [place] [address] 42220-172 0 06/03/2023 13:58:35 06/04/2023 16:37:46 Pain in left foot 7511519238 55046 M79.672 Type 2 landon betes mellitus 55243658 E11.37X1 Add Novolog 6 units with mealsConti nue Lantus, FarxigaEnd ocrinology OV 04/30/2023HB A1C 9.3% (04/25/2023) Uncontroll ed, I really need her medication list so that I can make adjustment s OV 11/27/2022O n Lantus 20 units, Farxiga? Tresiba? and Trulicity? M a naged by the endocrinol ogist.Labs are pending Medication review done by doctor 070483249 Z76.89 [id number] MD Wes Lambert (Adult Med) [address] [place] [address] 47402-735 0 07/07/2023 15:19:12 07/08/2023 13:49:25 Type 2 diabetes mellitus 29494131 E11.37X1 LabsOn Farxiga, Metformin, Tresiba and Trulicity OV 06/03/2023 dd Novolog 6 units with mealsConti nue Lantus, FarxigaEnd ocrinology OV 04/30/2023HB A1C 9.3% (04/25/2023) Uncontroll ed, I really need her medication list so that I can make adjustment s OV 11/27/2022O n Lantus 20 units, Farxiga? Tresiba? and Trulicity? M a naged by the endocrinol ogist.Labs are pending Immunization advised 310 026846 Z71.9 Hypothyroidism 43182923 E03.9 On Euthyrox 100 mcgLabs Essential hypertension 99718059 I10 She never did start the 25 mg dose and had remained on the 12.5 mg dose Medication monitoring 39 9179587 Z51.81 Medication review done by doctor 281344523 Z76.89 [id number] MD Wes Lambert (Adult Med) [address] [place] [address] 45930-594 0 09/08/2023 15:28:47 09/09/2023 08:58:42 Administration of influenza vaccine 49127824 Z23 Type 2 landon betes mellitus 08628435 E11.37X1 HBA1C 7.3% 09/02/2023 Continue the current [...] by the endocrinol ogist.Labs are pending Hypothyroidism 88186082 E03.9 OV 07/07/2023 On Euthyrox 100 mcgLabs Essential hypertension 45492692 I10 Stable on HCTZ 25 mg and Metoprolol 25 mgUnable to tolerate LosartanOV 07/07/2023 She never did start the 25 mg dose and had remained on the 12.5 mg dose Gastroesop hageal reflux disease 517758961 K21.01 Medication review done by doctor 125035619 Z76.89 [id number] MD Wes Lambert (Adult Med) [address] [place] [address] 42868-442 0 10/03/2023 09:15:54 10/08/2023 15:25:50 Pain of left shoulder joint 8984750079 5834717 M25.512 Acute on chronic left shoulder pain, negative xrays 12/18/2022 and 07/29/2016 MRIOrthoKe torolac PRN with food, side effects including an increased GI and CV risk were discussed. Cervical radiculopathy 01932296 M54.12 Screening for osteoporosis 421935662 Z13.820 Osteopenia 184070836 M85 .80 Noted on the shoulder xray done on 07/29/2016. [id number] MD Wes Lambert (Adult Med) [address] [place] [address] 40614-150 0 01/05/2024 11:50:28 01/08/2024 15:01:26 Pain of left shoulder joint 5561664611 3921860 M25.512 The MRI report is incomplete but Tendinopat hy and a possible tear are noted on the portion of the report.Ort ho as referred. OV 10/03/2023 cute on chronic left shoulder pain, negative xrays 12/18/2022 and 07/29/2016 MRIOrthoKe torolac PRN with food, side effects including an increased GI and CV risk were discussed. Type 2 landon betes mellitus 80890420 E11.37X1 Uncontroll ed [id number] 8% 11/24/2023e start Trulicity, Metformin and FarxigaEnd [...] by the endocrinol ogist.Labs are pending Hypothyroidism 83855553 E03.9 TSH 5.240 on 11/24/2023In crease Levothyrox ine to 125 mcgLabs in 6 weeks OV 10/03/2023L abs 11/24/2023 TSH 5.240Incre ase Levothyrox ine to 112 mcgLabs in 6 weeks OV 07/07/2023 On Euthyrox 100 mcgLabs Constipation 85913505 K5 9.00 Colonoscop y 06/09/2023 [id number] Alison Florez MD [facility] (Adult Med) [address] [place] [address] 89395-770 0 03/05/2024 11:42:29 03/08/2024 11:15:29 Constipation 50924447 K59.00 GI as referredMg Citrate todayStart Senna/DSS on Colonoscop y 06/09/2023 t education on constipati on Type 2 landon betes mellitus 74047321 E11.37X1 Start Farxiga, Tresiba and Trulicity as previously prescribed Continue MetforminS top Lantus, it is unclear if it has .En docrinolog y as referred OV 01/05/2024U ncontrolle d [id number] 8% 4Re start Trulicity, Metformin and FarxigaEnd [...] are pending CT of abdo men abnormal 6864971621 1179895 R93.5 From the 01/29/2024 ER report, not discussed with the patient.CT A&PStable L. adrenal nodule.Maddison rine masses, likely uterine fibroids.m oderate stooldiffu se bladder wall thickening An official report has been requested. Body mass index 30+ - obesity 581741764 Z68.34 Obesity 616969771 E66.8 [id number] Cecilia Flores MD [facility] (Adult Med) [address] [place] [address] 49350-458 0 04/28/2024 11:13:56 05/01/2024 10:51:15 Body mass index 30+ - obesity 564349459 Z68.34 Mass of uterus 835272381 1 [address]85[address] History of ovarian cysts. Family history of uterine cancer. Will proceed with pelvic ultrasound . Urge incon tinence of urine 43422319 N39.41 Will get urinalysis and culture to rule out infection. Symptoms consistent with urge incontinen ce. Reviewed Kegel exercises. Recommende d she do three sets of ten three times a day. [id number] MD Wes Lambert (Adult Med) [address] [place] [address] 38489-147 0 05/05/2024 15:46:22 05/12/2024 08:31:43 Type 2 diabetes mellitus 48121851 E11.37X1 LabsContin ue the current regimen OV 03/05/2024S tart Farxiga, Tresiba and Trulicity as previously prescribed Continue MetforminS top Lantus, it is unclear if it has .En docrinolog y as referred OV 01/05/2024U ncontrolle d [id number] 8% 4Re start Trulicity, Metformin and FarxigaEnd [...] the endocrinol ogist.Labs are pending Essential hypertension 37185567 I10 Stable OV 03/05/2024S table on HCTZ 25 mg and Metoprolol 25 mgUnable to tolerate LosartanOV 07/07/2023 She never did start the 25 mg dose and had remained on the 12.5 mg dose Hypothyroidism 98660754 E03.9 Labs 04/12/2024 TSH 4.480Conti nue Levothyrox [...] OV 07/07/2023 On Euthyrox 100 mcgLabs Hyperlipidemia 41923321 E78.00 Continue Crestor Medication monitoring 39 3713968 Z51.81 Screening mammography 24 296591 Z12.31 [id number] Alison Florez MD [facility] (Adult Med) [address] [place] [address] 35362-603 0 09/06/2024 09:57:24 09/09/2024 13:11:58 Type 2 diabetes mellitus 08515657 E11.37X1 Uncontroll ed, HBA1C 9.2%Manage d by the endocrinol ogist OV 05/05/2024L absContinu e the current regimen OV 03/05/2024S tart Farxiga, Tresiba and Trulicity as previously prescribed Continue MetforminS top Lantus, it is unclear if it has .En docrinolog y as referred OV 01/05/2024U ncontrolle d [id number] 8% 11/24/2023e start Trulicity, Metformin and FarxigaEnd [...] by the endocrinol ogist.Labs are pending Hypothyroidism 86079200 E03.9 Stable OV 05/05/2024L abs 04/12/2024 TSH 4.480Conti nue Levothyrox ine 125 mcg Note from 02/26/2024Se e the message with her lab results from 02/21/2024La bs 02/21/2024 TSH 4.84Never started Levothyrox ine 125 mcg as orderedSto p Levothyrox ine 112 mcgStart Levothyrox ine 125 mcgLabs in 6 weeks OV 4/15/2024T SH 5.240 on 11/24/2023In crease Levothyrox ine to 125 mcgLabs in 6 weeks OV 10/03/2023L abs 11/24/2023 TSH 5.240Incre ase Levothyrox ine to 112 mcgLabs in 6 weeks OV 07/07/2023 On Euthyrox 100 mcgLabs Postmenopausal state [id number] Z78.0 NL DEXA scan done 04/22/2024 Screening for malignant neoplasm of breast [id number] Z12.31 Discussed, she still wants one done and it is scheduled at . [id number] MD Wes Lambert (Adult Med) [address] [place] [id number] 11/30/2024 14:29:18 12/01/2024 09:51:12 Splenic infarction [id number] D73.5 [facility] 2 landon betes mellitus [id number] E11.37X1 Candace was stoppedLab s OV 09/06/2024 Uncontroll ed, HBA1C 9.2%Manage d by the endocrinol ogist OV 05/05/2024L absContinu e the current regimen OV 03/05/2024S tart Farxiga, Tresiba and Trulicity as previously prescribed Continue MetforminS top Lantus, it is unclear if it has .En docrinolog y as referred OV 01/05/2024U ncontrolle d WTZGI9C 8% 11/24/2023e start Trulicity, Metformin and FarxigaEnd [...] by the endocrinol ogist.Labs are pending Hypothyroidism [id number] E03.9 Stable OV 05/05/2024L abs 04/12/2024 TSH [...] On Euthyrox 100 mcgLabs Medication monitoring 39 [id number] Z51.81 [id number] Cecilia Han MD [facility] (Adult Med) [address] [place] [address] 12/23/2024 10:50:20 12/28/2024 03:47:30 Health Concerns Section Related Observation LastModified by Organization Detai ls LastModified Time None Recorded Concern Status LastModified by Organization Details LastModified Time None Recorded Advance Directives Directive N: Payers Insurance Date Sequence Insurance Name Policy Number Policy Cronin Covered Member ID Cronin Member ID Guarantor Name 05/27/2025 [place] [facility] Nancy Martinez [id number] Nancy Martinez 05/27/2025 1 [place] Nancy Martinez [id number] Nancy Martinez 05/27/2025 [place] [facility] Nancy Martinez [id number] Nancy Martinez 05/27/2025 1 [facility] (MEDICARE REPLACEMENT/A DVANTAGE - HMO) [id number] Nancy Martinez [id number] Nancy Martinez Notes Date Note Type Note Provider Name and Address Organization Details Recorded Time text/html here for female health visit, history [...] cannot move quickly Cecilia Flores MD Attn: Accounting,[address] [facility], [place], [address], [place] [facility] 04/28/2024 13:09:03 4 text/html Diabetes F/UReported by PatientHPIFor associated symptoms, patient reportsweight loss (1 lbs)but reportsno weight gain,no dizziness,no sweats,no headaches,no confusion,no increased thirst,no increased appetite,no increased urination,no blurred vision,no numbness of feet, andno calluses on feet. For review finger sticks, patient reportsfastin-81. For labs, patient reportslast a1c result: 8.3. For context, patient reportstaking aspirin daily,not missing doses of medications, andno side effects from medications. Medicare Annual Wellness VisitReported by PatientSocial/Behavioral HistoryFor diet and nutrition, patient reportshealthy diet. For fracture risk, patient reportsno history of fractures,no recent explained fracture,no sudden unexplained fractures, andno previous musculoskeletal injuries. For physical activity, patient reportsexercises on a regular basis,recent increase in physical activity, andgood physical condition.Mental Status:For depression risk, patient reportshistory of depressionbut reportsnever feels sad, empty, or tearful,no loss of interest in activities,no significant changes in weight,no sleep disturbances or insomnia,no agitation,no loss of energy,no feelings of worthlessness or guilt,no thoughts of suicide, andno history of mood disorders. For orientation, patient reportsno disorientation to time,no disorientation to date, andno disorientation to place. For concentration and memory, patient reportsno decreased concentrating ability,no memory lapses or loss, anddoes not forget words. For speech/motor difficulties, patient reportsno speech difficulties,no difficulty expressing formulated concepts,no difficulty with fine manipulative tasks,no difficulty writing/copying,no slowed reaction time, anddoes not knock things over when trying to pick them up.Functional AbilityFor vision, patient reportsworse both distance and near. For instrumental activities of daily living, patient reportsunable to do house work without assistancebut reportsable to grocery shop with limited or no assistance,able to manage medications with limited or no assistance,able to manage money with limited or no assistance,able to prepare meals with limited or no assistance, andable to use the phone with limited or no assistance. For hearing, patient reportsno loss of hearing. For activities of daily living, patient reportsable to bathe with limited or no assistance,able to contol urination and bowels,able to dress with limited or no assistance,able to feed self with limited or no assistance,able to get out of chair or bed with limited or no assistance,able to groom with limited or no assistance, andable to toilet with limited or no assistance. For falls risk assessment, patient reportsno frequent falls while walking,no fall since last visit,no dizziness/vertigo, andfall(s) in the past year 1. 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 Alison Florez MD Attn: Accounting,[address] [facility], [place], [address], [place] [facility] 05/05/2024 17:46:30 4 text/html Diabetes F/UReported by PatientHPIFor associated symptoms, patient reportsweight loss (6 lbs)but reportsno weight gain,no dizziness,no sweats,no headaches,no confusion,no increased thirst,no increased appetite,no increased urination,no blurred vision,no numbness of feet, andno calluses on feet. For review finger sticks, patient reportsfastin-87. For labs, patient reportslast a1c result: 9.2%. For context, patient reportstaking aspirin daily,not missing doses of medications, andno side effects from medications. Medicare Annual Wellness VisitReported by PatientSocial/Behavioral HistoryFor diet and nutrition, patient reportshealthy dietanddiscussed vitamin and supplement use. For fracture risk, patient reportsno history of fractures,no recent explained fracture,no sudden unexplained fractures, andno previous musculoskeletal injuries. For physical activity, patient reportsexercises on a regular basis,recent increase in physical activity,good physical condition,discussed weightbearing activities, anddiscussed exercise habits.Mental Status:For depression risk, patient reportsnever feels sad, empty, or tearful,no loss of interest in activities,no significant changes in weight,no sleep disturbances or insomnia,no agitation,no loss of energy,no feelings of worthlessness or guilt,no thoughts of suicide,no history of depression, andno history of mood disorders. For orientation, patient reportsno disorientation to time,no disorientation to date, andno disorientation to place. For concentration and memory, patient reportsno decreased concentrating ability,no memory lapses or loss, anddoes not forget words. For speech/motor difficulties, patient reportsno speech difficulties,no difficulty expressing formulated concepts,no difficulty with fine manipulative tasks,no difficulty writing/copying,no slowed reaction time, anddoes not knock things over when trying to pick them up.Functional AbilityFor vision, patient reportsworse both distance and near. For instrumental activities of daily living, patient reportsunable to do house work without assistanceandunable to grocery shop without assistancebut reportsable to manage medications with limited or no assistance,able to manage money with limited or no assistance,able to prepare meals with limited or no assistance, andable to use the phone with limited or no assistance. For hearing, patient reportsno loss of hearing. For activities of daily living, patient reportsable to bathe with limited or no assistance,able to contol urination and bowels,able to dress with limited or no assistance,able to feed self with limited or no assistance,able to get out of chair or bed with limited or no assistance,able to groom with limited or no assistance, andable to toilet with limited or no assistance. For falls risk assessment, patient reportsno frequent falls while walking,no fall in the past year,no fall since last visit, andno dizziness/vertigo. For home safety, patient reportsno unsafe anny hazzards,no unsafe stairs,no unsafe gas appliances,working smoke/co detectors,wears protective head gear for biking/high velocity,use of seatbelts,no vision or hearing loss while driving,has hand bars in the bathroom/shower, andgood lighting in the home.ROS as noted in the HPI Here with her grandson who interprets. Her feet feels betterBasically asking for a urine testWhat she should eat? Now on Mounjaro and following up with her bleach machine operator. She wants her urine for microalbumin done here. Alison Florez MD Attn: Accounting, [place], [address], [facility] 09/06/2024 11:27:17 5 text/html Diabetes F/UReported by PatientHPIFor associated symptoms, patient reportsweight loss (6 lbs)but reportsno weight gain,no dizziness,no sweats,no headaches,no confusion,no increased thirst,no increased appetite,no increased urination,no blurred vision,no numbness of feet, andno calluses on feet. For review finger sticks, patient reportsfastinandpost dinner: 198-270. For context, patient reportstaking aspirin daily,not missing doses of medications, andno side effects from medications.ROS as noted in the HPI Interpretation by her grandson Not too goodShe said she feels weak sometimes, she gets chills in her backShe has also been feeling nauseous Ms Martinez was admitted 09/29/24-10/02/24 with dizziness and abdominal pain after an increase in the dose of her Mounjaro. The discharge diagnosis included, Splenic infarct (Eliquis, Hematology),Vertigo (BPPV) and her Mounjaro was stopped. 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 Alison Florez MD Attn: Accounting, [address], [place], [address], [place] [facility] 11/30/2024 15:16:16 5 text/html ROS as noted in the HPI CHILEL'RETIECE GUILLAUME MADRID Attn: Accounting,[address], [place], [address], [place] [facility] 12/27/2024 10:54:19 OBGyn Episode Ob Episode Information Episode Created Date Number of Fetuses Patient Bloodtype Patient rh Status Prepregnancy Weight lbs Domestic Partner Domestic Partner Phone Father Name Grinding Machine Tender Status 02/28/20 16 2 CLOSED Fetus Data First Name Last Name Admitted to NICU Weight (g) Sex Living Outcome Pediatric Complications Fetus ID Race Codes Race Delivery Type F Full Term [id number] Sergey Calculation Initial Sergey Date Initial Exam [...] Complications Tubal Sterilization Discharge Date Comments 1 Regional-Ep idural 40 false Leslie Discharge Information Feeding Method Contraceptive Method Maternal HG B and HCT Levels Ob Episode Information Episode Created Date Number of Fetuses Patient Bloodtype Patient rh Status Prepregnancy Weight lbs Domestic Partner Domestic Partner Phone Father Name Grinding Machine Tender Status 02/28/20 16 1 CLOSED Fetus Data First Name Last Name Admitted to NICU Weight (g) Sex Living Outcome Pediatric Complications Fetus ID Race Codes Race Delivery Type F Full Term 44943 Vaginal Sergey Calculation Initial Sergey Date Initial [...] Domestic Partner Domestic Partner Phone Father Name Grinding Machine Tender Status 02/28/20 16 1 CLOSED Fetus Data First Name Last Name Admitted to NICU Weight (g) Sex Living Outcome Pediatric Complications Fetus ID Race Codes Race Delivery Type F Full Term 27809 Sergey Calculation Initial Sergey Date Initial Exam [...] Domestic Partner Domestic Partner Phone Father Name Grinding Machine Tender Status 02/28/20 16 1 CLOSED Fetus Data First Name Last Name Admitted to NICU Weight (g) Sex Living Outcome Pediatric Complications Fetus ID Race Codes Race Delivery Type M Full Term 04504 Vaginal Sergey Calculation Initial Sergey Date Initial [...] Domestic Partner Domestic Partner Phone Father Name Grinding Machine Tender Status 02/28/20 16 2 CLOSED Fetus Data First Name Last Name Admitted to NICU Weight (g) Sex Living Outcome Pediatric Complications Fetus ID Race Codes Race Delivery Type M Full Term 63060 [id number] Sergey Calculation Initial Sergey Date Initial Exam [...] Complications Tubal Sterilization Discharge Date Comments 1 Regional-Ep idural 40 false Oscar Discharge Information Feeding Method Contraceptive Method Maternal HG B and HCT Levels
--- OUTSIDE RECORDS SUMMARY | 2025-07-25 03:03 | XMS_ITS | Encounter Summary ---
Author Organization [facility] Facility Care Team Providers Care Rubbing Bed Operator Name Role Phone Marilin Barcenas NP Primary Care Provider [phone] Diamond Cannon Primary Care Provider + Elvia Denton COLLEGE OR UNIVERSITY FACULTY MEMBER Unavailable + [phone] Diamond Cannon Primary Care Provider + Joseph Walsh MD Primary Care Provider [phone] Alison Florez MD Primary Care Provider Dominick Blandon MD Unavailable [phone] Didier Wilson DO Unavailable [phone] Encounter Details Date Type Department Care Team (Latest Contact Info) Description 06/25/2017 Orders Only [facility] CLINCONV ProviderRen MD [address] [place] [address] Social History Tobacco Use Types Packs/Day Years Used Date Smoking Tobacco: Never Comments Unknown Sex and Gender Information Value Date Recorded Sex Assigned at Not on file Legal Sex Female 6:28 AM PER DIEM NURSE Gender Identity Not on file Sexual Orientation Choose not to disclose 2018 2:19 PM CDT documented as of this encounter Plan of Treatment Not on file documented as of this encounter Procedures Procedure Name Priority Date/Time Associated Diagnosis Comments CARDIOLOGY REPORT 07/07/2017 12: 00 AM CDT CARDIOLOGY REPORT 07/07/2017 12: 00 AM CDT documented in this encounter Results * CARDIOLOGY REPORT (07/07/2017 12:00 AM CDT) Anatomical Region Laterality Modality Other Narrative 07/07/2017 12:00 AM CDT Ordered by an unspecified provider. us Historical Provider [facility] CARDIAC SERVICES PROCE DURES Final Result * CARDIOLOGY REPORT (07/07/2017 12:00 AM CDT) Anatomical Region Laterality Modality Other Narrative 07/07/2017 12:00 AM CDT Ordered by an unspecified provider. Historical Provider CV CARDIAC SERVICES PROCE DURES Final Result documented in this encounter Visit Diagnoses Not on filedocumented in this encounter Care Teams Rubbing Bed Operator Relationship Specialty Start Date End Date Marilin Barcenas NP [address] [address] PCP - General 09/10/17 09/18/17 Diamond Cannon PA [address] [address] PCP - General 09/19/17 10/21/18 Diamond Cannon PA [address] [address] PCP - General 10/22/18 01/14/19 Joseph Walsh MD [address] [place] [address] PCP - General 01/15/19 03/07/19 Alison Florez MD [address] [place] [address] PCP - General Internal Medicine 03/08/19 [place] [address] [place] [address] Nurse Practitioner 10/22/18 10/22/18 Dominick Blandon MD [address] [address] Nitrator Operator Cardiology 05/10/19 Didier Wilson DO [address] [place] [address] Medical Oncologist/Cloth Measurer Hematology and Oncology 10/02/24 documented as of this encounter
--- NOTE | 2025-07-25 03:58 | ECG_ITS ---
Test Date: 2025-07-25 04:20:39 Measurements Intervals [place] Rate: 79 P: 9 ND: 191 QRS: -26 QRSD: 85 T: 3 QT: 389 QTc: 447 Interpretive Statements SINUS RHYTHM poor R-wave progression left anterior fascicular block No previous ECG available for comparison Electronically Signed On 07-25-2025 09:36:57 SWITCH REPAIRER by Delmar Pena M.D.
--- NOTE | 2025-07-25 03:58 | ED.GENADULT ---
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 Patient presents to the emergency department today with a constellation of symptoms. For last 2 and half weeks patient has been experiencing decreased appetite, left-sided abdominal discomfort, headache intermittently. She has been having congestion, fullness sensation in her ears. Today she had some paresthesias in her tongue with numbness and tingling and pain which is why she came to the hospital. States that that woke her up from sleep. Went to bed early last night. Endorses a headache that has been intermittent and located the back of her head today. Has not taken anything for pain control. No new medications or foods. Does not think she bit her tongue in the middle of the night but states that the numbness is now resolved and she just has pain and some tingling around the whole tongue more so underneath the tongue. Denies any swelling, jaw pain, neck pain. No chest pain or shortness of breath. Was otherwise in her normal state state of health aside from these last few weeks. Related Data Home Medications ?Medication ?Instructions ?Recorded ?Confirmed ?Last Taken ?Type amlodipine 5 mg tablet 5 mg PO DAILY 06/20/20 05/18/25 05/17/25 History atorvastatin 80 mg tablet (Lipitor) 80 mg PO DAILY 06/20/20 05/18/25 05/17/25 History hydrochlorothiazide 12.5 mg tablet 12.5 mg PO DAILY 06/20/20 05/18/25 05/17/25 History metoprolol tartrate 25 mg tablet 25 mg PO Q12H 06/20/20 05/18/25 05/17/25 History rosuvastatin 40 mg tablet 40 mg PO DAILY 12/28/20 05/18/25 05/17/25 History dapagliflozin propanediol 10 mg 10 mg PO DAILY 06/02/21 05/18/25 05/17/25 History tablet (Farxiga) dulaglutide 0.75 mg/0.5 mL 0.75 mg subcut WEEKLY 06/02/21 05/18/25 05/01/25 History subcutaneous pen injector ([facility]) levothyroxine 88 mcg tablet 88 mcg PO DAILY 06/02/21 05/18/25 05/17/25 History (Euthyrox) loratadine 10 mg tablet mg 06/02/21 08/01/22 05/17/25 History apixaban 5 mg tablet (Eliquis) 5 mg PO Q12H 02/17/25 05/18/25 05/11/25 History aspirin 81 mg tablet,delayed 81 mg PO DAILY 02/17/25 05/18/25 05/17/25 History release insulin degludec 100 unit/mL (3 12 unit subcut QPM 02/17/25 05/18/25 05/17/25 History mL) subcutaneous pen (Tresiba FlexTouch U-100 insulin) metformin 500 mg tablet,extended 500 mg PO BIDAC 02/17/25 05/18/25 05/17/25 History release 24 hr Allergies Allergy/AdvReac Type Severity Reaction Status Date / Time No Known Allergies Allergy Verified 07/25/25 03:00 Review of Systems Review of Systems: As reviewed above in [facility] Past Medical History Medical History Constipation BMI 36.0-36.9,adult Upper abdominal pain Abnormal computerized tomography of biliary tract Erosive esophagitis Hypothyroid Hypertension GERD (gastroesophageal reflux disease) Diabetes mellitus Surgical History Surgical History History of cholecystectomy Social History Social History Smoking status: Never smoker Alcohol intake: never Substance use: never Substance use type: does not use Living arrangements: with family Spiritual care concerns: No Exam Narrative: GENERAL: Well appearing not any acute distress. Speaking in full sentences without any conversational dyspnea or dysarthria/slurring. HEAD: Normocephalic and atraumatic EYES: Pupils are equal reactive to light, extraocular movements are intact. ENT: Nares clear, no rhinorrhea or epistaxis. Mucous membranes moist. TM clear bilaterally. Base of tongue without any swelling but pain localized to the underside of the tongue without any lesions or rashes, ulcerations. No fissures on the tongue, sensation intact over the tongue base and sides with tingling along the top of the tongue bilaterally without any lateralization. No difficulty protruding the tongue. No lymphadenopathy in the neck. No neck stiffness. CHEST: Clear to auscultation and no respiratory distress HEART: [Regular rate and rhythm]. No murmur heard. [Normal peripheral pulses.] ABDOMEN: [Soft, nondistended], [nontender], [No rigidity or guarding] EXTREMITIES: Normal range of motion. [No edema.] SKIN: Warm, dry, no rash. NEURO: No appreciable focal neurological deficits. Awake alert oriented. Motor function and sensation intact throughout both arms and legs. No ataxia. No dysarthria slurring speech. No facial asymmetry. Pupils equal and reactive. Subjective tongue paresthesias are bilateral on the top surface and sensation is intact otherwise. PSYCH: [Normal mood and affect.] Course Vital Signs Vital signs: Vital Signs Temperature 36.3 C L 07/25/25 03:12 Pulse Rate 92 07/25/25 03:12 Respiratory Rate 14 07/25/25 03:12 Blood Pressure 173/92 H 07/25/25 03:12 Pulse Oximetry 99 07/25/25 03:12 Oxygen Delivery Room Air 07/25/25 03:12 Temperature 36.3 C L 07/25/25 03:15 Pulse Rate 76 07/25/25 06:15 Respiratory Rate 14 07/25/25 06:15 Blood Pressure 145/78 H 07/25/25 04:46 Pulse Oximetry 90 07/25/25 06:15 Oxygen Delivery Room Air 07/25/25 03:12 Medical Decision Making [facility] Narrative Medical decision making narrative: 75-year-old female with history of GERD, diabetes, 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 Patient presents to the emergency department today with a constellation of symptoms. For last 2 and half weeks patient has been experiencing decreased appetite, left-sided abdominal discomfort, headache intermittently. She has been having congestion, fullness sensation in her ears. Today she had some paresthesias in her tongue with numbness and tingling and pain which is why she came to the hospital. States that that woke her up from sleep. Went to bed early last night. Endorses a headache that has been intermittent and located the back of her head today. Has not taken anything for pain control. No new medications or foods. Does not think she bit her tongue in the middle of the night but states that the numbness is now resolved and she just has pain and some tingling around the whole tongue more so underneath the tongue. Denies any swelling, jaw pain, neck pain. No chest pain or shortness of breath. Was otherwise in her normal state state of health aside from these last few weeks. No appreciable focal neurological deficits. Awake alert oriented. Motor function and sensation intact throughout both arms and legs. No ataxia. No dysarthria slurring speech. No facial asymmetry. Pupils equal and reactive. Subjective tongue paresthesias are bilateral on the top surface and sensation is intact otherwise. Nares clear, no rhinorrhea or epistaxis. Mucous membranes moist. TM clear bilaterally. Base of tongue without any swelling but pain localized to the underside of the tongue without any lesions or rashes, ulcerations. No fissures on the tongue, sensation intact over the tongue base and sides with tingling along the top of the tongue bilaterally without any lateralization. No difficulty protruding the tongue. No lymphadenopathy in the neck. No neck stiffness. Patient is afebrile, no tachycardia, tachypnea or significant blood pressure elevations. Symptoms are nonspecific and vague and going on for 2 and half weeks associated with GI symptoms lack of appetite headache and new paresthesias in the mouth which could be vitamin or electrolyte deficiencies as there are no lateralizing deficits or concern for intracranial pathology such as a stroke based on exam and history. Blood work obtained, laboratory studies ordered. CT scan of the abdomen pelvis to find any potential intra-abdominal source of her decreased appetite and pain, x-ray of the chest and EKG obtained. CT of the head ordered. Patient given Tylenol and Zofran for nausea and pain. Laboratory studies show some dehydration with an elevated BUN and a low potassium. The low potassium could explain patient's subjective paresthesias on the tongue otherwise her head CT is unremarkable and her CT abdomen pelvis is also unremarkable with no acute findings. Patient re-evaluated had resolution of her symptoms aside from minor headache. Reassuring that no urgent or emergent concerns or causes today. Will hydrate her and provide potassium p.o. as well as some Toradol for headache. Creatinine is normal GFR is normal. No significant leukocytosis. No anemia. Normal platelet count. LFTs are unremarkable. Normal EKG with no signs of ST segment elevations ectopy or dysrhythmia. Negative viral panel. Patient remains hemodynamically stable and improved. Safe for discharge home with regular primary care provider follow-up. Medical Records Medical records reviewed: Yes I reviewed the external patient's medical records. Vital Signs Vital Signs: Vital Signs Temperature 36.3 C L 07/25/25 03:12 Pulse Rate 92 07/25/25 03:12 Respiratory Rate 14 07/25/25 03:12 Blood Pressure 173/92 H 07/25/25 03:12 Pulse Oximetry 99 07/25/25 03:12 Oxygen Delivery Room Air 07/25/25 03:12 Temperature 36.3 C L 07/25/25 03:15 Pulse Rate 76 07/25/25 06:15 Respiratory Rate 14 07/25/25 06:15 Blood Pressure 145/78 H 07/25/25 04:46 Pulse Oximetry 90 07/25/25 06:15 Oxygen Delivery Room Air 07/25/25 03:12 Lab Data Lab results reviewed: Yes I reviewed the patient's lab results. 07/25/25 04:22 07/25/25 04:22 Labs: Lab Results 07/25/25 07/25/25 Range/Units 03:41 04:22 WBC 10.9 H (4.5-10.0) K/mm3 RBC 4.54 (4.2-5.4) M/mm3 Hgb 13.9 (12.0-15.0) g/dL Hct 41.2 (37.0-47.0) % MCV 90.7 (80-100) fl MCH 30.6 (26-34) pg MCHC 33.7 (32-36) g/dl RDW 13.0 (11.5-14.5) % Plt Count 192 (150-375) k/mm3 MPV 12.4 H (7.4-10.4) fl Immature Gran % (Auto) 0.4 (0-0.5) % Neut % (Auto) 71.8 (45.5-73.1) % Lymph % (Auto) 20.3 (18.3-44.2) % [place] % (Auto) 6.3 (2.6-8.5) % Eos % (Auto) 0.9 (0-4.4) % Baso % (Auto) 0.3 (0.2-1.2) % Lymph # (Auto) 2.21 (0.9-3.2) K/mm3 [place] # (Auto) 0.7 H (0.1-0.6) K/mm3 Eos # (Auto) 0.1 (0-0.3) K/mm3 Baso # (Auto) 0.0 (0.0-0.1) K/mm3 Abs Immat Gran (auto) 0.04 H (0.00-0.031) K/mm3 Absolute Neuts (auto) 7.8 H (1.3-6.7) K/mm3 Absolute Nucleated RBC 0.000 (0.0-0.012) K/mm3 Nucleated RBC % 0.0 (0.0-0.2) % PT 13.0 (11.1-14.7) Seconds INR 1.0 APTT 28.1 (22.3-36.8) Seconds Sodium 133 L (137-145) mmol/L Potassium 2.9 L (3.4-5.0) mmol/L Chloride 92 L (98-107) mmol/L Carbon Dioxide 34 H (22-30) mmol/L Anion Gap 7 (4-12) mmol/L BUN 31 H D (7-17) mg/dL Creatinine 0.68 L (0.7-1.0) mg/dL Estim Creat Clear Calc Not Reportable Estimated GFR > 60 (59 - ) Glucose 170 H (65-110) mg/dL Calcium 9.8 (8.4-10.2) mg/dL Total Bilirubin 0.5 (0.2-1.3) mg/dL AST 41 H (14-36) U/L ALT 22 (6-35) U/L Alkaline Phosphatase 78 (38-126) U/L Total Protein 7.6 (6.3-8.2) g/dL Albumin 4.4 (3.5-5.1) g/dL Influenza A (RT-PCR) Negative (Negative) Influenza B (RT-PCR) Negative (Negative) RSV (RT-PCR) Negative (Negative) SARS-CoV-2 RNA (RT-PCR) Negative (Negative) Imaging Data Attestation: I personally reviewed and interpreted this imaging study as follows: My impression: Impressions Chest X-Ray 07/25/25 05:59 IMPRESSION: 1. No acute cardiopulmonary findings given portable technique. Consider PA and lateral films with deep inspiration. Head CT 07/25/25 06:00 IMPRESSION: 1. No acute intracranial findings. CT abdomen shows no acute findings. Stable adnexal structure unchanged from 2020. Discharge Plan Discharge Clinical Impression: Acute dehydration, Low blood potassium, Paresthesia of tongue Patient Disposition: Home Condition: Stable Instructions: Antibiotic Form Additional Instructions: Laboratory studies show dehydration and low potassium which were corrected here with fluids and oral potassium supplementation. CT scans of the head and abdomen with pelvis showed no acute abnormalities or acute concerns. Maintain good oral hydration and replenishment of electrolytes with oral potassium supplements or electrolyte containing solutions of fluids. Return with any emergent concerns otherwise follow-up with regular doctors. Patient Language: [place] Prescriptions: No Action rosuvastatin 40 mg tablet 40 mg PO DAILY famotidine 40 mg tablet 40 mg PO QHS Qty: 30 5RF naproxen 375 mg tablet 375 mg PO BID Qty: 14 0RF Patient Comments: not taking tramadol 50 mg tablet 50 mg PO Q6H PRN (Reason: pain) Qty: 14 0RF Patient Comments: not taking atorvastatin [Lipitor] 80 mg Tablet 80 mg PO DAILY amlodipine 5 mg Tablet 5 mg PO DAILY metoprolol tartrate 25 mg Tablet 25 mg PO Q12H hydrochlorothiazide 12.5 mg Tablet 12.5 mg PO DAILY levothyroxine [Euthyrox] 88 mcg tablet 88 mcg PO DAILY loratadine 10 mg tablet Patient Comments: not taking dapagliflozin propanediol [Farxiga] 10 mg tablet 10 mg PO DAILY Trulicity 0.75 mg/0.5 mL pen injector 0.75 mg SUBCUT WEEKLY Patient Comments: stopped taking 2 weeks ago metformin 500 mg tablet extended release 24 hr 500 mg PO BIDAC aspirin 81 mg tablet,delayed release (DR/EC) 81 mg PO DAILY Eliquis 5 mg tablet 5 mg PO Q12H insulin degludec [Tresiba FlexTouch U-100] 100 unit/mL (3 mL) insulin pen 12 unit SUBCUT QPM omeprazole 40 mg capsule,delayed release(DR/EC) 40 mg PO BID Qty: 60 5RF Patient Comments: not sure if taking Follow-up/Referrals: Vikki,Elke Rosas [Primary Care Provider] Time of Disposition: 06:12
--- OUTSIDE RECORDS SUMMARY | 2025-07-25 03:59 | XMS_ITS | Clinical Summary ---
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 Assessment & Plan (09/14/2024 12:10 PM MOLD CAPPER HELPER): Chronic, uncontrolled worsening A1c - 8.8 % [...] Florez. Assessment & Plan (09/14/2024 12:09 PM MOLD CAPPER HELPER): Chronic, well controlled Continue HCTZ and Metoprolol [...] changes. Assessment & Plan (09/14/2024 12:09 PM MOLD CAPPER HELPER): Continue Statin therapy Open wound of left foot 12/04/2010 Resolved Problems Problem Noted Date Diagnosed Date Resolved Date Dyslipidemia 03/08/2019 09/13/2021 Encounters Date Type Department Care Team Description 07/07/2025 1:00 PM CDT Office Visit [facility] [address] [address] Michelle Moyer PA Type 2 diabetes mellitus with hyperglycemia, with long-term current use of insulin (HCC) (Primary Dx); Hyperlipidemia associated with type 2 diabetes mellitus (HCC); Hypertension associated with diabetes (HCC); Acquired hypothyroidism 06/20/2025 10:12 AM CDT - 06/20/2025 11:59 PM CDT Hospital Encounter [facility] OP Cardiac Testing [address] [place] [address] Essential hypertension, benign; Mixed hyperlipidemia; Splenic infarct Discharge Disposition: Discharge to home or self care 06/20/2025 Results Follow-Up [facility] Medicine Surgery [address] [facility] [address] [place] [address] Lily Osullivan RMA US Arterial Doppler Lower Extremity Bilateral 06/16/2025 8:00 AM CDT Ancillary Procedure [facility] Medicine Vascular Lab at the [address] [place] [address] [place] [id number] Pain in left foot 06/10/2025 8:30 AM CDT Office Visit [facility] Medicine Surgery [address] [facility] [address] [place] [address] Miguelito Nolan, EMILY Type 2 diabetes mellitus with diabetic neuropathy, with long-term current use of insulin (HCC) (Primary Dx); Onychomycosis; Type 2 diabetes mellitus with foot ulcer, with long-term current use of insulin (HCC); Pain in left foot 06/02/2025 Telephone [facility] of [address] [place] [address] Cornelia Oliva MD eye exam request 05/11/2025 2:15 PM CDT Office Visit [facility] Cardiology [address] [facility] [address] [place] [address] Gia Samuel MD Essential hypertension, benign (Primary Dx); Mixed hyperlipidemia; Splenic infarct 04/29/2025 Telephone [facility] Medicine Surgery [address] [facility] [address] [place] [address] Gwen Malin from Last 3 Months Surgical History Surgery Date Site/Laterality Comments [place] DELIVERY ONLY Section - (Added by ELIAN Conv) [place] CHOLECYSTECTOMY Cholecystectomy - (Added by ELIAN Conv) [...] drink = 0.6 oz pur e alcohol) [facility] Utilities Answer Date Recorded In the past 12 months has e electric, gas, oil, or water [employer] threatened to shut off services in your home? No 09/30/2024 Social Connection and Isolation Panel Answer Date Recorded In a typical week, how many times do you talk on the phone with family, friends, or neighbors? Three times a week 09/30/19 How often do you get togethe r with friends or relatives? Three times a week 09/30/2024 How often do you attend [facility] or [facility] services? 1 to 4 times per year 09/30/2024 Do you belong to any clubs o r organizations such as moravian groups, unions, fraternal or athletic groups, or [...] any time in the past [address] [facility], were you homeless or living in a usp (including now)? No 09/30/2024 Personal Safety Answer Date Recorded Have you ever been in or are you currently in a harmful physical or emotional relationship or is someone making you feel afraid or unsafe? Denies 09/30/2024 Comments No Sex and Gender Information Value Date Recorded Sex Assigned at Not on file Legal Sex Female 6:28 AM MOLD CAPPER HELPER Gender Identity Not on file Sexual Orientation [...] Read Routine (OP Routine) 08/03/2021 10:33 AM MOLD CAPPER HELPER Encounter for screening for osteoporosis SCREENING MAMMOGRAM [...] AM Ht(Inch): 59 Wt(Lb): 155.01 BSA: 1.71 Rivet Tester: Afsaneh Michael RDCS Order Provider: GIA SAMUEL [...] AM Ht(Inch): 59 Wt(Lb): 155.01 BSA: 1.71 Rivet Tester: Afsaneh Michael RDCS Order Provider: GIA SAMUEL [...] AM CDT Narrative 06/17/2025 10:51 PM CDT [facility] - Department of Vascular Surgery, Vascular Laboratory [address] [place] [address] Lower Extremity Arterial Doppler Report Patient Name: BARTOLO MONTAGUE : 1950 Study Date: 06/16/2025 7:50:00 AM Sex: F Tech: Vesta Madera Location: [facility] Provider: MIGUELITO NOLAN Quality: Adequate Order Provider: MIGUELITO NOLAN PROCEDURES: Arterial Report: Bilateral lower extremity arterial Doppler exam at rest. INDICATIONS: M79.672 Pain in left foot. MEASUREMENTS: Right Value Units Left Value Units Rt Brachial Pressure 197 mmHg Lt Brachial Pressure 189 mmHg Rt FRUIT RAISER Pressure N/C mmHg Lt FRUIT RAISER Pressure N/C mmHg Rt DPA Pressure 218 mmHg Lt DPA Pressure 194 mmHg Rt 1st Digit Pressure 203 mmHg Lt 1st Digit Pressure 157 mmHg Rt PT MO Resting N/C Lt PT MO Resting N/C Rt AT MO Resting 1.11 Lt AT MO Resting 0.98 Rt Digit/Arm Index 1.03 Lt Digit/Arm Index 0.8 Right Value Units Left Value Units FINDINGS: Performing Rivet Tester: Vesta Madera RVT. Bilateral All Levels : The bilateral common femoral, popliteal, posterior tibial and anterior tibial artery waveforms are multiphasic. Comments: Right Arm BP taken after completion of testing - 205/90. Alison Florez MD PCP notified at 8:50am, patient was advised to go to ED. Stripper Opaquer and patients son present. Patient left with son to [facility] ED. CONCLUSIONS: 1. The ankle arteries are [...] Procedure Note Bossman Peña MD - 06/17/2025 [facility] - Department of Vascular Surgery,Vascular Laboratory [address] [place] [address] Lower Extremity Arterial Doppler Report Patient Name: BARTOLO MONTAGUE : 1950 Study Date: 06/16/2025 7:50:00 AM Sex: F Tech: Vesta Madera Location: [facility] Provider: MIGUELITO NOLAN Quality: Adequate Order Provider: MIGUELITO NOLAN PROCEDURES: Arterial Report: Bilateral lower extremity arterial Doppler exam at rest. INDICATIONS: M79.672 Pain in left foot. MEASUREMENTS: Right Value Units Left Value Units Rt Brachial Pressure 197 mmHg Lt Brachial Pressure 189 mmHg Rt FRUIT RAISER Pressure N/C mmHg Lt FRUIT RAISER Pressure N/C mmHg Rt DPA Pressure 218 mmHg Lt DPA Pressure 194 mmHg Rt 1st Digit Pressure 203 mmHg Lt 1st Digit Pressure 157 mmHg Rt PT MO Resting N/C Lt PT MO Resting N/C Rt AT OM Resting 1.11 Lt AT MO Resting 0.98 Rt Digit/Arm Index 1.03 Lt Digit/Arm Index 0.8 Right Value Units Left Value Units FINDINGS: Performing Rivet Tester: Vesta Madera RVT. Bilateral All Levels : The bilateral common femoral, popliteal, posterior tibial and anteriortibial artery waveforms are multiphasic. Comments: Right Arm BP taken after completion of testing - 205/90. CELESTINO Lambert notified at 8:50am, patient was advised to go to ED. Stripper Opaquer and patients sonpresent. Patient left with son to [facility] ED. CONCLUSIONS: 1. The ankle arteries are [...] ORDERABLE S Final Result Performing Organization Address [facility] de Phone Number [place] [address] Peña [place] [address] * (ABNORMAL) Albumin Creatinine Ratio, Urine (03/09/2025 [...] ORDERABLE S Final Result Performing Organization Address [facility] de Phone Number L[place] [address] Peña [place] [address] * (ABNORMAL) Lipid panel (03/09/2025 9:32 AM [...] LAB BLOOD ORDERABLE S Final Result LION [address] Peña Department of Laboratories [place], [place] [id number] * (ABNORMAL) DIABETES EYE EXAM (04/13/2024 9:40 AM CDT) Historical Provider HEALTH MAINTENANCE Edited Result - Final * Dexa Axial Skeleton Bone Density 1 or 2 Site (08/03/2021 10:33 AM MOLD CAPPER HELPER) Anatomical Region Laterality Modality Body N/A Mammography 08/03/2021 11:1 2 AM MOLD CAPPER HELPER Narrative 08/03/2021 11:12 AM MOLD CAPPER HELPER EXAM DESCRIPTION: DEXA AXIAL SKELETON BONE DENSITY 1 OR MORE SITES REASON FOR STUDY: Post-menopausal female, screening for osteoporosis. Tier In/Model: [employer] A (S/N [id number]) CLINICAL INFORMATION: Current height: 59 inches Maximum [...] by Peña Sierra M.D. AB: Report ID: [id number] Reading Location: [id number] Procedure Note Peña Sierra MD - 08/03/2021 EXAM DESCRIPTION: DEXA AXIAL SKELETON BONE DENSITY 1 OR MORE SITES REASON FOR STUDY: Post-menopausal female, screening for osteoporosis. Tier In/Model: [employer] A (S/N [id number]) CLINICAL INFORMATION: Current height: 59 inches Maximum [...] by Peña Sierra M.D. AB: Report ID: [id number] Reading Location: [id number] Nadia COFFEY IMG DXA PROCEDURES Final Result * Screening Mammogram Bilateral W Osbaldo (04/21/2019 1:03 PM CDT) Anatomical Region Laterality Modality Breast Bilateral Mammography 04/21/2019 1:25 PM CDT Narrative 04/21/2019 3:36 PM CDT Patient Name: BARTOLO MONTAGUE Dr: Alison Florez MD, D.O.B: 1950 Exam Date: 04/21/19 1303 Age: 69 Sex: Female MR#: [id number] Loc: RADIOLOGY REPORT Order #[id number] [facility] Samanta Bilat Screening 3D Signed - [...] made to exam dated: 05/15/2016 mammogram - [facility]. BREAST TISSUE: There are [...] age 40, based on guidelines of the [employer] [employer] (ACR Practice Parameter for the Performance of Screening and Diagnostic Mammography) and [place]. For women with an elevated risk of breast cancer, please refer to the ACR Practice Parameter for specific screening recommendations. The patient will be entered into a reminder system with a target due date of 1 year for her next screening exam. Electronically signed by: Ronald Dickinson M.D., md/zeb:04/21/2019 15:36:39 Firm Administrator: Sudha MEAD (Rasheed)(Poppy), [facility] letter sent: Normal Exam Reading location: HEALTH SYSTEM BI-RADS: 2 Benign REPORT ELECTRONICALLY SIGNED IN OTHER VENDOR SYSTEM Resulting Agency Comment O Procedure Note Ronald Dickinson MD - 04/21/2019 Patient Name: Libra MONTAGUE Dr: Alison Florez MD D.O.B: 1950 Exam Date: 04/21/19 1303 Age: 69 Sex: Female MR#: [id number] Loc: RADIOLOGY REPORT Order #[id number] [facility] Samanta Bilat Screening 3D Signed - [...] is made to exam dated: 05/15/2016 mammogram -[facility]. BREAST TISSUE: There are scattered [...] age 40, based on guidelines of the [place] [employer] (ACR Practice Parameter for the Performance of Screening and Diagnostic Mammography) and [employer]. For women with an elevated risk of breast cancer, pleaserefer to the ACR Practice Parameter for specific screening recommendations. The patient will be entered into a reminder system with a target due dateof 1 year for her next screening exam. Electronically signed by: Ronald Dickinson M.D., md/zeb:04/21/2019 15:36:39 Firm Administrator: Sudha El)(Poppy), [facility] letter sent: Normal Exam Reading location: HEALTH SYSTEM BI-RADS: 2 Benign REPORT ELECTRONICALLY SIGNED IN OTHER VENDOR SYSTEM Alison Florez MD IMG MAMMO PROCEDURES Fi nal Result from Last 3 Months or Most Recently Relevant to Health Maintenance Insurance MEDICARE [employer] [place] [employer] Address: [address] [address] [place] [address] MEDICARE [facility] [place] MEDICARE [employer] [facility] [place] [employer] Address: [id number] [place] [address] Advance Directives For more information, please contact: [phone] * Full Code (Latest Code Status on File) Date Activated Date Inactivated Comments 09/30/2024 12:32 AM 10/02/2024 9:[address] Grader Operator Relationship Specialty Start Date End Date Alison Florez MD [address] [address] PCP - General Internal Medicine 03/08/19 Gia Samuel MD [address] [address] Flash Drier Operator Cardiology 05/10/19 Didier Wilson DO [address] [place] [address] Medical Oncologist/[address] Hematology and Oncology 10/02/24
--- OUTSIDE RECORDS SUMMARY | 2025-07-25 03:59 | XMS_ITS | Clinical Summary ---
Author Organization [facility] Care Team Providers Care Blood Bank Worker Name Role Phone Unavailable Primary Care Provider Unavailabl e Social History Tobacco Use Types Packs/Day Years Used Date Smoking Tobacco: Never Assessed Comments Unknown Sex and Gender Information Value Date Recorded Sex Assigned at Not on file Legal Sex Female 3:36 PM CELL POURER Gender Identity Not on file Sexual Orientation [...]
--- OUTSIDE RECORDS SUMMARY | 2025-07-25 03:59 | XMS_ITS | Encounter Summary ---
Author Organization [facility] Facility Care Team Providers Care Rental Sales Agent Name Role Phone Marilin Barcenas NP Primary Care Provider [phone] Diamond Cannon Primary Care Provider + Elvia Denton NP Unavailable + [phone] Diamond Cannon Primary Care Provider + Joseph Walsh MD Primary Care Provider [phone] Alison Florez MD Primary Care Provider Dominick Blandon MD Unavailable [phone] Didier Wilson DO Unavailable [phone] Encounter Details Date Type Department Care Team (Latest Contact Info) Description 06/26/2017 Orders Only [facility]IN[facility] ProviderRen MD [address] [place] [address] Social History Tobacco Use Types Packs/Day Years Used Date Smoking Tobacco: Never Comments Unknown Sex and Gender Information Value Date Recorded Sex Assigned at Not on file Legal Sex Female 6:28 AM 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 Gender Identity Not on file Sexual [...] on filedocumented in this encounter Care Teams Rental Sales Agent Relationship Specialty Start Date End Date Marilin Barcenas NP [address] [place] [address] PCP - General 09/10/17 09/18/17 Diamond Cannon PA [address] [place] [address] PCP - General 09/19/17 10/21/18 Diamond Cannon PA [address] [place] [address] PCP - General 10/22/18 01/14/19 Joseph Walsh MD [address] [place] [address] PCP - General 01/15/19 03/07/19 Alison Florez MD [address] [place] [address] PCP - General Internal Medicine 03/08/19 Elvia Denton NP [address] [place] [address] Nurse Practitioner 10/22/18 10/22/18 Dominick Blandon MD [address] [facility] [address] [address] Patient Resource Coordinator Cardiology 05/10/19 Didier Wilson DO [address] [place] [address] Medical Oncologist/Bioengineer Hematology and Oncology 10/02/24 documented as of this encounter
--- OUTSIDE RECORDS SUMMARY | 2025-07-25 03:59 | XMS_ITS | Encounter Summary ---
Author Organization [facility] Facility Care Team Providers Care Hammersmith Helper Name Role Phone Marilin Barcenas NP Primary Care Provider [phone] Diamond Cannon Primary Care Provider + Elvia Denton CONCRETE LAYER Unavailable + [phone] Diamond Cannon Primary Care Provider + Joseph Walsh MD Primary Care Provider [phone] Alison Florez MD Primary Care Provider Dominick Blandon MD Unavailable [phone] Didier Wilson DO Unavailable [phone] Encounter Details Date Type Department Care Team (Latest Contact Info) Description 06/25/2017 Orders Only [facility] CLINCONV ProviderRen MD [address] [place] [address] Social History Tobacco Use Types Packs/Day Years Used Date Smoking Tobacco: Never Comments Unknown Sex and Gender Information Value Date Recorded Sex Assigned at Not on file Legal Sex Female 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 Gender Identity Not on file Sexual Orientation [...] on filedocumented in this encounter Care Teams Hammersmith Helper Relationship Specialty Start Date End Date Marilin Barcenas NP [address] [address] PCP - General 09/10/17 09/18/17 Diamond Cannon PA [address] [address] PCP - General 09/19/17 10/21/18 Diamond Cannon PA [address] [address] PCP - General 10/22/18 01/14/19 Joseph Walsh MD [address] [place] [address] PCP - General 01/15/19 03/07/19 Alison Florez MD [address] [place] [address] PCP - General Internal Medicine 03/08/19 [place] [address] [place] [address] Nurse Practitioner 10/22/18 10/22/18 Dominick Blandon MD [address] [address] Protein Scientist Cardiology 05/10/19 Didier Wilson DO [address] [place] [address] Medical Oncologist/Respiratory Tech Hematology and Oncology 10/02/24 documented as of this encounter
--- OUTSIDE RECORDS SUMMARY | 2025-07-25 03:59 | XMS_ITS | Encounter Summary ---
Author Organization [facility] Address [address] [place] [address] Phone Care Team Providers Care Amusement Park Worker Name Role Phone Alison Florez MD Primary Care Provider Dominick Blandon MD Unavailable [phone] Didier Wilson DO Unavailable [phone] Encounter Details Date Type Department Care Team (Late st Contact Info) Description 07/16/2023 Telephone [facility] Medicine Surgery [address] [facility] Medical Office [address] [place] [address] Tamera Welch RMA Social History Tobacco Use Types Packs/Day Years Used Date Smoking Tobacco: Never Smokeless Tobacco: Never Alcohol Use Standard Drinks/Week Comments No 0 (1 standard drink = 0.6 oz pur e alcohol) Comments Unknown Sex and Gender Information Value Date Recorded Sex Assigned at Not on file Legal Sex Female 6:28 AM MEASUREMENT AND VERIFICATION ENGINEER Gender Identity Not on file Sexual Orientation Choose not to disclose 2018 2:19 PM CDT documented as of this encounter Plan of Treatment Not on file documented as of this encounter Visit Diagnoses Not on filedocumented in this encounter Care Teams Amusement Park Worker Relationship Specialty Start Date End Date Alison Florez MD [address] [address] PCP - General Internal Medicine 03/08/19 Dominick Blandon MD [address] [address] Builder Operator Cardiology 05/10/19 Didier Wilson DO [address] [place] [address] Medical Oncologist/Beach Attendant Hematology and Oncology 10/02/24 documented as of this encounter
[2025-07-25] MEDS: ONDANSETRON INJ 4 MG/2 ML VIAL IV PUSH (04:08)
[2025-07-25] MEDS: ACETAMINOPHEN 500 MG TABLET 1000 MG PO (04:08)
[2025-07-25 04:26] LABS: Influenza A QL RT-PCR Negative (Negative); Influenza B QL RT-PCR Negative (Negative); RSV RNA, RT-PCR Negative (Negative); SARS-CoV-2 RNA PCR Negative (Negative)
[2025-07-25 04:33] LABS: Hematocrit 41.2 % (37.0-47.0); Hemoglobin 13.9 g/dL (12.0-15.0); Immature Granulocyte Percent A 0.4 % (0-0.5); Lymphocytes Absolute Auto 2.21 K/mm3 (0.9-3.2); Mean Corpuscular HGB Conc 33.7 g/dl (32-36); Mean Corpuscular Hemoglobin 30.6 pg (26-34); Mean Corpuscular Volume 90.7 fl (80-100); Nucleated Red Blood Cells Absolute Auto 0.000 K/mm3 (0.0-0.012); Nucleated Red Blood Cells Perc 0.0 % (0.0-0.2); Platelet Count Result 192 k/mm3 (150-375); Red Blood Count 4.54 M/mm3 (4.2-5.4); White Blood Count 10.9 K/mm3 (4.5-10.0)
[2025-07-25 04:47] LABS: Alanine Aminotransferase 22 U/L (6-35); Albumin Level 4.4 g/dL (3.5-5.1); Alkaline Phosphatase 78 U/L (38-126); Anion Gap 7 mmol/L (4-12); Aspartate Amino Transferase 41 U/L (14-36); Bilirubin,Total 0.5 mg/dL (0.2-1.3); Blood Urea Nitrogen 31 mg/dL (7-17); Calcium 9.8 mg/dL (8.4-10.2); Carbon Dioxide 34 mmol/L (22-30); Chloride 92 mmol/L (98-107); Estimated Glomerular Filt Rate > 60; Glucose 170 mg/dL (65-110); INR 1.0; Potassium 2.9 mmol/L (3.4-5.0); Prothrombin Time 13.0 Seconds (11.1-14.7); Sodium 133 mmol/L (137-145); Total Protein 7.6 g/dL (6.3-8.2)
[2025-07-25 04:48] LABS: Partial Thromboplastin Time 28.1 Seconds (22.3-36.8)
[2025-07-25] MEDS: LACTATED RINGERS 1,000 ML 999 ML IV CONT (06:23)
[2025-07-25] MEDS: KETOROLAC 15 MG/ML VIAL (*BKC) IV PUSH (06:24)
[2025-07-25] MEDS: POTASSIUM CHLORIDE 20 MEQ PACKET (FOR LIQUID) PO (06:25)
[2025-07-25] MEDS: POTASSIUM CHLORIDE 20 MEQ ER TABLET 40 MEQ PO (06:25)
== END 2025-07-25 08:14 | disposition home or self-care (01) ==
PROVIDERS: Emergency Provider Student in an Organized Health Care Education/Training Program; PCP Internal Medicine Infectious Disease
DX: E86.0 Dehydration (principal); E87.6 Hypokalemia; R20.2 Paresthesia of skin; Z20.822 Contact with and (suspected) exposure to COVID-19; E03.9 Hypothyroidism, unspecified; I10 Essential (primary) hypertension; K21.9 Gastro-esophageal reflux disease without esophagitis; E11.9 Type 2 diabetes mellitus without complications; Z79.4 Long term (current) use of insulin; I44.4 Left anterior fascicular block; Z79.01 Long term (current) use of anticoagulants
CPT/HCPCS: 36415; 70450; 71045; 74177; 80053; 85025; 85610; 85730; 87637; 93005; 96361; 96374; 96375; 99284; A9270; J1885; J2405; J7120; Q9967